=== PATIENT | male | born 1950 | race Caucasian/White ===

== ENCOUNTER → 2016-06-03 | Outpatient (CLI) | payer MEDICARE ==
[2016-06-03 10:45] LABS: CH 34.7; CHCM 33.5; HCT 47.1 % (39.0-53.0); HDW 2.18; HGB 15.2 gm/dL (13.0-17.5); MCH 33.6 pg (25.0-35.0); MCHC 32.3 g/dL (31.0-37.0); Macrocytosis Slight; Mean Platelet Volume 6.9; RBC 4.53 m/uL (4.30-5.90); WBC 4.9 k/uL (3.8-10.6)
[2016-06-03 10:52] LABS: Anion Gap 10 mmol/L; Blood Urea Nitrogen 17 mg/dL (9-20); Calcium 9.8 mg/dL (8.4-10.2); Carbon Dioxide 26 mmol/L (22-30); Chloride 104 mmol/L (98-107); Glucose 87 mg/dL (74-99); Non-African American GFR(MDRD) >60 (>60 ml/min/1.73 sqM); Potassium 5.5 mmol/L (3.5-5.1); Sodium 140 mmol/L (137-145)
== END | disposition home or self-care (01) ==
LOC: LABWHC1 09:56
PROVIDERS: ATTEND Internal Medicine Clinical Cardiac Electrophysiology
DX: I49.3 Ventricular premature depolarization (principal); I47.2 Ventricular tachycardia
CPT/HCPCS: 36415; 80048; 85027

== ENCOUNTER 2016-06-16 06:09 | Day surgery (SDC) | payer MEDICARE ==
[2016-06-11 14:18] VITALS: BMI 24.4
[2016-06-16] MEDS: SODIUM CHLORIDE 0.9% 1,000 ML IV SCH (06:36)
[2016-06-16] MEDS ORDERED: MIDAZOLAM 2 MG/2 ML VIAL IV PRN (06:56)
[2016-06-16] MEDS ORDERED: HYDROmorphone 1 MG/ML 1 ML SYRINGE IVP PRN (06:56)
[2016-06-16] MEDS ORDERED: LACTATED RINGERS 1,000 ML IV SCH (07:00)
[2016-06-16] MEDS ORDERED: ePHEDrine 50 MG/ML 1 ML AMP ONE (07:27)
[2016-06-16] MEDS ORDERED: GLYCOPYRROLATE 0.2 MG/ML 2 ML VIAL ONE (07:27)
[2016-06-16] MEDS ORDERED: PROTAMINE SULFATE 10 MG/ML 5 ML VIAL IV ONE (07:27)
[2016-06-16] MEDS ORDERED: ONDANSETRON 4 MG/2 ML VIAL ONE (07:27)
[2016-06-16] MEDS ORDERED: PROPOFOL 10 MG/ML 20 ML VIAL IV ONE (07:27)
[2016-06-16] MEDS ORDERED: HEPARIN SODIUM,PORCINE 5,000 UNIT/ML 1 ML VIAL ONE (07:27)
[2016-06-16] MEDS ORDERED: fentaNYL (PF) 50 MCG/ML 2 ML AMP ONE (07:27)
[2016-06-16] MEDS ORDERED: ATROPINE SULFATE 0.4 MG/ML 1 ML VIAL ONE (07:27)
[2016-06-16] MEDS ORDERED: MIDAZOLAM 2 MG/2 ML VIAL ONE (07:27)
[2016-06-16] MEDS ORDERED: ISOPROTERENOL 250 MCG/1.25 ML SYR IV ONE (07:27)
[2016-06-16] MEDS ORDERED: HEPARIN SODIUM 1,000 UNIT/ML VIAL ONE (07:27)
[2016-06-16] MEDS ORDERED: LIDOCAINE 2% INJ 20 MG/ML SQ ONE (08:04)
[2016-06-16] MEDS ORDERED: HEPARIN SODIUM (1,000 UNIT/ML) 1,000 UNIT in SODIUM CHLORIDE 0.9% 1,000 ML IRRIGATION ONE (08:18)
[2016-06-16] MEDS ORDERED: HEPARIN SODIUM,PORCINE/D5W PMX 25,000 UNIT in DEXTROSE/WATER 1 500ML.BAG IV ONE (08:18)
[2016-06-16] MEDS ORDERED: ACETAMINOPHEN TAB 325 MG TAB PO PRN (11:54)
[2016-06-16] MEDS ORDERED: ACETAMINOPHEN IV (For NPO) 1,000 MG in EMPTY BAG 1 BAG IVPB ONE (11:54)
[2016-06-16] MEDS ORDERED: IOHEXOL 350 MG/ML 50ML BOTTLE INJ ONE (12:20)
[2016-06-16] MEDS ORDERED: KETOROLAC 30 MG/ML 1 ML VIAL IVP ONE (13:11)
--- NOTE | 2016-06-16 13:57 | CE ---
DATE OF SERVICE: Sumeet Rosado is a 66-year-old male patient who has had increased frequency of palpitations. 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 He is brought in for an EP study mapping and ablation of the PVC. Patient was brought to the EP lab in a fasting state. Written informed consent was obtained prior to the procedure. The right and left groins were prepped and draped as per protocol. Venous sheaths were placed in the right and left femoral veins and an arterial sheath was placed in the femoral artery for hemodynamic monitoring and sampling. The patient's blood pressure was stable throughout the procedure. Through the procedure, heparin was used and ACT was maintained close to 300. Diagnostic catheters were placed in the high right atrium, His bundle area, RV and later CS. Sinus cycle length 790 ms, KS interval 210 ms, QRS 93 ms, QT 373 ms, AH interval 157 ms, HV interval 52 ms, he has had a prolonged KS interval at baseline. Sinus node recovery times at 600, 500 and 400 milliseconds were 1126, 793 and 699 milliseconds. AV node Wenckebach block in a likely sedated state was 400 ms. AV node ERP 500/310 ms, VA Wenckebach block greater than 600 ms. Burst stimulation was performed from the RV from 500 milliseconds down to 200 ms and no arrhythmia was induced. He had very infrequent PVCs in likely sedated state. But clinical PVCs were documented and captured on the caudal system. Isuprel was then started. CS pacing was performed. AV node Wenckebach block 260 ms. Atrial stimulation was performed. Ventricular extrastimulation was performed. No nonsustained sustained VT was induced. However, during Isuprel washout phase, the PVC frequency showed significant increase and the vast majority of these were his clinical premature ventricular contractions which showed a right bundle branch block pattern with an R/S pattern in lead I and deep S waves in 2, 3 aVF. He also had another PVC morphology from the left ventricle which is quite occasional and the third one from the right ventricle body. These are less frequent and when not targeted for ablation. The clinical PVC was targeted for ablation only. Intracardiac echocardiography was performed. The right ventricle and left ventricular aortic root was identified and the atrial septum was identified. 3-D anatomic mapping of the left ventricle was performed. The papillary muscles are clearly identified and mapped. An irrigated-tip ablation catheter was placed in the left ventricle via the retrograde route after using a long sheath. Initially I had used. A small sheath for the left femoral artery. This was prior to place the mapping and ablation catheter. A long sheath was placed. There was a tortuosity of the iliac veins. Paced mapping was performed using the pacemaker system PASO system, ( ). Excellent paced maps were obtained in between the papillary muscles in the mid LV. RF ablation was performed at the site of the best paced map, there were 2 sites very close to each other both with paced map of 97.8%. The proximal was slightly better in lead V1. RF ablations were performed here exactly at the site and around it and this will result in a flurry of clinical premature ventricular contractions upon ablation. The area was completely mapped in detail with paced mapping and successfully ablated using power of 30-35 thomas, contact force between 20 and 40 grams. At the end of the procedure, successful ablation site was tested with high output pacing. Noncapture was documented. In addition, grid was changed with the ablation grid was changed to 100% and there were no gaps in between the two best paced map sites. Patient tolerated the procedure well without any acute complications. Isuprel was once again started. He had very occasional clinical PVCs and very occasional other PVCs, one from the right ventricle and another one from the left ventricle. These were not targeted for mapping or ablation. No nonsustained ventricular tachycardia was induced. RESULT: 1. Diagnostic EP study revealing mildly prolonged KS interval, prolonged AH interval. 2. Frequent PVCs one dominant clinical morphology and the other nondominant one from the left ventricle and another nondominant one from the right ventricle body. 3. Successful ablation of the clinical PVC was performed with pace map accuracy of concordance of 97.8%. Patient tolerated the procedure well with acute complications. Sheaths were removed at the end of the procedure. Angio-Seal was applied with good peripheral pulses noted.
--- NOTE | 2016-06-16 14:00 | LTR ---
June 16, 2016 RE: Sumeet Rosado Gavin Dear Dr. Briceño: I had the pleasure of seeing Mr. Sumeet Rosado in electrophysiology follow-up. Mr. Sumeet Rosado underwent successful ablation of his clinical PVCs from the left ventricle. He does have other PVCs which are very infrequent and were not targeted for ablation. This should result in significant reduction in his clinical PVCs. He will be monitored overnight on telemetry and will be discharged tomorrow. I will see him again in the office in about a week. Thank you for entrusting me in the care of your patient. Warm regards, Sincerely, ANITA MALDONADO MD
[2016-06-16 16:23] VITALS: RESP 16
[2016-06-16] MEDS ORDERED: PNEUMOCOCCAL VACC-PNEUMOVAX 23 25 MCG/0.5 ML VIAL IM ONE (20:00)
[2016-06-16] MEDS: HYDROcodone/APAP 5-325MG 1 EACH TAB PO PRN (20:58)
[2016-06-17] MEDS: HYDROcodone/APAP 5-325MG 1 EACH TAB PO PRN (04:31)
[2016-06-17] MEDS: SODIUM CHLORIDE 0.9% 1,000 ML IV SCH (06:43)
[2016-06-17] MEDS ORDERED: PANTOPRAZOLE 40 MG TABLET PO SCH (07:30)
--- NOTE | 2016-06-17 07:54 | P.DS ---
Providers Attending physician: Kareem Garza Primary care physician: [facility] Course: Patient is doing well. Denies any chest discomfort no dizziness lightheadedness. He is been ablating in the hallways. No pain in the groins. No swelling or hematoma noted on examination in both groins Vitals are stable. Afebrile 97.7F, pulse rate in the 70s, blood pressure 131/64 mmHg No JVD No lower extremity edema, ulcers a well palpable both dorsalis pedis and tibialis posterior on the right side Heart sounds S1 and S2 are normal with a soft systolic murmur Breath sounds are normal no rhonchi no crackles Abdomen soft nontender Extremities are warm no edema Twelve-lead ECG was reviewed Sinus rhythm mildly prolonged MI interval no ST segment abnormalities Q-wave in 3 Impression Frequent symptomatic PVCs of increasing frequency, left-sided, inferior wall in between the papillary muscles Pace mapping concordance with clinical PVCs was 97.8% RF ablation at and around the site, non-capture with high output pacing following ablation Plan Ambulate in the hallways today to discharge by 10:30 AM if stable, follow-up in the office in a week Holter monitor in 6 weeks and follow-up with Dr. Marr in 8 weeks Patient Condition at Discharge: Good Plan - Discharge Summary Discharge Medication List Acetaminophen [Tylenol] 650 mg PO DAILY PRN 11/20/14 [History] Cetirizine HCl 10 mg PO DAILY 11/20/14 [History] Pantoprazole Sodium [Protonix] 40 mg PO DAILY 11/20/14 [History]
[2016-06-17 08:19] VITALS: BP 134/69; PULSE 76; TEMP 96.9
== END 2016-06-17 11:15 | disposition home or self-care (01) ==
LOC: CATHEP 06:09 → 6SEL 12:55 → CATHEP 06-17 11:15
PROVIDERS: ATTEND Internal Medicine Clinical Cardiac Electrophysiology
DX: I49.3 Ventricular premature depolarization (principal); R00.2 Palpitations; K21.9 Gastro-esophageal reflux disease without esophagitis; Z82.49 Family history of ischemic heart disease and other diseases of the circulatory system; Z79.899 Other long term (current) drug therapy; Z88.1 Allergy status to other antibiotic agents; Z87.891 Personal history of nicotine dependence
CPT/HCPCS: 93623; 93662; 93654; 85347; 84132; C1769 ×3; C1894 ×2; C1730 ×2; C1760; C1893; C1759; C1732; J2001; J2250; J2720; J0461; J1644 ×3; J2405; J3010; J1885; J1170; J0131; J2704; Q9967

== ENCOUNTER 2016-06-18 08:18 | Observation (INO) | payer MEDICARE ==
--- NOTE | 2016-06-18 08:56 | ED ---
General Adult HPI - General Source: patient, RN notes reviewed, old records reviewed Mode of arrival: wheelchair Limitations: no limitations <Tyrese Casanova - Last Filed: 06/18/16 11:15> <Jose Browning - Last Filed: 06/18/16 13:31> - General Chief complaint: Arrhythmia/Palpitations Stated complaint: irregular heart beat Time Seen by Provider: 06/18/16 08:48 - History of Present Illness Initial comments: Patient is a 66-year-old male who presents emergency room today with a chief complaint of feeling his heart rate skipped beats throughout the night. Admits that this morning felt very cold and clammy. States it started approximately 2 hours ago. States that he had a recent cardiac ablation done just 2 days ago and was released from the hospital yesterday. States he was somewhat tired yesterday but felt okay. States that this morning started feeling like his heart was skipping a beat and he felt sweaty and cold. Patient states that this time his not having the symptoms. He denies any other complaints or symptoms. Patient denies any recent fever, chills, shortness of breath, chest pain, back pain, abdominal pain, nausea or vomiting, numbness or tingling, dysuria or hematuria, constipation or diarrhea, headaches or visual changes, or any other complaints. (Tyrese Casanova) - Related Data Home Medications Medication Instructions Recorded Confirmed Cetirizine HCl 10 mg PO DAILY 11/20/14 06/18/16 Pantoprazole Sodium [Protonix] 40 mg PO DAILY 11/20/14 06/18/16 Aspirin 325 mg PO DAILY PRN 06/18/16 06/18/16 L.acidoph,Paracasei, B.lactis 1 cap PO DAILY 06/18/16 06/18/16 [Probiotic] Allergies Allergy/AdvReac Type Severity Reaction Status Date / Time ciprofloxacin Allergy Rash/Hives Verified 06/18/16 08:49 levofloxacin [From Levaquin] AdvReac Nausea Verified 06/18/16 08:49 SEASONAL ALLERGIES AdvReac SNEEZING Uncoded 06/18/16 08:25 Review of Systems ROS Other: All systems not noted in ROS Statement are negative. <Tyrese Casanova - Last Filed: 06/18/16 11:15> ROS Other: All systems not noted in ROS Statement are negative. <Jose Browning - Last Filed: 06/18/16 13:31> ROS Statement: Those systems with pertinent positive or pertinent negative responses have been documented in the HPI. Past Medical History History of Any Multi-Drug Resistant Organisms: None Reported Past Surgical History: Cardiac Ablation, Hernia Repair, Orthopedic Surgery Additional Past Surgical History / Comment(s): eye surgery, sinus surgery Past Psychological History: No Psychological Hx Reported Smoking Status: Never smoker Past Alcohol Use History: Occasional Past Drug Use History: None Reported <Tyrese Casanova - Last Filed: 06/18/16 11:15> General Exam Limitations: no limitations <Tyrese Casanova - Last Filed: 06/18/16 11:15> <Jose Browning - Last Filed: 06/18/16 13:31> - General Exam Comments Initial Comments: General: The patient is awake and alert, in no distress, and does not appear acutely ill. Eye: Pupils are equal, round and reactive to light, extra-ocular movements are intact. No nystagmus. There is normal conjunctiva bilaterally. No signs of icterus. Ears, nose, mouth and throat: There are moist mucous membranes and no oral lesions. Neck: The neck is supple, there is no tenderness or JVD. Cardiovascular: There is a regular rate and rhythm. No murmur, rub or gallop is appreciated. Respiratory: Lungs are clear to auscultation, respirations are non-labored, breath sounds are equal. No wheezes, stridor, rales, or rhonchi. Gastrointestinal: Soft, non-distended, non-tender abdomen without masses or organomegaly noted. There is no rebound or guarding present. No CVA tenderness. Bowel sounds are unremarkable. Musculoskeletal: Normal ROM, no tenderness. Strength 5/5. Sensation intact. Pulses equal bilaterally 2+. Neurological: A&O x 3. CN II-XII intact, There are no obvious motor or sensory deficits. Coordination appears grossly intact. Speech is normal. Skin: Skin is warm and dry and no rashes or lesions are noted. Psychiatric: Cooperative, appropriate mood & affect, normal judgment. (Tyrese Casanova) Course <Tyrese Casanova - Last Filed: 06/18/16 11:15> <Jose Browning - Last Filed: 06/18/16 13:31> Vital Signs 06/18/16 08:20 Temperature 97.0 F L Pulse Rate 74 Respiratory 20 Rate Blood Pressure 114/57 O2 Sat by Pulse 99 Oximetry - Reevaluation(s) Reevaluation #1: 06/18/16 11:12 Patient reexamined and resting comfortably in bed. Patient did have palpitations and diaphoresis. EKG has some questionable inferior changes. Dr. REGINA warren is in the Referral Nurse and was notified. Case was also discussed with Dr. flores, who will admit for Dr. Briceño. 06/18/16 13:[address] Marr who would like patient to be placed in observation under him. (Jose Browning) Medical Decision Making - Lab Data Result diagrams: 06/18/16 09:05 06/18/16 09:05 <Tyrese Casanova - Last Filed: 06/18/16 11:15> - Lab Data Result diagrams: 06/18/16 09:05 06/18/16 09:05 <Jose Browning - Last Filed: 06/18/16 13:31> - Lab Data Lab Results 06/18/16 06/18/16 06/18/16 Range/Units 09:05 09:05 09:05 WBC 6.6 (3.8-10.6) k/uL RBC 4.33 (4.30-5.90) m/uL Hgb 15.1 (13.0-17.5) gm/dL Hct 45.1 (39.0-53.0) % MCV 104.2 H (80.0-100.0) fL MCH 34.9 (25.0-35.0) pg MCHC 33.5 (31.0-37.0) g/dL RDW 12.6 (11.5-15.5) % Plt Count 190 (150-450) k/uL Neutrophils % 69 % Lymphocytes % 15 % Monocytes % 10 % Eosinophils % 2 % Basophils % 1 % Neutrophils # 4.5 (1.3-7.7) k/uL Lymphocytes # 1.0 (1.0-4.8) k/uL Monocytes # 0.7 (0-1.0) k/uL Eosinophils # 0.1 (0-0.7) k/uL Basophils # 0.0 (0-0.2) k/uL Macrocytosis Slight PT (9.0-12.0) sec INR (<1.1) APTT (22.0-30.0) sec Sodium 140 (137-145) mmol/L Potassium 4.0 (3.5-5.1) mmol/L Chloride 105 (98-107) mmol/L Carbon Dioxide 28 (22-30) mmol/L Anion Gap 7 mmol/L BUN 9 (9-20) mg/dL Creatinine 0.70 (0.66-1.25) mg/dL Est GFR (MDRD) Af Amer >60 (>60 ml/min/1.73 sqM) Est GFR (MDRD) Non-Af >60 (>60 ml/min/1.73 sqM) Glucose 85 (74-99) mg/dL Calcium 9.5 (8.4-10.2) mg/dL Magnesium 2.0 (1.6-2.3) mg/dL Total Bilirubin 1.0 (0.2-1.3) mg/dL AST 43 (17-59) U/L ALT 41 (21-72) U/L Alkaline Phosphatase 77 (38-126) U/L Total Creatine Kinase 128 (55-170) U/L CK-MB (CK-2) 2.9 H* (0.0-2.4) ng/mL CK-MB (CK-2) Rel Index 2.3 Troponin I 1.260 H* (0.000-0.034) ng/mL Total Protein 6.7 (6.3-8.2) g/dL Albumin 3.6 (3.5-5.0) g/dL 06/18/16 Range/Units 09:05 WBC (3.8-10.6) k/uL RBC (4.30-5.90) m/uL Hgb (13.0-17.5) gm/dL Hct (39.0-53.0) % MCV (80.0-100.0) fL MCH (25.0-35.0) pg MCHC (31.0-37.0) g/dL RDW (11.5-15.5) % Plt Count (150-450) k/uL Neutrophils % % Lymphocytes % % Monocytes % % Eosinophils % % Basophils % % Neutrophils # (1.3-7.7) k/uL Lymphocytes # (1.0-4.8) k/uL Monocytes # (0-1.0) k/uL Eosinophils # (0-0.7) k/uL Basophils # (0-0.2) k/uL Macrocytosis PT 10.4 (9.0-12.0) sec INR 1.0 (<1.1) APTT 24.1 (22.0-30.0) sec Sodium (137-145) mmol/L Potassium (3.5-5.1) mmol/L Chloride (98-107) mmol/L Carbon Dioxide (22-30) mmol/L Anion Gap mmol/L BUN (9-20) mg/dL Creatinine (0.66-1.25) mg/dL Est GFR (MDRD) Af Amer (>60 ml/min/1.73 sqM) Est GFR (MDRD) Non-Af (>60 ml/min/1.73 sqM) Glucose (74-99) mg/dL Calcium (8.4-10.2) mg/dL Magnesium (1.6-2.3) mg/dL Total Bilirubin (0.2-1.3) mg/dL AST (17-59) U/L ALT (21-72) U/L Alkaline Phosphatase (38-126) U/L Total Creatine Kinase (55-170) U/L CK-MB (CK-2) (0.0-2.4) ng/mL CK-MB (CK-2) Rel Index Troponin I (0.000-0.034) ng/mL Total Protein (6.3-8.2) g/dL Albumin (3.5-5.0) g/dL Disposition Time of Disposition: 11:15 <Tyrese Casanova - Last Filed: 06/18/16 11:15> <Jose Browning - Last Filed: 06/18/16 13:31> Clinical Impression: Unstable angina Disposition: ADMITTED IP TO THIS HOSP Condition: Stable Addendum entered and electronically signed by Tyrese Casanova PAC 06/18/16 11: 30: EKG performed at 0830: Shows sinus rhythm with first-degree AV block at 77 beats per minute. AR interval 218. QRS is 80. QT/QTC 382/432. No acute ST changes. Compared to previous EKG on 06/24/2013.
[2016-06-18 09:39] LABS: Basophils % (A) 1 %; CH 35.2; CHCM 33.9; Eosinophils # (A) 0.1 k/uL (0-0.7); Eosinophils % (A) 2 %; HCT 45.1 % (39.0-53.0); HDW 2.09; HGB 15.1 gm/dL (13.0-17.5); Luc # (Auto) 0.25; Luc % (Auto) 4; Lymphocytes % (A) 15 %; MCH 34.9 pg (25.0-35.0); MCHC 33.5 g/dL (31.0-37.0); MCV 104.2 fL (80.0-100.0); Macrocytosis Slight; Mean Platelet Volume 6.7; Monocytes # (A) 0.7 k/uL (0-1.0); Monocytes % (A) 10 %; Neutrophils # (A) 4.5 k/uL (1.3-7.7); Neutrophils % (A) 69 %; RBC 4.33 m/uL (4.30-5.90); RDW 12.6 % (11.5-15.5); WBC 6.6 k/uL (3.8-10.6); WBC (Perox) 6.32
--- NOTE | 2016-06-18 09:50 | XR ---
EXAMINATION TYPE: XR chest 2V DATE OF EXAM: 06/18/2016 9:44 AM COMPARISON: 06/24/2013 HISTORY: 66-year-old male with chest pain TECHNIQUE: Frontal and lateral views FINDINGS: The cardiomediastinal silhouette, aorta, and pulmonary vasculature are within normal limits. Some str thiago atelectasis in the lower lungs. Otherwise, lungs and pleural spaces are clear. IMPRESSION: Some lower lung areas of atelectasis. Otherwise, no acute cardiopulmonary process.
[2016-06-18 09:52] LABS: ALT 41 U/L (21-72); AST 43 U/L (17-59); Alkaline Phosphatase 77 U/L (38-126); Anion Gap 7 mmol/L; Blood Urea Nitrogen 9 mg/dL (9-20); Calcium 9.5 mg/dL (8.4-10.2); Carbon Dioxide 28 mmol/L (22-30); Chloride 105 mmol/L (98-107); Glucose 85 mg/dL (74-99); Non-African American GFR(MDRD) >60 (>60 ml/min/1.73 sqM); Sodium 140 mmol/L (137-145); Total Protein 6.7 g/dL (6.3-8.2)
[2016-06-18 09:58] LABS: Partial Thromboplastin Time 24.1 sec (22.0-30.0); Prothrombin Time 10.4 sec (9.0-12.0)
[2016-06-18 11:01] LABS: Creatine Kinase MB 2.9 ng/mL (0.0-2.4); Troponin I 1.26 ng/mL (0.000-0.034)
[2016-06-18] MEDS ORDERED: HEPARIN SODIUM,PORCINE 5,000 UNIT/ML 1 ML VIAL IV ONE (11:12)
[2016-06-18] MEDS ORDERED: SODIUM CHLORIDE 0.9% 1,000 ML IV ONE (11:12)
[2016-06-18] MEDS ORDERED: ASPIRIN 81 MG CHEW PO STA (11:12)
[2016-06-18] MEDS ORDERED: HEPARIN SODIUM,PORCINE/D5W PMX 25,000 UNIT in DEXTROSE/WATER 1 500ML.BAG IV SCH (11:15)
[2016-06-18 13:54] VITALS: RESP 18
[2016-06-18 17:15] LABS: Creatine Kinase MB 2.3 ng/mL (0.0-2.4)
[2016-06-18 17:16] LABS: Troponin I 1.14 ng/mL (0.000-0.034)
[2016-06-18] MEDS: NITROGLYCERIN OINT 1 INCH/GM PACKET TOPICAL SCH (17:19)
[2016-06-18] MEDS ORDERED: HYDROcodone/APAP 10-325MG 1 EACH TAB PO PRN (20:42)
[2016-06-18] MEDS ORDERED: TEMAZEPAM 30 MG CAP PO PRN (20:46)
[2016-06-18 22:39] LABS: Creatine Kinase MB 1.7 ng/mL (0.0-2.4)
[2016-06-18 22:46] LABS: Troponin I 1.2 ng/mL (0.000-0.034)
[2016-06-19 04:02] LABS: Cholesterol 197 mg/dL (<200); HDL Cholesterol 82 mg/dL (40-60); Triglycerides 88 mg/dL (<150)
[2016-06-19 06:22] VITALS: TEMP 97.9
--- NOTE | 2016-06-19 08:27 | P.HPCAR ---
History of Present Illness This is my admission note and also serves as the discharge note Patient was admitted yesterday with symptoms of feeling cold and sweaty. The night before he felt his heart skip a beat every now and then. He denied any chest discomfort no upper back discomfort although he always has low back pain from spondylolisthesis. No dizziness lightheadedness or loss of consciousness his main symptoms of feeling cold and sweaty yesterday morning and that's what brought him to the hospital His chest x-ray showed atelectasis Twelve-lead ECG shows sinus rhythm normal MO interval Q waves in lead 2 and S wave in 3 with T-wave inversions in inferior leads no other ST segment abnormalities. Give first troponin was 1.2 He was admitted started on IV heparin and aspirin Past history of frequent symptomatic PVCs status post ablation of the PVC focus in the inferior wall earlier this week Twelve-lead ECG on 17 June showed similar Q waves with T-wave inversions the next day following ablation Minimal coronary artery disease documented in 2014 Symptomatic PVCs and nonsustained ventricular tachycardia mostly from the inferior wall of the LV but he also has PVCs from the right ventricle and on the site in the LV. These PVCs with infrequent and were not targeted for ablation. Ablation was focused to the PVC originating in the inferior wall of the LV in between the papillary muscles and pace mapping revealed a concordance of 97.8% at the site of the ablation. Following ablation high output non- capture was documented that site Social history he is a former smoker Medication list was reviewed and as documented in the chart. He is on Protonix , probiotic, cetirizine and aspirin on a when necessary basis ALLERGIES to ciprofloxacin and levofloxacin Review of systems: No fever chills or rigors, no cough, phlegm or expectoration , no nausea, vomiting or diarrhea, no hematuria, dysuria, no musculoskeletal complaints, no strokes or seizures, no skin lesions. This morning he denies any chest discomfort in the pleuritic in nature, constant. He denies any upper back intrascapular discomfort. No shortness of breath no dizziness or lightheadedness. He has been ablating the hallways On examination. He was not orthostatic and multiple measurements were made He is afebrile 97.9F, pulse rate 67, blood pressure 120/63 mmHg Heart sounds S1 and S2 are normal Breath sounds are normal no rhonchi no crackles Abdomen is soft nontender Extremities are warm, no edema No JVD No lower extremity Impression Symptoms of feeling cold and sweaty but he was not orthostatic Twelve-lead ECG showed T-wave inversions in inferior leads and Q waves in lead 2 consistent with ablation along the inferior wall. This Is Not an Acute Myocardial Infarction did it represents a troponin leak following radiofrequency ablation in the left ventricular myocardium. The twelve-lead ECG is also consistent with ablation at the site There is no clinical evidence for pericardial tamponade He continues to have PVCs, occasional from different sites. No nonsustained ventricular tachycardia Nonsustained VT, frequent PVCs status post radio frequency ablation Post radio frequency ablation troponin leak and ECG changes that were documented 24 hours after the ablation also prior to his discharge at his recent admission Documented very mild coronary artery disease by cardiac catheterization 2015 Suggest Ambulate in the hallway Watch for any nonsustained VT Check orthostatics 2 baby aspirins daily Likely discharge later on today if stable I'll see him in the office next week, check his groins continue aspirin for one month Holter monitor and exercise treadmill stress test in about 6 weeks as planned Physical Exam Vitals: Vital Signs Temp Pulse Pulse Resp BP BP BP 06/19/16 04:00 97.9 F 67 18 06/19/16 00:00 97.1 F L 75 18 06/18/16 20:00 96.2 F L 79 18 06/18/16 19:30 77 121/75 129/82 06/18/16 18:18 96.3 F L 61 06/18/16 13:49 97.2 F L 80 18 134/70 BP Pulse Ox 06/19/16 04:00 120/63 95 06/19/16 00:00 142/78 94 L 06/18/16 20:00 141/73 96 06/18/16 19:30 130/76 06/18/16 18:18 146/71 100 06/18/16 13:49 97 Intake and Output 06/18/16 06/19/16 06/19/16 22:59 06:59 14:59 Intake Total 240 Balance 240 Intake: Oral 240 Other: # Voids 1 Weight 81.647 kg 82.6 kg Past Medical History Past Medical History: Asthma, Coronary Artery Disease (CAD), GERD/Reflux, GI Bleed, Osteoarthritis (OA) Additional Past Medical History / Comment(s): Mild CAD, PVCs, bronchitis, gastric ulcer, anemia, upper GI bleed, bilateral tinnitis, chronic back pain, numbness/tingling fingers. History of Any Multi-Drug Resistant Organisms: None Reported Past Surgical History: Cardiac Ablation, Hernia Repair, Orthopedic Surgery Additional Past Surgical History / Comment(s): 06/16/16 cardiac ablation of PVCs , bilateral cataract removal, bilateral rotator cuff sx, L foot bunionecomy/ hammer toe sx, sinus surgery, EGD/colonoscopy. Past Anesthesia/Blood Transfusion Reactions: No Reported Reaction Additional Past Anesthesia/Blood Transfusion Reaction / Comment(s): Pt has received blood in past without reaction. Past Psychological History: No Psychological Hx Reported Additional Psychological History / Comment(s): Pt resides with his spouse. He is independent. Smoking Status: Former smoker Past Alcohol Use History: Daily Additional Past Alcohol Use History / Comment(s): Pt smoked from [id number]. He drinks 2 beers a day. Past Drug Use History: None Reported - Past Family History Father Family Medical History: Congestive Heart Failure (CHF) Additional Family Medical History / Comment(s): Father was a smoker. Mother History Unknown: Yes Additional Family Medical History / Comment(s): Mother from homicide. Physical Examination Vital Signs Temp Pulse Pulse Resp BP BP BP 06/19/16 04:00 97.9 F 67 18 06/19/16 00:00 97.1 F L 75 18 06/18/16 20:00 96.2 F L 79 18 06/18/16 19:30 77 121/75 129/82 06/18/16 18:18 96.3 F L 61 06/18/16 13:49 97.2 F L 80 18 134/70 BP Pulse Ox 06/19/16 04:00 120/63 95 06/19/16 00:00 142/78 94 L 06/18/16 20:00 141/73 96 06/18/16 19:30 130/76 06/18/16 18:18 146/71 100 06/18/16 13:49 97 Intake and Output 06/18/16 06/19/16 06/19/16 22:59 06:59 14:59 Intake Total 240 Balance 240 Intake: Oral 240 Other: # Voids 1 Weight 81.647 kg 82.6 kg Results 06/18/16 09:05 06/18/16 09:05 Cardiac Enzymes 06/18/16 06/18/16 Range/Units 15:51 21:57 CK-MB (CK-2) 2.3 1.7 (0.0-2.4) ng/mL Troponin I 1.140 H* 1.200 H* (0.000-0.034) ng/mL Coagulation 06/19/16 Range/Units 06:10 APTT 34.9 H (22.0-30.0) sec Current Medications Generic Name Dose Route Start Last Admin Trade Name Freq PRN Reason Stop Dose Admin Hydrocodone Bitart/Acetaminophen 1 each 06/18/16 20:42 06/18/16 22:33 [place] 10 PO 1 each Q6H PRN Administration Pain Aspirin 162 mg 06/19/16 09:00 Aspirin PO DAILY JACK Sodium Chloride 1,000 mls @ 20 mls/hr 06/18/16 11:12 06/18/16 11:48 Saline 0.9% IV 06/19/16 11:11 20 mls/hr .Q24H ONE Administration Temazepam 30 mg 06/18/16 20:46 06/18/16 22:34 Restoril PO 30 mg HS PRN Administration Agitation Intake and Output 06/18/16 06/19/16 06/19/16 22:59 06:59 14:59 Intake Total 240 Balance 240 Intake: Oral 240 Other: # Voids 1 Weight 81.647 kg 82.6 kg
[2016-06-19] MEDS ORDERED: ASPIRIN 325 MG TAB PO SCH (09:00)
[2016-06-19] MEDS ORDERED: ASPIRIN 81 MG CHEW PO SCH (09:00)
[2016-06-19] MEDS: NITROGLYCERIN OINT 1 INCH/GM PACKET TOPICAL SCH ×3 (10:54→10:56)
--- NOTE | 2016-06-19 12:39 | P.DS ---
Providers Date of admission: 06/18/16 11:14 Attending physician: Kareem Garza Primary care physician: [facility] Course: Discharge note Patient was admitted yesterday with symptoms of feeling cold and sweaty. The night before he felt his heart skip a beat every now and then. He denied any chest discomfort no upper back discomfort although he always has low back pain from spondylolisthesis. No dizziness lightheadedness or loss of consciousness his main symptoms of feeling cold and sweaty yesterday morning and that's what brought him to the hospital His chest x-ray showed atelectasis Twelve-lead ECG shows sinus rhythm normal [place] interval Q waves in lead 2 and S wave in 3 with T-wave inversions in inferior leads no other ST segment abnormalities. Give first troponin was 1.2 He was admitted started on IV heparin and aspirin Past history of frequent symptomatic PVCs status post ablation of the PVC focus in the inferior wall earlier this week Twelve-lead ECG on 17 June showed similar Q waves with T-wave inversions the next day following ablation Minimal coronary artery disease documented in 2014 Symptomatic PVCs and nonsustained ventricular tachycardia mostly from the inferior wall of the LV but he also has PVCs from the right ventricle and on the site in the LV. These PVCs with infrequent and were not targeted for ablation. Ablation was focused to the PVC originating in the inferior wall of the LV in between the papillary muscles and pace mapping revealed a concordance of 97.8% at the site of the ablation. Following ablation high output non- capture was documented that site This morning he denies any chest discomfort in the pleuritic in nature, constant. He denies any upper back intrascapular discomfort. No shortness of breath no dizziness or lightheadedness. He has been ablating the hallways On examination. He was not orthostatic and multiple measurements were made He is afebrile 97.9F, pulse rate 67, blood pressure 120/63 mmHg Heart sounds S1 and S2 are normal Breath sounds are normal no rhonchi no crackles Abdomen is soft nontender Extremities are warm, no edema No JVD No lower extremity Impression Symptoms of feeling cold and sweaty but he was not orthostatic Twelve-lead ECG showed T-wave inversions in inferior leads and Q waves in lead 2 consistent with ablation along the inferior wall. This Is Not an Acute Myocardial Infarction did it represents a troponin leak following radiofrequency ablation in the left ventricular myocardium. The twelve-lead ECG is also consistent with ablation at the site There is no clinical evidence for pericardial tamponade He continues to have PVCs, occasional from different sites. No nonsustained ventricular tachycardia I made an exercise up and down the hallway and then made him jog, occasional PVCs noted no nonsustained ventricular tachycardia post ablation Final diagnosis Nonsustained VT, frequent PVCs status post radio frequency ablation Post radio frequency ablation troponin leak and ECG changes that were documented 24 hours after the ablation also prior to his discharge at his recent admission Documented very mild coronary artery disease by cardiac catheterization 2014 THIS IS NOT AN ACUTE MYOCARDIAL INFARCTION, no clinical evidence for pericardial tamponade Reason for admission was feeling nauseous and sweaty and cool , admitted by ER Suggest Ambulate in the hallway Watch for any nonsustained VT Check orthostatics 2 baby aspirins daily Likely discharge later on today if stable I'll see him in the office next week, check his groins continue aspirin for one month Holter monitor and exercise treadmill stress test in about 6 weeks as planned Patient Condition at Discharge: Stable Plan - Discharge Summary New Discharge Prescriptions: Aspirin EC [Ecotrin Low Dose] 162 mg PO DAILY #2 tablet. Discharge Medication List Cetirizine HCl 10 mg PO DAILY 11/20/14 [History] Pantoprazole Sodium [Protonix] 40 mg PO DAILY 11/20/14 [History] L.acidoph,Paracasei, B.lactis [Probiotic] 1 cap PO DAILY 06/18/16 [History] Aspirin EC [Ecotrin Low Dose] 162 mg PO DAILY #2 tablet. 06/19/16 [Rx] Follow up Appointment(s)/Referral(s): Roland Briceño MD [Primary Care Provider] - 2 Weeks Discharge Disposition: HOME SELF-CARE
[2016-06-19 13:13] VITALS: BP 132/70; PULSE 89
== END 2016-06-19 13:39 | disposition home or self-care (01) ==
LOC: EC 08:18 → 6SEL 11:14
PROVIDERS: ADMIT Internal Medicine Clinical Cardiac Electrophysiology; ATTEND Internal Medicine Clinical Cardiac Electrophysiology
DX: I47.2 Ventricular tachycardia (principal); I49.3 Ventricular premature depolarization; R11.0 Nausea; R61 Generalized hyperhidrosis; J30.2 Other seasonal allergic rhinitis; K21.9 Gastro-esophageal reflux disease without esophagitis; M43.10 Spondylolisthesis, site unspecified; K25.9 Gastric ulcer, unspecified as acute or chronic, without hemorrhage or perforation; Z79.899 Other long term (current) drug therapy; Z88.1 Allergy status to other antibiotic agents; I25.10 Atherosclerotic heart disease of native coronary artery without angina pectoris; Z87.891 Personal history of nicotine dependence; Z82.49 Family history of ischemic heart disease and other diseases of the circulatory system
CPT/HCPCS: 96366 ×5; 96376; 96365; 99285; 36415; 93005; 80061; 80053; 82550; 82553; 83735; 84484; 85025; 85610; 85730 ×2; 71020; G0378 ×2; J1644 ×2

== ENCOUNTER 2017-07-20 23:07 | Emergency (ER) | payer MEDICARE ==
[2017-07-20 23:13] VITALS: RESP 18
[2017-07-20] MEDS ORDERED: RX INFO: IV CONTRAST WAS GIVEN 1 EACH MISC MISCELLANE PRN (23:28)
[2017-07-20] MEDS ORDERED: MORPHINE SULFATE 4 MG/ML SYRINGE IV STA (23:29)
--- NOTE | 2017-07-20 23:37 | ED ---
Back Pain [facility] - General Chief Complaint: Back Pain/Injury Stated Complaint: back pain Time Seen by Provider: 07/20/17 23:14 Source: family, EMS Limitations: no limitations - History of Present Illness Initial Comments: This patient is a 67-year-old man who presents to be evaluated for post surgical back pain. The patient states that he has been having pain over the lumbar back and radiating to the right leg. He had a transfer Amer lumbar interbody fusion of L4-L5 and L5-S1 performed on 07/14/2017, at [facility] by Dr. Sharyn Wen. The patient states that the pain has been with him since that time but has been more intense over the past 24 hours or so. The patient has been taking the prescribed medications which are Flexeril and [place] , which to give a little bit of relief though he continues to have severe pain. Patient denies any problem with urination, including no loss of continence and no urinary retention. The patient has not had loss of control of bowel function. He states that he has had a touch of constipation associated with the pain medication, but he did have a bowel movement yesterday that he describes as normal. There is no saddle anesthesia. There is no weakness or numbness of the legs. MD Complaint: back pain -: days(s) Similar Symptoms Previously: No Place: home Radiation: right leg Severity: severe Severity scale (1-10): 9 Quality: burning, aching Consistency: constant Improves With: medication Worsens With: none Associated Symptoms: denies other symptoms - Related Data Home Medications Medication Instructions Recorded Confirmed Cetirizine HCl 10 mg PO DAILY 11/20/14 07/20/17 Pantoprazole Sodium [Protonix] 40 mg PO DAILY 11/20/14 07/20/17 Cyclobenzaprine [Flexeril] 5 mg PO TID 07/20/17 07/20/17 Docusate [Colace] 100 mg PO BID PRN 07/20/17 07/20/17 Hydrocodone/Acetaminophen 1 tab PO TID 07/20/17 07/20/17 [Hydrocodon-Acetaminophn 10-325] Previous Rx's Medication Instructions Recorded oxyCODONE-APAP 5-325MG [Percocet 1 tab PO Q6HR PRN 3 Days #12 tab 07/21/17 5-325 mg] Allergies Allergy/AdvReac Type Severity Reaction Status Date / Time ciprofloxacin Allergy Rash/Hives Verified 07/20/17 23:38 levofloxacin [From Levaquin] AdvReac Nausea Verified 07/20/17 23:38 SEASONAL ALLERGIES AdvReac SNEEZING Uncoded 07/20/17 23:12 Review of Systems ROS Statement: Those systems with pertinent positive or pertinent negative responses have been documented in the HPI. ROS Other: All systems not noted in ROS Statement are negative. Constitutional: Denies: fever, chills Respiratory: Denies: cough, dyspnea Cardiovascular: Denies: chest pain, palpitations, orthopnea, edema Gastrointestinal: Reports: constipation. Denies: abdominal pain, vomiting, diarrhea Genitourinary: Denies: dysuria, hematuria, testicular pain Musculoskeletal: Reports: as per HPI, back pain Skin: Denies: rash Neurological: Denies: headache, weakness, numbness Past Medical History Past Medical History: Asthma, Coronary Artery Disease (CAD), GERD/Reflux, GI Bleed, Osteoarthritis (OA) Additional Past Medical History / Comment(s): Mild CAD, PVCs, bronchitis, gastric ulcer, anemia, upper GI bleed, bilateral tinnitis, chronic back pain, numbness/tingling fingers. History of Any Multi-Drug Resistant Organisms: None Reported Past Surgical History: Cardiac Ablation, Hernia Repair, Orthopedic Surgery Additional Past Surgical History / Comment(s): 06/16/16 cardiac ablation of PVCs , bilateral cataract removal, bilateral rotator cuff sx, L foot bunionecomy/ hammer toe sx, sinus surgery, EGD/colonoscopy. cervical fusion and lumbar fusions Past Anesthesia/Blood Transfusion Reactions: No Reported Reaction Additional Past Anesthesia/Blood Transfusion Reaction / Comment(s): Pt has received blood in past without reaction. Past Psychological History: No Psychological Hx Reported Smoking Status: Former smoker Past Alcohol Use History: Daily Past Drug Use History: None Reported - Past Family History Mother Family Medical History: No Reported History Father Family Medical History: Congestive Heart Failure (CHF) Additional Family Medical History / Comment(s): Father was a smoker. General Exam Limitations: no limitations General appearance: alert, in no apparent distress Head exam: Present: atraumatic, normocephalic Neck exam: Present: normal inspection, full ROM Respiratory exam: Present: normal lung sounds bilaterally. Absent: respiratory distress, wheezes, rales, rhonchi, stridor Cardiovascular Exam: Present: regular rate, normal rhythm, normal heart sounds. Absent: systolic murmur, diastolic murmur, rubs, gallop GI/Abdominal exam: Present: soft. Absent: distended, tenderness, guarding, rebound, organomegaly, mass, pulsatile mass Extremities exam: Present: normal inspection, normal capillary refill. Absent: pedal edema, calf tenderness Back exam: Present: normal inspection, other (The patient's surgical incisions have a normal postoperative appearance. There is no abnormal erythema, warmth, or discharge. The surgical closure's are intact. The dressing is clean without any purulent material.). Absent: CVA tenderness (R), CVA tenderness (L) Neurological exam: Present: alert, reflexes normal. Absent: motor sensory deficit Skin exam: Present: warm, dry, intact, normal color. Absent: rash Course Vital Signs 07/20/17 07/21/17 23:07 00:56 Temperature 98.1 F 97.8 F Pulse Rate 69 85 Respiratory 18 18 Rate Blood Pressure 139/67 134/73 O2 Sat by Pulse 99 95 Oximetry Medical Decision Making - Lab Data Result diagrams: 07/20/17 23:33 07/20/17 23:33 Lab Results 07/20/17 07/20/17 Range/Units 23:33 23:33 WBC 6.6 (3.8-10.6) k/uL RBC 3.90 L (4.30-5.90) m/uL Hgb 13.0 (13.0-17.5) gm/dL Hct 38.5 L (39.0-53.0) % MCV 98.7 (80.0-100.0) fL MCH 33.4 (25.0-35.0) pg MCHC 33.9 (31.0-37.0) g/dL RDW 12.1 (11.5-15.5) % Plt Count 311 (150-450) k/uL Neutrophils % 64 % Lymphocytes % 16 % Monocytes % 6 % Eosinophils % 12 % Basophils % 0 % Neutrophils # 4.2 (1.3-7.7) k/uL Lymphocytes # 1.1 (1.0-4.8) k/uL Monocytes # 0.4 (0-1.0) k/uL Eosinophils # 0.8 H (0-0.7) k/uL Basophils # 0.0 (0-0.2) k/uL Sodium 139 (137-145) mmol/L Potassium 4.2 (3.5-5.1) mmol/L Chloride 106 (98-107) mmol/L Carbon Dioxide 23 (22-30) mmol/L Anion Gap 10 mmol/L BUN 18 (9-20) mg/dL Creatinine 0.60 L (0.66-1.25) mg/dL Est GFR (CKD-EPI)AfAm >90 (>60 ml/min/1.73 sqM) Est GFR (CKD-EPI)NonAf >90 (>60 ml/min/1.73 sqM) Glucose 101 H (74-99) mg/dL Calcium 9.2 (8.4-10.2) mg/dL C-Reactive Protein 24.5 H (<10.0) mg/L Disposition Clinical Impression: Post-op pain Disposition: HOME SELF-CARE Condition: Good Instructions: Acute Low Back Pain (ED) Prescriptions: oxyCODONE-APAP 5-325MG [Percocet 5-325 mg] 1 tab PO Q6HR PRN 3 Days #12 tab PRN Reason: Pain Is patient prescribed a controlled substance at d/c from ED?: Yes When asked, does pt state using other controlled substances?: Yes Referrals: Roland Briceño MD [Primary Care Provider] - 1-2 days
[2017-07-20 23:49] LABS: Basophils % (A) 0 %; Eosinophils # (A) 0.8 k/uL (0-0.7); Eosinophils % (A) 12 %; HCT 38.5 % (39.0-53.0); Lymphocytes # (A) 1.1 k/uL (1.0-4.8); Lymphocytes % (A) 16 %; MCH 33.4 pg (25.0-35.0); MCHC 33.9 g/dL (31.0-37.0); MCV 98.7 fL (80.0-100.0); Mean Platelet Volume 6.9; Monocytes # (A) 0.4 k/uL (0-1.0); Monocytes % (A) 6 %; Neutrophils # (A) 4.2 k/uL (1.3-7.7); Neutrophils % (A) 64 %; Platelet Count 311 k/uL (150-450); RDW 12.1 % (11.5-15.5); WBC 6.6 k/uL (3.8-10.6)
[2017-07-21 00:10] LABS: Anion Gap 10 mmol/L; Blood Urea Nitrogen 18 mg/dL (9-20); C Reactive Protein 24.5 mg/L (<10.0); Calcium 9.2 mg/dL (8.4-10.2); Carbon Dioxide 23 mmol/L (22-30); Chloride 106 mmol/L (98-107); Glucose 101 mg/dL (74-99); Potassium 4.2 mmol/L (3.5-5.1); Sodium 139 mmol/L (137-145)
--- NOTE | 2017-07-21 00:44 | CT ---
EXAMINATION TYPE: CT lumbar spine w con DATE OF EXAM: 07/21/2017 COMPARISON: NONE HISTORY: Lower Back pain CT DLP: 593.20 mGycm Automated exposure control for dose reduction was used. CONTRAST: CT scan of the lumbar is performed with IV Contrast, patient injected with 100 mL of Isovue 300. Enhanced CT of the lumbar spine was performed. Bone and soft tissue window settings are submitted as well as coronal and sagittal reconstructions. There are rods and screws fusing posteriorly the lumbar spine from L4 to S1. There is a 9 mm anterior subluxation of L5 in relation S1. I see no definite spondylolysis. There is no compression fracture. There is narrowing of L4-5 disc space. The sacroiliac joints are intact. I see no focal bone destruc tion. There is no lumbar paraspinal mass. I see no pathologic enhancement. There is no significant [place] spinal stenosis. IMPRESSION: Spondylotic changes. Degenerative first-degree L5-S1 spondylolisthesis. No fracture seen. There is cottrell bcutaneous edema over the lower lumbar spine could be recent postsurgical changes.
[2017-07-21 00:56] VITALS: BP 134/73; PULSE 85; TEMP 97.8
[2017-07-21] MEDS ORDERED: MORPHINE SULFATE 4 MG/ML SYRINGE IV STA (01:03)
== END 2017-07-21 01:21 | disposition home or self-care (01) ==
LOC: EC 23:07
DX: M54.5 Low back pain (principal); G89.18 Other acute postprocedural pain; K21.9 Gastro-esophageal reflux disease without esophagitis; M19.90 Unspecified osteoarthritis, unspecified site; Z98.1 Arthrodesis status; Z87.891 Personal history of nicotine dependence; Z79.891 Long term (current) use of opiate analgesic; Z79.899 Other long term (current) drug therapy; Z88.1 Allergy status to other antibiotic agents; Z91.048 Other nonmedicinal substance allergy status
CPT/HCPCS: 36415; 80048; 85025; 86140; 72132; 99284; 96374; 96376; J2270 ×2; Q9967

== ENCOUNTER → 2017-11-26 | Outpatient (CLI) | payer MEDICARE ==
--- NOTE | 2017-11-26 09:21 | US ---
EXAMINATION TYPE: US prostate transrectal DATE OF EXAM: 11/26/2017 COMPARISON: NONE CLINICAL HISTORY: N40.1 benign prostatic hypertrophy w/o flow obstru. BPH, slow/weak urine stream, fr equent urination This examination was performed using the transrectal probe. EXAM MEASUREMENTS: Gland Size: 4.4 x 2.3 x 4.9cm Volume: 25.9ml Predicted PSA: 3.1 Actual PSA (if available):0.7 Heterogeneous gland without any definite lesions seen at this time, calcifications seen within centra l zone. Seminal vesicles appear within normal limits. Prostate gland is heterogeneous in appearance with some central calcifications. No suspicious focal hypoechoic nodule is seen. Prostate gland measures upper limits of normal in size. IMPRESSION: Prostate is upper limits of normal in size without suspicious nodule identified. Predicted PSA = volume x 0.12 ng/ml Calculated Volume = 0.5236 x L x W x H
== END | disposition home or self-care (01) ==
LOC: RADUSMAIN 07:48
PROVIDERS: ATTEND Family Medicine
DX: N40.1 Benign prostatic hyperplasia with lower urinary tract symptoms (principal)
CPT/HCPCS: 76872

== ENCOUNTER 2019-11-10 12:43 | Observation (INO) | payer MEDICARE ==
[2019-11-10 13:17] LABS: Basophils % (A) 1 %; Eosinophils # (A) 0.1 k/uL (0-0.7); Eosinophils % (A) 1 %; HCT 38.6 % (39.0-53.0); HGB 12.4 gm/dL (13.0-17.5); Lymphocytes # (A) 0.9 k/uL (1.0-4.8); Lymphocytes % (A) 17 %; MCH 31.6 pg (25.0-35.0); MCHC 32.1 g/dL (31.0-37.0); MCV 98.2 fL (80.0-100.0); Mean Platelet Volume 6.6; Monocytes # (A) 0.4 k/uL (0-1.0); Monocytes % (A) 8 %; Neutrophils # (A) 3.5 k/uL (1.3-7.7); Neutrophils % (A) 70 %; Platelet Count 220 k/uL (150-450); RBC 3.93 m/uL (4.30-5.90); RDW 13.7 % (11.5-15.5)
--- NOTE | 2019-11-10 13:23 | ED ---
Headache HPI - General Chief Complaint: Headache Stated Complaint: Blured vision & headache Time Seen by Provider: 11/10/19 12:43 Source: patient, EMS, RN notes reviewed Mode of arrival: EMS Limitations: no limitations - History of Present Illness Initial Comments: This is a 69-year-old male who states he states this morning with a bitemporal headache dull aching nature moderate in severity he states he had blurry vision with it but no focal weakness is upper or lower extremities. No trauma reported no fevers chills sweats or other symptoms. He still has a blurry vision no somewhat improved. Diet is worse in the left. He does have a history cataract surgery in the past no other complaints or modifying factors MD Complaint: headache, other - Related Data Home Medications Medication Instructions Recorded Confirmed Cetirizine HCl 10 mg PO DAILY 11/20/14 11/10/19 Pantoprazole Sodium [Protonix] 40 mg PO DAILY 11/20/14 11/10/19 Magnesium 200 mg PO DAILY 11/10/19 11/10/19 Naproxen Sodium [Aleve] 440 mg PO DAILY 11/10/19 11/10/19 Tadalafil [Cialis] 5 mg PO DAILY 11/10/19 11/10/19 Allergies Allergy/AdvReac Type Severity Reaction Status Date / Time ciprofloxacin Allergy Rash/Hives Verified 11/10/19 13:37 levofloxacin [From Levaquin] AdvReac Nausea Verified 11/10/19 13:37 SEASONAL ALLERGIES AdvReac SNEEZING Uncoded 11/10/19 12:53 Review of Systems ROS Statement: Those systems with pertinent positive or pertinent negative responses have been documented in the HPI. ROS Other: All systems not noted in ROS Statement are negative. Past Medical History Past Medical History: Asthma, Coronary Artery Disease (CAD), GERD/Reflux, GI Bleed, Osteoarthritis (OA) Additional Past Medical History / Comment(s): Mild CAD, PVCs, bronchitis, gastric ulcer, anemia, upper GI bleed, bilateral tinnitis, chronic back pain, numbness/tingling fingers. History of Any Multi-Drug Resistant Organisms: None Reported Past Surgical History: Cardiac Ablation, Hernia Repair, Orthopedic Surgery Additional Past Surgical History / Comment(s): 06/16/16 cardiac ablation of PVCs, bilateral cataract removal, bilateral rotator cuff sx, L foot bunion ecomy/hammer toe sx, sinus surgery, EGD/colonoscopy. cervical fusion and lumbar fusions Past Anesthesia/Blood Transfusion Reactions: No Reported Reaction Additional Past Anesthesia/Blood Transfusion Reaction / Comment(s): Pt has received blood in past without reaction. Past Psychological History: No Psychological Hx Reported Smoking Status: Former smoker Past Alcohol Use History: Daily Past Drug Use History: None Reported - Past Family History Mother Family Medical History: No Reported History Father Family Medical History: Congestive Heart Failure (CHF) Additional Family Medical History / Comment(s): Father was a smoker. General Exam - General Exam Comments Initial Comments: This is a well-developed well-nourished awake alert oriented 3 male Limitations: no limitations General appearance: alert, in no apparent distress Head exam: Present: atraumatic, normocephalic, normal inspection Eye exam: Present: PERRL, EOMI, other (Bilateral arcus senilis more so on the right than the left). Absent: scleral icterus, conjunctival injection, periorbital swelling Pupils: Present: normal accommodation, other (Eyegrounds appear to be unrema rkable) ENT exam: Present: normal exam, mucous membranes moist Neck exam: Present: normal inspection, full ROM, other (No stridor JVD or bruits). Absent: tenderness, meningismus, lymphadenopathy Respiratory exam: Present: normal lung sounds bilaterally. Absent: respiratory distress, wheezes, rales, rhonchi, stridor Cardiovascular Exam: Present: regular rate, normal rhythm, normal heart sounds. Absent: systolic murmur, diastolic murmur, rubs, gallop, clicks GI/Abdominal exam: Present: soft, normal bowel sounds. Absent: distended, tenderness, guarding, rebound, rigid Extremities exam: Present: normal inspection, full ROM, normal capillary refill. Absent: tenderness, pedal edema, joint swelling, calf tenderness Back exam: Present: normal inspection Neurological exam: Present: alert, oriented X3, CN II-XII intact Psychiatric exam: Present: normal affect, normal mood Skin exam: Present: warm, dry, intact, normal color. Absent: rash Course Vital Signs 11/10/19 12:51 Temperature 98.4 F Pulse Rate 91 Respiratory 18 Rate Blood Pressure 152/68 O2 Sat by Pulse 98 Oximetry - Reevaluation(s) Reevaluation #1: 11/10/19 14:24 A she does state that his vision is improving though he still has blurry vision in the right eye. Intraocular pressures were performed pressure 16 left eye and 14 in the right eye. Medical Decision Making - Medical Decision Making I did discuss findings the patient and his were present. Due to the findings the CT does not seem to indicate anything acute the findings appear to be consistent with a TIA. Patient will be admitted with neurological consultation. I did discuss the case with Dr. Amaral who did see the patient in the emergency department - Lab Data Result diagrams: 11/10/19 13:05 11/10/19 13:05 Lab Results 11/10/19 11/10/19 11/10/19 Range/Units 13:05 13:05 13:05 WBC 5.0 (3.8-10.6) k/uL RBC 3.93 L (4.30-5.90) m/uL Hgb 12.4 L (13.0-17.5) gm/dL Hct 38.6 L (39.0-53.0) % MCV 98.2 (80.0-100.0) fL MCH 31.6 (25.0-35.0) pg MCHC 32.1 (31.0-37.0) g/dL RDW 13.7 (11.5-15.5) % Plt Count 220 (150-450) k/uL Neutrophils % 70 % Lymphocytes % 17 % Monocytes % 8 % Eosinophils % 1 % Basophils % 1 % Neutrophils # 3.5 (1.3-7.7) k/uL Lymphocytes # 0.9 L (1.0-4.8) k/uL Monocytes # 0.4 (0-1.0) k/uL Eosinophils # 0.1 (0-0.7) k/uL Basophils # 0.0 (0-0.2) k/uL PT 9.9 (9.0-12.0) sec INR 0.9 (<1.2) APTT 21.2 L (22.0-30.0) sec Sodium 134 L (137-145) mmol/L Potassium 4.6 (3.5-5.1) mmol/L Chloride 104 (98-107) mmol/L Carbon Dioxide 27 (22-30) mmol/L Anion Gap 3 mmol/L BUN 18 (9-20) mg/dL Creatinine 0.84 (0.66-1.25) mg/dL Est GFR (CKD-EPI)AfAm >90 (>60 ml/min/1.73 sqM) Est GFR (CKD-EPI)NonAf 88 (>60 ml/min/1.73 sqM) Glucose 112 H (74-99) mg/dL Calcium 9.1 (8.4-10.2) mg/dL Magnesium 2.0 (1.6-2.3) mg/dL Total Bilirubin 0.7 (0.2-1.3) mg/dL AST 31 (17-59) U/L ALT 23 (4-49) U/L Alkaline Phosphatase 68 (38-126) U/L Creatine Kinase 95 (55-170) U/L Troponin I (0.000-0.034) ng/mL Total Protein 6.4 (6.3-8.2) g/dL Albumin 3.7 (3.5-5.0) g/dL 11/10/19 Range/Units 13:05 WBC (3.8-10.6) k/uL RBC (4.30-5.90) m/uL Hgb (13.0-17.5) gm/dL Hct (39.0-53.0) % MCV (80.0-100.0) fL MCH (25.0-35.0) pg MCHC (31.0-37.0) g/dL RDW (11.5-15.5) % Plt Count (150-450) k/uL Neutrophils % % Lymphocytes % % Monocytes % % Eosinophils % % Basophils % % Neutrophils # (1.3-7.7) k/uL Lymphocytes # (1.0-4.8) k/uL Monocytes # (0-1.0) k/uL Eosinophils # (0-0.7) k/uL Basophils # (0-0.2) k/uL PT (9.0-12.0) sec INR (<1.2) APTT (22.0-30.0) sec Sodium (137-145) mmol/L Potassium (3.5-5.1) mmol/L Chloride (98-107) mmol/L Carbon Dioxide (22-30) mmol/L Anion Gap mmol/L BUN (9-20) mg/dL Creatinine (0.66-1.25) mg/dL Est GFR (CKD-EPI)AfAm (>60 ml/min/1.73 sqM) Est GFR (CKD-EPI)NonAf (>60 ml/min/1.73 sqM) Glucose (74-99) mg/dL Calcium (8.4-10.2) mg/dL Magnesium (1.6-2.3) mg/dL Total Bilirubin (0.2-1.3) mg/dL AST (17-59) U/L ALT (4-49) U/L Alkaline Phosphatase (38-126) U/L Creatine Kinase (55-170) U/L Troponin I <0.012 (0.000-0.034) ng/mL Total Protein (6.3-8.2) g/dL Albumin (3.5-5.0) g/dL - Radiology Data Radiology results: report reviewed (I did review the imaging and report no acute findings are seen at this time.), image reviewed Disposition Clinical Impression: TIA (transient ischemic attack), Visual changes, Temporal headache Disposition: ADMITTED IP TO THIS [facility] Condition: Stable Referrals: Roland Briceño MD [Primary Care Provider] - 1-2 days
[2019-11-10 13:26] LABS: ALT 23 U/L (4-49); AST 31 U/L (17-59); African American GFR (CKD) >90 (>60 ml/min/1.73 sqM); Albumin 3.7 g/dL (3.5-5.0); Alkaline Phosphatase 68 U/L (38-126); Anion Gap 3 mmol/L; Blood Urea Nitrogen 18 mg/dL (9-20); Calcium 9.1 mg/dL (8.4-10.2); Carbon Dioxide 27 mmol/L (22-30); Chloride 104 mmol/L (98-107); Creatine Kinase 95 U/L (55-170); Glucose 112 mg/dL (74-99); Non-African American GFR(CKD) 88 (>60 ml/min/1.73 sqM); Potassium 4.6 mmol/L (3.5-5.1); Sodium 134 mmol/L (137-145); Total Bilirubin 0.7 mg/dL (0.2-1.3); Total Protein 6.4 g/dL (6.3-8.2)
[2019-11-10 13:33] LABS: INR 0.9 (<1.2); Prothrombin Time 9.9 sec (9.0-12.0)
--- NOTE | 2019-11-10 13:34 | CT ---
EXAMINATION TYPE: CT brain wo con for TPA DATE OF EXAM: 11/10/2019 COMPARISON: 01/13/2011 HISTORY: Headache and blurred vision. CT DLP: 1130.[address] of the brain was performed. The ventricles, basal cisterns and sulci overlying the cerebral convexities demonstrate mild enlargem ent. There is no evidence for intracranial hemorrhage or sulcal effacement. There is decreased attenuation about the periventricular white matter and deep white matter of both c erebral hemispheres, compatible with chronic small vessel ischemia. Differential diagnosis does inclu de demyelination. No mass effects are seen.No midline shift. Osseous calvarium is intact. If symptoms persist consider MRI. IMPRESSION: 1. Age related atrophic and chronic small vessel ischemic change without acute intracranial process s een at this time.
[2019-11-10 13:45] LABS: Partial Thromboplastin Time 21.2 sec (22.0-30.0)
--- NOTE | 2019-11-10 13:49 | CT ---
EXAMINATION TYPE: CT angio head neck DATE OF EXAM: 11/10/2019 COMPARISON: None HISTORY: Headache and blurred vision. CT DLP: 494.7 mGycm CONTRAST: Performed with IV Contrast, patient injected with 65 mL of Isovue 370. Combination Contrast CTA cervical carotids and [place] of [place] CTA cervical carotids with 3-D recons truction Contrast CTA of the cervical carotids was performed 3-D reconstruction imaging obtained at a separate workstation. Right carotid system: Mild plaque is seen of the right common carotid artery. There is mild plaque a lso noted at the carotid bulb and proximal ICA. No significant diameter reduction. ECA is patent. Right vertebral artery appears unremarkable. Left carotid system: Mild plaque is seen of the left common carotid artery. There is mild plaque als o noted at the carotid bulb and proximal ICA. No significant diameter reduction. ECA is patent. Lef t vertebral artery appears unremarkable. IMPRESSION: 1. No significant diameter reduction to account for the patient's symptoms. CTA [place] of [place] with 3-D reconstruction Contrast CTA of the [place] of [place] was performed 3-D reconstruction imaging obtained at a separate workstation. Vertebrobasilar system as well as intracranial portions of the internal carotid arteries and their ma boaz tributaries are patent. I do not see evidence for sizable aneurysm or vascular malformation. Pl ease note MRI provides greater sensitivity and specificity. Visualized brain appears grossly unremar kable. IMPRESSION: 1. No significant abnormality.
--- NOTE | 2019-11-10 14:12 | XR ---
EXAMINATION TYPE: XR chest 2V DATE OF EXAM: 11/10/2019 COMPARISON: 06/18/2016 HISTORY: 69-year-old male with chest pain TECHNIQUE: PA and lateral views FINDINGS: The cardiomediastinal silhouette, aorta, and pulmonary vasculature are within normal limits. Lungs an d pleural spaces are clear. IMPRESSION: No acute cardiopulmonary process.
[2019-11-10] MEDS ORDERED: MAG HYDROX/AL HYDROX/SIMETH 30 ML CUP PO PRN (14:29)
[2019-11-10] MEDS ORDERED: LACTULOSE 20 GM/30 ML CUP PO PRN (14:29)
[2019-11-10] MEDS ORDERED: ONDANSETRON 4 MG/2 ML VIAL IVP PRN (14:29)
[2019-11-10] MEDS ORDERED: NALOXONE 0.4 MG/ML 1 ML VIAL IV PRN (14:29)
[2019-11-10] MEDS ORDERED: ACETAMINOPHEN TAB 325 MG TAB PO PRN (14:29)
[2019-11-10] MEDS ORDERED: MAGNESIUM HYDROXIDE 2,400 MG/10 ML CUP PO PRN (14:29)
--- NOTE | 2019-11-10 15:16 | P.HPIM ---
History of Present Illness H&P Date: 11/10/19 Chief Complaint: blurry vision History of presenting complaint: This is a very pleasant 69-year-old patient of Dr. Roland Briceño. Chronic stable medical conditions include GERD, prostatitis, nocturnal leg clamps. BPH. Patient this morning woke up around 634 dose of bloody vision. More so through his right eye. Also some frontal headache. No nausea vomiting. Denied any head injury. No weakness in the arms or legs. No changes speech or swallowing. No fever no chills. Computed tomography scan in the ER was negative. Patient had cataract surgery 2 or 3 years ago. Otherwise rather active. Review of systems: GEN.: None EYES: As above HEENT: None NECK: None RESPIRATORY: None CARDIOVASCULAR: None GASTROINTESTINAL: None GENITOURINARY: None MUSCULOSKELETAL: Joint pains LYMPHATICS: None HEMATOLOGICAL: None PSYCHIATRY: None NEUROLOGICAL: As above Past medical history to include: Asthma, GERD, Pankaj tinnitus, gastric ulcer, upper GI bleed, bilateral tinnitus, chronic low back pain, cardiac ablation of PVCs, cervical fusion and lumbar fusions Social history: Patient smoked for 9 years stopped in [employer]. Drinks 5-6 beers a day. . 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 EYES: Pupils equal. Conjunctiva normal. HEENT: External appearance of nose and ears normal, oral cavity grossly normal. NECK: JVD not raised; masses not palpable. HEART: First and second heart sounds are normal; no edema. LUNGS: Respiratory rate normal; clear to auscultation. ABDOMEN: Soft, nontender, liver spleen not palpable, no masses palpable. PSYCH: Alert and oriented x3; mood and affect normal. MUSCULAR skeletal: Evidence of OA especially in the hands and knees NEUROLOGICAL: Cranial nerves grossly intact; no facial asymmetry, power and sensation grossly intact bloody vision. Right more than left. LYMPHATICS: No lymph nodes palpable in the axilla and neck INVESTIGATIONS, reviewed in the clinical context: White count 5 hemoglobin 12.4 platelets 220 potassium 4.6 creatinine 0.84 Troponin I negative Computed tomography scan of the [id number] atrophic changes CT angiogram of the brain-nondistended and abnormality Chest x-ray film personally reviewed by me-lung hardy clear Assessment: -This is a patient who presents with blunting of the vision. More from the right eye. Slight frontal headache. No changes speech or any other focal symptoms. Patient's had cataract surgery both eyes over 2 years ago. No headache 3. CT angiogram of the brain also negative. Bedside tonometry by Dr. Gennaro Conte shows numbers of 14 and 16. patient has no other neurological deficit. -Essential hypertension -Primary osteoarthritis -GERD Plan: Patient will be empirically put on aspirin and Lipitor. MRI of the brain is being ordered. Home medications resumed. Carotid Doppler and 2-D echocardiogram moderate. Neuro checks. Neurology is consulted. Care was discussed at length with the patient and at the bedside. Past Medical History Past Medical History: Asthma, Coronary Artery Disease (CAD), GERD/Reflux, GI Bleed, Osteoarthritis (OA) Additional Past Medical History / Comment(s): Mild CAD, PVCs, bronchitis, gastric ulcer, anemia, upper GI bleed, bilateral tinnitis, chronic back pain, numbness/tingling fingers. History of Any Multi-Drug Resistant Organisms: None Reported Past Surgical History: Cardiac Ablation, Hernia Repair, Orthopedic Surgery Additional Past Surgical History / Comment(s): 06/16/16 cardiac ablation of PVCs, bilateral cataract removal, bilateral rotator cuff sx, L foot bunionecom y/hammer toe sx, sinus surgery, EGD/colonoscopy. cervical fusion and lumbar fusions Past Anesthesia/Blood Transfusion Reactions: No Reported Reaction Additional Past Anesthesia/Blood Transfusion Reaction / Comment(s): Pt has received blood in past without reaction. Past Psychological History: No Psychological Hx Reported Smoking Status: Former smoker Past Alcohol Use History: Daily Past Drug Use History: None Reported - Past Family History Mother Family Medical History: No Reported History Father Family Medical History: Congestive Heart Failure (CHF) Additional Family Medical History / Comment(s): Father was a smoker. Medications and Allergies Home Medications Medication Instructions Recorded Confirmed Type Cetirizine HCl 10 mg PO DAILY 11/20/14 11/10/19 History Pantoprazole Sodium [Protonix] 40 mg PO DAILY 11/20/14 11/10/19 History Magnesium 200 mg PO DAILY 11/10/19 11/10/19 History Naproxen Sodium [Aleve] 440 mg PO DAILY 11/10/19 11/10/19 History Tadalafil [Cialis] 5 mg PO DAILY 11/10/19 11/10/19 History Allergies Allergy/AdvReac Type Severity Reaction Status Date / Time ciprofloxacin Allergy Rash/Hives Verified 11/10/19 13:37 levofloxacin [From Levaquin] AdvReac Nausea Verified 11/10/19 13:37 SEASONAL ALLERGIES AdvReac SNEEZING Uncoded 11/10/19 12:53 Physical Exam Vitals: Vital Signs Temp Pulse Resp BP Pulse Ox 11/10/19 15:00 98.0 F 72 18 152/86 96 11/10/19 14:30 78 18 146/71 96 11/10/19 14:00 82 18 146/71 98 11/10/19 13:30 78 18 142/68 98 11/10/19 13:00 152/68 11/10/19 12:51 98.4 F 91 18 152/68 98 Intake and Output 11/10/19 11/10/19 11/10/19 06:59 14:59 22:59 Other: Weight 81.647 kg Results CBC & Chem 7: 11/10/19 13:05 11/10/19 13:05 Labs: Abnormal Lab Results - Last 24 Hours (Table) 11/10/19 11/10/19 11/10/19 Range/Units 13:05 13:05 13:05 RBC 3.93 L (4.30-5.90) m/uL Hgb 12.4 L (13.0-17.5) gm/dL Hct 38.6 L (39.0-53.0) % Lymphocytes # 0.9 L (1.0-4.8) k/uL APTT 21.2 L (22.0-30.0) sec Sodium 134 L (137-145) mmol/L Glucose 112 H (74-99) mg/dL
[2019-11-10] MEDS: ENOXAPARIN 40 MG/0.4 ML SYRINGE SQ SCH ×2 (16:10→17:10)
[2019-11-10] MEDS: ASPIRIN 81 MG PO SCH ×2 (16:11→17:10)
[2019-11-10] MEDS: SODIUM CHLORIDE 0.9% 1,000 ML IV SCH (16:11)
--- NOTE | 2019-11-10 16:37 | ECHOF ---
Referral Reason:r/o thrombus MEASUREMENTS -------- HEIGHT: 180.3 cm WEIGHT: 81.6 kg BP: IVSd: 1.1 cm (0.6 - 1.1) LVIDd: 4.2 cm (3.9 - 5.3) LVPWd: 1.1 cm (0.6 - 1.1) IVSs: 2.0 cm LVIDs: 2.1 cm LVPWs: 2.3 cm LAESV Index (A-L): 17.54 ml/m Ao Diam: 3.5 cm (2.0 - 3.7) AV Cusp: 2.0 cm (1.5 - 2.6) LA Diam: 3.2 cm (2.7 - 3.8) MV EXCURSION: 11.106 mm (> 18.000) MV EF SLOPE: 54 mm/s (70 - 150) EPSS: 0.6 cm MV E Brayden: 0.81 m/s MV DecT: 211 ms MV A Brayden: 1.19 m/s MV E/A Ratio: 0.68 RAP: 5.00 mmHg RVSP: 11.68 mmHg FINDINGS -------- Sinus rhythm. This was a technically good study. The left ventricular size is normal. Left ventricular wall thickness is normal. Overall left vent ricular systolic function is normal with, an EF between 55 - 60 %. The diastolic filling pattern is normal for the age of the patient 13.57. The right ventricle is normal in size. The left atrial size is normal. Normal LA size by volume 22+/-6 ml/m2. The right atrial size is normal. The aortic valve is trileaflet and appears structurally normal. The mitral valve is normal. There is trace mitral regurgitation. The tricuspid valve appears structurally normal. Trace tricuspid regurgitation present. Right carolyn tricular systolic pressure is normal at < 35 mmHg. Trace/mild (physiologic) pulmonic regurgitation. The aortic root size is normal. Normal inferior vena cava with normal inspiratory collapse consistent with estimated right atrial pre ssure of 5 mmHg. There is no pericardial effusion. CONCLUSIONS -------- 1. The left ventricular size is normal. 2. Left ventricular wall thickness is normal. 3. Overall left ventricular systolic function is normal with, an EF between 55 - 60 %. 4. The diastolic filling pattern is normal for the age of the patient 13.57 5. There is trace mitral regurgitation. 6. Trace tricuspid regurgitation present. 7. Trace/mild (physiologic) pulmonic regurgitation. 8. There is no pericardial effusion. LIVESTOCK EXHIBITOR: Vida Wolf RDCS
[2019-11-10] MEDS ORDERED: methylPREDNISolone SOD SUCCI 40 MG/ML 1 ML VIAL IV SCH (19:30)
--- NOTE | 2019-11-10 19:37 | P.CNNES ---
History of Present Illness Consult date: 11/10/19 Requesting physician: Gennaro Conte Reason for Consult: blurry vision of both eyes History of Present Illness: This is a 69-year-old right-handed gentleman with medical history of chronic lower back pain, cervical fusion, cataract surgery about to 3 years ago and ex- tobacco use that the presented to the emergency department on 11/10/2019 for blurry vision on both eyes the right more than the left patient woke up this m orning around 6:34am. Also the patient noticed that bilateral temporal headache(focal area at side of anterior temporal). Headaches are dull and was 3/10. There is no radiation of the headache. Denies any photophobia photophobia denies any nausea or vomiting. He said the blurry vision lasted up until 3-4 PM in the afternoon. He still continues to have this the bilateral temporal headache currently he states it's probably at the at 2/10. He denies having similar headache in the past similar to this. Denies any associated weakness numbness any slurring the speech any the difficulty getting his words out. Denies any neck pain associated with this. He denies any history of stroke or transient ischemic attack. He denies fevers or chills. On presentation the patient's initial vitals were blood pressure 152/68, heart rate of 91, respiratory of 18, temperature of 98.4 Fahrenheit orally, and pulse ox of 98. Patient had CT of the head which was reported as age-related atrophic and ch ronic small vessel ischemic change without acute intracranial process seen at this time. I reviewed the images and I didn't see any acute ischemia. CT angiogram of the head and neck was done and it was reported as no significant abnormality. Cardiac duplex was done and pending reported. Review of Systems Review of system: The 12 point system was reviewed and apparent positive and negative per HPI. Past Medical History Past Medical History: Asthma, Coronary Artery Disease (CAD), GERD/Reflux, GI Bleed, Osteoarthritis (OA) Additional Past Medical History / Comment(s): Mild CAD, PVCs, bronchitis, gastric ulcer, anemia, upper GI bleed, bilateral tinnitis, chronic back pain, History of Any Multi-Drug Resistant Organisms: None Reported Past Surgical History: Cardiac Ablation, Hernia Repair, Orthopedic Surgery Additional Past Surgical History / Comment(s): 06/16/16 cardiac ablation of PVCs, bilateral cataract removal, bilateral rotator cuff sx, L foot bunionecomy/hammer toe sx, sinus surgery, EGD/colonoscopy. cervical fusion and lumbar fusions Past Anesthesia/Blood Transfusion Reactions: No Reported Reaction Additional Past Anesthesia/Blood Transfusion Reaction / Comment(s): Pt has received blood in past without reaction. Past Psychological History: No Psychological Hx Reported Additional Psychological History / Comment(s): Pt resides with his spouse. He is independent. Smoking Status: Former smoker Past Alcohol Use History: Daily Additional Past Alcohol Use History / Comment(s): Pt smoked from 1022-8616. He drinks 2 beers a day. Past Drug Use History: None Reported - Past Family History Mother Family Medical History: No Reported History Father Family Medical History: Congestive Heart Failure (CHF) Additional Family Medical History / Comment(s): Father was a smoker. Medications and Allergies Home Medications Medication Instructions Recorded Confirmed Type Cetirizine HCl 10 mg PO DAILY 11/20/14 11/10/19 History Pantoprazole Sodium [Protonix] 40 mg PO DAILY 11/20/14 11/10/19 History Magnesium 200 mg PO DAILY 11/10/19 11/10/19 History Naproxen Sodium [Aleve] 440 mg PO DAILY 11/10/19 11/10/19 History Tadalafil [Cialis] 5 mg PO DAILY 11/10/19 11/10/19 History Allergies Allergy/AdvReac Type Severity Reaction Status Date / Time ciprofloxacin Allergy Rash/Hives Verified 11/10/19 13:37 levofloxacin [From Levaquin] AdvReac Nausea Verified 11/10/19 13:37 SEASONAL ALLERGIES AdvReac SNEEZING Uncoded 11/10/19 12:53 Physical Examination - Vital Signs Vital Signs: Vital Signs Temp Pulse Pulse Resp BP BP Pulse Ox 11/10/19 16:54 97 F L 85 16 148/66 98 11/10/19 15:00 98.0 F 72 18 152/86 96 11/10/19 14:30 78 18 146/71 96 11/10/19 14:00 82 18 146/71 98 11/10/19 13:30 78 18 142/68 98 11/10/19 13:00 152/68 11/10/19 12:51 98.4 F 91 18 152/68 98 Intake and Output 11/10/19 11/10/19 11/10/19 06:59 14:59 22:59 Other: Weight 81.647 kg 79.7 kg GENERAL: The patient is lying in bed and is not in acute distress. CHEST: The heart rate is regular rate rhythm. No murmurs to auscultation. No carotid bruit bilaterally. LUNG: Clear to auscultation bilaterally no wheezing noted throughout. Not labored breathing. ABDOMEN/GI: Bowel sounds present in all 4 quadrants. No tenderness to palpation throughout. NEUROLOGICAL: Higher mental function: The patient is awake, alert, oriented to self, place and time. Patient is following commands. No aphasia and no neglect. Cranial nerves: The pupils are round, 3mm bilaterally, equal and reactive to light and accommodation. Visual acuity is 20/40 OD and 20/20 OS without correction. Fundoscopy: attempted on both eyes but had hard time assessing. Visual hardy are full to confrontation throughout. Extraocular movement is in tact no nystagmus is noted. Facial sensation is normal to touch throughout. The facial strength is normal throughout. Hearing is normal bilaterally. Tongue is midline and moved [id number] without any difficulty. No dysarthria is noted. Shoulder shrug is normal bilaterally. Motor: The strength is 5 over 5 throughout. Normal tone and bulk. Cerebellum: Normal finger bilaterally. Sensation: Sensation is normal to touch throughout. Reflexes (right/left): 2+ bilaterally except at ankles are 1+ bilaterally. Plantars are downgoing bilaterally. Results Coagulation study: PT of 9.9, INR 0.9, PTT of 21.2. CRP was done in the ED and was the less than 5.0 - Laboratory Findings CBC and BMP: 11/10/19 13:05 11/10/19 13:05 Abnormal Lab Findings: Abnormal Labs 11/10/19 11/10/19 11/10/19 13:05 13:05 13:05 RBC 3.93 L Hgb 12.4 L Hct 38.6 L Lymphocytes # 0.9 L APTT 21.2 L Sodium 134 L Glucose 112 H Assessment and Plan Assessment: 69-year-old right-handed gentleman with medical history of chronic lower back pain, cervical fusion, cataract surgery about to 3 years ago and ex-tobacco use that the presented to the emergency department on 11/10/2019 for blurry vision on both eyes the right more than the left patient since woke-up this morning around 6:34am and felt it resolved by 3-4pm. Also the patient noticed that bilateral temporal area he has a dull headache he states that the was a 3/10. Denies any photophobia photophobia denies any nausea or vomiting. He denies similar headache as in the past. Blurry vision in both eyes right more than the left, associate with the bilateral temporal dull headache that mild. His symptoms are concerning for temporal arteritis (blurry vision resolved). History of cervical fusion Plan: CT of the head which was reported as age-related atrophic and chronic small vessel ischemic change without acute intracranial process seen at this time. CT of the head and neck was reported as normal Transthoracic echocardiogram done today and it was reported as left ventricular size is normal. The thickness is normal. Ejection fraction is 55-60%. Carotid duplex is pending report I ordered ESR stat. CRP was normal. Because of concern of temporal arteritis I placed the patient on IV Steroid 1200mg daily for 3 day then can be on PO steroid. If ESR is normal then the this being temporal arteritis is unlikely. I consulted the doctor Ophthamology (Dr. Jones). Dr. Kumar is consulted for temporal artery biopsy. Lipid panel is a pending He is currently on aspirin 162 mg daily as well as on Lipitor 20 mg daily was placed by the primary team. From a neurology perspective he could be on aspirin 81 mg set of 162 The plan was related to the primary team Thank you for the consult. Jasbir Greenwood M.D. Neuro-hospitalist Time with Patient: Greater than 30
--- NOTE | 2019-11-10 21:00 | US ---
EXAMINATION TYPE: US carotid duplex BILAT DATE OF EXAM: 11/10/2019 COMPARISON: NONE CLINICAL HISTORY: blurry vision. EXAM MEASUREMENTS: RIGHT: Peak Systolic Velocity (PSV) cm/sec ----- Right CCA: 82.7 ----- Right ICA: 117.0 ----- Right ECA: 160. ICA/CCA ratio: 1.42 RIGHT: End Diastole cm/sec ----- Right CCA: 22.1 ----- Right ICA: 38.0 ----- Right ECA: 18.6 LEFT: Peak Systolic Velocity (PSV) cm/sec ----- Left CCA: 96.5 ----- Left ICA: 137.0 ----- Left ECA: 137 ICA/CCA ratio: 1.42 LEFT: End Diastole cm/sec ----- Left CCA: 21.3 ----- Left ICA: 45.4 ----- Left ECA: 13.5 VERTEBRALS (direction of flow): Right Vertebral: Antegrade Left Vertebral: Antegrade Rhythm: Normal IMPRESSION: MILD ATHEROSCLEROTIC CHANGES WITH NO SIGNIFICANT STENOSIS.
[2019-11-10] MEDS: METHYLPREDNISOLONE SOD SUCC IVPB SCH (21:10)
[2019-11-10] MEDS: ATORVASTATIN 20 MG TAB PO SCH (21:10)
[2019-11-10] MEDS: MELATONIN 3 MG TABLET PO PRN (21:10)
[2019-11-10] MEDS: SODIUM CHLORIDE 0.9% IVPB SCH (21:10)
[2019-11-11] MEDS: PANTOPRAZOLE 40 MG TABLET PO SCH (06:32)
[2019-11-11 06:46] LABS: Glucose,Whole Blood 152 mg/dL (75-99)
[2019-11-11] MEDS: INSULIN ASPART (NovoLOG) 100 UNIT/ML VIAL SQ SCH ×4 (06:54→20:26)
[2019-11-11 07:33] LABS: Cholesterol 233 mg/dL (<200); Triglycerides 47 mg/dL (<150)
[2019-11-11 07:41] LABS: LDL Cholesterol,Calculated 101 mg/dL (0-99)
[2019-11-11 07:50] LABS: HDL Cholesterol 123 mg/dL (40-60)
[2019-11-11] MEDS: ENOXAPARIN 40 MG/0.4 ML SYRINGE SQ SCH (09:29)
[2019-11-11] MEDS: NAPROXEN 250 MG TAB PO SCH (09:29)
[2019-11-11] MEDS: MAGNESIUM OXIDE 400 MG TAB PO SCH (09:29)
[2019-11-11] MEDS: ASPIRIN 81 MG PO SCH (09:29)
[2019-11-11] MEDS: TADALAFIL PO SCH (09:30)
[2019-11-11 12:54] LABS: Glucose,Whole Blood 149 mg/dL (75-99)
--- NOTE | 2019-11-11 13:14 | P.GSHP ---
History of Present Illness 69-year-old white male, patient came with history of bladder blurry vision bilateral. Patient also has been complaining of bilateral temporal temporal headache. No history of any motor deficit. Patient had a complete stroke ileana p including CT of the brain CT angiogram and carotid ultrasound which was within normal limit. Patient had a blood work yesterday is 10 Neck examination neck is supple no bruit appreciated Chest is clear first and second sound normal there is good entry both lungs Abdomen is soft nontender Vascular brachial radial and femoral pulses are palpable tibial arteries palpable bilaterally patient still has some headaches and temporal area more on the right than on the left Plan is right temporal artery biopsy discussed with the Dr. Amaral and recovered recommendation from the neurologist we will arrange the risk interpretation discussed thank you Past Medical History Past Medical History: Asthma, Coronary Artery Disease (CAD), GERD/Reflux, GI Bleed, Osteoarthritis (OA) Additional Past Medical History / Comment(s): Mild CAD, PVCs, bronchitis, gastric ulcer, anemia, upper GI bleed, bilateral tinnitis, chronic back pain, History of Any Multi-Drug Resistant Organisms: None Reported Past Surgical History: Cardiac Ablation, Hernia Repair, Orthopedic Surgery Additional Past Surgical History / Comment(s): 06/16/16 cardiac ablation of PVCs, bilateral cataract removal, bilateral rotator cuff sx, L foot bunionecomy/hammer toe sx, sinus surgery, EGD/colonoscopy. cervical fusion and lumbar fusions Past Anesthesia/Blood Transfusion Reactions: No Reported Reaction Additional Past Anesthesia/Blood Transfusion Reaction / Comment(s): Pt has received blood in past without reaction. Past Psychological History: No Psychological Hx Reported Additional Psychological History / Comment(s): Pt resides with his spouse. He is independent. Smoking Status: Former smoker Past Alcohol Use History: Daily Additional Past Alcohol Use History / Comment(s): Pt smoked from 2433-1491. He drinks 2 beers a day. Past Drug Use History: None Reported - Past Family History Mother Family Medical History: No Reported History Father Family Medical History: Congestive Heart Failure (CHF) Additional Family Medical History / Comment(s): Father was a smoker. Medications and Allergies Home Medications Medication Instructions Recorded Confirmed Type Cetirizine HCl 10 mg PO DAILY 11/20/14 11/10/19 History Pantoprazole Sodium [Protonix] 40 mg PO DAILY 11/20/14 11/10/19 History Magnesium 200 mg PO DAILY 11/10/19 11/10/19 History Naproxen Sodium [Aleve] 440 mg PO DAILY 11/10/19 11/10/19 History Tadalafil [Cialis] 5 mg PO DAILY 11/10/19 11/10/19 History Allergies Allergy/AdvReac Type Severity Reaction Status Date / Time ciprofloxacin Allergy Rash/Hives Verified 11/10/19 13:37 levofloxacin [From Levaquin] AdvReac Nausea Verified 11/10/19 13:37 SEASONAL ALLERGIES AdvReac SNEEZING Uncoded 11/10/19 12:53 Surgical - Exam Vital Signs Temp Pulse Resp BP Pulse Ox 98.4 F 91 18 152/68 98 11/10/19 12:51 11/10/19 12:51 11/10/19 12:51 11/10/19 12:51 11/10/19 12:51 Results - Labs 11/10/19 13:05 11/10/19 13:05 Abnormal Lab Results - Last 24 Hours (Table) 11/10/19 11/10/19 11/10/19 Range/Units 13:05 13:05 13:05 RBC 3.93 L (4.30-5.90) m/uL Hgb 12.4 L (13.0-17.5) gm/dL Hct 38.6 L (39.0-53.0) % Lymphocytes # 0.9 L (1.0-4.8) k/uL APTT 21.2 L (22.0-30.0) sec Sodium 134 L (137-145) mmol/L Glucose 112 H (74-99) mg/dL POC Glucose (mg/dL) (75-99) mg/dL Cholesterol (<200) mg/dL LDL Cholesterol, Calc (0-99) mg/dL HDL Cholesterol (40-60) mg/dL 11/11/19 11/11/19 11/11/19 Range/Units 06:37 06:45 12:51 RBC (4.30-5.90) m/uL Hgb (13.0-17.5) gm/dL Hct (39.0-53.0) % Lymphocytes # (1.0-4.8) k/uL APTT (22.0-30.0) sec Sodium (137-145) mmol/L Glucose (74-99) mg/dL POC Glucose (mg/dL) 152 H 149 H (75-99) mg/dL Cholesterol 233 H (<200) mg/dL LDL Cholesterol, Calc 101 H (0-99) mg/dL HDL Cholesterol 123 H (40-60) mg/dL Diabetes panel 11/10/19 11/11/19 Range/Units 13:05 06:37 Sodium 134 L (137-145) mmol/L Potassium 4.6 (3.5-5.1) mmol/L Chloride 104 (98-107) mmol/L Carbon Dioxide 27 (22-30) mmol/L BUN 18 (9-20) mg/dL Creatinine 0.84 (0.66-1.25) mg/dL Glucose 112 H (74-99) mg/dL Calcium 9.1 (8.4-10.2) mg/dL AST 31 (17-59) U/L ALT 23 (4-49) U/L Alkaline Phosphatase 68 (38-126) U/L Total Protein 6.4 (6.3-8.2) g/dL Albumin 3.7 (3.5-5.0) g/dL Triglycerides 47 (<150) mg/dL HDL Cholesterol 123 H (40-60) mg/dL Calcium panel 11/10/19 Range/Units 13:05 Calcium 9.1 (8.4-10.2) mg/dL Albumin 3.7 (3.5-5.0) g/dL Pituitary panel 11/10/19 Range/Units 13:05 Sodium 134 L (137-145) mmol/L Potassium 4.6 (3.5-5.1) mmol/L Chloride 104 (98-107) mmol/L Carbon Dioxide 27 (22-30) mmol/L BUN 18 (9-20) mg/dL Creatinine 0.84 (0.66-1.25) mg/dL Glucose 112 H (74-99) mg/dL Calcium 9.1 (8.4-10.2) mg/dL Adrenal panel 11/10/19 Range/Units 13:05 Sodium 134 L (137-145) mmol/L Potassium 4.6 (3.5-5.1) mmol/L Chloride 104 (98-107) mmol/L Carbon Dioxide 27 (22-30) mmol/L BUN 18 (9-20) mg/dL Creatinine 0.84 (0.66-1.25) mg/dL Glucose 112 H (74-99) mg/dL Calcium 9.1 (8.4-10.2) mg/dL Total Bilirubin 0.7 (0.2-1.3) mg/dL AST 31 (17-59) U/L ALT 23 (4-49) U/L Alkaline Phosphatase 68 (38-126) U/L Total Protein 6.4 (6.3-8.2) g/dL Albumin 3.7 (3.5-5.0) g/dL
--- NOTE | 2019-11-11 13:29 | P.PN ---
Subjective Progress Note Date: 11/11/19 Upon seeing the patient that he stated that his blurry vision actually resolved after getting steroids. He feels his vision is much better today compared to yesterday at. He continues to have these minimal headache on the temporal side bilaterally which are to her out of 3/10 and he feels as a dull headache. Denies any nausea any vomiting. Patient denies any weakness any numbness. Denies any double vision. Objective - Vital Signs Vital signs: Vital Signs Temp 98.2 F 11/11/19 08:00 Pulse 60 11/11/19 03:00 Resp 17 11/11/19 08:00 BP 163/86 11/11/19 08:00 Pulse Ox 99 11/11/19 08:00 Intake & Output 11/10/19 11/11/19 11/11/19 18:59 06:59 18:59 Intake Total 120 118 Balance 120 118 Weight 79.7 kg 79.3 kg Intake: Oral 120 118 - Exam GENERAL: The patient is lying in bed and is not in acute distress. CHEST: The heart rate is regular rate rhythm. No murmurs to auscultation. No carotid bruit bilaterally. LUNG: Clear to auscultation bilaterally no wheezing noted throughout. Not labored breathing. ABDOMEN/GI: Bowel sounds present in all 4 quadrants. No tenderness to palpation throughout. NEUROLOGICAL: Higher mental function: The patient is awake, alert, oriented to self, place and time. Patient is following commands. No aphasia and no neglect. Cranial nerves: The pupils are round, 3mm bilaterally, equal and reactive to light and accommodation. Visual acuity is 20/40 OD and 20/20 OS without correction. Fundoscopy: attempted on both eyes but had hard time assessing. Visual hardy are full to confrontation throughout. Extraocular movement is intact no nystagmus is noted. Facial sensation is normal to touch throughout. The facial strength is normal throughout. Hearing is normal bilaterally. Tongue is midline and moved [id number] without any difficulty. No dysarthria is noted. Shoulder shrug is normal bilaterally. Motor: The strength is 5 over 5 throughout. Normal tone and bulk. Cerebellum: Normal finger bilaterally. Sensation: Sensation is normal to touch throughout. Reflexes (right/left): 2+ bilaterally except at ankles are 1+ bilaterally. Plantars are downgoing bilaterally. - Labs CBC & Chem 7: 11/10/19 13:05 11/10/19 13:05 Labs: Abnormal Lab Results - Last 24 Hours (Table) 11/10/19 11/10/19 11/11/19 Range/Units 13:05 13:05 06:37 APTT 21.2 L (22.0-30.0) sec Sodium 134 L (137-145) mmol/L Glucose 112 H (74-99) mg/dL POC Glucose (mg/dL) (75-99) mg/dL Cholesterol 233 H (<200) mg/dL LDL Cholesterol, Calc 101 H (0-99) mg/dL HDL Cholesterol 123 H (40-60) mg/dL 11/11/19 11/11/19 Range/Units 06:45 12:51 APTT (22.0-30.0) sec Sodium (137-145) mmol/L Glucose (74-99) mg/dL POC Glucose (mg/dL) 152 H 149 H (75-99) mg/dL Cholesterol (<200) mg/dL LDL Cholesterol, Calc (0-99) mg/dL HDL Cholesterol (40-60) mg/dL Assessment and Plan Assessment: 69-year-old right-handed gentleman with medical history of chronic lower back pain, cervical fusion, cataract surgery about to 3 years ago and ex-tobacco use that the presented to the emergency department on 11/10/2019 for blurry vision on both eyes the right more than the left patient since woke-up this morning around 6:34am and felt it resolved by 3-4pm. Also the patient noticed that bilateral temporal area he has a dull headache he states that the was a 3/10. Denies any photophobia photophobia denies any nausea or vomiting. He denies similar headache as in the past. Blurry vision in both eyes right more than the left, associate with the bilateral temporal dull headache that mild. His symptoms are concerning for temporal arteritis (blurry vision resolved)---blurry vision resolved. History of cervical fusion Plan: CT of the head which was reported as age-related atrophic and chronic small vessel ischemic change without acute intracranial process seen at this time. CT of the head and neck was reported as normal Transthoracic echocardiogram done today and it was reported as left ventricular size is normal. The thickness is normal. Ejection fraction is 55-60%. - I also personally reviewed that a CTA of the head and I didn't see any cavernous sinus thrombosis that was visible on the images. I discussed the case with the reading radiologist on 11/11/2019 and the asked and asked that if they can that look at the cavernous sinus again and that they stated that the from the images looks open and symmetrical from the images they have. Carotid duplex: Mild other sclerotic changes with no significant stenosis. ESR <10. . CRP was normal. Because of concern of temporal arteritis I placed the patient on IV Steroid 1200mg daily for 3 day (started on 11/10/19) then can be on tapering PO steroid. Since ESR is normal then the this being temporal arteritis is unlikely. I consulted Ophthamology team (Dr. Jones). Dr. Kumar is consulted for temporal artery biopsy. Lipid panel: Triglyceride of 47, cholesterol 233, LDL of 101, HDL of 123 He is currently on aspirin 162 mg daily as well as on Lipitor 20 mg daily was placed by the primary team. The plan was discussed with the patient as well as with a primary team. Jasbir Greenwood M.D. Neuro-hospitalist Time with Patient: Greater than 30
[2019-11-11] MEDS: SODIUM CHLORIDE 0.9% 1,000 ML IV SCH (15:29)
[2019-11-11] MEDS: LISINOPRIL-HCTZ 10-12.5 MG 1 EACH TAB PO SCH ×2 (15:39→20:29)
[2019-11-11 17:12] LABS: Glucose,Whole Blood 145 mg/dL (75-99)
--- NOTE | 2019-11-11 18:38 | MR ---
EXAMINATION TYPE: MR brain wo/w con DATE OF EXAM: 11/11/2019 COMPARISON: None HISTORY: Visual changes, temporal headache, possible stroke CONTRAST: Standard multiplanar, multisequence MRI departmental protocol utilizing 7.5 mL intravenous Gadavist g adolinium contrast. Ventricles have fairly normal size. There is no mass effect nor midline shift. There is mild cerebral atrophy. There is no sign of intracranial hemorrhage. There are small patchy foci of increased signa l in the periventricular white matter on the T2 and FLAIR images. These are more noticeable adjacent to the lateral ventricles in the corpus callosum. There is some thinning of the corpus callosum. Tota l number of lesions is approximately 25 and these measure up to 8 mm. Lesions are concentrated adjace nt to the ventricles. The brainstem is intact. Sella turcica appears normal. There is no evidence of acute cortical infarct. IMPRESSION: White matter signal changes could relate to demyelinating disease or chronic small vessel ischemia. N o evidence of cortical infarct.
--- NOTE | 2019-11-11 19:37 | CONS ---
CONSULTATION CHIEF COMPLAINT: Sudden diminution of vision in both eyes while driving one day ago. The patient was driving and he noticed his vision was getting worse. This was followed by a headache over the front of the head. He denied any double vision, vomiting or loss of vision in any eye. SURGERY HISTORY: Patient had cataract extraction both eyes a few years ago. EYE EXAMINATION: Vision 20/25 right eye and 20/25 left eye reading. Extraocular motility was full. Confrontation was normal. Pupils were equal and reactive with no relative afferent pupillary defect. Intraocular pressure was around 25 mmHg both eyes. Implants were in good position. Full retina exam was deferred. ASSESSMENT: 1. Amaurosis fugax (transient ischemic attack). 2. Possible temporal arteritis (giant cell arteritis). PLAN: Patient needs sedimentation rate and C-reactive protein. The patient may also have elevated eye pressure. Better to start him on Xalatan until re-evaluated in the office. I agree with MRI of the brain to rule out any brain disease or aneurysm. I will re- examine the patient on Thursday in the office at 9 a.m. Patient to report if any repeat of attacks of loss of vision happens or double vision. I will be happy to come back and re-evaluate. MMODL / IJN: [id number] /
[2019-11-11 20:26] LABS: Glucose,Whole Blood 136 mg/dL (75-99)
[2019-11-11] MEDS: SODIUM CHLORIDE 0.9% IVPB SCH (20:29)
[2019-11-11] MEDS: ATORVASTATIN 20 MG TAB PO SCH (20:29)
[2019-11-11] MEDS: METHYLPREDNISOLONE SOD SUCC IVPB SCH (20:29)
[2019-11-11] MEDS: MELATONIN 3 MG TABLET PO PRN (20:29)
[2019-11-11] MEDS ORDERED: LATANOPROST 0.005% OPHTH DROPS 2.5 ML BTL BOTH EYES SCH (21:00)
--- NOTE | 2019-11-11 21:36 | P.PN ---
Progress Note - Text Progress Note Date: 11/11/19 Chief Complaint: blurry vision History of presenting complaint: This is a very pleasant 69-year-old patient of Dr. Roland Briceño. Chronic stable medical conditions include GERD, prostatitis, nocturnal leg clamps. BPH. Patient this morning woke up around 634 dose of bloody vision. More so through his right eye. Also some frontal headache. No nausea vomiting. Denied any head injury. No weakness in the arms or legs. No changes speech or swallowing. No fever no chills. Computed tomography scan in the ER was negative. Patient had cataract surgery 2 or 3 years ago. Otherwise rather active. Today-patient is better. Able to respond. Very slight frontal headache. Feels much better. Review of systems: Was done for constitutional, cardiovascular, GI, pulmonary. Neurological, relevant finding as above Active Medications Acetaminophen (Tylenol Tab) 650 mg PO Q6HR PRN PRN Reason: Mild Pain or Fever > 100.5 Last Admin: 11/11/19 06:34 Dose: 650 mg Documented by: Al Hydroxide/Mg Hydroxide (Maalox) 15 ml PO Q6HR PRN PRN Reason: Indigestion Aspirin (Aspirin) 162 mg PO DAILY [facility] Last Admin: 11/11/19 09:29 Dose: 162 mg Documented by: Atorvastatin Calcium (Lipitor) 20 mg PO HS [facility] Last Admin: 11/11/19 20:29 Dose: 20 mg Documented by: Enoxaparin Sodium (Lovenox) 40 mg SQ DAILY [facility] Last Admin: 11/11/19 09:29 Dose: 40 mg Documented by: Lisinopril/HCTZ (Zestoretic 10-12.5) 1 each PO BID [facility] Last Admin: 11/11/19 20:29 Dose: 1 each Documented by: Sodium Chloride (Saline 0.9%) 1,000 mls @ 20 mls/hr IV .Q24H [facility] Last Admin: 11/11/19 15:29 Dose: Not Given Documented by: Methylprednisolone Sodium Succinate 1,200 mg/ Sodium Chloride 250 mls @ 250 mls/hr IVPB Q24H [facility] Stop: 11/12/19 20:59 Last Admin: 11/11/19 20:29 Dose: 250 mls/hr Documented by: Insulin Aspart (Novolog) 0 unit SQ ACHS [facility]; Protocol Last Admin: 11/11/19 20:26 Dose: Not Given Documented by: Lactulose (Cephulac) 20 gm PO DAILY PRN PRN Reason: Constipation Latanoprost (Xalatan 0.005%) 1 drops BOTH EYES [facility] Last Admin: 11/11/19 20:29 Dose: 1 drops Documented by: Magnesium Hydroxide (Milk Of Magnesia) 2,400 mg PO DAILY PRN PRN Reason: Constipation Last Admin: 11/11/19 20:29 Dose: 2,400 mg Documented by: Magnesium Oxide (Mag-Ox) 400 mg PO DAILY [facility] Last Admin: 11/11/19 09:29 Dose: 400 mg Documented by: Melatonin (Melatonin) 3 mg PO HS PRN PRN Reason: Insomnia Last Admin: 11/11/19 20:29 Dose: 3 mg Documented by: Naloxone HCl (Narcan) 0.2 mg IV Q2M PRN PRN Reason: Opioid Reversal Naproxen (Naprosyn) 500 mg PO DAILY [facility] Last Admin: 11/11/19 09:29 Dose: 500 mg Documented by: Tadalafil [Cialis] 5 mg PO DAILY [facility] Last Admin: 11/11/19 09:30 Dose: Not Given Documented by: Ondansetron HCl (Zofran) 4 mg IVP Q8HR PRN PRN Reason: Nausea And Vomiting Pantoprazole Sodium (Protonix) 40 mg PO AC-BRKFST [facility] Last Admin: 11/11/19 06:32 Dose: 40 mg Documented by: Physical examination: VITAL SIGNS: 98.2, 60, 17, 1 6096, 99% room air GENERAL: Sitting up in a chair, comfortable EYES: Pupils equal. Conjunctiva normal. HEENT: External appearance of nose and ears normal, oral cavity grossly normal. NECK: JVD not raised; masses not palpable. HEART: First and second heart sounds are normal; no edema. LUNGS: Respiratory rate normal; clear to auscultation. ABDOMEN: Soft, nontender, liver spleen not palpable, no masses palpable. PSYCH: Alert and oriented x3; mood and affect normal. NEUROLOGICAL: Cranial nerves grossly intact; no facial asymmetry, power and sensation grossly intact bloody vision. Right more than left. INVESTIGATIONS, reviewed in the clinical context: White count 5 hemoglobin 12.4 platelets 220 potassium 4.6 creatinine 0.84 Troponin I negative Computed tomography scan of the qirfz-rya-hhzanoa atrophic changes CT angiogram of the brain-nondistended and abnormality Chest x-ray film personally reviewed by me-lung hardy clear LDL 101 MRI of the brain-about 25 demyelinating lesions. Up to 8 mm. No acute stroke reported. ESR and CRP both normal Assessment: -This is a patient who presents with blunting of the vision. More from the right eye. Slight frontal headache. No changes speech or any other focal symptoms. Patient's had cataract surgery both eyes over 2 years ago. No headache 3. CT angiogram of the brain also negative. Bedside tonometry by Dr. Gennaro Conte shows numbers of 14 and 16. patient has no other neurological deficit. No radiological evidence of stroke. Labs the patient follow-up outpatient for neurology. -Essential hypertension -Primary osteoarthritis -GERD -Extreme unlikelihood of temporal arteritis. Plan: Discussed with Dr. Glover from vascular surgery. With the first few most likely this is not temporal arteritis. Discussed with Dr. Greenwood from neurology. He also feels the same now given that ESR is also normal. Given the safer side to do not temporal lobe biopsy tomorrow morning. Patient also seen by ophthalmology Dr. mccollum.
[2019-11-12 06:11] LABS: Glucose,Whole Blood 149 mg/dL (75-99)
[2019-11-12] MEDS: INSULIN ASPART (NovoLOG) 100 UNIT/ML VIAL SQ SCH ×2 (06:12→13:17)
[2019-11-12] MEDS: PANTOPRAZOLE 40 MG TABLET PO SCH (06:12)
[2019-11-12] MEDS ORDERED: PROPOFOL 10 MG/ML 20 ML VIAL IV ONE (07:55)
[2019-11-12] MEDS ORDERED: ceFAZolin 1,000 MG VIAL ONE (07:55)
[2019-11-12] MEDS ORDERED: MIDAZOLAM 2 MG/2 ML VIAL ONE (07:55)
[2019-11-12] MEDS ORDERED: LIDOCAINE 1% INJ 10MG/ML (20 ML MDV) ONE (07:55)
[2019-11-12] MEDS ORDERED: fentaNYL (PF) 50 MCG/ML 2 ML AMP ONE (07:55)
[2019-11-12] MEDS ORDERED: LACTATED RINGERS 1,000 ML IV ONE (07:55)
[2019-11-12] MEDS ORDERED: SODIUM CHLORIDE 0.9% 100 ML with ceFAZolin 2,000 MG IV ONE ×2 (08:02)
[2019-11-12] MEDS ORDERED: LIDOCAINE 1% INJ 10MG/ML (20 ML MDV) SQ ONE ×2 (08:13→08:55)
--- NOTE | 2019-11-12 10:37 | OP ---
OPERATIVE REPORT PREOPERATIVE DIAGNOSIS: Temporal arteritis. PROCEDURE PERFORMED: Right temporal artery biopsy. PROCEDURE IN DETAIL: This patient was brought to the operating room. The right side of the temporal area was prepped and draped in sterile manner and 1% lidocaine was infiltrated. Under anesthesia, an incision was made in the temporal area, deepened through skin, fat and fascia. Dissection was carried out along the temporal artery which was dissected proximally and distally and tied with 3-0 silk. The temporal artery was excised and sent for pathology. Hemostasis was well controlled. Incision was closed in 2 layers. Dressing applied. Patient tolerated the procedure well. MMODL / IJN: [id number] /
[2019-11-12] MEDS: ASPIRIN 81 MG PO SCH (11:39)
[2019-11-12] MEDS: NAPROXEN 250 MG TAB PO SCH (11:39)
[2019-11-12] MEDS: MAGNESIUM OXIDE 400 MG TAB PO SCH (11:39)
[2019-11-12] MEDS: LISINOPRIL-HCTZ 10-12.5 MG 1 EACH TAB PO SCH (11:40)
[2019-11-12] MEDS: TADALAFIL PO SCH (11:41)
[2019-11-12] MEDS: ENOXAPARIN 40 MG/0.4 ML SYRINGE SQ SCH (11:43)
[2019-11-12 13:03] LABS: Glucose,Whole Blood 193 mg/dL (75-99)
[2019-11-12 15:13] VITALS: BP 127/60; PULSE 91; RESP 18; TEMP 97.9
--- NOTE | 2019-11-12 20:38 | P.DS ---
Providers Date of admission: 11/10/19 14:26 Expected date of discharge: 11/12/19 Attending physician: Ishaan Amaral Consults: 11/10/19 14:27 Consult Physician Routine Consulting Provider: Jasbir Greenwood Consult Reason/Comments: Blurry vision, TIA, headache Do you want consulting provider notified?: Yes 11/10/19 19:58 Consult Physician Urgent Consulting Provider: Summer Schultz Consult Reason/Comments: concern for temporal arteritis Do you want consulting provider notified?: Yes, Notify in am 11/10/19 20:03 Consult Physician Routine Consulting Provider: Dax Kumar Consult Reason/Comments: temporal artery biopsy Do you want consulting provider notified?: Yes, Notify in am Primary care physician: Roland Briceño [facility] Course: Chief Complaint: blurry vision History of presenting complaint: This is a very pleasant 69-year-old patient of Dr. Roland Briceño. Chronic stable medical conditions include GERD, prostatitis, nocturnal leg clamps. BPH. Patient this morning woke up around 634 dose of bloody vision. More so through his right eye. Also some frontal headache. No nausea vomiting. Denied any head injury. No weakness in the arms or legs. No changes speech or swallowing. No fever no chills. Computed tomography scan in the ER was negative. Patient had cataract surgery 2 or 3 years ago. Otherwise rather active. Case was discussed with neurologist Dr. Benjamin, Dr. Kumar from vascular surgery. It was felt to be extremely unlikely for this to be temporal arteritis. Since then no other diagnosis neurology felt to start the patient IV Solu-Medrol. ESR CRP were both normal. Patient's symptoms had improved in 24 hours. MRI of the brain was unremarkable. TIA remaining differential. Patient also seen by Dr. Modi from ophthalmology. They'll follow-up the patient is an outpatient. Today-no new symptoms. Feeling well. Discussed with the patient. Patient be sent to on oral steroids. Had a temporal artery biopsy done today. Per Dr. Kumar. We'll follow-up neurology as an outpatient. Also started on antihypertensive. Discussion and discharge planning more than 35 minutes Consultation: Dr. Benjamin from neurology Dr. Kumar from vascular surgery Dr. Wheeler from ophthalmology Physical examination: VITAL SIGNS: 97.9, 91, 18, 127/60, 98% room air GENERAL: Sitting up in a chair, comfortable EYES: Pupils equal. Conjunctiva normal. HEENT: External appearance of nose and ears normal, oral cavity grossly normal. NECK: JVD not raised; masses not palpable. HEART: First and second heart sounds are normal; no edema. LUNGS: Respiratory rate normal; clear to auscultation. ABDOMEN: Soft, nontender, liver spleen not palpable, no masses palpable. PSYCH: Alert and oriented x3; mood and affect normal. NEUROLOGICAL: Cranial nerves grossly intact; no facial asymmetry, power and sensation grossly intact bloody vision. Right more than left. INVESTIGATIONS, reviewed in the clinical context: White count 5 hemoglobin 12.4 platelets 220 potassium 4.6 creatinine 0.84 Troponin I negative Computed tomography scan of the nqxsw-nqu-vwuczpe atrophic changes CT angiogram of the brain-nondistended and abnormality Chest x-ray film personally reviewed by me-lung hardy clear LDL 101 MRI of the brain-about 25 demyelinating lesions. Up to 8 mm. No acute stroke reported. ESR and CRP both normal Assessment: -Possible TIA. -Essential hypertension -Primary osteoarthritis -GERD -Extreme unlikelihood of temporal arteritis. -Hyperglycemia secondary to steroids. No diabetes. Disposition: Home Patient Condition at Discharge: Stable Plan - Discharge Summary Discharge Rx Participant: No New Discharge Prescriptions: New Aspirin 81 mg PO DAILY chew Atorvastatin [Lipitor] 20 mg PO HS #30 tab predniSONE 10 mg PO DAILY #30 tab Latanoprost Ophth [Xalatan 0.005%] 1 drops BOTH EYES HS #0 ml Lisinopril-Hctz 10-12.5 mg [Zestoretic 10-12.5] 1 each PO BID #60 tab Continue Pantoprazole Sodium [Protonix] 40 mg PO DAILY Naproxen Sodium [Aleve] 440 mg PO DAILY Tadalafil [Cialis] 5 mg PO DAILY Magnesium 200 mg PO DAILY Discontinued Cetirizine HCl 10 mg PO DAILY Discharge Medication List Pantoprazole Sodium [Protonix] 40 mg PO DAILY 11/20/14 [History] Magnesium 200 mg PO DAILY 11/10/19 [History] Naproxen Sodium [Aleve] 440 mg PO DAILY 11/10/19 [History] Tadalafil [Cialis] 5 mg PO DAILY 11/10/19 [History] Aspirin 81 mg PO DAILY chew 11/12/19 [Rx] Atorvastatin [Lipitor] 20 mg PO HS #30 tab 11/12/19 [Rx] Latanoprost Ophth [Xalatan 0.005%] 1 drops BOTH EYES HS #0 ml 11/12/19 [Rx] Lisinopril-Hctz 10-12.5 mg [Zestoretic 10-12.5] 1 each PO BID #60 tab 11/12/19 [Rx] predniSONE 10 mg PO DAILY #30 tab 11/12/19 [Rx] Follow up Appointment(s)/Referral(s): Roland Briceño MD [Primary Care Provider] - 10 Days (Please call and schedule follow up appointment. ) Sergo Wheeler MD [STAFF PHYSICIAN] - 11/22/19 (Please call and schedule follow up appointment. ) Jasbir Couch MD [STAFF PHYSICIAN] - 1 Week (Please call and schedule follow up appointment. ) Dax Kumar MD [STAFF PHYSICIAN] - 1 Week (Please call and schedule follow up appointment. ) Patient Instructions/Handouts: Transient Ischemic Attack (DC), Temporal Arteritis (DC), Excision of Skin Lesion (DC) Discharge Disposition: HOME SELF-CARE
== END 2019-11-12 17:22 | disposition home or self-care (01) ==
LOC: EC 12:43 → 3SCARD 14:26
PROVIDERS: ADMIT Hospitalist; ATTEND Hospitalist
DX: R51 Headache (principal); H53.8 Other visual disturbances; G45.3 Amaurosis fugax; I10 Essential (primary) hypertension; K21.9 Gastro-esophageal reflux disease without esophagitis; N41.9 Inflammatory disease of prostate, unspecified; N40.0 Benign prostatic hyperplasia without lower urinary tract symptoms; J45.909 Unspecified asthma, uncomplicated; M54.5 Low back pain; Z79.899 Other long term (current) drug therapy; Z87.891 Personal history of nicotine dependence; Z98.1 Arthrodesis status; M19.91 Primary osteoarthritis, unspecified site; I25.10 Atherosclerotic heart disease of native coronary artery without angina pectoris; T38.0X5A Adverse effect of glucocorticoids and synthetic analogues, initial encounter
CPT/HCPCS: 96365; 96372 ×2; 99285; 36415; 93306; 97161; 97165; 88305; 80061; 80053; 85652; 82550; 83735; 84484; 85025; 85610; 85730; 86140; 71046; 93880; 70496; 70450; 70498; 70553; 37609; G0378 ×3; J2250; J0690; J2930 ×2; J2001; J1650 ×3; J3010; J2704; A9585; Q9967; 93005

== ENCOUNTER 2020-01-10 09:25 | Day surgery (SDC) | payer MEDICARE ==
[2020-01-09 13:17] VITALS: BMI 24.4
[~2020-01-10 09:25] MED LIST: LACTATED RINGERS 1,000 ML IV SCH
[2020-01-10 09:45] VITALS: TEMP 98
[2020-01-10] MEDS ORDERED: TRIAMCINOLONE ACETONIDE 40 MG/ML 1 ML VIAL ONE (10:17)
[2020-01-10] MEDS ORDERED: ROPIVACAINE 5MG/ML 20ML VIAL ONE (10:17)
--- NOTE | 2020-01-10 10:17 | P.CONS ---
History of Present Illness - Reason for Consult Consult date: 01/10/20 - Chief Complaint Lower back pain - History of Present Illness This is a 69-year-old gentleman with history of chronic lower back pain and back surgeries. The pain is mostly in his lower back with occasional radiation to the legs. The patient denies any paresthesia or any weakness in the lower extremities. He also denies any nocturnal pain or any weight loss recently. There is no bowel or bladder dysfunction. The pain gets worse by increasing activities and improves by resting. The patient had physical therapy previously with no good response. Past Medical History Past Medical History: GERD/Reflux, GI Bleed, Osteoarthritis (OA), Prostate Disorder Additional Past Medical History / Comment(s): PVCs, bronchitis, gastric ulcer, anemia, upper GI bleed, bilateral tinnitis, chronic back pain, hiatal hernia, degenerative disk, History of Any Multi-Drug Resistant Organisms: None Reported Past Surgical History: Back Surgery, Cardiac Ablation, Hernia Repair, Orthopedic Surgery Additional Past Surgical History / Comment(s): bilateral cataract removal, bilateral rotator cuff sx, L foot bunionecomy/hammer toe sx, sinus surgery, EGD/colonoscopy. cervical fusion and lumbar fusions Past Anesthesia/Blood Transfusion Reactions: No Reported Reaction Additional Past Anesthesia/Blood Transfusion Reaction / Comm: Pt has received blood in past without reaction. Smoking Status: Former smoker - Past Family History Mother Family Medical History: No Reported History Father Family Medical History: Congestive Heart Failure (CHF) Additional Family Medical History / Comment(s): Father was a smoker. Medications and Allergies Home Medications Medication Instructions Recorded Confirmed Type Pantoprazole Sodium [Protonix] 40 mg PO DAILY 11/20/14 01/10/20 History Magnesium 200 mg PO DAILY 11/10/19 01/09/20 History Naproxen Sodium [Aleve] 440 mg PO DAILY 11/10/19 01/09/20 History Tadalafil [Cialis] 5 mg PO HS 01/09/20 01/09/20 History Allergies Allergy/AdvReac Type Severity Reaction Status Date / Time ciprofloxacin Allergy Rash/Hives Verified 01/09/20 13:07 levofloxacin [From Levaquin] AdvReac Nausea Verified 01/09/20 13:07 SEASONAL ALLERGIES AdvReac SNEEZING Uncoded 01/09/20 13:07 Physical Exam Vitals: Vital Signs Temp Pulse Resp BP Pulse Ox 01/10/20 09:42 98 F 75 16 160/70 100 Intake and Output 01/09/20 01/10/20 01/10/20 22:59 06:59 14:59 Other: Weight 84.8 kg - Constitutional General appearance: average body habitus - EENT Eyes: PERRLA - Integumentary Integumentary: no calor, no cellulitis, no cyanotic, no decreased turgor, no flushed, no jaundiced, no normal, no normal turgor, no pale, no rash, no ulcer - Neurologic Normal muscle strength in the lower extremities bilaterally. Straight leg raising test negative bilaterally. Ray's test is mildly positive on both sides. Positive tenderness in the lumbar paravertebral musculature bilaterally. Neurologic: CNII-XII intact - Psychiatric Psychiatric: A&O x's 3, appropriate affect, intact judgment & insight Assessment and Plan Plan: This is a 69-year-old gentleman with mostly axial lower back pain with no paresthesia or pain in the lower extremities. Differential diagnosis includes: Bilateral sacroiliitis Lumbar spondylosis without myelopathy Failed back surgery syndrome The patient may benefit from a diagnostic sacroiliac joint steroid injection under fluoroscopic guidance bilaterally. I thank you for the referral
--- NOTE | 2020-01-10 10:30 | P.PCN ---
Date of Procedure: 01/10/20 Surgeon: Ebenezer Dick Pathology: none sent Condition: stable Disposition: PACU Description of Procedure: Preoperative diagnoses= bilateral sacroiliac joint dysfunction and sacroiliitis Postoperative diagnoses= same as preoperative diagnosis. Procedure= bilateral sacroiliac joint steroid injection under fluoroscopic guidance. Anesthesia= local anesthesia with lidocaine 1% only. Estimated blood loss=minimal. Procedure description= the patient was seen and identified in the preoperative holding area, risks and benefits and alternative of the procedure and possible complications discussed with the patient, patient signed the consent. an IV was started, and vital signs were monitored and were stable throughout the procedure, patient was placed in the prone position or table and the lumbosacral area was prepped and draped with a sterile fashion, vital signs were closely monitored during the procedure.The right sacroiliac joint was identified on the AP view of fluoroscopy then the C-arm was tilted to the contralateral oblique position to superimpose the anterior and posterior joint lines on each other and to have a unified joint line with the target point at the inferior one third of this line. I used 22-gauge 3-1/2 inch Quincke spinal needle for this procedure and after getting into the sacroiliac joint I injected 20 mg of Kenalog +2 MLS of Ropivacaine 0.5%. The opposite side was done in the same manner .Patient tolerated the procedure well without any complication, The patient returned to supine position after the back was cleaned and a Band- Aid applied, the patient transported to recovery room in stable condition and he was monitored for 30 minutes before she was discharged home in stable condition . patient will follow up with the pain clinic in a few weeks. A copy of the needle placement was saved to the C-arm machine.
[2020-01-10 10:39] VITALS: RESP 20
[2020-01-10 10:55] VITALS: BP 146/82; PULSE 62
--- NOTE | 2020-01-10 11:53 | FL ---
EXAMINATION TYPE: FL guided pain mgmt statistic DATE OF EXAM: 01/10/2020 FLUOROSCOPY Fluoroscopy time of 9 seconds was used during bilateral SI joint injection. 2 image/s document/s the procedure.
== END 2020-01-10 10:55 | disposition home or self-care (01) ==
LOC: ORPAIN 09:25
PROVIDERS: ATTEND Anesthesiology
DX: G89.29 Other chronic pain (principal); M53.3 Sacrococcygeal disorders, not elsewhere classified; M46.1 Sacroiliitis, not elsewhere classified; M70.70 Other bursitis of hip, unspecified hip; M54.14 Radiculopathy, thoracic region; M51.16 Intervertebral disc disorders with radiculopathy, lumbar region; K21.9 Gastro-esophageal reflux disease without esophagitis; M19.90 Unspecified osteoarthritis, unspecified site; I49.3 Ventricular premature depolarization; H93.13 Tinnitus, bilateral; J30.2 Other seasonal allergic rhinitis; Z98.890 Other specified postprocedural states; Z87.19 Personal history of other diseases of the digestive system; Z87.438 Personal history of other diseases of male genital organs; Z87.09 Personal history of other diseases of the respiratory system; Z87.11 Personal history of peptic ulcer disease; Z86.2 Personal history of diseases of the blood and blood-forming organs and certain disorders involving the immune mechanism; Z98.41 Cataract extraction status, right eye; Z98.42 Cataract extraction status, left eye; Z87.39 Personal history of other diseases of the musculoskeletal system and connective tissue; Z98.1 Arthrodesis status; Z87.891 Personal history of nicotine dependence; Z79.899 Other long term (current) drug therapy; Z79.1 Long term (current) use of non-steroidal anti-inflammatories (NSAID); Z88.1 Allergy status to other antibiotic agents; Z82.49 Family history of ischemic heart disease and other diseases of the circulatory system; Z81.2 Family history of tobacco abuse and dependence; Y93.9 Activity, unspecified
CPT/HCPCS: J3301; J2795; G0260

== ENCOUNTER → 2020-02-06 | Outpatient (CLI) | payer MEDICARE ==
[2020-02-06 11:09] VITALS: BP 148/76; PULSE 97; RESP 18; TEMP 97.8
--- NOTE | 2020-02-06 11:25 | P.PAINPG ---
Subjective Progress Note Date: 02/06/20 - History of Present Illness This is a 69-year-old gentleman with history of chronic lower back pain and back surgeries whom we saw as an inpatient consult on 01/10/20. The pain is mostly in his lower back with occasional radiation to the legs.We felt his pain may be mediated by his sacroiliac joints and performed bilateral SI joint injection x 2 on 01/10/20. Of Note he has seen Dr. Alfredo in the past and has had epidurals and cervical epidural steroid injection. Patients of the reason SI joint injections were relatively helpful, noticing that 50% of his pain in general has been gone since then. His main complaint today is his neck which she describes as pain in the neck and right shoulder area with occasional radiation to the elbow. Pain is described as sharp and stabbing and worse with any form of activity. Patient does describe some weakness especially in the right arm, however he attributes this to being old. In terms of management and he mentions that he had cervical epidurals in the past prior to his fusion at C5-C6, and said it helped for a little bit but nothing long lasting/ The patient denies any paresthesia or any weakness in the lower extremities. He also denies any nocturnal pain or any weight loss recently. There is no bowel or bladder dysfunction. The pain gets worse by increasing activities and improves by resting. The patient had physical therapy previously with no good response. Lumbar MRI 09/2019 Patient has an L5-S1 fusion with bilateral transpedicular screws at L4-L5 and S1 with dorsal asia fixation, interbody fusion mass in the right-sided L5-S1 disc space as well as posterior decompression L4-L5 and L5-S1. Mild to moderate scoliosis there is grade 1 anterolisthesis of L5 over S1. Severe disc height loss at L4-L5 with moderate endplate changes about the right-sided intervertebral disc, desiccation and moderate height loss at T11-T12 and L2-L3 as well. No evidence of pathological marrow infiltration. No evidence of prior fracture. Physical exam: Vitals: Reviewed in EMR GENERAL: Well appearing, in no acute distress PSYCH: Mood and affect is appropriate. Awake, alert, and oriented SKIN: Skin color, texture, turgor normal, no rashes or lesions HEENT: Normocephalic, atraumatic. EOM intact CV: No pedal edema RESP: Respirations are unlabored, no audible wheezing GI: Abdomen non-distended MUSCULOSKELETAL: Bilateral upper and lower extremity strength is normal and symmetric. No atrophy or tone abnormalities are noted. Neck: No pain to palpation over the cervical paraspinous muscles. Spurling negative, Axial Loading Test negative, Valdez's sign negative. Limited neck extension due to pain. Limited right-sided neck rotation due to pain Normal cervical lordotic curve Lumbar spine: Straight leg raising in the sitting position is negative for radicular pain. No pain to palpation over the lumbar spine and paraspinous muscles. Negative for pain with facet loading and back extension/rotation. Normal range of motion without pain reproduction. Buttocks: some pain to palpation over the PSIS, sacroiliac joint maneuvers are positive for pain Extremities: Peripheral joint ROM is full and pain free without obvious instability or laxity in all four extremities. No edema or skin discolorations noted. Gait: Gait is normal NEUR: Bilateral upper and lower extremity coordination and muscle stretch reflexes are physiologic and symmetric. Negative clonus bilaterally. No loss of sensation is noted. Assessment and Plan Plan: This is a 69-year-old gentleman with a history of low back pain that has been helped with bilateral sacroiliac joint injections as well as cervical pain. - This point I do see that he has a cervical x-ray which does show arthritis at manual the cervical spine dated 2015, I will repeat his imaging with a cervical MRI to see if there is any new changes. Given that he is having axial neck pain, he might benefit from a cervical medial branch workup in the future. - Did discuss steroid injections in general, he has had 2 in the last 2 months I do not recommend more than 4 in a year. She is understanding - Left for nausea MRI of cervical spine and see him in 8 weeks. If there is significant arthrosis is avoided the facet joints beginning proceed with right- sided medial branch block at C2-C3, C3-C4. PQRS Measure Charge Sheet PQRS Narrative: Smoking Status Former smoker Pain Intensity [Lower Back] 4 Scale Used Numeric (1 - 10) Hx Alcohol Use (MH) Yes Home Medications: Ambulatory Orders Pantoprazole Sodium [Protonix] 40 mg PO DAILY 11/20/14 Magnesium 200 mg PO DAILY 11/10/19 Naproxen Sodium [Aleve] 440 mg PO DAILY 11/10/19 Tadalafil [Cialis] 5 mg PO HS 01/09/20 Controlled Substance Measures - Controlled Substance Measures Is patient prescribed a controlled substance at discharge?: No
== END | disposition home or self-care (01) ==
LOC: PNWHC3 10:52
PROVIDERS: ATTEND Anesthesiology
DX: M54.5 Low back pain (principal); Z79.899 Other long term (current) drug therapy
CPT/HCPCS: 99211

== ENCOUNTER → 2020-02-27 | Outpatient (CLI) | payer MEDICARE ==
--- NOTE | 2020-02-27 17:00 | MR ---
EXAMINATION TYPE: MR cervical spine wo/w con DATE OF EXAM: 02/27/2020 COMPARISON: CT 11/10/2019 HISTORY: Neck and rt shoulder pain TECHNIQUE: Multiplanar, multisequence images of the cervical spine were acquired utilizing 7.5 mL intravenous Ga davist gadolinium contrast. Diffusion weighted imaging was performed. C2-C3: No evidence for degenerative disc disease. No disc bulge/herniation or protrusion. No Canal stenosis. Foramina are patent bilaterally. C3-C4: Uncovertebral joint hypertrophy and facet arthropathy contribute to cause bilateral foraminal encroachment. No evident disc herniation or spinal stenosis. C4-C5: Right-sided foraminal encroachment is present, there is facet arthropathy, mild listhesis may contribute to the narrowing, there is no significant spinal stenosis or evident disc herniation C5-C6: Mild spinal stenosis, posterior extension of heart disc is present, there is bilateral foramin al encroachment due to uncovertebral joint hypertrophy. No evident disc herniation. C6-C7: Bilateral foraminal encroachment is present. Posterior extension endplate disc complex causes mild anterior mass effect on the thecal sac, mild spinal stenosis. C7-T1: No evidence for degenerative disc disease. No disc bulge/herniation or protrusion. No Canal stenosis. Foramina are patent bilaterally. Cervical segments are intact. There is stable alignment. Cervical spinal cord is of normal signal. Craniovertebral junction relationships are within normal limits. There is susceptibility artifact d ue to patient's hardware at C5-6. Cervical vertebral bodies show preserved height. Loss of disc heigh t present at C5-6, C6-7 and C7-T1. No abnormal enhancement following contrast administration. IMPRESSION: Degenerative disc disease, multilevel foraminal encroachment,
== END | disposition home or self-care (01) ==
LOC: RADMRIMAIN 15:06
PROVIDERS: ATTEND Anesthesiology
DX: M50.30 Other cervical disc degeneration, unspecified cervical region (principal)
CPT/HCPCS: 72156

== ENCOUNTER → 2020-04-02 | Outpatient (CLI) | payer MEDICARE ==
[2020-04-02 10:21] VITALS: BP 133/82; PULSE 84; RESP 18; TEMP 97.3
--- NOTE | 2020-04-02 10:30 | P.PN ---
Subjective Progress Note Date: 04/02/20 This is a 69-year-old gentleman with history of neck pain on the left side with radiation to the left shoulder. The patient denies any numbness in his left arm. He feels some weakness in both arms however. His neck pain increases when he looks towards the left side. The MRI results were discussed with the patient which showed degenerative changes. Patient denies new-onset weakness, bowel/bladder incontinence, or any other signs or symptoms of cauda equina syndrome. There are no signs of acute intoxication, and no indications of medication diversion or overuse. In addition to above, 13-point review of systems is also negative for chest pain, shortness of breath, changes in vision, changes in hearing, new onset weakness, abdominal pain, diarrhea, extreme fatigue, malaise, fever, skin changes, homicidal or suicidal ideation, or bowel or bladder incontinence. Vital Signs: Reviewed in EMR Gen: AAOx3, NAD HEENT: PERRLA,hearing grossly normal Pulm: resp unlabored Neck: supple, trachea midline Neuro exam of the upper extremities: Normal muscle strength bilaterally, decreased but symmetrical deep tendon reflexes 20 Straight leg raising test: Ray's test: Range of motion of the cervical spine: Decreased left neck rotation Facet loading test: Tenderness in the paravertebral musculature: Positive on the left side of his neck and in the left trapezius muscle Neuro: CN II-XII grossly intact, Imaging: Reviewed in EMR/chart Assessment: Post cervical fusion pain Cervical spondylosis without myelopathy Cervical DDD Plan: 1. Explanation: Opioid and psychological risk scores were reviewed. Diagnoses, prognoses, and multiple treatment options including but not limited to physical therapy, interventional therapies, adjuvant medical therapies, narcotic medication therapies, and surgery were discussed with the patient and all questions were answered to the patient's satisfaction. 2. Opioid agreement: Signed with the patient and the patient is warned not to use opioids while driving or before driving and not to combine opioids with benzodiazepines or alcohol. 3. Counseling: The patient was counseled extensively on SMOKING CESSATION, BODY MASS INDEX, EXERCISE. Specifically, the patient was instructed regarding the importance of smoking cessation, obesity, and exercise in the context of both chronic pain and overall health. 4. Procedures: Scheduled for left cervical medial branch diagnostic block under fluoroscopic guidance for levels see 4, C5, and C6 5. Consultations: None 6. Investigations: None 7. Medications: None 8. Disposition: Proceed with the above mentioned procedure as soon as possible 9. Maps were reviewed and were appropriate. Objective - Vital Signs Vital signs: Vital Signs Temp 97.3 F L 04/02/20 10:17 Pulse 84 04/02/20 10:17 Resp 18 04/02/20 10:17 BP 133/82 04/02/20 10:17 Pulse Ox 100 04/02/20 10:17
== END | disposition home or self-care (01) ==
LOC: PNWHC3 10:07
PROVIDERS: ATTEND Anesthesiology
DX: M50.30 Other cervical disc degeneration, unspecified cervical region (principal); M47.816 Spondylosis without myelopathy or radiculopathy, lumbar region; G89.18 Other acute postprocedural pain; Z98.1 Arthrodesis status
CPT/HCPCS: 99211

== ENCOUNTER 2020-04-27 08:57 | Day surgery (SDC) | payer MEDICARE ==
[2020-04-24 14:18] VITALS: BMI 24.4
[2020-04-27 09:22] VITALS: TEMP 97.1
[2020-04-27] MEDS ORDERED: ROPIVACAINE 5MG/ML 20ML VIAL ONE (09:45)
[2020-04-27] MEDS ORDERED: MIDAZOLAM 2 MG/2 ML VIAL ONE (09:45)
[2020-04-27] MEDS ORDERED: TRIAMCINOLONE ACETONIDE 40 MG/ML 1 ML VIAL ONE (09:45)
[2020-04-27] MEDS ORDERED: fentaNYL (PF) 50 MCG/ML 2 ML AMP ONE (09:45)
[2020-04-27] MEDS ORDERED: IOPAMIDOL M200 10 ML VIAL ONE (09:45)
--- NOTE | 2020-04-27 10:00 | P.PCN ---
Date of Procedure: 04/27/20 Description of Procedure: PREOPERATIVE DIAGNOSIS : Cervicalgia with Facet Arthropathy without myelopathy POSTOPERATIVE DIAGNOSIS: same PROCEDURE: first Diagnostic cervical medial branch block with fluoroscopy at C4, C5, C6 left which covers facets C4-5 and C5-6 ANESTHESIA: Local anesthetic; moderate IV sedation with Versed and fentanyl, sedation time 9 min Fluoroscopy was used for the procedure and images were saved in the radiology portion of the chart. Surgeon: Gilmar Nassar MD PROCEDURE INDICATION: Cervical pain without radiculopathy, not responsive to conservative management. PROCEDURE DESCRIPTION: the patient was seen and identified in the preop holding area , risks and benefits and possible complications of the procedure and alternatives were discussed with the patient, and the patient agreed to proceed with the procedure and signed the consent . IV was started , vital signs were monitored during the procedure and fluoroscopy was used to maximize the benefit and accuracy of the needle placement, and sedation was given to decrease patient anxiety. Patient was taken to the procedure room and placed in prone position. An AP fluoroscopic joinery machinist film was taken to identify the dens, the C4, C5, C6 vertebral bodies, and the waists of the articular pillars at the aforementioned levels. A lateral view was utilized to highlight the centroids at these levels. The skin was prepped with chlorhexidine and draped in the usual sterile fashion. The skin and subcutaneous tissue overlying the above levels were anesthetized using a 25-gauge 1-1/2-inch needle with 1% preservative free lidocaine for a total volume of 1 ml per level. An AP fluoroscopic joinery machinist film was taken to identify the dens, the C4, C5, C6 vertebral bodies, and the center of the centroid at the aforementioned levels. A lateral view was utilized to highlight the centroids at these levels. The skin was prepped with chlorhexidine and draped in the usual sterile fashion. The skin and subcutaneous tissue overlying the above levels were anesthetized using a 25- gauge 1-1/2-inch needle with 1% preservative free lidocaine for a total volume of 1 ml per level. An 25-gauge 3.5" Quinke needle was advanced, coaxially, in the lateral view until the needle tip was noted to slide into the center of the centroid. The needles were advanced until bony contact was felt and the tip of the Quinke needle was confirmed to be in the center of the articular pillars at the aforementioned levels. The needle positions were confirmed with lateral fluoroscopic views. 0.2 mL of Isovue 200 per level was injected which revealed no vascular uptake and after negative aspiration, 0.5 mL of ropivacaine along with Kenalog 40 mg was injected at each level and the needle subsequently removed . Total of 40 mg kenalog used. At the end of the procedure and the needles were removed and a bandage applied after the skin was cleaned. The patient was taken to recovery room in stable condition and monitors in the recovery room for 20-30 minutes and discharged home in stable condition after discharge criteria met and patient will follow up in clinic in 2 weeks EBL: Minimal COMPLICATION: None.
[2020-04-27] MEDS ORDERED: IV FLUID CONTINUATION 1,000 ML IV ONE ×2 (10:05)
[2020-04-27 10:26] VITALS: BP 131/69; PULSE 68; RESP 18
--- NOTE | 2020-04-27 13:41 | FL ---
Fluoroscopy INDICATION: Pain FINDINGS: Fluoroscopy time: 7 seconds. Images obtained: 3. IMPRESSIONS: 1. Documentation of fluoroscopy.
== END 2020-04-27 10:36 | disposition home or self-care (01) ==
LOC: ORPAIN 08:57
PROVIDERS: ATTEND Anesthesiology
DX: M47.812 Spondylosis without myelopathy or radiculopathy, cervical region (principal); Z88.1 Allergy status to other antibiotic agents; N42.9 Disorder of prostate, unspecified; K21.9 Gastro-esophageal reflux disease without esophagitis; Z79.899 Other long term (current) drug therapy
CPT/HCPCS: 64490; 64491; J2250; J3010

== ENCOUNTER → 2020-05-07 | Outpatient (CLI) | payer MEDICARE ==
--- NOTE | 2020-05-07 09:22 | P.PAINPG ---
Subjective Progress Note Date: 05/07/20 Subjective Progress Note Date: 04/02/20 This is a 69-year-old gentleman with history of neck pain on the left side with radiation to the left shoulder. The patient denies any numbness in his left arm. He feels some weakness in both arms however. His neck pain increases when he looks towards the left side. The MRI results were discussed with the patient which showed degenerative changes. Most recently he had the first round of Left C4-C5 and C5 C6 MBB. He returns for follow up today. Patient reported 80% relief from medial branch blocks. He notes that the pain is still in his neck with radiation to the left shoulder, however is better than it was before. He said he had good relief and is still feeling relief today. Would like to proceed with a second medial branch block and possible radio frequency ablation were he to obtain the same relief with the second medial branch block. Currently a 6/10 pain. Patient denies new-onset weakness, bowel/bladder incontinence, or any other signs or symptoms of cauda equina syndrome. There are no signs of acute intoxication, and no indications of medication diversion or overuse. In addition to above, 13-point review of systems is also negative for chest pain, shortness of breath, changes in vision, changes in hearing, new onset weakness, abdominal pain, diarrhea, extreme fatigue, malaise, fever, skin changes, homicidal or suicidal ideation, or bowel or bladder incontinence. Vital Signs: Reviewed in EMR Gen: AAOx3, NAD HEENT: PERRLA,hearing grossly normal Pulm: resp unlabored Neck: supple, trachea midline Neuro exam of the upper extremities: Normal muscle strength bilaterally Range of motion of the cervical spine: Decreased left neck rotation, intact flexion/extnesion Facet loading test: positive on left side Tenderness in the paravertebral musculature: Positive on the left side of his neck and in the left trapezius muscle Neuro: CN II-XII grossly intact, reflexes intact bilaterally UE Imaging: Reviewed in EMR/chart Assessment: Post cervical fusion pain Cervical spondylosis without myelopathy Cervical DDD Plan: - Schedule for L C4-C5 and C5-C6 MBB x 2. A long discussion with the patient regarding the concept radiofrequency ablation which would expect. I noted that if we do proceed to radio frequency ablation, he would need the same if not more relief as he had with this procedure. I also told him that to expect soreness from the radiofrequency ablation that can last for a month, however he should feel the analgesic effects after that I have spent 34 minutes with chart reviewing the patient, speaking to the patient, and discussing plan of care with the patient PQRS Measure Charge Sheet PQRS Narrative: Smoking Status Former smoker Hx Alcohol Use () Yes Home Medications: Ambulatory Orders Pantoprazole Sodium [Protonix] 40 mg PO DAILY 11/20/14 Magnesium 200 mg PO DAILY 11/10/19 Naproxen Sodium [Aleve] 440 mg PO DAILY 11/10/19 Tadalafil [Cialis] 5 mg PO HS 01/09/20 Controlled Substance Measures - Controlled Substance Measures Is patient prescribed a controlled substance at discharge?: No
== END ==
CPT/HCPCS: 99211

== ENCOUNTER 2020-06-01 08:29 | Day surgery (SDC) | payer MEDICARE ==
[2020-05-31 09:14] VITALS: BMI 24.4
[2020-06-01 08:44] VITALS: TEMP 96.3
[2020-06-01] MEDS ORDERED: LIDOCAINE 1% (10MG/ML) FOR IV START INTRADERMA ONE (08:51)
[2020-06-01] MEDS ORDERED: MIDAZOLAM 2 MG/2 ML VIAL ONE (08:53)
[2020-06-01] MEDS ORDERED: DEXAMETHASONE SOD PHOSPHATE 10 MG/ML 1 ML VIAL ONE (08:55)
[2020-06-01] MEDS ORDERED: ROPIVACAINE 5MG/ML 20ML VIAL ONE (08:55)
--- NOTE | 2020-06-01 09:14 | P.PCN ---
Date of Procedure: 06/01/20 Surgeon: Ebenezer Dick Pathology: none sent Condition: stable Disposition: PACU Description of Procedure: PREOPERATIVE DIAGNOSIS: Cervical Spondylosis with Facet Arthropathy.without myelopathy POSTOPERATIVE DIAGNOSIS: Cervical Spondylosis Facet Arthropathy without myelopathy PROCEDURES: Diagnostic Left C3,C4, and C5 medial branchs block with fluoroscopic guidance ANESTHESIA: Local with 1% lidocaine; IV sedation by the anesthesia department The C6 level was not seen clearly on the lateral view of fluoroscopy and that's why it was not done. EBL: Minimal PROCEDURE INDICATION: The patient with neck pain secondary to cervical arthropathy unresponsive to more conservative treatments. PROCEDURE DESCRIPTION / TECHNIQUE: The patient was seen and identified in the preoperative area. Risks, benefits, complications, and alternatives were discussed with the patient, the patient agreed to proceed with the procedure and signed the consent. IV was started. Vital signs remained stable throughout the procedure. Patient was taken to the OR and time out was completed. The patient was placed in the supine position on the procedure table. . The cervical area was prepped with chloraprep and draped in the usual sterile fashion. Critical pause was taken. Vital signs were closely monitored during the procedure. Conscious sedation was used during the procedure to decrease patients anxiety. Using cross-table lateral fluoroscopy, the centroid of the trapezoid of C3,C4,and C5 was identified, marked, and localized with 1% lidocaine 1 ml at each level for skin and Sub Q infiltrations . Subsequently, a 25 G 3.5 inch spinal needle was advanced guided by fluoroscopy to the target points then, 3 ml of preservative-free Bupivacaine 0.5% mixed with Dexamethasone 10 mg was used to inject half ml of the mixture at each level after negative aspiration for blood and CSF. Viola were then removed intact . COMPLICATIONS: No acute complications. COMMENTS: DISPOSITION / PLANS: The patient was placed in a supine position and transferred to the recovery area in a stable condition for observation and was discharged from the recovery room after meeting discharge criteria. Home discharge instructions given to the patient by the staff. The patient was reexamined prior to discharge. The patient will schedule a follow up in the clinic in 2-4 weeks.
[2020-06-01] MEDS ORDERED: IV FLUID CONTINUATION 1,000 ML IV ONE (09:15)
[2020-06-01 09:35] VITALS: BP 144/84; PULSE 68; RESP 16
--- NOTE | 2020-06-01 09:35 | FL ---
EXAMINATION TYPE: FL guided pain mgmt statistic DATE OF EXAM: 06/01/2020 HISTORY: Fluoroscopy time 6 seconds of fluoroscopy provided. Correlate for a linear metallic density overlying the posterior el ements near the C3 level. This is of indeterminate etiology. IMPRESSION: 1. Fluoroscopy time.
== END 2020-06-01 09:48 | disposition home or self-care (01) ==
LOC: ORPAIN 08:29
PROVIDERS: ATTEND Anesthesiology
DX: M47.812 Spondylosis without myelopathy or radiculopathy, cervical region (principal); K21.9 Gastro-esophageal reflux disease without esophagitis; I49.3 Ventricular premature depolarization; J30.2 Other seasonal allergic rhinitis; J40 Bronchitis, not specified as acute or chronic; N42.9 Disorder of prostate, unspecified; K28.4 Chronic or unspecified gastrojejunal ulcer with hemorrhage; Z88.1 Allergy status to other antibiotic agents; Z79.899 Other long term (current) drug therapy; Z79.1 Long term (current) use of non-steroidal anti-inflammatories (NSAID)
CPT/HCPCS: 64490; 64491; J2250; J1100; J2795; 64492

== ENCOUNTER → 2020-06-20 | Outpatient (CLI) | payer MEDICARE ==
[2020-06-20 10:55] VITALS: BP 170/89; PULSE 73; RESP 16; TEMP 98
--- NOTE | 2020-06-20 11:16 | P.PN ---
Subjective Progress Note Date: 06/20/20 This is a follow-up visit for this 70 years old male with a chronic history of severe neck pain, status post diagnostic medial branch block cervical area, Discher reported that he had very minimal benefit from the medial branch block, his pain before the block was 5/10 dropped to 4/10 after the block, the pain is constant and increases with any neck movement he had some headache, also patient complaining of numbness in the upper extremity bilaterally more prominent on the left side, he denies any motor or sensory deficit he denies any fever or night sweats Objective - Vital Signs Vital signs: Vital Signs Temp 98.0 F 06/20/20 10:53 Pulse 73 06/20/20 10:53 Resp 16 06/20/20 10:53 BP 170/89 06/20/20 10:53 Pulse Ox 99 06/20/20 10:53 - Exam Physical Examinations : -Constitutiona : Cooperative , not in acute distress . -HEENT : nech : supple , no Lymphadenopathy , normal thyroid size . : eyes : no ptosis , no icterus, no photophobia . - neurologic : Cranial nerve II to XII intact , no focal neurological deffecit . -psychatric : alert , oriented X 3 , appropriate affect , intact judgment and insight . -Lymphatic : no Lymphadenopathy . - musculoskeltal : Cervical Spine motor stregnth in the deltoid and biceps, normal right side , normal Left side motor stregnth biceps and the wrist extensors normal right side ,normal left side . motor stregnth in the triceps muscle . normal Right side , normal Left side deep tendon reflexes normal at the biceps , normal at Brachioradialis , normal at triceps. cervical facet loading test: Positive Bilaterally Spurling test= positive Right , positive left. Neck distraction test= positive Right , positive left. Niall sign= positive right, positive left . 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 2-cervical spondylosis with cervical facet arthropathy. 3-myofascial pain syndrome and cervical paraspinal muscles. he had no benefit from diagnostic medial branch block. Patient could benefit from cervical epidural steroid injection and trigger point injection cervical paraspinal muscles(multiples ) - PQRS measures = - Patient's medications are documented in the chart. -Tobacco use is negative and counseling.Given. -Patient's has not received pneumococcal vaccine. -Advanced care planning discussed, patient not eligible. -Opiate contract not signed. -Pain positive and follow-up visit/procedure is scheduled. -Patient's blood pressure measured [ 170/89 ] , and documented in the record ,and patient will follow up with the primary care. -Patient's weight was measured and body mass index [24.4 ] within the normal limits and counseling was done. and patient instructed to follow-up with the primary care physician. -Patient was not identified as an unhealthy alcohol user Time with Patient: Less than 30
== END ==
LOC: PNWHC3 10:40
PROVIDERS: ATTEND Specialist
DX: M96.1 Postlaminectomy syndrome, not elsewhere classified (principal); M47.812 Spondylosis without myelopathy or radiculopathy, cervical region; M79.18 Myalgia, other site
CPT/HCPCS: 99211

== ENCOUNTER 2020-07-12 08:26 | Day surgery (SDC) | payer MEDICARE ==
[2020-07-09 11:16] VITALS: BMI 24.4
[2020-07-12 08:44] VITALS: TEMP 97
[2020-07-12] MEDS ORDERED: IOPAMIDOL M200 10 ML VIAL ONE (09:00)
[2020-07-12] MEDS ORDERED: DEXAMETHASONE SOD PHOSPHATE 10 MG/ML 1 ML VIAL ONE (09:00)
[2020-07-12] MEDS ORDERED: MIDAZOLAM 2 MG/2 ML VIAL ONE (09:00)
[2020-07-12] MEDS ORDERED: ROPIVACAINE 5MG/ML 20ML VIAL ONE (09:00)
[2020-07-12] MEDS ORDERED: fentaNYL (PF) 50 MCG/ML 2 ML AMP ONE (09:00)
[2020-07-12] MEDS ORDERED: IV FLUID CONTINUATION 800 ML IV ONE (09:18)
--- NOTE | 2020-07-12 09:18 | P.PCN ---
Date of Procedure: 07/12/20 Procedure(s) Performed: . PROCEDURE 1. Cervical epidural steroid injection under fluoroscopic guidance, C7-T1 (fluoroscopy images available in the radiology department ) 2. Cervical epidurogram. 3. Trigger point injections and cervical paraspinal muscles , 2 on the right side, and 3 on the left side cervical paraspinal muscles ( total 5 trigger point injected ) PREOPERATIVE DIAGNOSIS: 1- Cervical failed back surgery syndrome 2-myofascial pain syndrome and cervical paraspinal muscles 3-cervical spondylosis with cervical Facet arthropathy without myelopathy POSTOPERATIVE DIAGNOSIS: : Same as preop diagnosis. ANESTHESIA: Local anesthesia with lidocaine 1 % , and moderate sedation, with Ve rsed 1 mg and Fentanyl 50 mcg. EBL 0 PROCEDURE INDICATION: The patient with neck pain and radiculitis unresponsive to conservative treatment consents for procedure. PROCEDURE DESCRIPTION / TECHNIQUE: The patient was seen and identified in the preoperative area. Risks, benefits, complications, including but not limited to infections ,bleeding , allergic reactions to the medications ,and not complete pain releife, and alternatives were discussed with the patient, the patient agreed to proceed with the procedure and signed the consent. Patient was taken to the OR and time out was completed. The patient was placed in the prone position on the procedure table. A pillow was placed under the patients chest to increase the cervical interlaminar space. The cervical area was prepped and draped in the usual sterile fashion. Vital signs were closely monitored during the procedure. Conscious sedation was used during the procedure to decrease patients anxiety. Using anterior-posterior fluoroscopy, the C7-T1 interlaminar space was identified and the skin over this site was marked and then infiltrated with 1% lidocaine subcutaneously. Subsequently, a 20-gauge 3-1/2-inch Tuohy epidural n eedle was inserted and advanced toward the epidural space by means of the ``hanging-drop technique and guided by AP and lateral fluoroscopy. The correct needle position in the epidural space was verified with the injection of 2 mL of the water soluble contrast dye Isovue-200 and observing an excellent epidurogram with the epidural spread of the dye, after negative aspiration for blood and CSF and in the absence of paresthesias. then, mixture containing 15 mg Dexamethasone and 2 ml of preservative-free normal saline injected and a washout of epidurogram was seen. Needle was withdrawn intact, then after that the trigger point injections done, 3 on the left side cervical paraspinal muscles, and 2 on the right side cervical paraspinal muscles, total of 5 trigger point injected using 25-gauge needle, injections and after negative aspiration and there was no paresthesia during the injection, each trigger point injected with the ropivacaine 0.5% 2 mL, patient tolerated the procedure well without any complications . Complications= none. Disposition= patient was placed in supine position and transferred to the recovery room area in stable condition and there was no evidence of upper or lower extremity motor or sensory deficit after the procedure patient was discharged from recovery room after discharge criteria met and home discharge instructions was given by the staff and patient will follow with the pain clinic in 2-4 weeks
[2020-07-12 09:23] VITALS: RESP 16
--- NOTE | 2020-07-12 09:25 | FL ---
EXAMINATION TYPE: FL guided pain mgmt statistic DATE OF EXAM: 07/12/2020 CLINICAL HISTORY: Neck pain. TECHNIQUE: Fluoroscopy. COMPARISON: None. FINDINGS: Fluoroscopic guidance was provided during pain relief procedure performed by Dr. Montilla . A total of 6 seconds of fluoroscopic time was utilized during the procedure and 1 spot intraoperat toma image is acquired. Single image acquired shows needle localization at C7 level with contrast inj ection. IMPRESSION: As Above.
[2020-07-12 09:38] VITALS: BP 145/69; PULSE 68
== END 2020-07-12 09:48 | disposition home or self-care (01) ==
LOC: ORPAIN 08:26
PROVIDERS: ATTEND Specialist
DX: M96.1 Postlaminectomy syndrome, not elsewhere classified (principal); M47.22 Other spondylosis with radiculopathy, cervical region; M79.18 Myalgia, other site
CPT/HCPCS: 20553; 62321; J2250; J1100; J3010; Q9966; J2795

== ENCOUNTER → 2020-07-30 | Outpatient (CLI) | payer MEDICARE ==
[2020-07-30 11:28] VITALS: BP 148/76; PULSE 88; RESP 18; TEMP 97.7
--- NOTE | 2020-07-30 11:34 | P.PN ---
Subjective Progress Note Date: 07/30/20 This is a 70-year-old gentleman with history of chronic neck and lower back pain status post cervical and lumbar fusion. The patient's pain in his neck is more intense than his lower back pain. He failed to respond to cervical medial branch block for levels C3 4 and 5 on the left side. He also had cervical epidural steroid injection was given only 1 day of pain relief. The patient complains of pain in the upper neck area with radiation to the back of his head. This pain increases with neck movements. Patient denies new-onset weakness, bowel/bladder incontinence, or any other signs or symptoms of cauda equina syndrome. There are no signs of acute intoxication, and no indications of medication diversion or overuse. In addition to above, 13-point review of systems is also negative for chest pain, shortness of breath, changes in vision, changes in hearing, new onset weakness, abdominal pain, diarrhea, extreme fatigue, malaise, fever, skin changes, homicidal or suicidal ideation, or bowel or bladder incontinence. Vital Signs: Reviewed in EMR Gen: AAOx3, NAD HEENT: PERRLA,hearing grossly normal Pulm: resp unlabored Neck: supple, trachea midline Neuro exam of the upper extremities: Normal muscle strength in the upper extremities bilaterally Straight leg raising test: Ray's test: Range of motion of the lumbar spine: Facet loading test: Tenderness in the paravertebral musculature: Positive tenderness in the cervical paravertebral musculature bilaterally Reduced range of motion of the cervical spine with increasing pain with cervical spine rotation. 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 Explanation: Opioid and psychological risk scores were reviewed. Diagnoses, prognoses, and multiple treatment options including but not limited to physical therapy, interventional therapies, adjuvant medical therapies, narcotic medication therapies, and surgery were discussed with the patient and all questions were answered to the patient's satisfaction. 2. Opioid agreement: Signed with the patient and the patient is warned not to use opioids while driving or before driving and not to combine opioids with benzodiazepines or alcohol. 3. Counseling: The patient was counseled extensively on SMOKING CESSATION, BODY MASS INDEX, EXERCISE. Specifically, the patient was instructed regarding the importance of smoking cessation, obesity, and exercise in the context of both chronic pain and overall health. 4. Procedures: Schedule for a diagnostic cervical medial branch block for levels C2, C3 and third occipital nerve bilaterally under fluoroscopic guidance. 5. Consultations: None 6. Investigations: None 7. Medications: None prescribed 8. Disposition: Proceed with the above mentioned procedure as soon as possible 9. Maps were reviewed and were appropriate. Objective - Vital Signs Vital signs: Vital Signs Temp 97.7 F 07/30/20 11:24 Pulse 88 07/30/20 11:24 Resp 18 07/30/20 11:24 BP 148/76 07/30/20 11:24 Pulse Ox 100 07/30/20 11:24
== END ==
LOC: PNWHC3 11:14
PROVIDERS: ATTEND Anesthesiology
DX: M96.1 Postlaminectomy syndrome, not elsewhere classified (principal); R51.9 Headache, unspecified; Z88.1 Allergy status to other antibiotic agents; Z87.891 Personal history of nicotine dependence
CPT/HCPCS: 99211

== ENCOUNTER → 2020-08-24 | Day surgery (SDC) | payer MEDICARE ==
[2020-08-23 09:25] VITALS: BMI 25.0
[~2020-08-24] MED LIST changes: +ROPIVACAINE 5MG/ML 20ML VIAL ONE; +methylPREDNISolone ACETATE 40 MG/ML 1 ML VIAL ONE
[2020-08-24 13:53] VITALS: TEMP 97.2
--- NOTE | 2020-08-24 14:55 | P.PCN ---
Date of Procedure: 08/24/20 Procedure(s) Performed: PREOPERATIVE DIAGNOSIS: Cervical Spondylosis with Facet Arthropathy.without myelopathy. cervicogenic headache. 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 PROCEDURES: Diagnostic Bilateral C2 ,C3 medial branch blocks, with fluoroscopic guidance (fluoroscopy images available in radiology department ) Diagnostic bilateral Third occipital nerve block under fluoroscopy guidance ANESTHESIA:local anesthetic with Ropivacaine 0.5% 6 ML only EBL: Minimal PROCEDURE INDICATION: The patient with neck pain secondary to cervical arthropathy unresponsive to more conservative treatments. PROCEDURE DESCRIPTION / TECHNIQUE: The patient was seen and identified in the preoperative area. Risks, benefits, complications, and alternatives were discussed with the patient, the patient agreed to proceed with the procedure and signed the consent. IV was started. Vital signs remained stable throughout the procedure. Patient was taken to the OR and time out was completed. The patient was placed in the prone position on the procedure table. A pillow was placed under the patients chest to increase the cervical interlaminar space. The cervical area was prepped and draped in the usual sterile fashion. Critical pause was taken. Vital signs were closely monitored during the procedure. . Using cross-table lateral fluoroscopy, the centroid of the trapezoid of right C3, C4 , C5 and C6, was identified, marked, and localized with 1% lidocaine 1 ml at each level for skin and Sub Q infiltrations . Subsequently, a 25 G 2 spinal needle was advanced guided by fluoroscopy to the centroid of the trapezoid of Right C2 , C3, . Babb tip position was confirmed at the centroid of the trapezoids of Right C2 ,C3 , with anteroposterior fluoroscopy. Subsequently, 1 ml of preservative-free Ropivacaine 0.5% mixed with Depo-Medrol 20 mg and half ml of the mixture was injected after negative aspiration for blood and CSF.them to do the third occipital nerve block another 25-gauge needle advanced slowly under fluoroscopy and placed at the junction of the facet joints within C2 and C3 , and after negative aspiration Ropivacaine 0.5% half mL injected after negative aspiration, then after that Babb was then removed intact the same procedure was repeated at the left C2 , C3 , and the left third occipital nerve levels. COMPLICATIONS: No acute complications DISPOSITION / PLANS: The patient was placed in a supine position and transferred to the recovery area in a stable condition for observation and was discharged from the recovery room after meeting discharge criteria. Home discharge instr uctions given to the patient by the staff. The patient was reexamined prior to discharge. The patient will schedule a follow up in the clinic in 2-4 weeks.
[2020-08-24 14:56] VITALS: RESP 17
[2020-08-24 15:01] VITALS: BP 154/78; PULSE 74
--- NOTE | 2020-08-24 15:25 | FL ---
Fluoroscopy INDICATION: Pain FINDINGS: Fluoroscopy time: 22 seconds. Images obtained: 2. IMPRESSIONS: 1. Documentation of fluoroscopy.
== END ==
LOC: ORPAIN 13:26
PROVIDERS: ATTEND Specialist
DX: M47.812 Spondylosis without myelopathy or radiculopathy, cervical region (principal); M54.81 Occipital neuralgia; Z79.2 Long term (current) use of antibiotics; J30.2 Other seasonal allergic rhinitis
CPT/HCPCS: 64490; 64491; J1030; J2795; 64450

== ENCOUNTER 2020-09-21 09:29 | Day surgery (SDC) | payer MEDICARE ==
[2020-09-20 10:16] VITALS: BMI 24.4
[~2020-09-21 09:29] MED LIST changes: -ROPIVACAINE 5MG/ML 20ML VIAL ONE; -methylPREDNISolone ACETATE 40 MG/ML 1 ML VIAL ONE
[2020-09-21 09:49] VITALS: TEMP 96
[2020-09-21] MEDS ORDERED: DEXAMETHASONE SOD PHOSPHATE 10 MG/ML 1 ML VIAL ONE (10:09)
[2020-09-21] MEDS ORDERED: LIDOCAINE 1% INJ 10MG/ML (20 ML MDV) ONE (10:09)
[2020-09-21] MEDS ORDERED: ROPIVACAINE 5MG/ML 20ML VIAL ONE (10:09)
[2020-09-21] MEDS ORDERED: MIDAZOLAM 2 MG/2 ML VIAL ONE (10:10)
[2020-09-21] MEDS ORDERED: fentaNYL (PF) 50 MCG/ML 2 ML AMP ONE (10:10)
--- NOTE | 2020-09-21 10:35 | P.PCN ---
Date of Procedure: 09/21/20 Surgeon: Ebenezer Dikc Pathology: none sent Condition: stable Disposition: PACU Description of Procedure: PREOPERATIVE DIAGNOSIS: Cervical Spondylosis with Facet Arthropathy.without myelopathy. cervicogenic headache. 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 PROCEDURES: Diagnostic Bilateral C2 ,C3 medial branch blocks, with fluoroscopic guidance (fluoroscopy images available in radiology department ) Diagnostic bilateral Third occipital nerve block under fluoroscopy guidance ANESTHESIA:local anesthetic with lidocaine 1% and IV moderate conscious sedation by the anesthesia Department EBL: Minimal PROCEDURE INDICATION: The patient with neck pain secondary to cervical arthropathy unresponsive to more conservative treatments. PROCEDURE DESCRIPTION / TECHNIQUE: The patient was seen and identified in the preoperative area. Risks, benefits, complications, and alternatives were discussed with the patient, the patient agreed to proceed with the procedure and signed the consent. IV was started. Vital signs remained stable throughout the procedure. Patient was taken to the OR and time out was completed. The patient was placed in the prone position on the procedure table. A pillow was placed under the patients chest to increase the cervical interlaminar space. The cervical area was prepped and draped in the usual sterile fashion. Critical pause was taken. Vital signs were closely monitored during the procedure. . The patient states that he lost his balance for about 2 hours after the last procedure. Today I'm going to use shorter acting medications including lidocaine 1% and also I will use Decadron instead of Kenalog. Using cross-table lateral fluoroscopy, the centroid of the trapezoid of right C3, C4 , C5 and C6, was identified, marked, and localized with 1% lidocaine 1 ml at each level for skin and Sub Q infiltrations . Subsequently, a 25 G 2 spinal needle was advanced guided by fluoroscopy to the centroid of the trapezoid of Right C2 , C3, . [place] tip position was confirmed at the centroid of the trapezoids of Right C2 ,C3 , with anteroposterior fluoro scopy. Subsequently, 2 ml of preservative-free Lidocaine 1% mixed with Decadron 10 mg and half ml of the mixture was injected after negative aspiration for blood and CSF.them to do the third occipital nerve block another 25-gauge needle advanced slowly under fluoroscopy and placed at the junction of the facet joints within C2 and C3 , and after negative aspiration half mL of the above-mentioned solution was injected after negative aspiration, then after that [place] was then removed intact the same procedure was repeated at the left C2 , C3 , and the left third occipital nerve levels. COMPLICATIONS: No acute complications DISPOSITION / PLANS: The patient was placed in a supine position and transferred to the recovery area in a stable condition for observation and was discharged from the recovery room after meeting discharge criteria. Home discharge instructions given to the patient by the staff. The patient was reexamined prior to discharge. The patient will schedule a follow up in the clinic in 2-4 weeks.
[2020-09-21] MEDS ORDERED: IV FLUID CONTINUATION 1,000 ML IV ONE (10:38)
[2020-09-21 10:44] VITALS: RESP 16
[2020-09-21 10:59] VITALS: BP 135/79; PULSE 71
--- NOTE | 2020-09-21 11:13 | FL ---
EXAMINATION TYPE: FL guided pain mgmt statistic DATE OF EXAM: 09/21/2020 CLINICAL HISTORY: Bilateral facet injection TECHNIQUE: Fluoroscopy. COMPARISON: None. FINDINGS: Fluoroscopic guidance was provided during procedure performed by Dr. Dick. A total of 16 seconds of fluoroscopic time was utilized during the procedure and 4 spot images acquired. IMPRESSION: As Above.
== END 2020-09-21 11:28 | disposition home or self-care (01) ==
LOC: ORPAIN 09:29
PROVIDERS: ATTEND Anesthesiology
DX: M47.812 Spondylosis without myelopathy or radiculopathy, cervical region (principal); M96.1 Postlaminectomy syndrome, not elsewhere classified; Z88.1 Allergy status to other antibiotic agents; Z87.891 Personal history of nicotine dependence; Z87.19 Personal history of other diseases of the digestive system; K21.9 Gastro-esophageal reflux disease without esophagitis; Z79.1 Long term (current) use of non-steroidal anti-inflammatories (NSAID); Z79.899 Other long term (current) drug therapy
CPT/HCPCS: 64490; 64491; J2250; J1100; J2001; J3010; J2795

== ENCOUNTER → 2020-10-15 | Outpatient (CLI) | payer MEDICARE ==
[2020-10-15 11:18] VITALS: BP 147/87; PULSE 76; RESP 18; TEMP 97.5
--- NOTE | 2020-10-15 11:22 | P.PAINPG ---
Subjective Progress Note Date: 10/15/20 This is a 70-year-old gentleman with history of chronic neck and lower back pain status post cervical and lumbar fusion. The patient's pain in his neck is more intense than his lower back pain. He failed to respond to cervical medial branch block for levels C3 4 and 5 on the left side. He also had cervical epidural steroid injection was given only 1 day of pain relief. The patient complains of pain in the upper neck area with radiation to the back of his head. This pain increases with neck movements. Recently had bilateral TON C3 MBB x2. She noted that he had great relief with both medial branch blocks. He had greater than 80% relief from both procedures and was able to move his head and neck around much better. He would like to proceed with the ablation. Patient denies new-onset weakness, bowel/bladder incontinence, or any other signs or symptoms of cauda equina syndrome. There are no signs of acute intoxication, and no indications of medication diversion or overuse. In addition to above, 13-point review of systems is also negative for chest pain, shortness of breath, changes in vision, changes in hearing, new onset weakness, abdominal pain, diarrhea, extreme fatigue, malaise, fever, skin changes, homicidal or suicidal ideation, or bowel or bladder incontinence. Vital Signs: Reviewed in EMR Gen: AAOx3, NAD HEENT: PERRLA,hearing grossly normal Pulm: resp unlabored Neck: supple, trachea midline Neuro exam of the upper extremities: Normal muscle strength in the upper extremities bilaterally Straight leg raising test: Ray's test: Range of motion of the lumbar spine: Facet loading test: Tenderness in the paravertebral musculature: Positive tenderness in the cervical paravertebral musculature bilaterally Reduced range of motion of the cervical spine with increasing pain with cervical spine rotation. 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 Explanation: Opioid and psychological risk scores were reviewed. Diagnoses, prognoses, and multiple treatment options including but not limited to physical therapy, interventional therapies, adjuvant medical therapies, narcotic medication therapies, and surgery were discussed with the patient and all questions were answered to the patient's satisfaction. 2. Opioid agreement: Signed with the patient and the patient is warned not to use opioids while driving or before driving and not to combine opioids with benzodiazepines or alcohol. 3. Counseling: The patient was counseled extensively on SMOKING CESSATION, BODY MASS INDEX, EXERCISE. Specifically, the patient was instructed regarding the importance of smoking cessation, obesity, and exercise in the context of both chronic pain and overall health. 4. Procedures: Schedule for a RFA for levels TON C3 left side followed by right side after. 5. Consultations: None 6. Investigations: None 7. Medications: None prescribed 8. Disposition: Proceed with the above mentioned procedure as soon as possible 9. Maps were reviewed and were appropriate. I have spent 24 minutes on patient care today. The time was used to review the medical records including relevant urine studies and Prescription history (MAPs), review of the available imaging, evaluation and examination of the patient, coordination of care with the medical staff and if applicable referring physicians, as well as creation of the medical record. PQRS Measure Charge Sheet PQRS Narrative: Smoking Status Former smoker Pain Intensity [Neck] 5 Scale Used Numeric (1 - 10) Hx Alcohol Use (MH) Yes Home Medications: Ambulatory Orders Pantoprazole Sodium [Protonix] 40 mg PO DAILY 11/20/14 Naproxen Sodium [Aleve] 440 mg PO DAILY 11/10/19 Tadalafil [Cialis] 5 mg PO HS 01/09/20 Controlled Substance Measures - Controlled Substance Measures Is patient prescribed a controlled substance at discharge?: No
== END ==
LOC: PNWHC3 11:08
PROVIDERS: ATTEND Anesthesiology
DX: M96.1 Postlaminectomy syndrome, not elsewhere classified (principal); R51.9 Headache, unspecified; Z87.891 Personal history of nicotine dependence; Z88.1 Allergy status to other antibiotic agents
CPT/HCPCS: 99211

== ENCOUNTER 2020-11-30 09:39 | Day surgery (SDC) | payer MEDICARE ==
[2020-11-28 16:00] VITALS: BMI 24.4
[2020-11-30 10:03] VITALS: RESP 16; TEMP 96.9
[2020-11-30] MEDS ORDERED: fentaNYL (PF) 50 MCG/ML 2 ML AMP ONE (10:09)
[2020-11-30] MEDS ORDERED: MIDAZOLAM 2 MG/2 ML VIAL ONE (10:09)
[2020-11-30] MEDS ORDERED: ROPIVACAINE 5MG/ML 20ML VIAL ONE (10:10)
[2020-11-30] MEDS ORDERED: methylPREDNISolone ACETATE 40 MG/ML 1 ML VIAL ONE (10:10)
[2020-11-30 10:41] VITALS: PULSE 67
--- NOTE | 2020-11-30 10:41 | P.PCN ---
Date of Procedure: 11/30/20 Procedure(s) Performed: PREOPERATIVE DIAGNOSIS: 1-Cervical spondylosis with Facet Arthropathy without myelopathy. 2-Cervicogenic Headache. 3- Failed back surgery Syndrome cervical arae. POSTOPERATIVE DIAGNOSIS: Same as Pre op Diagnosis. PROCEDURES: Radiofrequency thermocoagulation Left C2 , C3, medial branch with Fluroscopy [place](fluoroscopy was available in etiology department ) Radiofrequency thermocoagulations Left 3rd occipiatal nerve under Fluroscopy [place]. ANESTHESIA: Monitered anesthesia care. EBL: Minimal PROCEDURE INDICATION: The patient with neck pain secondary to cervical arthropathy who had more than 50% relief of her pain with previous diagnostic cervical medial branch block. PROCEDURE DESCRIPTION / TECHNIQUE: The patient was seen and identified in the p reoperative area. Risks, benefits, complications, and alternatives were discussed with the patient, the patient agreed to proceed with the procedure and signed the consent. IV was started. Vital signs remained stable throughout the procedure. Patient was taken to the OR and time out was completed. The patient was placed in the prone position on the procedure table. A pillow was placed under the p atients chest to increase the cervical interlaminar space. The cervical area was prepped and draped in the usual sterile fashion. Critical pause was taken. Vital signs were closely monitored during the procedure. Conscious sedation was used during the procedure to decrease patients anxiety. Using cross-table lateral fluoroscopy, the centroid of the trapezoid of Left C2 , C3, were identified, marked, and localized with 1% lidocaine. Subsequently, a 20 [id number] radiofrequency cannula with a 10-mm active tip was advanced guided by fluoroscopy to the centroid of the trapezoid of Left C2 ,C3, and for the 3rd occipita nerve another needle Placed at the center of the Facet Joint formed Between C2 and C3 Vertebra on the left side . Needle tip position was confirmed at the centroid of the trapezoids of the Left C2 ,and C3,with anteroposterior fluoroscopy. Each site then underwent sensory testing at 50 Hz and 0 to 1 volt and motor testing at 2 Hz and 0 to 3 volt with local stimulation, but no radicular symptoms down the arm. Thereafter each sites underwent radiofrequency thermocoagulation at 80 degrees celsius for 90 seconds after injecting 0.5 ml of PF Ropivacaine 0.5 %. After thermocoagulation, 1 ml of the block solution containing Depo-Medrol 40 mg and 3 mL of preservative-free normal saline was injected at the Left C2 , C3, and left 3rd occipita nerve levels after negative aspiration of CSF and blood and with no paresthesias. Cannulas were retracted while injecting lidocaine 1% until the needle is out. Skin was cleansed and bandages were applied. COMPLICATIONS: No acute complications. DISPOSITION / PLANS: The patient was placed in a supine position and transferred to the recovery area in a stable condition for observation and was discharged from the recovery room after meeting discharge criteria. Home discharge instructions given to the patient by the staff. The patient was reexamined prior to discharge. The patient will schedule a follow up in the clinic in 2-4 weeks.
--- NOTE | 2020-11-30 10:45 | FL ---
Fluoroscopy History: Cerv Rad Freq 7sec fluoro time,2 images sent to PACS.
[2020-11-30] MEDS ORDERED: LACTATED RINGERS 1,000 ML IV ONE (10:46)
[2020-11-30] MEDS ORDERED: IV FLUID CONTINUATION 1,000 ML IV ONE (10:46)
[2020-11-30 10:54] VITALS: BP 131/77
== END 2020-11-30 11:06 | disposition home or self-care (01) ==
LOC: ORPAIN 09:39
PROVIDERS: ATTEND Specialist
DX: M47.812 Spondylosis without myelopathy or radiculopathy, cervical region (principal); M96.1 Postlaminectomy syndrome, not elsewhere classified; Y83.8 Other surgical procedures as the cause of abnormal reaction of the patient, or of later complication, without mention of misadventure at the time of the procedure; R51.9 Headache, unspecified
CPT/HCPCS: 64633; 64634; J2250; J1030; J3010; J2795

== ENCOUNTER → 2021-04-15 | Outpatient (CLI) | payer MEDICARE | END | disposition home or self-care (01) | LOC: RADCTMAIN 07:37 | PROVIDERS: ATTEND Orthopaedic Surgery | DX: Z53.9 Procedure and treatment not carried out, unspecified reason (principal) ==

== ENCOUNTER → 2021-04-15 | Outpatient (CLI) | payer MEDICARE ==
--- NOTE | 2021-04-15 08:40 | CT ---
EXAMINATION TYPE: CT thoracic spine wo con DATE OF EXAM: 04/15/2021 COMPARISON: None HISTORY: Thoracic spine pain CT DLP: 1753 mGycm Automated exposure control for dose reduction was used. Unenhanced CT of the thoracic spine was perfo rmed in the axial coronal and sagittal planes. Bone and soft tissue window settings are reviewed. FINDINGS: Moderate degenerative disc space narrowing T11-12. Few disc demonstrates vacuum changes. Ventral spon dylosis identified. No evidence for carmen disc herniation or central stenosis. No evidence for fractu re or malalignment. No bony destructive process seen. No evidence of paraspinal mass. IMPRESSION: MULTILEVEL DEGENERATIVE DISC DISEASE AND SPONDYLOSIS.
--- NOTE | 2021-04-16 04:41 | MR ---
EXAMINATION TYPE: MR cervical spine wo con DATE OF EXAM: 04/15/2021 COMPARISON: 02/27/2020 HISTORY: Neck pain, Headaches Multiplanar multi echo imaging of the cervical spine without contrast. There is mild straightening of the lower cervical spine. There is anterior fusion surgery at C5-6. There is mild posterior spurring at C6-7. Spinal canal is adequate. Spinal canal measures 7.5 mm at the narrowest point. The brainste m is intact. Cervical spinal cord has normal signal pattern. There is no edema. There is no compressi on fracture. There is no evidence of cervical paraspinal mass. There is no compression fracture. IMPRESSION: Previous surgery. No significant spinal stenosis. No change compared to old exam.
== END | disposition home or self-care (01) ==
LOC: RADMRIMAIN 07:42
PROVIDERS: ATTEND Orthopaedic Surgery
DX: M51.34 Other intervertebral disc degeneration, thoracic region (principal); M47.814 Spondylosis without myelopathy or radiculopathy, thoracic region; M54.2 Cervicalgia
CPT/HCPCS: 72128; 72141

== ENCOUNTER → 2021-07-12 | Outpatient (CLI) | payer MEDICARE ==
--- NOTE | 2021-07-13 11:54 | CT ---
EXAMINATION TYPE: CT cervical spine wo con DATE OF EXAM: 07/12/2021 COMPARISON: MRI 04/15/2021 HISTORY: Neck pain CT DLP: 470 mGycm Automated exposure control for dose reduction was used. TECHNIQUE: CT scan of the cervical spine is obtained without contrast, axial images are obtained, sa gittal and coronal reformatted images are also reviewed. FINDINGS: Of benign-appearing lucent lesion involving the base of the skull could be on the basis of a pacchionian granulation. Assessment spinal canal limited due to noncontrast technique, resolution a nd artifact. At C2-C3 there is facet arthropathy but no evidence to suggest significant canal stenosis. No definit e foraminal encroachment. C3-C4 there is a grade 1 anterolisthesis. There is advanced facet arthropathy with uncovertebral join t hypertrophy. Moderate right and moderate to severe left foraminal encroachment. No definite canal s tenosis. C4-C5 there is facet arthropathy greater on the right with uncovertebral joint hypertrophy. Moderate to severe right foraminal encroachment and moderate left foraminal encroachment. No obvious canal charlie nosis given limitation exam. Grade 1 anterolisthesis C4 on C5. At C5-C6 there is postsurgical change. There is flattening of the thecal sac but there is artifact li miting the exam. Facet arthropathy with moderate to severe bilateral foraminal encroachment. Cannot e xclude canal stenosis. At C6-C7 there severe degenerative disc disease with uncovertebral joint hypertrophy and facet arthro devyn. Suspect severe bilateral foraminal encroachment. Canal stenosis suspected. At C7-T1 there is degenerative disc disease. Neural foramina patent. No obvious canal stenosis. IMPRESSION: 1. Multilevel degenerative disc disease and facet arthropathy with grade 1 anterolisthesis C3 on C4 a nd C4 on C5. 2. There is multilevel severe facet arthropathy with multilevel significant foraminal encroachment. S uggestion of canal stenosis C5-6 and C6/C7 which is concordant with the findings upon review of the p rior MRI.
== END | disposition home or self-care (01) ==
LOC: RADCTMAIN 17:21
PROVIDERS: ATTEND Orthopaedic Surgery
DX: M50.33 Other cervical disc degeneration, cervicothoracic region (principal); M43.12 Spondylolisthesis, cervical region; M47.812 Spondylosis without myelopathy or radiculopathy, cervical region
CPT/HCPCS: 72125

== ENCOUNTER 2021-08-05 19:49 | Emergency (ER) | payer MEDICARE ==
[2021-08-05 20:29] VITALS: BP 154/73; PULSE 58; RESP 20; TEMP 97.6
--- NOTE | 2021-08-05 21:51 | ED ---
Back Pain HPI - General Chief Complaint: Back Pain/Injury Stated Complaint: Back Pain Source: patient, RN notes reviewed Limitations: no limitations - History of Present Illness Initial Comments: Patient with a history of chronic back pain presents to the respiratory after feeling a twinge in his left lower back when he was closing a window. Patient had also just moved a chair. There was no direct trauma. Patient has had no fever or chills. Has no history of cancer. Denies any problems with bowel movements or urination. Pain is sharp, exacerbated by movement, does have some radiation of pain down the left leg and actually into the anterior aspect of left thigh. No headache, no fever or chills, no changes in vision or hearing, no sore throat or difficulty with speech, no neck pain, no chest pain or shortness of breath, no abdominal pain, no nausea or vomiting, no changes in urination or bowel movements, no numbness or tingling, no extremity pain, no skin rashes or lesions. MD Complaint: back pain - Related Data Home Medications Medication Instructions Recorded Confirmed Pantoprazole Sodium [Protonix] 40 mg PO DAILY 11/20/14 11/28/20 Naproxen Sodium [Aleve] 440 mg PO DAILY 11/10/19 11/28/20 Tadalafil [Cialis] 5 mg PO HS 01/09/20 11/28/20 Previous Rx's Medication Instructions Recorded Acetaminophen [Tylenol] 500 mg PO Q4-6H PRN #24 tab 08/05/21 Cyclobenzaprine [Flexeril] 5 mg PO TID PRN #20 tablet 08/05/21 methylPREDNISolone [Medrol] 4 mg PO DIRECTED #1 each 08/05/21 Allergies Allergy/AdvReac Type Severity Reaction Status Date / Time ciprofloxacin Allergy Rash/Hives/ Verified 08/05/21 20:29 sneezing levofloxacin [From Levaquin] AdvReac Nausea Verified 08/05/21 20:29 SEASONAL ALLERGIES AdvReac SNEEZING Uncoded 08/05/21 20:29 Review of Systems ROS Statement: Those systems with pertinent positive or pertinent negative responses have been documented in the HPI. ROS Other: All systems not noted in ROS Statement are negative. Past Medical History Past Medical History: GERD/Reflux, GI Bleed, Hearing Disorder / Deafness, Osteoarthritis (OA), Prostate Disorder Additional Past Medical History / Comment(s): PVC's, gastric ulcer, anemia, bilateral tinnitis, chronic back pain, hiatal hernia, degenerative disc disease. insomnia History of Any Multi-Drug Resistant Organisms: None Reported Past Surgical History: Back Surgery, Cardiac Ablation, Hernia Repair, Orthopedic Surgery Additional Past Surgical History / Comment(s): Bilateral cataract removal, bilateral rotator cuff sx, L foot bunionectomy/hammer toe sx, sinus surgery, cervical fusion and lumbar fusions. Past Anesthesia/Blood Transfusion Reactions: No Reported Reaction Additional Past Anesthesia/Blood Transfusion Reaction / Comment(s): Pt has received blood in past without reaction. Past Psychological History: No Psychological Hx Reported Smoking Status: Former smoker Past Alcohol Use History: None Reported Past Drug Use History: None Reported - Past Family History Mother Family Medical History: No Reported History Father Family Medical History: Congestive Heart Failure (CHF) General Exam - General Exam Comments Initial Comments: Minimal distress, does not appear to be toxic or ill. Cranial nerves II through XII grossly intact Limitations: no limitations General appearance: in distress Head exam: Present: atraumatic, normocephalic, normal inspection Eye exam: Present: normal appearance, PERRL, EOMI. Absent: scleral icterus, conjunctival injection, periorbital swelling ENT exam: Present: normal exam, mucous membranes moist Neck exam: Present: normal inspection, full ROM. Absent: tenderness, meningismus, lymphadenopathy Respiratory exam: Present: normal lung sounds bilaterally. Absent: respiratory distress, wheezes, rales, rhonchi, stridor Cardiovascular Exam: Present: regular rate, normal rhythm, normal heart sounds. Absent: systolic murmur, diastolic murmur, rubs, gallop, clicks GI/Abdominal exam: Present: soft. Absent: distended, tenderness, guarding, rebound, rigid Extremities exam: Present: normal inspection, full ROM, normal capillary refill. Absent: tenderness, pedal edema, joint swelling, calf tenderness Left Hip exam: Present: normal inspection, full ROM. Absent: tenderness Upper Leg exam: Present: full ROM. Absent: tenderness, swelling, abrasion, laceration, ecchymosis Knee exam: Present: normal inspection, full ROM. Absent: tenderness Back exam: Present: normal inspection Neurological exam: Present: alert, oriented X3, CN II-XII intact Psychiatric exam: Present: normal affect, normal mood Skin exam: Present: warm, dry, intact, normal color. Absent: rash Course Vital Signs 08/05/21 20:18 Temperature 97.6 F Pulse Rate 58 L Respiratory 20 Rate Blood Pressure 154/73 O2 Sat by Pulse 99 Oximetry Medical Decision Making - Medical Decision Making Patient presents with symptoms consistent with left lumbar strain with L3 or L4 radiculopathy. No evidence of cauda equina syndrome. Patient ambulating withou t difficulty. Straight leg raise is equivocal on the left. Distal sensation intact. Pedal pulses 2+ out of 4. No evidence of infectious process. There was no direct trauma. X-rays revealed no acute findings. We'll treat accordingly. Patient does have a back specialist. We'll have him call tomorrow morning to set up follow-up. Patient given a prescription for a Medrol Dosepak and a low-dose cyclobenzaprine. Patient was told to return to the ER for any signs or symptoms worsen. Told to return immediately if any other problems arise. All questions answered. Treatment plan discussed. Patient in agreement Every effort has been made to ensure accuracy of this dictation. However, due to the limitations of electronic medical records and dictation devices, errors in charting still occur. [employer] Dr. London Disposition Clinical Impression: Acute lumbar myofascial strain, Lumbar radiculopathy, acute Disposition: HOME SELF-CARE Condition: Stable Instructions (If sedation given, give patient instructions): Acute Low Back Sangeeta n (ED), Lumbar Radiculopathy (ED) Additional Instructions: Follow-up with your regular physician as directed. Return to the ER immediately if any symptoms worsen, new symptoms arise, or any other problems develop. Call tomorrow to make an appointment with the back specialist. Prescriptions: Cyclobenzaprine [Flexeril] 5 mg PO TID PRN #20 tablet PRN Reason: Spasms methylPREDNISolone [Medrol] 4 mg PO DIRECTED #1 each Acetaminophen [Tylenol] 500 mg PO Q4-6H PRN #24 tab PRN Reason: Pain Is patient prescribed a controlled substance at d/c from ED?: No Referrals: Javier Garcia DO [Doctor of Osteopathic Medicine] - 1-2 days Time of Disposition: 22:21
[2021-08-05] MEDS ORDERED: predniSONE 20 MG TAB PO STA (22:17)
[2021-08-05] MEDS ORDERED: CYCLOBENZAPRINE 10MG STARTER 3 TAB BTL PO STA (22:17)
[2021-08-05] MEDS ORDERED: MORPHINE SULFATE 4 MG/ML SYRINGE IM STA (22:17)
[2021-08-05] MEDS ORDERED: ACETAMINOPHEN TAB 500 MG TAB PO STA (22:17)
--- NOTE | 2021-08-05 22:27 | XR ---
EXAMINATION TYPE: XR lumbar spine 2 or 3V DATE OF EXAM: 08/05/2021 COMPARISON: CT scan 07/21/2017 HISTORY: Back pain TECHNIQUE: 3 views FINDINGS: There is asia and screws fusing posteriorly the lumbar spine from L4 to S1. There is a secon d-degree L5-S1 spondylolisthesis. There is disc prosthesis at L5-S1. There is narrowing of disc space s at L4-5 and L5-S1. No compression fracture. Sacroiliac joints are intact. IMPRESSION: Posterior fusion surgery. There is L5-S1 spondylolisthesis that appears worse than the o ld CT scan of 07/21/2017.
== END 2021-08-05 22:39 | disposition home or self-care (01) ==
LOC: EC 19:49
DX: S39.012A Strain of muscle, fascia and tendon of lower back, initial encounter (principal); M54.16 Radiculopathy, lumbar region; K21.9 Gastro-esophageal reflux disease without esophagitis; M19.90 Unspecified osteoarthritis, unspecified site; Z87.891 Personal history of nicotine dependence; Z79.899 Other long term (current) drug therapy; X58.XXXA Exposure to other specified factors, initial encounter
CPT/HCPCS: 72100; 99283; 96372; J2270; J7512

== ENCOUNTER 2021-10-02 08:00 | Day surgery (SDC) | payer MEDICARE ==
[2021-10-02] MEDS ORDERED: diazePAM 5 MG TAB PO STA (09:05)
[2021-10-02 09:32] VITALS: RESP 18; TEMP 97.6
[2021-10-02] MEDS ORDERED: HYDROcodone/APAP 5-325MG 1 EACH TAB PO PRN (10:41)
[2021-10-02 14:05] VITALS: BP 158/76; PULSE 71
--- NOTE | 2021-10-02 17:18 | FL ---
Lumbar puncture and Myelogram. INDICATION: Pain FINDINGS: Fluoroscopy time: 1 minute and 59 seconds. Images obtained: 8. The procedure was explained to the patient. Risks complications and benefits were discussed. Alternat dejuan were discussed. All questions were answered. Informed consent was obtained. A timeout was performed. The L4-5 level was chosen for access. Maximum barrier sterile technique was utilized. The skin was cl eansed with Betadine and the patient sterilely prepped and draped in the usual manner. The skin and d eeper tissue was anesthetized with 1% Lidocaine. Utilizing a 22-gauge spinal needle the spinal canal was accessed. Good CSF return was evident. Isovue-M 200 was utilized, 11 milliliters was administere d under fluoroscopic observation. The stylette was replaced and the needle withdrawn. Fluoroscopic spot images were obtained. The patient tolerated the procedure well. Discharge instructions were discussed with the patient. Th e patient was transferred to CT for additional evaluation. Findings: Limited views of the lumbar spinal canal with contrast were obtained. There is extrinsic i mpression on the right lateral aspect of the thecal sac at the L3 level. This is causing some spinal canal narrowing. Oblique views again demonstrate this defect. The terminal thecal sac is not opacifie d during this exam. Please also see CT lumbar spine for additional findings. IMPRESSIONS: 1. Successful Lumbar Puncture. 2. Left paracentral thecal sac impression at the L3 level.
--- NOTE | 2021-10-02 21:17 | CT ---
EXAMINATION TYPE: CT lumbar spine w con CT DLP: 721 mGycm, Automated exposure control for dose reduction was used. DATE OF EXAM: 10/02/2021 10:59 AM COMPARISON: Fluoroscopic myelogram 02/02/2022, lumbar spine radiograph 08/05/2021, CT lumbar spine 07/07. CLINICAL INDICATION:Male, 71 years old with history of M54.50 low back pain, M48.062 LUMBAR STENOSIS; PHH, pain TECHNIQUE: Fluoroscopic myelogram was performed before CT exam. Multiple axial images were obtained from the midportion of T10 through the sacroiliac joints. Soft tissue and bone windows in coronal an d sagittal planes were obtained and reviewed. FINDINGS: There are 5 nonrib-bearing lumbar type vertebral bodies identified. No acute fracture. Vertebral body heights are maintained. Postsurgical changes with bilateral pedicular screws and rods involving L4-S 1. The hardware is intact in stable position. Disc spacer demonstrated at L5-S1. Grade 1-2 anterolist hesis of L5 on S1. Partial ankylosis of the L4-L5 vertebral bodies. Contrast a few foci of pneumorrha chis is demonstrated within the spinal canal from the myelogram. Discs: T10-T11: No spinal canal or neural foraminal stenosis is identified. T11-T12:No spinal canal or neural foraminal stenosis is identified. T12-L1: No spinal canal or neural foraminal stenosis is identified. L1-L2: Large left subarticular disc herniation with extrusion caudally approximately 2.7 cm. There is effacement of the lateral thecal sac contributing to moderate spinal canal stenosis. This effaces th e left L1 exiting nerve root and transiting L2 nerve root. Severe left neural foraminal stenosis. The right neural foramen is patent. There is ligamentum flavum buckling identified. L2-L3: No spinal canal stenosis is identified. Ligamentum flavum buckling. Mild bilateral neural fora lucero stenosis. L3-L4: Broad-based disc bulge and ligamentum flavum buckling contributing to mild spinal canal stenos is. Neural foramina are patent bilaterally. L4-L5: Disc height loss with partial ankylosis. No significant spinal canal or neural foraminal sten osis. Facet joint arthropathy. L5-S1: Disc height loss with disc spacer identified. Grade 1-2 anterolisthesis of L5 and S1. No signi ficant spinal canal or neural foraminal stenosis. Facet joint arthropathy. IMPRESSION: * Large L1-L2 disc herniation with caudal extrusion contributing to moderate spinal canal stenosis a nd effacement of the left L1 exiting nerve root and L2 transiting nerve root with severe left neural foraminal stenosis. * Degenerative disc disease as described above.
== END 2021-10-02 14:19 | disposition home or self-care (01) ==
LOC: RADPROMAIN 08:00
PROVIDERS: ATTEND Orthopaedic Surgery
DX: M48.062 Spinal stenosis, lumbar region with neurogenic claudication (principal)
CPT/HCPCS: 36415; 62304; 72132; Q9966

== ENCOUNTER → 2021-11-21 | Outpatient (CLI) | payer MEDICARE ==
[2021-11-21 14:36] LABS: HCT 42.2 % (39.6-50.0); HGB 13.9 g/dL (13.0-17.0); MCH 34.9 pg (27.0-32.0); MCHC 32.9 g/dL (32.0-37.0); Mean Platelet Volume 8.9 fL (9.5-12.2); NRBC Per 100 WBC 0 /100 WBCS (0.0-0.0); Platelet Count 228 X 10*3/uL (140-440); RBC 3.98 X 10*6/uL (4.40-5.60); RDW 12.4 % (11.5-14.5); WBC 4.42 X 10*3/uL (4.50-10.00)
[2021-11-21 14:38] LABS: INR 0.95 (0.90-1.11); Prothrombin Time 10.5 sec (9.9-11.9)
[2021-11-21 15:45] LABS: Basophils # (A) 0.05 X 10*3/uL (0.00-0.10); Basophils % (A) 1.1 %; Eosinophils # (A) 0.15 X 10*3/uL (0.04-0.35); Eosinophils % (A) 3.4 %; Immature Grans, Automated 0.2 %; Lymphocytes # (A) 1.32 X 10*3/uL (0.90-5.00); Lymphocytes % (A) 29.9 %; Monocytes # (A) 0.51 X 10*3/uL (0.20-1.00); Monocytes % (A) 11.5 %; Neutrophils # (A) 2.38 X 10*3/uL (1.80-7.70); Neutrophils % (A) 53.9 %
[2021-11-21 15:46] LABS: Macrocytosis (M) 2+
[2021-11-21 16:44] LABS: African American GFR (CKD) 84.1 (60.0-200.0); Albumin/Globulin Ratio 1.55 (1.60-3.17); Anion Gap 6.9 mmol/L (10.00-18.00); BUN/Creat Ratio 12.65 Ratio (12.00-20.00); Blood Urea Nitrogen 12.9 mg/dL (9.0-27.0); Calcium 9.4 mg/dL (8.7-10.3); Carbon Dioxide 27.2 mmol/L (20.0-27.5); Globulin 2.6 g/dL (1.6-3.3); Non-African American GFR(CKD) 72.6 (60.0-200.0); Total Bilirubin 0.4 mg/dL (0.30-1.20); Total Protein 6.6 g/dL (6.2-8.2)
== END | disposition home or self-care (01) ==
LOC: LABWHC1 09:22
PROVIDERS: ATTEND Family Medicine
DX: Z01.812 Encounter for preprocedural laboratory examination (principal)
CPT/HCPCS: 36415; 80053; 85025; 85610

== ENCOUNTER → 2021-11-21 | Outpatient (CLI) | payer MEDICARE | END | disposition home or self-care (01) | LOC: LABWHC1 09:20 | PROVIDERS: ATTEND Orthopaedic Surgery | DX: Z01.812 Encounter for preprocedural laboratory examination (principal); M51.9 Unspecified thoracic, thoracolumbar and lumbosacral intervertebral disc disorder; Z22.322 Carrier or suspected carrier of Methicillin resistant Staphylococcus aureus | CPT/HCPCS: 87070 ==

== ENCOUNTER 2021-11-28 12:33 | Observation (INO) | payer MEDICARE ==
--- NOTE | 2021-11-25 15:36 | P.HPOR ---
History of Present Illness H&P Date: 11/25/21 Chief Complaint: LLE weakness, LLE paresthesia [facility] Date of :[birth year] R14Age: 70 year Height: 5'11" Weight: 180 lbs BMI: 25.10 kg/m2 Occupation: Retired VAS: 1 CHIEF COMPLAINT: Recheck of CT Myelogram lumbar spine HISTORY: Xrays brought xrays from outside facility which were reviewed, No new xrays taken in office Trauma or injury No Work-Related No Pain description burning, sharp. Location posterior Activity Modification yes , unable to perform bending/lifting/twisting motions regarding the neck. Hand Dominance right DOI: Chronic, no injury or trauma. DOS: Lumbar surgery in 2018 and ACDF 2016 TREATMENTS COMPLETED: 6 weeks of PT completed? Yes How many sessions? Has done multiple rounds previously. Did it help? No Physician directed home exercise completed? Yes, has trialed but discontinued as it exacerbated his symptoms. Medications yes List: Naproxen, Aleve OTC with no discernable change ot his symptomology. Has found moderate relief of his pain withe the Mobic previously prescribed. Alternative interventions Chiropractic?: No Brace: No Injections Yes (ANGE) How many?Several Did they help? No RFA: yes , several with no improvements. SUBJECTIVE: Today Sumeet is here for pre op evaluation. He is doing OK but his LLE is numb and weak and he is ready for surgery. He ocntinues to have issues ambulationg and with ADLs. He states minor back pain but more pain in the LLE and global weakness in LLE. No bowel or bladder issues at this time. He states no perineal numbness/tingling but he is having difficulty with incomplete voiding now and feels that he needs to stand for a while until he empties all his bladder. Denies any f/c/sob/cp. States he is ready for surgery as he feels he is getting worse. HISTORY: Mr. Rosado returned to the office for a recheck of their low back and to review his CT Myelogram obtained after the time of the last appointment. Patient reports increasing lumbar pain ongoing for several months with no known injury or trauma to indicate an exact onset of their symptoms. Additionally the patient reports continued radicular symptoms and increasing numbness/tingling and weakness about the left lower extremity Overall the patient has seen a pro gressive increase in symptoms since their onset. Mr. Rosado symptoms are exacerbated with prolonged standing and ambulation, due to this they notes that it is increasingly difficult for Mr. Rosado to complete many of their daily tasks. Patient is having severe sleep disturbances as well due to their ongoing pain and associated symptoms. Regarding treatments, the patient has previously trialed all abovementioned treatment modalities without any relief of his symptoms. Patient denies trialing any other modalities at this time. For their symptoms, the patient has been taking Naproxen, Aleve, and previously Mobic all without relief of his symptoms. Otherwise the patient denies any f/c/sob/cp, no incision concerns, no bladder or bowel retention/incontinence, no perineal numbness/tingling, and ambulates independently. Patient last returned to the office on 08/30/2021 for a recheck of his low back and cervical spine, and to review his CT scan of the cervical spine obtained after the time of the last appointment. Since the time of the last appointment the patient reports that he did present to the [facility] 2 weeks ago regarding his low back after seeing a sharp increase in pain without any known injury or trauma. Following this he wass directed to return here for subsequent evaluation. Aside from this recent incident the patient reports that he has seen no significant changes to his symptoms and is overall similar to as reported previously. As for treatments the patient reports that he has been taking the Mobic previously prescribed with improvements to his pain. Otherwise he denies any notable improvements to his symptoms with all abovementioned treatment modalities. Patient last presented to the office on 04/26/2021 for a recheck and to review his MRI and CT scan obtained after the time of the last appointment. Since the time of the last appointment the patient reports that his symptoms have not changed. HIs symptoms are the same as they were described at the time of the last appointment. As for treatments the patient has continued with OTC Aleve as well as the physician recommended HEP without any improvements. Overall he reports continued disability and cannot complete many of his daily tasks due to the severity of his symptoms. Otherwise he continues to deny any bladder or bowel retention/incontinence, no perineal numbness/tingling, and ambulates independently. Mr. Rosado last presented to the office on 03/18/2021 for an evaluation of his cervical spine. Patient does present to the office on a referral from his PCP, Dr. Meza. He reports cervical pain ongoing for several years with no known injury or trauma to indicate an exact onset of his symptoms. [facility] issue and does have a hx of C5-C6 ACDF done in 2016. Following this surgery he reports having diffuse posterior pain that has increased in severity with time. Patient reports difficulty with performing any twisting motion as it exacerbates his symptoms and they become acute. he denies any radicular symptoms at this time but does have pain extending from the neck into the right trapezius. As for treatments the patient notes that he has done "several rounds of PT, all without improvements to his symptoms. he has additionally trialed home therapy also without improvements. he does take Naproxen OTC without any discernable changes. lastly he hs done several injections involving both ANGE's and RFA's all without improvements. Overall he notes that his pain has failed to improve with any conservative treatments tried thus far. Otherwise the patient reports no bladder or bowel issues, no perineal numbness/tingling, and ambulates without the use of any aides. The patients' past social, medical, family, surgical history, as well as review of systems, have been reviewed. Please refer to the Neurosurgery History and Physical form that has been scanned in to our electronic medical record system. 14 points review of systems completed and as stated in HPI, all other systems reviewed are negative. Social History: Reviewed, see appropriate section of the chart for details. [id number]: never a smoker P3 Alcohol: currently drinks alcohol P3 .3-4/day P3 Family History: Reviewed, see appropriate section of the chart for details. P2 Past Medical History: Reviewed, see appropriate section of the chart for d etails. P1Rx: Protonix 40 mg tablet,delayed release Ref: 0 Rx: tadalafiL 5 mg tablet Ref: 0 PHYSICAL EXAMINATION: repeated as below General: Awake, alert, appropriate for age, in no acute distress. HEENT: No unusual neck masses around region of lateral neck triangle, thyroid, supraclavicular groove Extremities: Skin warm and dry without acute lesions, coloration, temperature, skin intact, no tenderness or erythema Integument: Hairy patches: Absent Dorsal skin dimples: Absent Cafe au lait spots: Absent Surgical incisions: No Palpation: Please see Pain drawing on Intake sheet for further detail. Midline spinal tenderness: Yes, C7-T1 E6 Paralumbar tenderness: No E6 Parathoracic tenderness: No E6 Buttocks tenderness: No E6 Special findings: No POSTURAL and MUSCULO-SKELETAL EVALUATION: Coronal Balance: NEUTRAL Recumbent testing: Patient is able to lay flat on back Sagittal Balance: NEUTRAL Shoulder Profile: LEVEL Pelvic Girdle: LEVEL Neck ROM: restricted to the left, with associated pain Lumbar ROM: UNRESTRICTED Shoulder ROM: Symmetrical Hip ROM: Symmetrical Knee ROM: Symmetrical Hands: Normal appearance, symmetrical Feet: Normal appearance, Symmetrical VASCULAR STATUS : LEFT RIGHT Wrist Pulses INTACT INTACT Pedal Pulses (Dors. pedis & post.tibialis) INTACT INTACT Color NORMAL NORMAL Edema Absent Absent NEUROLOGIC EXAMINATION: Mental Status:Awake and alert, fully oriented, with normal attention, concentration and memory, and fluent, appropriate speech. Cranial Nerves: I: Olfactory not tested. II: Visual acuity normal, no visual field deficit noted with confrontation. III,IV: Normal pupillary reflexes & intact extraocular movements without nystagmus. V,: Intact symmetrical facial sensation. VII: Intact symmetrical facial motor movement VIII: Hearing intact. IX,X: Intact gag, swallow, & normal voice. XI: Sternocleidomastoid, trapezius function intact. XII: Tongue midline with normal movements. L'hermitte's Sign: Negative / absent Spurling'Sign: Absent bilaterally. Cubital percussion test: Absent bilaterally. Valdez-Tinel sign - Carpal region: Absent bilaterally. Straight Leg Raising: Present LLE Crossed straight leg raise: negative O8 MOTOR EXAM (0-5/5, N/T) STRENGTH RIGHT LEFT Shoulder Abd (not part of the YIN score) 5 5 Elbow Flexors 5 5 Elbow Extensor 5 5 Wrist Dorsiflexors 5 5 Finger Abductor 5 5 Sales Development Associate 5 5 Hip Flexor (Not part of YIN Motor score) 5 4 Knee Flexor 5 4 Knee Extensor 4 4 Ankle dorsiflexor 5 4 Ankle plantarflexion 5 4 Extensor hallucis 5 5 REFLEXES(0-4/2, NT) RIGHT LEFT Upper Extremities 3 2 Lower Extremities 2 2 Pathological Reflexes RIGHT LEFT Valdez's Present Absent Clonus Absent Absent Babinski Absent Absent # Indicates mechanical impairment Muscle appearance: Symmetrical, without signs of atrophy or dystrophy. Sensory system (0-4, N/T) Test type RU ESTEFANY RL LL Joint-Position 2 2 2 2 Vibration 2 2 2 2 Pain & LT sense 2 2 2 2 Dermatomal Deficit: None None None Diffuse, L1-2 Gait and Functional Evaluation: Ambulatory aids: Independent, with difficulty Romberg's test: Intact bilaterally Toe heel walk / heel-toe walk intact while maintaining satisfactory balance? NO Squatting/straightening w/o assistance to a min of 60 degree knee flexion? NO Single leg stance: intact Trendelenburg sign negative bilaterally Hand and finger dexterity intact bilaterally? yes Disdiadochokinesis examination negative bilaterally? yes RADIOGRAPHIC STUDIES: Xrays from 03/18/2021 of Cervical Spine: These are reviewed in office today and demonstrate spondylosis from C3-C7 with post surgical changes C5-6 with fusion noted. There is interbody in place with no evidence of loosening or failure. There is reversal of the normal cervical lordosis. There is ASD of C6-7 and C4-5 noted with disc dessication, spondylotic changes and spurring. There is facet arthropathy noted that is severe C3-7. There are no fracture. No lesions. No overt instability noted. C0-1 and C1-2 are stable. MRI scan [id number] of CervicalSpine: This is reviewed in office and demonstrates multilevel spondylotic changes with ASD C4-5 and C6-7 around the previous C5-6 fusion. There is reversal of the normal cervical lordosis. There is Grade I anteriorlisthesis of C4-5 due to facet hypertrophy and insuffiency. There is no lesion no fracture noted. C0-1 and C1-2 appear stable. There is moderate stenosis C4-5. There is more severe stenosis related to post surgical level at C5-6 with posterior spurring that is due to overgrowth in this area. There are no cord signal changes noted. There is moderate stenosis C6-7 due to disc osteophyte complex. There are varying degrees of foraminal stenosis which would be better seen on CT scan. MRI scan from04/15/2021 of CervicalSpine: MRI of the cervical spine is reviewed. There is significant artifact related to C5 6 ACDF those placed previously. There is adjacent segment disease noted C4 5 and C6 7 with spondylosis and disc collapse as well as facet arthrosis. There is mild stenosis related in this area. No other fracture or dislocation noted except for cervical C1 [address] scan from04/15/2021 of Thoracic Spine: Thoracic spine CT is reviewed no significant vertebral body collapse fractures dislocations lesions or malalignments. CT Myelogram from 10/02/2021 of the Lumbar Spine: Images reviewed with the patient demonstrate post surgical changes L4-S1 with hardware in position. There is residual listhesis at L5-S1 that is stable. Good fusion notd. No severely stenotic areas. At L1-2 there is an extra large extruded disc fragment causing severe central, foraminal and lateral recess stenosis at L1-2 and down to L2-3. The disc piece is sitting behind L2 vertebral body and is causing significant stenosis which is paracentral on the L leading to pts sx. No other fractures noted. Vacuum disc at L1-2 and L2-3 noted. Facet arthropathy at these levels as well noted. No lesions noted. IMPRESSION AND PLAN: It was my pleasure to have seen and examined Sumeet. I reviewed the patient's clinical syndrome, physical findings, and imaging studies during the appointment today. It is my impression that the patient has a diagnosis of. 1. Extra Large extruded disc herniation L1-2 causing severe central and lateral recess stenosis 2. LLE radiculopathy 3. LLE and now RLE weakness, progressive 4. S/p L4-S1 instrumented fusion 5. Complex spine surgery history cervicla and lumbar. I outlined the natural course history without intervention and various interventional options. Based on my findings I suggest the following course of action: 1. I discussed treatment options with the patient, including operative and non- operative options, and they have elected to proceed with the following surgical procedure: Minimally invasive lumbar (L1-L2) decompression with microdiscectomy (50091) The indications, risks, benefits, and alternatives to surgery were discussed with the patient at length. Specifically (but not limited to) the risks of infection, stiffness, recurrence of symptoms, need for revision surgery, local numbness, neurovascular injury, and blood clots were discussed. The patient's questions were answered. The decision to proceed was made. Consent will be obtained for the procedure. Surgical Procedure Risk Review Sumeet Rosado is a 71 year old male presenting for evaluation of sudden onset of Low back pain and progressive LLE weakness with LLE pain. It was my pleasure to have seen and examined Mr. Rosado. In our visit today we have had a chance to go over subjective complaints, physical examination findings and treatments, including the natural course history without intervention and various interventional options. The imaging demonstrates Extra Large HNP L1-2 with extrusion causing severe stenosis central and lateral recess . On physical exam, Mr. Rosado demonstrates LLE weakness, low back pain, Tensioning signs to LLE . I explained to the patient that as his condition progresses it could cause Continued pain, progressive neurological deficit and debility . At this time, based on the patients imaging and physical exam, I recommend surgery in the form or a: L1-2 decomopression with microdiscectomy . I discussed the risk and benefits of this procedure at length with Mr. Rosado. The patient agreed to consider pursuing the procedure mentioned above. Plan: 1. Minimally invasive Lumbar 1-2 decompression with microdiscectomy (11633) 2. Follow up with PCP for surgical clearance 3. Review of surgical risks and benefits as well as an educational packet on the proposed surgical procedure. Risks: All surgical procedures come with inherent risks, including those related to positioning, anesthesia, intraoperative findings, and postoperative complications. It is important to understand that surgery does not come with any guarantee of a successful outcome as complications and adverse events are always possible. The patient was given a handout in office today discussing the surgical procedure and risks associated with the intervention, both of which were discussed with the patient. These risks include but are not limited to the following: ? Experiencing same, different or even worse symptoms in back, neck, arms, or legs compared to before surgery. ? Requiring further surgery or other forms of treatment presently or at some time in the future at same or other levels of the intended spine surgery. ? On an extreme but fortunately relatively rare basis severe complication such as blindness, stroke, heart attack, temporary and/or permanent nerve injury, paralysis, coma, or may occur, sometimes without known explanation. ? Surgical complications may include but are not limited to risk of infection, fluid accumulation in the surgical dissection site, including a seroma or hematoma, that requires additional surgery, wound drainage, bleeding, new numbness or weakness, vision changes/loss, spinal fluid leakage, non-healing and/or infected incision, headaches, difficulty or inability to swallow, hoarseness, hemopneumothorax, pneumothorax, impotence, retrograde ejaculation, vaginal dryness; injury to nerves, spinal cord, blood vessels, lymphatics or other vital organs (i.e., bowel injury, injury to the great vessels); heterotopic bone formation; complications related to the hardware such as screws, rods, cages including misplaced hardware, device failure, instrumentation at the wrong spine level, hardware fracture/breakage, or hardware loosening; vertebral failure of the spinal column above or below the newly placed hardware; retained surgical instrumentations or devices and the need for further surgery. ? Medical risks of the planned spine surgery include but are not limited to generalized Infections to the whole body or local areas outside of the surgical site (sepsis), heart attack, bleeding, anaphylaxis, meningitis, seizure, epilepsy, hearing loss, burn ortiz, laceration of the head or other areas of the body, bruising, hypersensitivity of the skin, bladder over distension; allergic reaction; shoulder injury related to positioning; fat, blood and air clots to other areas of the body like heart, lungs, brain; failure of internal organs such as lungs, kidneys, liver and excessive bleeding. If blood transfusions are necessary, note that transfusions may cause intolerance reactions such as anaphylaxis or other complex reactions. Despite best efforts, the results of spine surgery might not heal in terms of bone, soft tissues such as skin, fascia, ligaments, and joints. Additionally, in order to achieve best possible results, spine surgery may be carried out beyond the initially planned levels and involve decompression, fusion including insertion of hardware at levels other than the original intended area of mauricio gical interest change some portions of the procedure in order to ensure the best possible outcomes. With spine surgery and spinal fusion, there are different off label uses of instrumentation (devices, implants and hardware) as well as biological substances (bone morphogenic proteins, demineralized bone matrix) as well as using extra bone from allograft sources (i.e. cadaver bone) or autograft (iliac crest bone, ribs, or the spine itself). The patient has been given information about these practices and their inherent risks and benefits. [facility]ist[facility] are medically trained surgical providers who function in the outpatient, inpatient, and operating room setting under the direct supervision of the attending surgeon.They assist in the operating room with direct supervision of the attending surgeons. The patient has had a chance to review all the listed information, has been given print outs detailing this information, and has had all his/her questions answered to their satisfaction. It was my pleasure to have seen and examined Mr. Rosado. In our visit today we have had a chance to go over my understanding of our patient's current condition, the natural course history without intervention and various interventional options. Questions were invited and answered, and the patient wishes to proceed as outlined above. I have seen and examined the patient for 25 minutes and we have spent more than 50% of the time in repeat and detailed counseling about the patient's condition, its natural course history with out and as much as can be predicted with surgery and re-review of various surgical treatment options. In conclusion,Mr. Rosado and his spouse/partner requested we proceed with the above suggested surgery and are willing to accept risks and limitations of the suggested surgery as nature of the disease process and our best attempts at treatment for the condition. Thank you again for allowing us to be part of your patient's care. Please don't hesitate to contact me if you have any further questions. Follow-up:Post op Plan at next visit: review planned procedure Medications Reviewed: yes In our visit today Mr. Rosado and I have had a chance to go over my understanding of the patient's current condition, the natural course history without intervention and various interventional options. Questions were invited and answered, and the patient wishes to proceed as outlined above. I will be sure to keep you updated afterMr. Rosado returns here for further follow-up. Thank you again for your referral. Please do not hesitate to contact me if you have any further questions. Signed and authenticated by: [facility] Complex and Minimally Invasive Spine Surgery [facility] [address] This message is confidential, intended only for the named recipient(s) and may contain information that is privileged or exempt from disclosure under applicable law. If you are not the intended recipient(s), you are notified that the dissemination, distribution or copying of this information is strictly prohibited. If you received this message in error, please notify the sender then delete this message. Patient verbalizes understanding of the information discussed. Past Medical History Past Medical History: GERD/Reflux, GI Bleed, Hearing Disorder / Deafness, Osteoarthritis (OA), Prostate Disorder Additional Past Medical History / Comment(s): PVC's, gastric ulcer, bilateral tinnitis, chronic back pain, hiatal hernia, degenerative disc disease. insomnia History of Any Multi-Drug Resistant Organisms: None Reported Past Surgical History: Back Surgery, Cardiac Ablation, Hernia Repair, Orthopedic Surgery Additional Past Surgical History / Comment(s): Bilateral cataract removal, bilateral rotator cuff sx, L foot bunionectomy/hammer toe sx, sinus surgery, cervical fusion and lumbar fusions. Past Anesthesia/Blood Transfusion Reactions: No Reported Reaction Additional Past Anesthesia/Blood Transfusion Reaction / Comment(s): Pt has received blood in past without reaction. Past Psychological History: No Psychological Hx Reported Additional Psychological History / Comment(s): . Smoking Status: Former smoker Past Alcohol Use History: Daily Additional Past Alcohol Use History / Comment(s): Pt smoked from [id number]. He drinks 3 beers a day. Past Drug Use History: None Reported - Past Family History Mother Family Medical History: No Reported History Father Family Medical History: Congestive Heart Failure (CHF) Medications and Allergies Home Medications Medication Instructions Recorded Confirmed Type Pantoprazole Sodium [Protonix] 40 mg PO DAILY 11/20/14 10/02/21 History tadalafiL [Cialis] 5 mg PO HS 01/09/20 10/02/21 History Acetaminophen [Tylenol] 500 mg PO Q4-6H PRN #24 tab 08/05/21 10/02/21 Rx Meloxicam [Mobic] 7.5 mg PO DAILY 09/24/21 10/02/21 History Allergies Allergy/AdvReac Type Severity Reaction Status Date / Time ciprofloxacin Allergy Rash/Hives/ Verified 10/02/21 10:01 sneezing levofloxacin [From Levaquin] AdvReac Nausea Verified 10/02/21 10:01 SEASONAL ALLERGIES AdvReac Mild SNEEZING Uncoded 10/02/21 10:03 Physical Examination Osteopathic Statement: *. No significant issues noted on an osteopathic structural exam other than those noted in the History and Physical/Consult.
[~2021-11-28 12:33] MED LIST changes: +ACETAMINOPHEN TAB 500 MG TAB PO PRN; +GABAPENTIN 300 MG CAP PO PRN; +MELOXICAM 7.5 MG TAB PO PRN; +TRANEXAMIC ACID IN NACL,ISO-OS 1,000 MG in SALINE 1 100ML.BAG IVPB PRN
[2021-11-28] MEDS: DEXAMETHASONE SOD PHOSPHATE 4 MG/ML 1 ML VIAL IV ONE ×2 (13:29→19:33)
[2021-11-28] MEDS: ONDANSETRON 4 MG/2 ML VIAL IVP ONE ×2 (13:29→20:12)
[2021-11-28] MEDS ORDERED: fentaNYL (PF) 50 MCG/ML 2 ML AMP ONE (14:55)
[2021-11-28] MEDS ORDERED: PHENYLEPHRINE-0.9% NACL SYG 1,000 MCG/10 ML SYRINGE ONE (14:55)
[2021-11-28] MEDS ORDERED: THROMBIN (BOVINE) 5,000 UNIT VIAL TOPICAL ONE (14:55)
[2021-11-28] MEDS ORDERED: LIDOCAINE 2% INJ 20 MG/ML (2 ML VIAL) ONE (14:55)
[2021-11-28] MEDS ORDERED: ROCURONIUM 10 MG/ML (5 ML VIAL) IV ONE (14:55)
[2021-11-28] MEDS ORDERED: TRANEXAMIC ACID IN NACL,ISO-OS 1,000 MG/100 ML BAG ONE (14:55)
[2021-11-28] MEDS ORDERED: NEOSTIGMINE 1 MG/ML 10 ML VIAL ONE (14:55)
[2021-11-28] MEDS ORDERED: SUCCINYLCHOLINE CHLORIDE 200 MG/10 ML VIAL IV ONE (14:55)
[2021-11-28] MEDS ORDERED: PROPOFOL 10 MG/ML 20 ML VIAL IV ONE (14:55)
[2021-11-28] MEDS ORDERED: KETAMINE 10 MG/ML 20 ML VIAL ONE (14:55)
[2021-11-28] MEDS ORDERED: HYDROmorphone (PF) 1 MG/ML ONE (14:55)
[2021-11-28] MEDS ORDERED: BUPIVACAINE (PF) 0.5% 30 ML VIAL SQ ONE ×2 (14:55)
[2021-11-28] MEDS ORDERED: GLYCOPYRROLATE 0.2 MG/ML 2 ML VIAL ONE (14:55)
[2021-11-28] MEDS ORDERED: GELATIN SPONGE,ABSORB (LARGE) 1 EACH SPONGE TOPICAL ONE (14:55)
[2021-11-28] MEDS ORDERED: MIDAZOLAM 2 MG/2 ML VIAL ONE (14:55)
[2021-11-28] MEDS ORDERED: VANCOMYCIN 1,000 MG VIAL MISCELLANE ONE (15:42)
[2021-11-28] MEDS ORDERED: LACTATED RINGERS 1,000 ML IV ONE (16:56)
[2021-11-28] MEDS ORDERED: HYDROcodone/APAP 10-325MG 1 EACH TAB PO PRN (18:27)
[2021-11-28] MEDS ORDERED: HYDROmorphone 0.5 MG/0.5 ML SYRINGE IVP PRN (18:27)
[2021-11-28] MEDS ORDERED: CYCLOBENZAPRINE 5 MG TAB PO PRN (18:27)
[2021-11-28] MEDS ORDERED: HYDROcodone/APAP 5-325MG 1 EACH TAB PO PRN (18:27)
--- NOTE | 2021-11-28 18:38 | XR ---
Intraoperative/procedural fluoroscopic services were provided for lumbar discectomy. Total fluoroscop y time is 30 seconds with a total of 6 submitted images to PACS. Please see the operative note for fu rther details.
[2021-11-28] MEDS: HYDROmorphone 0.5 MG/0.5 ML SYRINGE IVP PRN ×3 (18:51→19:16)
--- NOTE | 2021-11-28 18:51 | P.PN ---
Progress Note - Text Progress Note Date: 11/28/21 POST OP: Pt s/e in the PACU. Still waking up but following commands. VSS at this time. Nsg at bedside. He is moving all 4 ext with purpose and decent strength. No focal deficits. He is flexing his hips in bed and moving his knees and ankles. Denies any numbness currently, but still tired from anesthesia. Dressing is CDI. He will be admitted to the hospital and lay flat overnight. He will be given medications and medicine will consult on him for management. Discussed with family and they agree. We will reassess in the AM.
[2021-11-28] MEDS: SODIUM CHLORIDE 0.9% 1,000 ML IV SCH (21:35)
[2021-11-28] MEDS: PREGABALIN 50 MG CAP PO SCH (21:35)
[2021-11-28] MEDS: HYDROmorphone 1 MG/ML 1 ML SYRINGE IVP PRN (21:41)
[2021-11-29] MEDS: HYDROmorphone 1 MG/ML 1 ML SYRINGE IVP PRN ×5 (00:21→22:42)
--- NOTE | 2021-11-29 04:21 | P.CONS ---
History of Present Illness - Reason for Consult Consult date: 11/28/21 post op medical management - Chief Complaint Spine surgery - History of Present Illness 71-year-old male denies any significant past medical history Patient comes in for scheduled lumbar spine surgery due to slipped disc resulting in uncontrolled pain affecting activities of daily living. Patient tolerated procedure well no observed postoperative complications tolerating by mouth intake. Denies any chest pain or trouble breathing denies fevers chills nausea vomiting abdominal pain denies any bleeding. Review of Systems Pertinent positives as noted in HPI. All other systems were reviewed and are negative Past Medical History Past Medical History: GERD/Reflux, GI Bleed, Hearing Disorder / Deafness, Osteoarthritis (OA), Prostate Disorder Additional Past Medical History / Comment(s): Hx. PVC's-had ablation, gastric ulcer, bilateral tinnitis, chronic back pain, hiatal hernia, degenerative disc disease. insomnia History of Any Multi-Drug Resistant Organisms: None Reported Past Surgical History: Back Surgery, Cardiac Ablation, Hernia Repair, Orthopedic Surgery Additional Past Surgical History / Comment(s): Bilateral cataract removal, bilateral rotator cuff sx, L foot bunionectomy/hammer toe sx, sinus surgery, cervical fusion and lumbar fusion. Past Anesthesia/Blood Transfusion Reactions: No Reported Reaction Additional Past Anesthesia/Blood Transfusion Reaction / Comm: Pt has received blood in past without reaction. Past Psychological History: No Psychological Hx Reported Additional Psychological History / Comment(s): . Smoking Status: Former smoker Past Alcohol Use History: Daily Additional Past Alcohol Use History / Comment(s): Pt smoked from [id number]. He drinks 3 beers a day. Past Drug Use History: None Reported - Past Family History Mother Family Medical History: No Reported History Father Family Medical History: Congestive Heart Failure (CHF) Medications and Allergies Home Medications Medication Instructions Recorded Confirmed Type Pantoprazole Sodium [Protonix] 40 mg PO DAILY 11/20/14 11/28/21 History tadalafiL [Cialis] 5 mg PO HS 01/09/20 11/28/21 History Acetaminophen [Tylenol] 500 mg PO Q4-6H PRN #24 tab 08/05/21 11/28/21 Rx Meloxicam [Mobic] 7.5 mg PO DAILY 09/24/21 11/28/21 History Pregabalin [Lyrica] 50 mg PO TID 11/26/21 11/28/21 History Allergies Allergy/AdvReac Type Severity Reaction Status Date / Time ciprofloxacin Allergy Rash/Hives/ Verified 11/28/21 12:52 sneezing levofloxacin [From Levaquin] AdvReac Nausea Verified 11/28/21 12:52 Physical Exam Vitals: Vital Signs Temp Pulse Pulse Resp BP Pulse Ox 11/29/21 00:27 98.7 F 74 18 132/73 96 11/28/21 20:30 82 16 11/28/21 20:27 98.2 F 78 18 141/67 98 11/28/21 20:00 98.2 F 87 20 94 L 11/28/21 19:17 82 16 151/77 100 11/28/21 19:05 70 16 151/72 100 11/28/21 18:46 79 12 142/68 100 11/28/21 18:30 98.4 F 76 12 129/70 98 11/28/21 18:27 98.2 F 81 18 159/81 92 L 11/28/21 13:03 97.7 F 69 18 188/84 98 Intake and Output 11/28/21 11/28/21 11/29/21 14:59 22:59 06:59 Intake Total 1050 320 Output Total 50 Balance 1050 270 Intake: IV 1050 200 Oral 120 Output: Urine 0 Estimated Blood Loss 50 Other: Weight 83 kg 83 kg Constitutional: No acute distress, conversant, pleasant Eyes: Anicteric sclerae, moist conjunctiva, Pupils equal round reactive to light ENMT: NC/AT Oropharynx clear, no erythema, or exudates Neck: Supple,no masses, or JVD No carotid bruits No thyromegaly Lungs: Clear to auscultation Clear to percussion Normal respiratory effort, no accessory muscle use Cardiovascular: Heart regular in rate and rhythm, No murmurs, gallops, or rubs No peripheral edema Abdominal: Soft Nontender, no guarding, rebound or rigidity Abdomen moving with respiration Normoactive bowel sounds No hepatomegaly, No splenomegaly No palpable mass No abdominal wall hernia noted Skin: Normal temperature, tone, texture, turgor No induration No subcutaneous nodules No rash, lesions No ulcers Extremities: No digital cyanosis No clubbing Pedal pulses intact and symmetrical Radial pulses intact and symmetrical No calf tenderness Psychiatric: Alert and oriented to person, place and time Appropriate affect fair judgement Neuro Muscles Strength 5/5 in bilateral upper extremities, limited exam over lower extremities due to post op status with lumbar spine surgery Sensation to light touch grossly present throughout Cranial nerves II-XII grossly intact No focal sensory deficits Lymphatics: no palpable cervical or supraclavicular , or inguinal lymph nodes Assessment and Plan Assessment: GERD Continue PPI Peripheral neuropathy Continue Lyrica Postoperative day 0 post lumbar spine surgery for slipped disc Management per orthopedic Check CBC and BMP in the morning Currently medically stable DVT prophylaxis mechanical due to spine surgery Full code Thank you for allowing us to participate in the care of this patient. We will follow peripherally. Do not hesitate to contact us with questions. Someone can be reached from the [facility] hospitalist group at all hours of the day at [phone].
--- NOTE | 2021-11-29 08:00 | P.PN ---
Subjective Progress Note Date: 11/29/21 Principal diagnosis: L1-2 HNP LLE weakness LLE paresthesias Pt s/e this AM. He is doing failry well. c/o pain in his back and is not a fan of lying flat but has overnight. Denies any new sx. No STRICKLAND, blurred vision change in vision. Denies any new numbness states his LLE seems to feel better. Denies any f/c/sob/cp at this time. No bowel bladder issues, has a condom cath but is urinating well on his own. No Bm but good flatus overnight. Denies any perineal sx. Objective - Vital Signs Vital signs: Vital Signs Temp 97.8 F 11/29/21 04:27 Pulse 75 11/29/21 04:27 Resp 16 11/29/21 04:27 BP 126/70 11/29/21 04:27 Pulse Ox 94 L 11/29/21 04:27 FiO2 Intake & Output 11/28/21 11/29/21 11/29/21 18:59 06:59 18:59 Intake Total 1310 300 Output Total 50 450 Balance 1260 -150 Weight 83 kg 83 kg Intake: IV 1250 Oral 60 300 Output: Urine 0 450 Estimated Blood Loss 50 - Exam Patient is alert and oriented 3 appears well-nourished well-hydrated is in no acute distress. They do not appear septic. There is TTP about the incision, Dressings are CDI Lower extremities with 4+ out of 5 strength in all major muscle groups; Normal post surgical deconditioning no focal deficits. Upper extremities show 5/5 strength in all major muscle groups. There is FROM that is painless of the b/l UE and LE in all major joints. They are intact to light touch sensation in C5-T1 L2 to S1 nerve distribution. DTR 2/4 all upper and lower extremities Patient has palpable dorsalis pedis was posterior tibial pulses. Palpable Rad Ulnar pulses b/l Compartments are soft and compressible. Patient shows a negative Homans Neg change in hoffmans Neg clonus Neg babinski Cranial nerves II through XII are grossly intact. Sat pt up to 15 deg, no STRICKLAND or change in visions. Assessment and Plan Assessment: 1. POD1 L1-2 decompression with discectomy, dural erosion and tear with repair Plan: -Appreciate international travel consultant and team management. -Activity: Ambulate QID, OOB all meals, up and about, limit lifting bending twisting to less than 5 lbs. Use walker or cane if needed for stability. -Daily PT/OT, increase ambulation strength and balance. -LSO brace to be obtained -Pain control: [Adequate at this time] -Meds: [reviewed] -GI ppx: senna, Miralax -DC verdin when up and about, bedside commode if needed -DVT PPX: [OK to restart Heparin tonight] -Hygiene: Shower today. Maintain dressing clean and dry. Meticulous cleaning after BMs away from incision site -Encourage IS 10x/hr -Gradual sit up testing today 10 deg at a time wait 30 min if no sx of STRICKLAND, vision changes ect then can continue to sit up, if any sx must lay back flat for 1 hr and retry. -Dispo: Likely home tonight if sit up testing and ambulation go well.
[2021-11-29] MEDS: PREGABALIN 50 MG CAP PO SCH ×3 (08:13→20:57)
[2021-11-29] MEDS: PANTOPRAZOLE 40 MG TABLET PO SCH (08:13)
[2021-11-29] MEDS ORDERED: PREGABALIN 50 MG CAP PO SCH (09:00)
[2021-11-29 09:09] LABS: Basophils # (A) 0.02 X 10*3/uL (0.00-0.10); Basophils % (A) 0.3 %; Eosinophils # (A) 0 X 10*3/uL (0.04-0.35); Eosinophils % (A) 0 %; HCT 39.7 % (39.6-50.0); HGB 13.5 g/dL (13.0-17.0); Immature Grans, Automated 0.4 %; Lymphocytes # (A) 0.65 X 10*3/uL (0.90-5.00); Lymphocytes % (A) 9.6 %; MCV 102.8 fL (80.0-97.0); Mean Platelet Volume 9.1 fL (9.5-12.2); Monocytes # (A) 0.57 X 10*3/uL (0.20-1.00); Monocytes % (A) 8.4 %; NRBC Per 100 WBC 0 /100 WBCS (0.0-0.0); Neutrophils # (A) 5.52 X 10*3/uL (1.80-7.70); Neutrophils % (A) 81.3 %; Platelet Count 251 X 10*3/uL (140-440); RBC 3.86 X 10*6/uL (4.40-5.60); WBC 6.79 X 10*3/uL (4.50-10.00)
[2021-11-29 09:26] LABS: African American GFR (CKD) 102.7 (60.0-200.0); BUN/Creat Ratio 17.63 Ratio (12.00-20.00); Blood Urea Nitrogen 14.1 mg/dL (9.0-27.0); Calcium 8.5 mg/dL (8.7-10.3); Non-African American GFR(CKD) 88.6 (60.0-200.0); Potassium 4.7 mmol/L (3.5-5.5)
--- NOTE | 2021-11-29 14:37 | P.DS ---
Providers Date of admission: 11/29/21 07:41 Expected date of discharge: 11/29/21 Attending physician: Javier Garcia DO Consults: 11/28/21 18:31 Consult Physician Routine Consulting Provider: Jeanna Altamirano Consult Reason/Comments: Medical Management Do you want consulting provider notified?: Yes Primary care physician: [facility] Course: Hospital Course: The patient was evaluated preoperatively and found to have the diagnosis of L1- L2 HNP. They underwent appropriate preoperative care and were willing to undergo the intended procedure. They underwent a successful MIS L1-L2 microdiscectomy, were recovered appropriately and sent to the floor. While on the floor they worked with physical therapy, occupational therapy and nursing to enhance their recovery experience. Their pain was well controlled through their stay and they were started on appropriate medications, DVT ppx modalities, activity and dietary needs. Daily labs were monitored closely, and transfusions were only used when necessary. Medicine as well as other consulting services have made their input and have helped with our team approach and multidisciplinary care. PT milestones have been met and passed and they have made the recommendation of home with homecare for this patient and treating providers agree with this care path. The patient will be discharged home with appropriate medications, instructions and follow-up information and in stable condition. Patient Condition at Discharge: Good Plan - Discharge Summary Discharge Rx Participant: Yes New Discharge Prescriptions: New cefaDROXiL [Duricef] 500 mg PO Q12HR 3 Days #6 cap Cyclobenzaprine [Flexeril] 10 mg PO TID PRN #20 tab PRN Reason: Spasms HYDROcodone/APAP 10-325MG [[place] 10-325] 1 tab PO Q4HR PRN 7 Days #42 tab PRN Reason: Pain Sennosides/Docusate Sodium [Senna Plus 8.6-50 mg Softgel] 1 each PO BID PRN #20 capsule PRN Reason: Constipation No Action Pantoprazole Sodium [Protonix] 40 mg PO DAILY tadalafiL [Cialis] 5 mg PO HS Meloxicam [Mobic] 7.5 mg PO DAILY Pregabalin [Lyrica] 50 mg PO TID Acetaminophen [Tylenol] 500 mg PO Q4-6H PRN #24 tab PRN Reason: Pain Discharge Medication List Pantoprazole Sodium [Protonix] 40 mg PO DAILY 11/20/14 [History] tadalafiL [Cialis] 5 mg PO HS 01/09/20 [History] Acetaminophen [Tylenol] 500 mg PO Q4-6H PRN #24 tab 08/05/21 [Rx] Meloxicam [Mobic] 7.5 mg PO DAILY 09/24/21 [History] Pregabalin [Lyrica] 50 mg PO TID 11/26/21 [History] Cyclobenzaprine [Flexeril] 10 mg PO TID PRN #20 tab 11/29/21 [Rx] HYDROcodone/APAP 10-325MG [[place] 10-325] 1 tab PO Q4HR PRN 7 Days #42 tab 11/29/21 [Rx] Sennosides/Docusate Sodium [Senna Plus 8.6-50 mg Softgel] 1 each PO BID PRN #20 capsule 11/29/21 [Rx] cefaDROXiL [Duricef] 500 mg PO Q12HR 3 Days #6 cap 11/29/21 [Rx] Follow up Appointment(s)/Referral(s): Nursing,Seng [NON-STAFF] - 1 Week Javier Garcia DO [Doctor of Osteopathic Medicine] - 2 Weeks Patient Instructions/Handouts: Lumbar Discectomy (DC), Lumbar Discectomy (GEN) Activity/Diet/Wound Care/Special Instructions: Spine Discharge and Recovery Instructions Date of Surgery: 11/28/2021 Diagnosis: L1-L2 disc herniation Procedure: L1-L2 decompression with discectomy Medications: See list All medication refills should be obtained through your primary care doctor or your clinic spine surgeon. Please discuss prescription refills at your follow up appointment. Do not call the hospital for medication refills. Activity: No lifting bending twisting nothing more than 5 pounds Encourage ambulation with assist of walker OOB 6-8x daily PT/OT daily work on balance, strength and mobility Up in chair with all meals, OOB all meals Shower daily Brace: Wear LSO brace when up and about at all times. Do not wear while sleeping or showering. May take breaks from brace while sitting or laying and resting. Dressing: Leave your dressing in place for a total of 3 days post operatively. Then you may remove your dressing and leave open to air. Keep the area clean and if not able to keep area clean, then cover with sterile gauze and tape. Showering: You may shower 3 days after your procedure allowing soap and water to run over incision. Do not scrub. Do not soak. Blot dry. Follow up: Please confirm a follow up appointment with your surgeon 2 weeks post operatively. Please make an appointment to follow up with your PCP in 1-2 weeks after surgery for evaluation 3 phase, 3-week plan POST OP WEEKS 1-3 1. Lifting/carrying/pushing/pulling limited to less than 5 pounds. 2. Do not sit for longer than 15 minutes at one time. Get up and walk around. Prolonged sitting is NOT advised. If you lay down, see if you can tolerate laying down on you front (belly side) 3. Walk for periods of 15 minutes = 1 mile but no longer; do it multiple times times each day. 4.Ice your low back after activity. POST OP WEEKS 3-6 1. Lifting limited to less than 20 pounds. 2. Do not sit for longer than 30 minutes at a time. Frequently change positions. Use a sit-to stand workstation or take frequent breaks from sitting if you have returned to work. 3. Walk for 30 minutes each day. If possible, do these three or more times a day POST OP WEEKS 6+ At your 6-week appointment we will give you a physical therapy referral to focus on a core stabilization and strengthening program. You should also work on leg & buttock strengthening, hamstring & quadriceps stretching, and continue a low impact aerobic activity program such as swimming, walking, or riding a stationary bicycle. During the initial 6 weeks after your surgery, you are at the highest risk of re-injuring your spine. You should generally avoid BLTs (bending, lifting and twisting combination motions) and follow the above guidelines to reduce the chance of reinjury. You can anticipate post op appointments in our office at approximately 3 weeks and 6 weeks after your surgery. INCISION CARE: If your incision is not draining you do NOT need to cover it with a dressing. Keep your incision clean, dry and intact. In most cases, we apply skin glue, kole or sutures to the incision at the time of surgery. This will be like a crust or have the appearance of a scab and will fall off in time on its own. The stitches or kole need to be removed at 3 weeks post op appointment. You may begin to shower 3 days after surgery (this allows the glue to elias well). However, please avoid scrubbing the incision s ite or peeling off any of the skin glue. This will ensure optimal healing of your incision. Also, during this time avoid soaking the incision area in water - this includes swimming pools, hot tubs or baths. No ointments, lotions or oils on the incision until your surgeon allows. Leave kole, sutures or glue in place. Neurological dysfunction that comes on suddenly can also be a sign of a stroke. Below some common symptoms of a stroke are listed: B - balance difficulty such as sudden onset walking or leaning to one side - NEW E - eye problem such as sudden double vision or trouble seeing on one side - NEW F - Facial weakness or numbness on one side - NEW A - Arm or leg weakness or numbness on one side - NEW S - Slurred speech or difficulty with word finding - NEW T - Time is BRAIN! Call 911 as soon as you recognize these symptoms Diet: Consume a regular diet rich in vegetables and lean protein such as chicken or fish. You should consume in a ratio of approximately 20% fats|40% carbohydrates|40%protein. Vegetables, sweet potatoes, brown rice or quinoa are examples of good carbohydrates. Chips, white bread, cookies and sweets/sugar are examples of bad carbohydrates. Limit your bad carbs, go wild with good carbs. "Life's Simple 7" Guidelines as per [place] [employer] These will help you reclaim your life after surgery and carpenter helper in your recovery, keeping in mind your restrictions. (1) Get Active. Physical activity can help people lose weight, control high blood pressure and cholesterol, feel emotionally better, and sleep better. (2) Control Cholesterol. Avoid a diet high in saturated fat, trans fat, & cholesterol. Limit whole milk & cream, ice cream, butter, egg yolks, processed meats (like sausage and hot dogs), and fatty meats. Choose healthy foods that are low in saturated fat, trans fat and cholesterol which include: Fruits and vegetables, fiber rich grain products (like whole grain pasta and brown rice), lean meat such as chicken, fish, nuts, seeds, and legumes. (3) Eat Better. Eat small portions. Shop at the grocery with a list and do not stray from it. Tips for a healthy diet include: Limit sodium intake to less than 1500mg daily, avoid prepackaged, processed, and fast foods, choose a diet rich in fruits, vegetables, and whole grain, high fiber foods, and limit saturated & cholesterol in your diet. (4) Manage Blood Pressure. If you have high blood pressure, you should have a cuff at home so that you can check your blood pressure regularly. Be sure you have a good cuff. An arm one is generally better than a wrist one. Bring the cuff to a doctor's appointment to validate that the measurements that your cuff are taking are accurate. Take your blood pressure twice daily when you are sitting down and relaxing. Record the numbers in a log and bring this log with you to your doctors' appointments. (5) Lose Weight if your BMI is above 25. A healthy BMI is between 19-25. To calculate Your BMI, you may use a Standard BMI Calculator on the NIH BMI website: <www.nhlbi.nih.gov/guidelines/obesity/BMI/bmicalc.htm>. Weigh oneself daily. If you are overweight, set a goal to lose weight. A pound a week loss if needed is a good target. (6) Reduce Blood Sugar. Limit foods and liquids with "added sugars." (Added sugars include sucrose, fructose, glucose, maltose, dextrose, high fructose corn syrup, corn syrup, concentrated fruit juice and honey). (7) Stop Smoking. If you smoke, quitting smoking is one of the best things that you can do for your health. Smoking increases your risk of heart attack, stroke, and peripheral vascular disease, which is a build-up of plaque in your arteries. Please discard all the cigarettes and lighters in your house. Have a plan for what you will do when you have the urge to smoke. Direct and second- hand smoke shortens your life as well as the lives of your family, friends and others around you. For your health and the health of those around you, please consider quitting! Proper Bending Body Mechanics: Maintain a wide stance with one foot slightly in front of the other. Keep your back straight. Bend utilizing the strength in your hips and knees. Do not bend at the waist. Maintain the lifted object at your waist-level close to your body. Avoid lifting weight that causes immediately pain or pain anywhere in the body a fterwards. Smoking/Nicotine If there was ever one thing that you could do to increase your overall health, decrease your risk of cardiovascular problems by about 39% the second you make the choice, it is to STOP SMOKING. Your body's most instant gratification is the second you stop smoking. We have all heard the studies, read the articles but it is true, smoking is extremely bad for your overall health, and moreover it is detrimental to your bone health. Nicotine, IN ANY FORM, kills bone cells, prevents your body from healing fractures, and significantly prolongs healing after surgery. In spine surgery specifically, it increases your risk of not healing your bones to create a fusion and increases your risk of having a revision surgery due to this up to 60%. I know it is hard. I know it feels impossible. But there are ways. Take control of your life. We are here to help you through it. And when you are ready, ask us and we can direct you to help if you desire. Use the START Plan to Quit Smoking (please visit the [employer] website listed below for more information): S = Set a quit date. Choose a date within the next 2 weeks, so you have enough time to prepare without losing your motivation to quit. If you mainly smoke at work, quit on the weekend, so you have a few days to adjust to the change. T = Tell family, friends, and co-workers that you plan to quit. Let your friends and family in on your plan to quit smoking and tell them you need their support and encouragement to stop. Look for a quit maria esther who wants to stop smoking as well. You can help each other get through the rough times. A = Anticipate and plan for the challenges you'll face while quitting. Most people who begin smoking again do so within the first 3 months. You can help yourself make it through by preparing ahead for common challenges, such as nicotine withdrawal and cigarette cravings. R = Remove cigarettes and other tobacco products from your home, car, and work. Throw away all your cigarettes (no emergency pack!), lighters, ashtrays, and matches. Wash your clothes and freshen up anything that smells like smoke. Shampoo your car, clean your drapes and carpet, and steam your furniture. T = Talk to your doctor about getting help to quit. Your doctor can prescribe medication to help with withdrawal and suggest other alternatives. If you can't see a doctor, you can get many products over the counter at your local pharmacy or grocery store, including the nicotine patch, nicotine lozenges, and nicotine gum. Resources for Quitting Smoking: <https://www.[place].gov/documents/[facility]/Quit_Tobacco_Resources_for_patients_313 480_7.pdf> Supplementation: Take recommended dosages of Vitamin D and Calcium to help fortify your bones and help them to heal. See your health maintenance packet for dosages and recommended levels. DVT/VTE prophylaxis: You will be given compression stockings from the hospital. Wear these daily for the first two weeks after surgery. You may take them off at night. You may be prescribed a medication to help thin your blood. Take this as directed. If you are not prescribed this medication, early and frequent ambulation has been shown to be the best prophylaxis to deep vein thrombosis and sequelae related to this event. Discharge Disposition: HOME WITH HOME HEALTH SERVICES
[2021-11-29] MEDS: CALCIUM CARBONATE 500 MG CHEWABLE PO PRN (17:42)
[2021-11-29] MEDS: SODIUM CHLORIDE 0.9% 1,000 ML IV SCH (17:44)
[2021-11-29] MEDS ORDERED: MAG HYDROX/AL HYDROX/SIMETH 30 ML, HYOSCYAMINE ELIXIR 10 ML, LIDOCAINE VISCOUS 2% 10 ML PO ONE ×3 (17:52)
--- NOTE | 2021-11-29 17:54 | P.PN ---
Subjective Progress Note Date: 11/29/21 Hospital course: Patient is a very pleasant 71-year-old male with a past medical history of frequent PVCs status post cardiac ablation, GERD, BPH, and degenerative disc disease with chronic back pain. He is currently admitted under orthospine surgical team status post L1 through L2 decompression with discectomy. Surgical procedure was completed by Dr. Garcia on 11/28/21. We were consulted for continued medical management throughout patient's hospitalization. Physical exam: Pt was seen and fully evaluated at bedside this morning. He is postoperative day 1 and appears to be doing well and is currently resting in bed. Patient states he has not yet been out of bed since surgical procedure. Condom cath in place patient having no difficulties with urination. Patient tolerating oral intake without any episodes of postoperative nausea or vomiting. Patient denies having any complaints including back pain, or experiencing any numbness/tingling/weakness in his extremities. Patient reports he had a rough night since it was very difficult for him to lie flat but states now that that is elevated he is doing much better. Morning labs reviewed and postoperative hemoglobin unremarkable at 13.5 and CBC and CMP otherwise showing no significant abnormalities. Labs reviewed and stable. Vital signs reviewed and stable. General: Nontoxic, no distress and appears stated age. Derm: Skin warm and dry, normal coloration for ethnicity. Head: Atraumatic, normocephalic and symmetric. Eyes: EOMs intact, no lid lag, and anicteric sclera Mouth: no lip lesions, mucus membranes moist Cardiovascular: regular rate and rhythm with normal S1S2, no murmur, positive posterior tibial pulses bilaterally, and cap refill < 2 seconds. Lungs: Respirations even, regular, and unlabored on room air. Lungs CTA bilaterally, no rhonchi, no rales, no wheezing, and no accessory muscle usage. Abdominal: soft, nontender to palpation, no guarding, no appreciable organomegaly Ext: ROM intact. No gross muscle atrophy, no edema, no contractures Neuro: Speech clear, face symmetrical and CN II-XII grossly intact with no noted focal neuro deficits Psych: Alert and oriented to person, place, time, and situation. Appropriate and pleasant affect. Assessment and Plan of Care: Status post L1 through L2 decompression with discectomy Left lower extremity weakness and paresthesias Degenerative disc disease with chronic back pain -Management per primary admitting orthospine surgical team including DVT prophylaxis, pain management, weightbearing, and PT/OT. -DVT prophylaxis with SCDs and MACARIO wattse. Peripheral neuropathy -Continue daily medication regimen of Lyrica. GERD -Continue daily medication regimen with Protonix. BPH -Patient urinating without any difficulties and postoperative period. Thank you for allowing us to participate in the care of this pleasant patient. Do not hesitate to contact us with questions. Someone can be reached from the [facility] hospitalist group all hours of the day at [phone] or via perfect serve. Objective - Vital Signs Vital signs: Vital Signs Temp 97.8 F 11/29/21 04:27 Pulse 75 11/29/21 04:27 Resp 16 11/29/21 04:27 BP 126/70 11/29/21 04:27 Pulse Ox 94 L 11/29/21 04:27 FiO2 Intake & Output 11/28/21 11/29/21 11/29/21 18:59 06:59 18:59 Intake Total 1310 300 Output Total 50 450 Balance 1260 -150 Weight 83 kg 83 kg Intake: IV 1250 Oral 60 300 Output: Urine 0 450 Estimated Blood Loss 50 - Labs CBC & Chem 7: 11/29/21 04:26 11/29/21 04:26 Labs: Abnormal Lab Results - Last 24 Hours (Table) 11/29/21 11/29/21 Range/Units 04:26 04:26 RBC 3.86 L (4.40-5.60) X 10*6/uL MCV 102.8 H (80.0-97.0) fL MCH 35.0 H (27.0-32.0) pg MPV 9.1 L (9.5-12.2) fL Lymphocytes # 0.65 L (0.90-5.00) X 10*3/uL Eosinophils # 0 L (0.04-0.35) X 10*3/uL Calcium 8.5 L (8.7-10.3) mg/dL
--- NOTE | 2021-11-29 19:58 | P.PN ---
Progress Note - Text Progress Note Date: 11/29/21 Pt s/e. He is doing well and sitting up in his chair. He is having some increased pain in his back but no pain in legs no STRICK[place], vision changes, dizziness etc. He is going to stay one more night for pain control and we will dc him in the AM.
[2021-11-30] MEDS: CALCIUM CARBONATE 500 MG CHEWABLE PO PRN ×2 (03:25→11:29)
[2021-11-30] MEDS: PANTOPRAZOLE 40 MG TABLET PO SCH (08:00)
[2021-11-30] MEDS: PREGABALIN 50 MG CAP PO SCH (08:00)
[2021-11-30] MEDS: HYDROmorphone 1 MG/ML 1 ML SYRINGE IVP PRN (08:05)
--- NOTE | 2021-11-30 11:18 | P.PN ---
Subjective Progress Note Date: 11/30/21 Principal diagnosis: Status post L1-L2 decompression with discectomy Patient evaluated today at bedside, he is resting comfortably in his hospital chair. Patient states that back pain is easing up a little bit, he has continued to utilize the oral and IV medication. He does admit to an intermittent headache that began yesterday. He denies any dizziness or changes in vision. Patient has been utilizing the walker with ambulation. Urinating with no difficulty. He is passing gas, he has not had a bowel movement. He states that it's not abnormal for him to go 4 days or so without having a bowel movement. Objective - Vital Signs Vital signs: Vital Signs Temp 98.0 F 11/30/21 05:00 Pulse 68 11/30/21 05:00 Resp 18 11/30/21 05:00 BP 144/77 11/30/21 05:00 Pulse Ox 97 11/30/21 05:00 FiO2 Intake & Output 11/29/21 11/30/21 11/30/21 18:59 06:59 18:59 Intake Total 740 Output Total 800 500 Balance -800 240 Intake: Oral 740 Output: Urine 800 500 Other: Voiding Method Toilet Urinal - Exam Gen: AOx3, NAD VSS stable at this time Integument: Postop dressing is in good position and condition, no obvious drainage present. No fluctuance is appreciated on the borders of the incision. Palpation: Demonstrates mild tenderness with palpation of the paraspinal region of the upper lumbar spine ROM: Full range of motion in all major muscle groups bilateral upper and lower extremities, no focal deficits Sensory Exam: Senory exam to light touch is intact C5-T1 Senosry exam to light touch is intact L2-S1 Motor: 4+/5 strength appreciated in the bilateral lower extremities with hip flexion, knee extension, knee flexion, plantar flexion, dorsiflexion, EHL, FHL Reflexes: 2/4 in all UE and LE Negative Niall's bilaterally Negative Babinski bilateral Negative clonus bilaterally - Labs CBC & Chem 7: 11/29/21 04:26 11/29/21 04:26 Assessment and Plan Assessment: Postoperative day #3 status post L1-L2 decompression with discectomy, dural erosion tear with repair Plan: Pain control, plan for discharge home on oral medications Multiple stool softeners have been provided for outpatient use for constipation. Patient advised to contact primary care doctor if he notices any more difficulty in the next few days. Discussed the patient to increase his fluid intake. Wound care instructions were discussed with patient, this template showering instructions along with ice and Weight-bear as tolerated, recommend use of walker. Activity level restrictions , were discussed this including no bending, lifting or twisting Medical recommendations Discharge planning: Patient stable for discharge, follow-up in the outpatient setting Time with Patient: Less than 30
[2021-11-30] MEDS: SODIUM CHLORIDE 0.9% 1,000 ML IV SCH (11:34)
[2021-11-30 11:47] VITALS: BP 133/78; PULSE 70; RESP 16; TEMP 97.7
--- NOTE | 2021-11-30 16:57 | P.PN ---
Subjective Progress Note Date: 11/30/21 Hospital course: Patient is a very pleasant 71-year-old male with a past medical history of frequent PVCs status post cardiac ablation, GERD, BPH, and degenerative disc disease with chronic back pain. He is currently admitted under orthospine surgical team status post L1 through L2 decompression with discectomy. Surgical procedure was completed by Dr. Garcia on 11/28/21. We were consulted for continued medical management throughout patient's hospitalization. Physical exam: Pt was seen and fully evaluated at bedside this morning. He is postoperative day 2 and appears to be doing well. Patient sitting up at bedside chair and denies having any uncontrolled pain. He reports having a slight headache yesterday and again this morning but currently reports has resolved. Patient denies having any dizziness, lightheadedness, changes in vision or hearing, chest pain, palpitations, shortness of breath, or any other complaints at this time. Patient has been urinating without any difficulties. Vital signs unremarkable, patient is medically stable for discharge once cleared by primary admitting orthospine surgical team. Labs reviewed and stable. Vital signs reviewed and stable. General: Nontoxic, no distress and appears stated age. Derm: Skin warm and dry, normal coloration for ethnicity. Head: Atraumatic, normocephalic and symmetric. Eyes: EOMs intact, no lid lag, and anicteric sclera Mouth: no lip lesions, mucus membranes moist Cardiovascular: regular rate and rhythm with normal S1S2, no murmur, positive posterior tibial pulses bilaterally, and cap refill < 2 seconds. Lungs: Respirations even, regular, and unlabored on room air. Lungs CTA bilater ally, no rhonchi, no rales, no wheezing, and no accessory muscle usage. Abdominal: soft, nontender to palpation, no guarding, no appreciable organomegaly Ext: ROM intact. No gross muscle atrophy, no edema, no contractures Neuro: Speech clear, face symmetrical and CN II-XII grossly intact with no noted focal neuro deficits Psych: Alert and oriented to person, place, time, and situation. Appropriate and pleasant affect. Assessment and Plan of Care: Status post L1 through L2 decompression with discectomy Left lower extremity weakness and paresthesias Degenerative disc disease with chronic back pain -Management per primary admitting orthospine surgical team including DVT prophylaxis, pain management, weightbearing, and PT/OT. -DVT prophylaxis with SCDs and MACARIO wattse. Peripheral neuropathy -Continue daily medication regimen of Lyrica. GERD -Continue daily medication regimen with Protonix. BPH -Patient urinating without any difficulties and postoperative period. Thank you for allowing us to participate in the care of this pleasant patient. Do not hesitate to contact us with questions. Someone can be reached from the [facility] hospitalist group all hours of the day at [phone] or via perfect serve. Objective - Vital Signs Vital signs: Vital Signs Temp 97.7 F 11/30/21 11:21 Pulse 70 11/30/21 11:21 Resp 16 11/30/21 11:21 BP 133/78 11/30/21 11:21 Pulse Ox 95 11/30/21 11:21 FiO2 Intake & Output 11/29/21 11/30/21 11/30/21 18:59 06:59 18:59 Intake Total 740 200 Output Total 800 500 Balance -800 240 200 Intake: Intake, IV Titration 200 Amount Sodium Chloride 0.9% 1, 200 000 ml @ 50 mls/hr IV . Q20H [facility] Rx#:[id number] Oral 740 Output: Urine 800 500 Other: Voiding Method Toilet Urinal # Voids 1 - Labs CBC & Chem 7: 11/29/21 04:26 11/29/21 04:26
--- NOTE | 2021-12-04 08:04 | P.OP ---
Date of Procedure: 11/28/21 Preoperative Diagnosis: 1. L1-2 HNP with stenosis 2. LLE weakness 3. LLE paresthesias Postoperative Diagnosis: 1. L1-2 HNP with stenosis 2. LLE weakness 3. LLE paresthesias Procedure(s) Performed: 1. L1-2 unilateral laminotomy, with transfacet far lateral decompression with discectomy (01090) 2. Dural repair with patch graft (89030) 3. Use of intraoperative microscope (05920) Implants: Duragen Fat Auto graft Anesthesia: GETA Surgeon: Javier Garcia Fire Prevention Chief #1: Jessie Stone (Was present and assisted in all aspects of the case including positioning, decompression, repair, discectomy closure and dressing. ) Estimated Blood Loss (ml): 50 IV fluids (ml): 1,200 Urine output (ml): 0 Pathology: none sent Condition: stable Disposition: PACU Indications for Procedure: 71 yo male presented with c/o LLE weakness and paresthesias that have been going on for about 5 months now. He injured his back lifting some things back on . He has delt with back pain and other back injuries in the past and this seemed to be additive on top of an already painful back and leg. He visited the ED several times for this and nothing made it better. He tried con servative measures including RX, OTC, PT, HEP, injections without relief of sx. We discussed different ooptions for treatment including nonop and operative treatments and he and his elect to proceed with surgical intervention for this. Risks discussed and as outlined in risk review. He was willing to proceed. Description of Procedure: The patient was seen and examined in the preoperative area. All preoperative protocols were followed. Informed consent was obtained risks and benefits of the procedure were discussed at length. Risks including bleeding infection damage to the surrounding tissue and risk of reoperation were discussed with the patient. Risk of anesthesia up to and including was a discussed with the patient. These are outlined in the risk review. They were willing to accept these risks and all of the risks of surgery. The patient was given a weight- based dose of antibiotics in the form of 2 g Ancef. The patient was seen and ev aluated by the anesthesia team who deemed them fit for surgery. The site was marked, the patient was willing to proceed with the procedure. The patient was transferred to the operative suite by the Department of anesthesia. They were then drifted off to sleep by the department anesthesia and GETA was performed. The patient tolerated this well. Chi catheter was placed by nursing staff, atraumatically. Once confirmation of lines and ventilation the patient was transferred to a prone John table very carefully. All bony prominences including wrists, elbows, axilla, chest, hips, and thighs, and feet were padded very well. Special attention was paid to the genitalia and these were padded accordingly. SCDs were placed on bilateral lower extremities and were connected. Arms were well padded and placed on arm boards up and out in the 90/90 position. Once in position, again we confirmed good ventilation capabilities and that lines were running appropriately. The patient's lumbar s pine was then exposed. 1010s were placed outlining the incision site. Standard alcohol was used to clean the incision site and allowed to dry. C-arm was used to biomark the patient and confirm level for incision which was marked with a skin marker. Operative briefing was performed with all teams and everyone in agreement to proceed. The patient was then prepped and draped in a normal sterile fashion. Timeout was then performed and all parties were in agreement with the procedure to be performed. C-arm was then used to localize the area once again and a skin incision was made paramedian the initial dilator was then placed over the disc space and 4 lateral recess of the L1-L2 region. Sequential dilation was taken up to a 26 mm tube. Once in place it was confirmed on AP and lateral to be in good position. Limited myomectomy was then performed over this area the joint and lamina were identified. Microscope was then brought in for visualization. Hemilaminotomy was performed revealing the ligamentum flavum which was then removed. This revealed the need for further lateral dissection due to the adherence of the dura to the underlying disc as the dura was not mobile. We then performed far lateral approach to the disc as well as trans-facet approach on the left-hand side. This allowed for decompression of not only the nerve root and dura but access to the lateral recess and far lateral area of the disc given where the herniation was. In attempts to mobilize the dura once again it would not mobilize off of the disc and the scar tissue and eroded into the dura causing du ral tear. This is probably identified and was fixed with 6-0 Prolene in a simple fashion followed by a sewn in patch graft of fat. A Valsalva to 40 confirmed that there was good repair with no continuous leak. Continue to attempt to mobilize the dura off of this disc however it was extremely adherent and would not mobilize and we risk further tear to the dura on the anterior portion far lateral annulotomy was then made and attempts were made to remove the disc from far lateral to medial fragments that were free were removed. Meticulous hemostasis was performed in this area we then irrigated the area out we confirmed good decompression of central as well as far lateral areas. It was elected at this point that the risk to the dura was too high and further mobilization would cause more tears and so we confirmed good bony decompression good dural repair as well as free fragment of disc removal we then irrigated the wound placed Tisseel and Surgicel over the dural patch graft and repair and the tubular retractor system was removed under direct visualization. The wound was then closed first in the fascia with #1 Vicryl followed by 0 Vicryl in deep subcu tissue 2-0 Vicryl superficial subcu tissue and strata fix Monocryl and the skin this was then cleaned and glue was placed on the skin allowed to dry and then dressed with a sterile dressing. The patient was transferred back to their hospital bed atraumatically. . Patient was then awakened and extubated by the department of anesthesia having tolerated the procedure very well with no complications. They were transferred to the postoperative care unit in stable condition.
== END 2021-11-30 13:48 | disposition home health service (06) ==
LOC: OR 12:33 → 5NMEDONC 18:43 → OR 11-29 07:41
PROVIDERS: ADMIT Orthopaedic Surgery; ATTEND Orthopaedic Surgery
DX: M51.16 Intervertebral disc disorders with radiculopathy, lumbar region (principal); M47.812 Spondylosis without myelopathy or radiculopathy, cervical region; M48.061 Spinal stenosis, lumbar region without neurogenic claudication; M25.78 Osteophyte, vertebrae; G97.41 Accidental puncture or laceration of dura during a procedure; K21.9 Gastro-esophageal reflux disease without esophagitis; H91.90 Unspecified hearing loss, unspecified ear; G47.00 Insomnia, unspecified; K44.9 Diaphragmatic hernia without obstruction or gangrene; I49.3 Ventricular premature depolarization; G62.9 Polyneuropathy, unspecified; N40.0 Benign prostatic hyperplasia without lower urinary tract symptoms; Z98.42 Cataract extraction status, left eye; Z98.1 Arthrodesis status; Z98.41 Cataract extraction status, right eye; Z87.891 Personal history of nicotine dependence; Z82.49 Family history of ischemic heart disease and other diseases of the circulatory system; Z79.899 Other long term (current) drug therapy; Z79.1 Long term (current) use of non-steroidal anti-inflammatories (NSAID); Z88.1 Allergy status to other antibiotic agents; Y65.8 Other specified misadventures during surgical and medical care
CPT/HCPCS: 63030; 63710; 96365; 96366 ×2; 96375; 96376 ×2; 97163; 80048; 85025; 72100; G0378 ×2; C1762 ×3; J2250; J3370; J0330; J1100; J2710; J0690 ×3; J2405; J3010; J1170 ×5; J2370; J2704; J2001

== ENCOUNTER 2021-12-28 19:16 | Emergency (ER) | payer MEDICARE ==
[2021-12-28 19:23] VITALS: BP 146/83; PULSE 68; RESP 16; TEMP 97.8
[2021-12-28] MEDS ORDERED: MAG HYDROX/AL HYDROX/SIMETH 30 ML, HYOSCYAMINE ELIXIR 10 ML, LIDOCAINE VISCOUS 2% 10 ML PO STA ×3 (19:41)
--- NOTE | 2021-12-28 19:44 | ED ---
General Adult HPI - General Chief complaint: Abdominal Pain Stated complaint: abd pain Time Seen by Provider: 12/28/21 19:38 Source: patient, EMS Mode of arrival: EMS Limitations: no limitations - History of Present Illness Initial comments: Dictation was produced using [employer] dictation software. please excuse any grammatical, word or spelling errors. Chief Complaint: 71-year-old male presents emergency department for epigastric pain History of Present Illness: 71-year-old male presents emergency Department with epigastric pain 48 hours. Patient states that he's been having some nausea. No vomiting or black stools. He states he does have a history of peptic ulcers. She has had bowel movements today. He reports that they were hard followed by loose stool. States that the pain in his epigastric area is worse with palpa tion. No history of abdominal surgery. Patient's nonradiating. Denies any fever or constitutional symptoms. The ROS documented in this emergency department record has been reviewed and confirmed by me. Those systems with pertinent positive or negative responses have been documented in the HPI. All other systems are other negative and/or noncontributory. PHYSICAL EXAM: General Impression: Alert and oriented x3, not in acute distress HEENT: Normocephalic atraumatic, extra-ocular movements intact, pupils equal and reactive to light bilaterally, mucous membranes moist. Cardiovascular: Heart regular rate and rhythm Chest: Able to complete full sentences, no retractions, no tachypnea Abdomen: abdomen soft, nontympanitic, negative Hernandez sign, palpatory tenderness with palpation to the epigastric area, non-distended, no organomegaly Musculoskeletal: Pulses present and equal in all extremities, no peripheral edema Motor: no focal deficits noted Neurological: CN II-XII grossly intact, no focal motor or sensory deficits noted Skin: Intact with no visualized rashes Psych: Normal affect and mood ED course: 71-year-old male presents emergency department for epigastric pain. Vital Signs upon arrival are within acceptable limits. Laboratory evaluation obtained. CBC unremarkable. Metabolic panel shows findings within acceptable limits. Lipase is 645. Abdominal labs are negative. X-ray shows no acute processes. Appears to be significant gas however no signs of ileus or obstruction. Clinical presentation consistent with gas pain. Currently patient is not constipated given that he did have a bowel movement earlier today. Patient told that his lipase results and that how was mildly elevated and seek medical attention if his epigastric pain acutely worsened. Patient consult on behavior patterns to improved for bowel movement and to reduce bowel gas buildup. Patient given a dose of Bentyl and a prescription for Bentyl. EKG interpretation: Ventricular rate 66, sinus rhythm,. Interval to 35 doctors 12, QTC 408. No ND prolongation, no QTC prolongation, no ST or T-wave changes noted. EKG compared to 11/10/2019 showing no changes. Overall, this EKG is unremarkable - Related Data Home Medications Medication Instructions Recorded Confirmed Pantoprazole Sodium [Protonix] 40 mg PO DAILY 11/20/14 11/28/21 tadalafiL [Cialis] 5 mg PO HS 01/09/20 11/28/21 Meloxicam [Mobic] 7.5 mg PO DAILY 09/24/21 11/28/21 Pregabalin [Lyrica] 50 mg PO TID 11/26/21 11/28/21 Previous Rx's Medication Instructions Recorded Acetaminophen [Tylenol] 500 mg PO Q4-6H PRN #24 tab 08/05/21 Cyclobenzaprine [Flexeril] 10 mg PO TID PRN #20 tab 11/29/21 HYDROcodone/APAP 10-325MG [[place] 1 tab PO Q4HR PRN 7 Days #42 tab 11/29/21 10-325] Sennosides/Docusate Sodium [Senna 1 each PO BID PRN #20 capsule 11/29/21 Plus 8.6-50 mg Softgel] cefaDROXiL [Duricef] 500 mg PO Q12HR 3 Days #6 cap 11/29/21 polyethylene glycoL 3350 [Miralax] 17 gm PO DAILY PRN #21 packet 11/30/21 Dicyclomine [Bentyl] 20 mg PO QID #16 tablet 12/28/21 Allergies Allergy/AdvReac Type Severity Reaction Status Date / Time ciprofloxacin Allergy Rash/Hives/ Verified 11/28/21 12:52 sneezing levofloxacin [From Levaquin] AdvReac Nausea Verified 11/28/21 12:52 Review of Systems ROS Statement: Those systems with pertinent positive or pertinent negative responses have been documented in the HPI. ROS Other: All systems not noted in ROS Statement are negative. Past Medical History Past Medical History: GERD/Reflux, GI Bleed, Hearing Disorder / Deafness, Osteoarthritis (OA), Prostate Disorder Additional Past Medical History / Comment(s): PVC's, gastric ulcer, bilateral tinnitis, chronic back pain, hiatal hernia, degenerative disc disease. insomnia History of Any Multi-Drug Resistant Organisms: None Reported Past Surgical History: Back Surgery, Cardiac Ablation, Hernia Repair, Orthopedic Surgery Additional Past Surgical History / Comment(s): Bilateral cataract removal, bilateral rotator cuff sx, L foot bunionectomy/hammer toe sx, sinus surgery, cervical fusion and lumbar fusions. Past Anesthesia/Blood Transfusion Reactions: No Reported Reaction Additional Past Anesthesia/Blood Transfusion Reaction / Comment(s): Pt has received blood in past without reaction. Past Psychological History: No Psychological Hx Reported Smoking Status: Former smoker Past Alcohol Use History: Daily Past Drug Use History: None Reported - Past Family History Mother Family Medical History: No Reported History Father Family Medical History: Congestive Heart Failure (CHF) General Exam Limitations: no limitations Course Vital Signs 12/28/21 19:17 Temperature 97.8 F Pulse Rate 68 Respiratory 16 Rate Blood Pressure 146/83 O2 Sat by Pulse 96 Oximetry Medical Decision Making - Lab Data Result diagrams: 12/28/21 20:08 12/28/21 20:08 Lab Results 12/28/21 12/28/21 Range/Units 20:08 20:08 WBC 5.0 (3.8-10.6) k/uL RBC 4.16 L (4.30-5.90) m/uL Hgb 14.5 (13.0-17.5) gm/dL Hct 42.6 (39.0-53.0) % MCV 102.3 H (80.0-100.0) fL MCH 34.9 (25.0-35.0) pg MCHC 34.1 (31.0-37.0) g/dL RDW 11.2 L (11.5-15.5) % Plt Count 214 (150-450) k/uL MPV 7.2 Neutrophils % 62 % Lymphocytes % 25 % Monocytes % 7 % Eosinophils % 3 % Basophils % 1 % Neutrophils # 3.1 (1.3-7.7) k/uL Lymphocytes # 1.3 (1.0-4.8) k/uL Monocytes # 0.3 (0-1.0) k/uL Eosinophils # 0.1 (0-0.7) k/uL Basophils # 0.0 (0-0.2) k/uL Sodium 137 (137-145) mmol/L Potassium 3.8 (3.5-5.1) mmol/L Chloride 104 (98-107) mmol/L Carbon Dioxide 24 (22-30) mmol/L Anion Gap 9 mmol/L BUN 9 (9-20) mg/dL Creatinine 0.61 L (0.66-1.25) mg/dL Est GFR (CKD-EPI)AfAm >90 (>60 ml/min/1.73 sqM) Est GFR (CKD-EPI)NonAf >90 (>60 ml/min/1.73 sqM) Glucose 97 (74-99) mg/dL Calcium 9.1 (8.4-10.2) mg/dL Total Bilirubin 0.6 (0.2-1.3) mg/dL AST 22 (17-59) U/L ALT 19 (4-49) U/L Alkaline Phosphatase 75 (38-126) U/L Total Protein 6.5 (6.3-8.2) g/dL Albumin 3.9 (3.5-5.0) g/dL Lipase 645 H (23-300) U/L Disposition Clinical Impression: Gas pain Disposition: HOME SELF-CARE Condition: Fair Instructions (If sedation given, give patient instructions): Abdominal Pain ( ED) Additional Instructions: Seek medical attention worsening midepigastric abdominal pain this may be a sign of pancreatitis. Prescriptions: Dicyclomine [Bentyl] 20 mg PO QID #16 tablet Is patient prescribed a controlled substance at d/c from ED?: No Referrals: Roland Briceño MD [Primary Care Provider] - 1-2 days Time of Disposition: 20:49
[2021-12-28 20:19] LABS: Basophils % (A) 1 %; Eosinophils # (A) 0.1 k/uL (0-0.7); Eosinophils % (A) 3 %; HCT 42.6 % (39.0-53.0); HGB 14.5 gm/dL (13.0-17.5); Lymphocytes # (A) 1.3 k/uL (1.0-4.8); Lymphocytes % (A) 25 %; MCH 34.9 pg (25.0-35.0); MCHC 34.1 g/dL (31.0-37.0); MCV 102.3 fL (80.0-100.0); Mean Platelet Volume 7.2; Monocytes # (A) 0.3 k/uL (0-1.0); Monocytes % (A) 7 %; Neutrophils # (A) 3.1 k/uL (1.3-7.7); Neutrophils % (A) 62 %; Platelet Count 214 k/uL (150-450); RBC 4.16 m/uL (4.30-5.90); RDW 11.2 % (11.5-15.5)
[2021-12-28 20:31] LABS: ALT 19 U/L (4-49); AST 22 U/L (17-59); African American GFR (CKD) >90 (>60 ml/min/1.73 sqM); Albumin 3.9 g/dL (3.5-5.0); Alkaline Phosphatase 75 U/L (38-126); Anion Gap 9 mmol/L; Blood Urea Nitrogen 9 mg/dL (9-20); Calcium 9.1 mg/dL (8.4-10.2); Carbon Dioxide 24 mmol/L (22-30); Chloride 104 mmol/L (98-107); Glucose 97 mg/dL (74-99); Lipase 645 U/L (23-300); Non-African American GFR(CKD) >90 (>60 ml/min/1.73 sqM); Potassium 3.8 mmol/L (3.5-5.1); Sodium 137 mmol/L (137-145); Total Bilirubin 0.6 mg/dL (0.2-1.3); Total Protein 6.5 g/dL (6.3-8.2)
--- NOTE | 2021-12-28 20:40 | XR ---
EXAMINATION TYPE: XR abdomen 1V DATE OF EXAM: 12/28/2021 COMPARISON: NONE HISTORY: Abdominal pain TECHNIQUE: 2 views upright FINDINGS: There is no sign of intestinal obstruction or pneumoperitoneum. Fecal pattern is normal. Th ere is lower lumbar spine fusion surgery. Lung bases are clear. No pathologic calcifications. IMPRESSION: Nonacute abdomen.
[2021-12-28] MEDS ORDERED: DICYCLOMINE 20 MG TAB PO STA (20:47)
== END 2021-12-28 20:59 | disposition home or self-care (01) ==
LOC: EC 19:16
DX: R14.1 Gas pain (principal); K21.9 Gastro-esophageal reflux disease without esophagitis; M19.90 Unspecified osteoarthritis, unspecified site; N42.9 Disorder of prostate, unspecified; Z88.1 Allergy status to other antibiotic agents; Z79.1 Long term (current) use of non-steroidal anti-inflammatories (NSAID)
CPT/HCPCS: 36415; 74018; 80053; 83690; 85025; 93005; 99284

== ENCOUNTER → 2022-03-05 | Outpatient (CLI) | payer MEDICARE ==
--- NOTE | 2022-03-05 21:34 | MR ---
EXAMINATION TYPE: MR lumbar spine wo/w con DATE OF EXAM: 03/05/2022 10:27 AM COMPARISON: 10/02/2021 CT lumbar spine. CLINICAL INDICATION:Male, 71 years old with history of G82.20 weakness; TECHNIQUE: Multi planar, multi sequence imaging was performed utilizing: T1-weighted, T2-weighted, a nd turbo inversion recovery imaging of the lumbar spine. IV Contrast: 8 cc Gadavist. None. FINDINGS: Alignment: The lumbar vertebral bodies have preserved heights. Grade 1 anterior listhesis of L5 on S1 . No evidence of spondylolysis. Cord: The conus medullaris and the distal spinal cord appear unremarkable with regards to their signa l intensity and morphology. Bones/Discs: Postsurgical changes extending from L4 to S1. Magnetic susceptibility artifact limits ev aluation at these levels. Increased inversion recovery signal within the L1 and L2 posterior elements with suspected left laminectomy changes at L3 levels. Multilevel degenerative disc disease is noted and most pronounced at the L1-L2. Multilevel disc desiccation is present. L1-L2: Left central disc extrusion with inferior migration up tor 1.2 cm. This extends into the subar ticular zone. It is felt that this displaces the forming nerve root at this level (exiting left L2-L3 nerve. L2-L3: No evidence of significant spinal canal stenosis. Facet joint arthropathy mild to moderate heber ateral neural foraminal stenosis. L3-L4: No evidence of significant spinal canal stenosis. Facet joint arthropathy moderate bilateral n eural foraminal stenosis. L4-L5: Disc space narrowing with osteophyte formation with mild spinal canal stenosis. Facet joint ar thropathy with moderate to severe right and mild left neural foraminal stenosis. L5-S1: Disc uncovering from grade 1 anterolisthesis with facet joint arthropathy results in moderate to severe bilateral neural foraminal stenosis. Spinal canal is patent. Other findings: Surgical bed fluid collection which is high T2 low T1 signal at the level of L1-L2 p osterior elements measuring 2.2 x 1.47 m. IMPRESSION: 1. L1-L2 left central/subarticular disc herniation with inferior migration of disc material which is felt to displace/abut the exiting left L2-L3 nerve (forming nerve root L1-L2) 2. Postsurgical changes with disc degeneration with associated osteoarthritic changes with multiple levels with at least moderate neural foraminal stenosis. 3. L5-S1 grade 1 anterolisthesis with moderate to bilateral neural foraminal stenosis. 4. Prior surgical bed postop seroma/resolving hematoma at the level of L1-L2.
== END | disposition home or self-care (01) ==
LOC: RADMRIMAIN 09:00
PROVIDERS: ATTEND Orthopaedic Surgery
DX: M51.26 Other intervertebral disc displacement, lumbar region (principal); M51.36 Other intervertebral disc degeneration, lumbar region; M47.816 Spondylosis without myelopathy or radiculopathy, lumbar region; M48.061 Spinal stenosis, lumbar region without neurogenic claudication; M99.73 Connective tissue and disc stenosis of intervertebral foramina of lumbar region; M43.17 Spondylolisthesis, lumbosacral region; G82.20 Paraplegia, unspecified
CPT/HCPCS: 72158; A9585

== ENCOUNTER 2022-05-20 10:01 | Day surgery (SDC) | payer MEDICARE ==
[2022-05-20 10:36] VITALS: RESP 18; TEMP 97.2
[2022-05-20] MEDS ORDERED: LACTATED RINGERS 1,000 ML IV ONE (10:51)
[2022-05-20] MEDS ORDERED: IOPAMIDOL M200 10 ML VIAL ONE (10:52)
[2022-05-20] MEDS ORDERED: methylPREDNISolone ACETATE 40 MG/ML 1 ML VIAL ONE (10:52)
[2022-05-20] MEDS ORDERED: MIDAZOLAM 2 MG/2 ML VIAL ONE (10:52)
--- NOTE | 2022-05-20 11:13 | P.PCN ---
Date of Procedure: 05/20/22 Procedure(s) Performed: PREOPERATIVE DIAGNOSIS: 1-Lumbar radiculopathy . 2-history of lumbar laminectomy and fusion POSTOPERATIVE DIAGNOSIS: Same as preoperative diagnoses. PROCEDURE 1. Transforaminal epidural steroid injection under fluoroscopic guidance at left L4-5 level. (Fluoroscopy images stored on file in the radiology Department ) 2. Lumbar epidurogram . ANESTHESIA: Local with 1% lidocaine 3 ml , moderate sedation with intravenous V ersed 2 mg Sedation start time : 1057 . Sedation. stop time :1109 . EBL: Minimal PROCEDURE INDICATION: The patient with low back pain and radiculopathy symptoms unresponsive to conservative treatment. PROCEDURE DESCRIPTION / TECHNIQUE: The patient was seen and identified in the preoperative area. Risks, benefits, complications, and alternatives were discussed with the patient. The patient agreed to proceed with the procedure and signed the consent. IV was started, and vital signs were stable. Patient was taken to the OR and time out was completed. The patient was placed in the prone position on procedure table and a pillow was placed under the abdomen to reduce lumbar lordosis. The lumbosacral area was prepped and draped in the usual sterile fashion. Critical pause was taken. Vital signs were closely monitored during the procedure. Conscious sedation was used during the procedure to decrease patient s anxiety. Using oblique fluoroscopy, the chin of the `[place] dog at left L4-5 level was identified, and the skin and deeper tissues just below was localized with 1% lidocaine. Subsequently, a 22-gauge 3.5-inch spinal needle was advanced under a tunneled view fluoroscopic guidance just underneath the chin of the `Ameliay dog at the left L4-5 Under lateral fluoroscopy, the needle was then advanced to the posterior border of the interforaminal space. After negative aspiration of CSF and blood and with no paresthesias, 1 mL Isovue 200 contrast dye was injected excellent epidurogram and outlining of the nerve root Subsequently, 3 mL of block solution containing 40 mg Depo-Medrol and 2 mL of 0.9% normal saline PF was injected. Needle was removed . At the end of the procedure, skin was cleansed, and bandages were applied. COMPLICATIONS:none DISPOSITION / PLANS: The patient was placed in a supine position and transferred to the recovery area in a stable condition for observation. There was no evid ence of lower extremity motor or sensory deficit after the procedure. Patient was discharged from the recovery room after meeting discharge criteria. Home discharge instructions were given to the patient by the staff. The patient was reexamined prior to discharge.
[2022-05-20] MEDS ORDERED: IV FLUID CONTINUATION 1,000 ML IV ONE (11:14)
--- NOTE | 2022-05-20 11:25 | FL ---
Intraoperative/procedural fluoroscopic services were provided for left transforaminal epidural inject ion. Total fluoroscopy time is 11 seconds with a total of 1 submitted image to PACS. Total DAP 0.0251 3. Please see the operative note for further details.
[2022-05-20 11:31] VITALS: BP 142/81; PULSE 67
== END 2022-05-20 11:44 | disposition home or self-care (01) ==
LOC: ORPAIN 10:01
PROVIDERS: ATTEND Specialist
DX: M54.16 Radiculopathy, lumbar region (principal); Z98.890 Other specified postprocedural states; Z88.1 Allergy status to other antibiotic agents; Z88.8 Allergy status to other drugs, medicaments and biological substances
CPT/HCPCS: 64483; 99152; J2250; J1030; Q9966

== ENCOUNTER → 2022-06-11 | Outpatient (CLI) | payer MEDICARE ==
--- NOTE | 2022-06-11 11:16 | P.PN ---
Subjective Progress Note Date: 06/11/22 This is a 71-year-old gentleman with history of chronic neck and lower back pain. The patient had 2 back surgeries with lumbar fusion and hardware placement. He had a transforaminal epidural steroid injection at the L4 5 level on the left side which did not give him any pain relief as he states. His pain is mostly axial in the lower back area on both sides of the spine. He has chronic numbness in the left thigh anteriorly . Patient denies new-onset weakness, bowel/bladder incontinence, or any other signs or symptoms of cauda equina syndrome. There are no signs of acute intoxication, and no indications of medication diversion or overuse. In addition to above, 13-point review of systems is also negative for chest pain, shortness of breath, changes in vision, changes in hearing, new onset weakness, abdominal pain, diarrhea, extreme fatigue, malaise, fever, skin changes, homicidal or suicidal ideation, or bowel or bladder incontinence. Vital Signs: Reviewed in EMR Gen: AAOx3, NAD HEENT: PERRLA,hearing grossly normal Pulm: resp unlabored Neck: supple, trachea midline Neuro exam of the lower extremities: Symmetrical knee reflex is but absent ankle jerks bilaterally, normal muscle strength bilaterally in the lower extremities Straight leg raising test: Negative bilaterally Ray's test: Negative bilaterally Range of motion of the lumbar spine: Creased Facet loading test: Negative on the lumbar spine Tenderness in the paravertebral musculature: Positive in the lumbar paravertebral musculature bilaterally Neuro: CN II-XII grossly intact, Imaging: Reviewed in EMR/chart Assessment: Postlaminectomy pain syndrome Cervical and lumbar spondylosis without myelopathy Plan: 1. Explanation: When patients on opioids, opioid and psychological risk scores were reviewed. Diagnoses, prognoses, and multiple treatment options including but not limited to physical therapy, interventional therapies, adjuvant medical therapies, narcotic medication therapies, and surgery were discussed with the patient and all questions were answered to the patient's satisfaction. 2. Opioid agreement:When patients are prescribed opoids through our clinic, opioid agreement is signed with the patient and the patient is warned not to use opioids while driving or before driving and not to combine opioids with benzodiazepines or alcohol. 3. Counseling: When patient is smoking or obese, the patient was counseled extensively on SMOKING CESSATION, BODY MASS INDEX, EXERCISE. Specifically, the patient was instructed regarding the importance of smoking cessation, obesity, and exercise in the context of both chronic pain and overall health. 4. Procedures: Schedule for caudal epidural steroid injection with lysis of adhesions . Patient denies taking any anticoagulants. 5. Consultations: None 6. Investigations: None 7. Medications: None prescribed 8. Disposition: Proceed with the above-mentioned procedure as soon as possible 9. Maps were reviewed and were appropriate. PQRS measures: 1-Patient's medications are documented in the chart. 2-Tobacco use is negative, counseling given 3-Patient has had a pneumococcal vaccine. 4-Advanced care planning discussed, patient unable to give 5-Opioid contract signed with the patient. 6-Pain positive, follow-up visit or procedure scheduled 7-Patient's blood pressure measured and documented . The patient will follow up with his primary care physician. 8-Patient's weight was measured. Patient instructed to follow up with PCP. 9-Patient WAS NOT identified as an unhealthy alcohol user.
[2022-06-11 11:56] VITALS: BP 143/87; PULSE 73; RESP 18; TEMP 98.6
== END ==
LOC: PNWHC3 10:01
PROVIDERS: ATTEND Anesthesiology
DX: M96.1 Postlaminectomy syndrome, not elsewhere classified (principal); M47.816 Spondylosis without myelopathy or radiculopathy, lumbar region; M47.812 Spondylosis without myelopathy or radiculopathy, cervical region; Z88.1 Allergy status to other antibiotic agents; Z87.891 Personal history of nicotine dependence
CPT/HCPCS: 99211

== ENCOUNTER → 2022-08-01 | Outpatient (CLI) | payer MEDICARE | END | disposition home or self-care (01) | LOC: LABPAT 10:56 | PROVIDERS: ATTEND Orthopaedic Surgery | DX: Z01.812 Encounter for preprocedural laboratory examination (principal); Z22.322 Carrier or suspected carrier of Methicillin resistant Staphylococcus aureus; M48.061 Spinal stenosis, lumbar region without neurogenic claudication | CPT/HCPCS: 87070 ==

== ENCOUNTER 2022-08-11 06:04 | Inpatient (IN) | payer MEDICARE ==
[~2022-08-11 06:04] MED LIST changes: -LACTATED RINGERS 1,000 ML IV SCH; -MELOXICAM 7.5 MG TAB PO PRN; +ONDANSETRON 4 MG/2 ML VIAL IVP PRN; +TRANEXAMIC 1,000 MG/100ML-NACL 1,000 MG in SALINE 1 100ML.BAG IVPB PRN; -TRANEXAMIC ACID IN NACL,ISO-OS 1,000 MG in SALINE 1 100ML.BAG IVPB PRN
[2022-08-11] MEDS ORDERED: MIDAZOLAM 2 MG/2 ML VIAL IV PRN (06:15)
[2022-08-11] MEDS ORDERED: HYDROmorphone 0.5 MG/0.5 ML SYRINGE IVP PRN (06:15)
[2022-08-11] MEDS ORDERED: ONDANSETRON 4 MG/2 ML VIAL IVP ONE (06:15)
[2022-08-11] MEDS ORDERED: LIDOCAINE 1% (10MG/ML) FOR IV START INTRADERMA PRN (06:15)
[2022-08-11] MEDS ORDERED: DEXAMETHASONE SOD PHOSPHATE 4 MG/ML 1 ML VIAL IV ONE (06:15)
[2022-08-11] MEDS: LACTATED RINGERS 1,000 ML IV SCH (06:40)
--- NOTE | 2022-08-11 06:45 | P.HPOR ---
History of Present Illness H&P Date: 08/01/22 .D:Date: 08/01/22 : 10:59am .T:Title: [facility] Date of :[birth year] Age: 71 year Height: 5'11" Weight: 180 lbs BMI: 25.10 kg/m2 Occupation: Retired VAS: 6 CHIEF COMPLAINT: Preoperative appointment for revision L2-pelvis decompression and fusion DOI:Chronic SUBJECTIVE: Mr. Rosado returns to the office today for his preoperative appointment for his revision L2-pelvis decompression and fusion. The patient reports increased lumbar pain since the time of their last appointment on 06/18/2022. Mr. Rosado notes that their symptoms are exacerbated with prolonged walking or standing. The patient is currently taking Wentworth for pain relief. The patient is having severe sleep disturbances. The patient states that his current symptoms have started to significantly affect his overall quality of life. The patient ambulates with a cane today. HISTORY: Mr. Rosado returns to the office on 06/18/2022 for a post-operative evaluation following their L1-L2 microdiskectomy. Patient reports increased lumbar pain since the time of their last appointment). Mr. Rosado notes that their symptoms are exacerbated with prolonged walking. Patient is currently on flexeril, norco, lyrica, meloxicam and tramadol for pain relief . Patient is having significant sleep disturbances as well. The patient (denies taking analgesics/anticoagulants/narcotics/EDWAR-analogs). Mr. Rosado returns to the office on 03/19/2022 for a post-operative evaluation following their L1-L2 microdiskectomy and to review his MRI obtained after the time of the last appointment . Patient reports lumbar pain since the time of their last appointment). Mr. Rosado notes that their symptoms are exacerbated with prolonged walking, but this is well controlled with icing, mobic and tramadol . Patient is having significant sleep disturbances as well. The patient (denies taking analgesics/anticoagulants/narcotics/EDWAR-analogs). Mr. Rosado returns to the office on 02/27/22 for a post-operative evaluation following their L1-L2 microdiskectomy. Patient reports increasing lumbar pain below the operated level since the time of their last appointment. With this the patient also reports continued, intermittent numbness and tingling about the left lower extremity. He denies any lower extremity pain at this time. Furthermore the patient denies any new injury or trauma. Overall the patient has seen increased symptoms that are impacting his ability to complete daily tasks. Mr. Rosado notes that their symptoms are exacerbated with any standing or ambulation. Patient is having moderate sleep disturbances as well. For their symptoms, the patient has been taking Mobic and Wentworth with mild improvements. With this he has also completed 6 visits of formal physical therapy without any improvements. Patient denies any f/c/sob/cp, no bladder or bowel retention/incontinence, no perineal numbness/tingling, and ambulates independently. Mr. Rosado last returned to the office on 01/16/22 for a post-operative evaluation following their L1-L2 microdiskectomy. Patient reports no changes to his symptoms since the time of the last appointment. Overall the patient has seen continued pain about the low back and intermittent bilateral lower extremity radiculopathy (R>L). Overall he notes that he has been more sedentary since his operation and has not been very ambulatory. Mr. Rosado notes that their symptoms are exacerbated with standing and ambulation, but this is moderately controlled with rest and medications. Patient is having mild sleep disturbances as well. For their symptoms, the patient has been taking Aleve and Wentworth 7.5/325mg with relief of his pain. Otherwise the patient is happy with the progress they have made and have no acute concerns at this time. Patient denies any f/c/sob/cp, no incision concerns, no bladder or bowel retention/incontinence, no perineal numbness/tingling, and ambulates independently. Mr. Rosado returns to the office on 12/16/2021 for a post-operative evaluation following their L1-L2 microdiskectomy. Patient reports decreasing lumbar pain since the time of their procedure. Overall the patient has seen improving functionality and decreasing symptoms but does report some general aching about the low back as well as intermittent bilateral lower extremity radicular pain (R>L). Despite his symptoms he notes that he is overall better than he was before the surgery and is happy with his recovery thus far. Mr. Rosado notes that their symptoms are exacerbated with prolonged standing and ambulation, but this is well controlled with rest and medications (Wentworth and Lyrica) . Patient is having mild sleep disturbances as well. Otherwise the patient is very happy with the progress they have made and have no acute concerns at this time. Patient denies any f/c/sob/cp, no incision concerns, no bladder or bowel retention/incontinence, no perineal numbness/tingling, and ambulates independently. The patient's past medical history; past surgical history; family history; medicines; allergies and social history have been reviewed and are as stated elsewhere in the chart. 16 points review of systems completed and as stated in HPI, all other systems reviewed are negative. PHYSICAL EXAM: - Patient is alert and oriented 3 appears well-nourished well-hydrated is in no acute distress. They do not appear septic. - On exam the patient has tenderness to palpation of their thoracic or lumbar spine. There is no edema or ballottement sign. - Upper extremities show 5/5 strength in all major muscle groups. - Lower extremities with 4 out of 5 strength in all major muscle groups - There is FROM that is painless of the b/l UE and LE in all major joints. - They are intact to light touch sensation in L2 to S1 nerve distribution as well as the C5-T1 distribution. There are deficits howevere in the RLE at L2 and L3 as well as some S1 on the Left. - DTRs 2/4 all upper and lower except LLE with 1/4 - Patient has palpable distal pulses in all four extremities - Compartments are soft and compressible. -Neg Valdez's -No Clonus -Neg Babinski -Neg Dylan's -No tensioning signs. -Cranial nerves II through XII are grossly intact. -Overall alignment is well-maintained in the sagittal coronal planes. Surgical incision: Previous incision well healed. RADIOGRAPHS: MRI without contrast from 03/05/22 at [facility] of the lumbar spine demonstrates: Images reviewed with the patient. At L1-2 there is still some subligamentous disc present causing moderate stenosis at the L1-2 region on the left side. No large fluid collections or compressive lesions seen. Post surgical changes noted L4-S1 with ASD L3-4 with disc collapse and bulge. There is likely foraminal stenosis at these levels given that midline is still intact and there was no large decompression done posteriorly. No fracture. No lesions. Mild signal changes about the screws. There is possible pseudoarthrosis at L4-5 due to non fused segments at L4-[address] scan from04/15/2021 of Thoracic Spine: Thoracic spine CT is reviewed no significant vertebral body collapse fractures dislocations lesions or malalignments. CT Myelogram from 10/02/2021 of the Lumbar Spine: Images reviewed with the patient demonstrate post surgical changes L4-S1 with hardware in position. There is residual listhesis at L5-S1 that is stable. Good fusion notd. No severely stenotic areas. At L1-2 there is an extra large extruded disc fragment causing severe central, foraminal and lateral recess stenosis at L1-2 and down to L2-3. The disc piece is sitting behind L2 vertebral body and is causing significant stenosis which is paracentral on the L leading to pts sx. No other fractures noted. Vacuum disc at L1-2 and L2-3 noted. Facet arthropathy at these levels as well noted. No lesions noted. ASSESSMENT: 1. S/P L1-L2 microdiskectomy 2. bilateral lower extremity weakness 3. pseudoarthrosis L4-S1 hardware failure 4. L1-2 Stenosis 5. Low back pain 6. Lower extremity weakness PLAN: All options were reviewed today, we decided the best course of action would be: - A prescription for norco was sent to the patient's pharmacy -Advised patient to continue with supplements, health maintenance, and home exercise programs. Patient expressed understanding and will continue with these modalities. I discussed treatment options with the patient, including operative and non- operative options. patient has failed to get better with conservative measures and he seems to be progressively getting worse with his lower extremity issues pain weakness low back pain as well. His previous procedure did not alleviate his issues or symptoms and he has not gotten better at this point. I discussed this with him and his at length and they have elected to proceed with the following surgical procedure: K22-[id number] revision, decompression and fusion The indications, risks, benefits, and alternatives to surgery were discussed with the patient and family at length. Specifically (but not limited to) the risks of infection, stiffness, recurrence of symptoms, need for revision surgery, local numbness, neurovascular injury, and blood clots were discussed. The patient's questions were answered. The decision to proceed was made. Consent will be obtained for the procedure. - Ambulate daily - Take pain medications and post op medications as needed and as directed - Ice and rest for pain and swelling control. Spine Surgery Risk Review Mr. Rosado is presenting for evaluation of low back pain. It was my pleasure to have seen and examined Mr. Rosado. In our visit today we have had a chance to go over subjective complaints, physical examination findings and treatments including the natural course history without intervention and various interventional options. The patients imaging demonstrates: MRI without contrast from 03/05/22 at [facility] of the lumbar spine demonstrates: Images reviewed with the patient. At L1-2 there is still some subligamentous disc present causing moderate stenosis at the L1-2 region on the left side. No large fluid collections or compressive lesions seen. Post surgical changes noted L4-S1 with ASD L3-4 with disc collapse and bulge. There is likely foraminal stenosis at these levels given that midline is still intact and there was no large decompression done posteriorly. No fracture. No lesions. Mild signal changes about the screws. There is possible pseudoarthrosis at L4-5 due to non fused segments at L4-[address] scan from04/15/2021 of Thoracic Spine: Thoracic spine CT is reviewed no significant vertebral body collapse fractures dislocations lesions or malalignments. CT Myelogram from 10/02/2021 of the Lumbar Spine: Images reviewed with the patient demonstrate post surgical changes L4-S1 with hardware in position. There is residual listhesis at L5-S1 that is stable. Good fusion notd. No severely stenotic areas. At L1-2 there is an extra large extruded disc fragment causing severe central, foraminal and lateral recess stenosis at L1-2 and down to L2-3. The disc piece is sitting behind L2 vertebral body and is causing significant stenosis which is paracentral on the L leading to pts sx. No other fractures noted. Vacuum disc at L1-2 and L2-3 noted. Facet arthropathy at these levels as well noted. No lesions noted. On physical exam, Mr. Rosado demonstrates: continue lower extremity pain and weakness. That is progressively getting worse. Left lower extremity weakness with radiculopathy that seems to be getting worse. Low back pain across the whole low back and into the buttock region that is worse when walking better when seated. Tensioning signs positive. Decreased reflexes. Mr. Rosado returns to the office today for a post-operative evaluation following their L1-L2 microdiskectomy. Patient reports increased lumbar pain since the time of their last appointment). Mr. Rosado notes that their symptoms are exacerbated with prolonged walking.. I have explained to the patient that as their condition progresses it will cause further neurological deficits and eventual paralysis. Based on the patients imaging, physical exam, and the rapid progression and disabling nature of their symptoms, at this time I recommend surgery in the form of a: L2-Pelvis revision, decompression and fusion. I discussed the risk and benefits of this procedure at length with Mr. Rosado. The patient his in the room with him agreed to considered pursuing the procedure above mentioned . Prior to surgery, she should follow up with her PCP (Cardio, ID, IM etc) for clearance. Questions were invited and answered, and the patient wishes to proceed as outlined below. Currently, I am recommendin. B77-Nxeuhw revision, decompression and fusion 2.Follow up with PCP for surgical clearance 3.Review of surgical risks and benefits as well as an educational packet on the proposed surgical procedure. Risks: All surgical procedures come with inherent risks, including those related to positioning, anesthesia, intraoperative findings, and postoperative complications. It is important to understand that surgery does not come with any guarantee of a successful outcome as complications and adverse events are always possible. The patient was given a handout in office today discussing the surgical procedure and risks associated with the intervention, both of which were discussed with the patient. These risks include but are not limited to the following: * Experiencing same, different or even worse symptoms in back, neck, arms, or legs compared to before surgery. Requiring further surgery or other forms of treatment presently or at some time in the future at same or other levels of the intended spine surgery. On an extreme but fortunately relatively rare basis severe complication such as blindness, stroke, heart attack, temporary and/or permanent nerve injury, paralysis, coma, or may occur, sometimes without known explanation. Surgical complications may include but are not limited to risk of infectio n, fluid accumulation in the surgical dissection site, including a seroma or hematoma, that requires additional surgery, wound drainage, bleeding, new numbness or weakness, vision changes/loss, spinal fluid leakage, non-healing and/or infected incision, headaches, difficulty or inability to swallow, hoarseness, hemopneumothorax, pneumothorax, impotence, retrograde ejaculation, vaginal dryness; injury to nerves, spinal cord, blood vessels, lymphatics or other vital organs (i.e., bowel injury, injury to the great vessels); heterotopic bone formation; complications related to the hardware such as screws, rods, cages including misplaced hardware, device failure, instrumentation at the wrong spine level, hardware fracture/breakage, or hardware loosening; vertebral failure of the spinal column above or below the newly placed hardware; retained surgical instrumentations or devices and the need for further surgery. * Medical risks of the planned spine surgery include but are not limited to generalized Infections to the whole body or local areas outside of the surgical site (sepsis), heart attack, bleeding, anaphylaxis, meningitis, seizure, epilepsy, hearing loss, burn ortiz, laceration of the head or other areas of the body, bruising, hypersensitivity of the skin, bladder over distension; allergic reaction; shoulder injury related to positioning; fat, blood and air clots to other areas of the body like heart, lungs, brain; failure of internal organs such as lungs, kidneys, liver and excessive bleeding. If blood transfusions are necessary, note that transfusions may cause intolerance reactions such as anaphylaxis or other complex reactions. Despite best efforts, the results of spine surgery might not heal in terms of bone, soft tissues such as skin, fascia, ligaments, and joints. Additionally, in order to achieve best possible results, spine surgery may be carried out beyond the initially planned levels and involve decompression, fusion including insertion of hardware at levels other than the original intended area of surgical interest change some portions of the procedure in order to ensure the best possible outcomes. With spine surgery and spinal fusion, there are different off label uses of instrumentation (devices, implants and hardware) as well as biological substances (bone morphogenic proteins, demineralized bone matrix) as well as using extra bone from allograft sources (i.e. cadaver bone) or autograft (iliac crest bone, ribs, or the spine itself). The patient has been given information about these practices and their inherent risks and benefits. [facility] is an educational center that serves as a training facility for neurosurgical and orthopedic CREDIT REFERENCE CLERK and Nursing students. Physician assistants are medically trained surgical providers who function in the outpatient, inpatient, and operating room setting under the direct supervision of the attending surgeon. [facility] has multiple operating rooms with single and overlapping rooms running daily. They currently function under the required guidelines as produced by the [facility] Finance Committee with regards to the overlapping rooms and will continue to comply with changes to this policy as they occur. The requirements include and are complied with as follows: (1) the critical portions of the overlapping rooms will not occur at the same time, (2) the attending physician will be physically present during the critical portions of the procedure and immediately available during the entire case, and (3) a back-up attending is designated should the primary attending not be immediately available. The patient has had a chance to review all the listed information, has been given print outs detailing this information, and has had all his/her questions answered to their satisfaction. It was my pleasure to have seen and examined Mr. Rosado. In our visit today we have had a chance to go over my understanding of our patient's current condition, the natural course history without intervention and various interventional options. Questions were invited and answered, and the patient wishes to proceed as outlined above. I have seen and examined the patient for 25 minutes and we have spent more than 50% of the time in repeat and detailed counseling about the patient's condition, its natural course history with out and as much as can be predicted with surgery and re-review of various surgical treatment options. In conclusion, Mr. Rosado and his requested we proceed with the above suggested surgery and are willing to accept risks and limitations of the suggested surgery as nature of the disease process and our best attempts at treatment for the condition. Thank you again for allowing us to be part of your patient's care. Please don't hesitate to contact me if you have any further questions. Follow-up: Post Procedure Patient Education: (Informational booklet, instructions, etc) given at today's appointment: Yes .ED:Patient Education: Y Medications Reviewed: YES Attestation: In our visit today Mr. Rosado and I have had a chance to go over my understanding of the patient's current condition, the natural course history without intervention and various interventional options. Questions were invited and answered, and the patient wishes to proceed as outlined above. I will be sure to keep you updated afterMr. Rosado returns here for further follow-up. Thank you again for your referral. Please do not hesitate to contact me if you have any further questions. Signed and authenticated by: [facility] [address] [facility], [address] [address] This message is confidential, intended only for the named recipient(s) and may contain information that is privileged or exempt from disclosure under applicable law. If you are not the intended recipient(s), you are notified that the dissemination, distribution or copying of this information is strictly prohibited. If you received this message in error, please notify the sender then delete this message. Patient verbalizes understanding of the information discussed. The above note was initiated by Cecilia Gabriel, physician recording assistant merchandiser for Dr. Javier Garcia. This note has been reviewed by Dr. Garcia, who has made his personal changes and impressions for this document. CC: Roland Briceño M.D. Past Medical History Past Medical History: GERD/Reflux, GI Bleed, Hearing Disorder / Deafness, Osteoarthritis (OA), Prostate Disorder Additional Past Medical History / Comment(s): PVC's, gastric ulcer, bilateral tinnitis, chronic back pain, hiatal hernia, degenerative disc disease. insomnia History of Any Multi-Drug Resistant Organisms: None Reported Past Surgical History: Back Surgery, Cardiac Ablation, Hernia Repair, Orthopedic Surgery Additional Past Surgical History / Comment(s): Bilateral cataract removal, bilateral rotator cuff sx, L foot bunionectomy/hammer toe sx, sinus surgery, cervical fusion and lumbar fusions. Past Anesthesia/Blood Transfusion Reactions: No Reported Reaction Additional Past Anesthesia/Blood Transfusion Reaction / Comment(s): Pt has received blood in past without reaction. Smoking Status: Former smoker - Past Family History Mother Family Medical History: No Reported History Father Family Medical History: Congestive Heart Failure (CHF) Medications and Allergies Home Medications Medication Instructions Recorded Confirmed Type Pantoprazole Sodium [Protonix] 40 mg PO DAILY 11/20/14 08/11/22 History tadalafiL [Cialis] 5 mg PO HS 01/09/20 08/11/22 History HYDROcodone/APAP 7.5-325MG [Wentworth 1 tab PO Q6H 08/11/22 08/11/22 History 7.5-325] Allergies Allergy/AdvReac Type Severity Reaction Status Date / Time ciprofloxacin Allergy Rash/Hives/ Verified 08/11/22 06:29 sneezing levofloxacin [From Levaquin] AdvReac Nausea Verified 08/11/22 06:29 Physical Examination Osteopathic Statement: *. No significant issues noted on an osteopathic structural exam other than those noted in the History and Physical/Consult.
[2022-08-11] MEDS ORDERED: MIDAZOLAM 2 MG/2 ML VIAL IVP ONE (07:15)
[2022-08-11] MEDS ORDERED: fentaNYL (PF) 50 MCG/ML 2 ML AMP IVP ONE ×2 (07:15→07:35)
[2022-08-11] MEDS ORDERED: fentaNYL (PF) 50 MCG/ML 2 ML AMP ONE (07:52)
[2022-08-11] MEDS ORDERED: LIDOCAINE 2% INJ 20 MG/ML (2 ML VIAL) ONE (07:52)
[2022-08-11] MEDS ORDERED: MIDAZOLAM 2 MG/2 ML VIAL ONE (07:52)
[2022-08-11] MEDS ORDERED: GLYCOPYRROLATE 0.2 MG/ML 2 ML VIAL ONE (07:52)
[2022-08-11] MEDS ORDERED: KETAMINE 10 MG/ML 20 ML VIAL ONE (07:52)
[2022-08-11] MEDS ORDERED: HYDROmorphone (PF) 1 MG/ML ONE (07:52)
[2022-08-11] MEDS ORDERED: PROPOFOL 10 MG/ML 20 ML VIAL IV ONE (07:52)
[2022-08-11] MEDS ORDERED: ROCURONIUM 10 MG/ML (5 ML VIAL) IV ONE (07:52)
[2022-08-11] MEDS ORDERED: TRANEXAMIC 1,000 MG/100ML-NACL PREMIX BAG ONE (07:52)
[2022-08-11] MEDS ORDERED: ALBUMIN HUMAN 5% (25gm) 500 ML VIAL IVPB ONE (07:52)
[2022-08-11] MEDS ORDERED: SUCCINYLCHOLINE CHLORIDE 200 MG/10 ML VIAL IV ONE (07:52)
--- NOTE | 2022-08-11 08:05 | XR ---
EXAMINATION TYPE: XR chest 1V portable DATE OF EXAM: 08/11/2022 CLINICAL HISTORY: Postcentral line placement. TECHNIQUE: Single AP portable upright view of the chest is obtained. COMPARISON: Chest x-ray from November 10, 2019 FINDINGS: There is new right internal jugular central venous catheter terminating in right atrium. L ungs are grossly clear without pneumothorax seen bilaterally. Stable mild cardiomegaly. Osseous struc tures are intact. Possible foreign body versus surgical change overlies the lower cervical spine jessi lar in appearance to prior study. IMPRESSION: As above.
[2022-08-11] MEDS ORDERED: THROMBIN (BOVINE) 5,000 UNIT VIAL TOPICAL ONE (09:06)
[2022-08-11] MEDS ORDERED: GELATIN SPONGE,ABSORB (LARGE) 1 EACH SPONGE TOPICAL ONE (09:06)
--- NOTE | 2022-08-11 10:40 | P.ANPRN ---
Procedure Note - Anesthesia - Invasive Line Right Central Line Time Out Performed: Yes (07:14) Date of Procedure: 08/11/22 Time of Procedure: 07:14 Location of Patient: PreOp Preparation: Sterile Prep, Sterile Dressing Central Line Location: Internal Jugular (right) Ultrasound Used: Yes Purpose - Visualization and Identification of Vasculature: Yes Needle Guage: 18 Image Stored and Saved: No Narrative: Central line placement per sterile protocol utilized.
[2022-08-11] MEDS ORDERED: ceFAZolin 3,000 MG in SODIUM CHLORIDE 0.9% IRRIGATIO 3,000 ML IRRIGATION ONE (12:45)
[2022-08-11] MEDS ORDERED: GENTAMICIN 80 MG in SODIUM CHLORIDE 0.9% IRRIGATIO 3,000 ML IRRIGATION ONE (12:45)
[2022-08-11] MEDS ORDERED: VANCOMYCIN 1,000 MG VIAL MISCELLANE ONE (14:46)
--- NOTE | 2022-08-11 14:51 | XR ---
Intraoperative/procedural fluoroscopic services were provided for lumbar fusion. Total fluoroscopy ti me is 46 seconds with a total of 9 submitted images to PACS. Total DAP 16.153 Gycm2. Please see the operative note for further details.
[2022-08-11] MEDS ORDERED: LACTATED RINGERS 1,000 ML IV ONE ×4 (15:23→16:30)
[2022-08-11] MEDS ORDERED: SENNOSIDES-DOCUSATE SODIUM 1 EACH TAB PO PRN (15:30)
[2022-08-11] MEDS ORDERED: MAGNESIUM HYDROXIDE 2,400 MG/10 ML CUP PO PRN (15:30)
[2022-08-11] MEDS ORDERED: CYCLOBENZAPRINE 5 MG TAB PO PRN (15:30)
[2022-08-11] MEDS: ACETAMINOPHEN TAB 325 MG TAB PO SCH ×2 (17:34→23:57)
[2022-08-11] MEDS: GABAPENTIN 300 MG CAP PO SCH ×2 (17:38→22:22)
[2022-08-11] MEDS: HYDROmorphone 1 MG/ML 1 ML SYRINGE IVP PRN ×2 (17:38→20:19)
--- NOTE | 2022-08-11 18:21 | P.CONS ---
History of Present Illness - Reason for Consult Consult date: 08/11/22 GERD Requesting physician: Javier Garcia - Chief Complaint Back pain - History of Present Illness Patient is a 72-year-old male with history of GERD complicated by gastric ulcer and GI bleed, arthritis, chronic back pain due to degenerative disc disease, and BPH who presented to the hospital for T10 to pelvis revision decompression and fusion. He tolerated the procedure well without any immediate postoperative complications. Patient seen and examined at bedside with present. He complains of 9 out of 10 back pain despite recent Dilaudid dosing. He denies any headache, chest pain, shortness of breath, nausea, vomiting. He denies any recent cough, cold, fever, flu. He has been using a cane at home. This is his third back surgery. Vital signs reviewed General: nontoxic, no distress, appears at stated age Derm: warm, dry Eyes: EOMI, no lid lag, anicteric sclera, pupils equal round reactive to light ENT: Nose and ears atraumatic, no thrush, no pharyngeal erythema, mucus membranes dry Cardiovascular: S1S2 reg, no murmur, positive posterior tibial pulse bilateral, no edema, capillary refill less than 2 seconds Lungs: Decreased bs bilateral, no rhonchi, no rales, no wheeze, no accessory muscle use Abdominal: soft, nontender to palpation, no guarding, no appreciable organomegaly, normal bowel sounds Ext: no gross muscle atrophy, moving all 4 extremities independently, no contractures Neuro: CN II-XII grossly intact, no focal neuro deficit Psych: Alert, oriented, appropriate affect Assessment: 72-year-old male status post T10 to pelvis revision decompression and fusion GERD, hx of pepetic ulcer and GI bleed History PVCs Imaging: Chest x-rays reviewed by myself from 08/11 shows right-sided triple-lumen catheter in good position Data Review: Postoperative vitals reviewed and pulse 74, respirations 16, blood pressure 144/60, O2 sat 98% on 2 L Preoperative blood work revealed hemoglobin 14.8, hematocrit 43.5, platelets 285, BUN 13, creatinine 0.95 with a GFR of 84, potassium 5.1 Plan: - follow CBC - Case discussed with Dr. Garcia. HOB to 10 degree and bedrest overnight - Pain control with dilaudid, norco, and gabapentin - Resume home protonix - follow BP Thank you for allowing us to participate in the care of this pleasant patient. Do not hesitate to contact us with questions. Someone can be reached from the [facility] hospitalist group all hours of the day at [phone] or via [email or web address]. This dictation was prepared using [employer] voice recognition software. Though every attempt is made to correct errors during during dictation some may still exist. Past Medical History Past Medical History: GERD/Reflux, GI Bleed, Hearing Disorder / Deafness, Osteoarthritis (OA), Prostate Disorder Additional Past Medical History / Comment(s): PVC's, gastric ulcer, bilateral tinnitis, chronic back pain, hiatal hernia, degenerative disc disease. insomnia History of Any Multi-Drug Resistant Organisms: None Reported Past Surgical History: Back Surgery, Cardiac Ablation, Hernia Repair, Orthopedic Surgery Additional Past Surgical History / Comment(s): Bilateral cataract removal, bilateral rotator cuff sx, L foot bunionectomy/hammer toe sx, sinus surgery, cervical fusion and lumbar fusions. Past Anesthesia/Blood Transfusion Reactions: No Reported Reaction Additional Past Anesthesia/Blood Transfusion Reaction / Comm: Pt has received blood in past without reaction. Smoking Status: Former smoker - Past Family History Mother Family Medical History: No Reported History Father Family Medical History: Congestive Heart Failure (CHF) Medications and Allergies Home Medications Medication Instructions Recorded Confirmed Type Pantoprazole Sodium [Protonix] 40 mg PO DAILY 11/20/14 08/11/22 History tadalafiL [Cialis] 5 mg PO HS 01/09/20 08/11/22 History HYDROcodone/APAP 7.5-325MG [[place] 1 tab PO Q6H 08/11/22 08/11/22 History 7.5-325] Allergies Allergy/AdvReac Type Severity Reaction Status Date / Time ciprofloxacin Allergy Rash/Hives/ Verified 08/11/22 06:29 sneezing levofloxacin [From Levaquin] AdvReac Nausea Verified 08/11/22 06:29 Physical Exam Osteopathic Statement: *. No significant issues noted on an osteopathic structural exam other than those noted in the History and Physical/Consult. Vitals: Vital Signs Temp Pulse Pulse Resp BP BP Pulse Ox 08/11/22 17:31 98.2 F 81 18 144/89 95 08/11/22 17:00 74 16 144/60 98 08/11/22 16:45 72 16 142/67 98 08/11/22 16:30 80 16 148/72 98 08/11/22 16:15 70 16 141/66 141/60 100 08/11/22 16:00 77 16 151/63 159/67 100 08/11/22 15:45 70 16 135/61 162/75 100 08/11/22 15:26 97.2 F L 70 12 122/56 127/59 98 08/11/22 07:50 75 16 162/73 100 08/11/22 07:30 72 16 156/60 100 08/11/22 06:25 96.3 F L 62 16 176/66 164/76 100 Intake and Output 08/11/22 08/11/22 08/11/22 06:59 14:59 22:59 Intake Total 700 1352 3100 Output Total 1350 155 Balance 700 2 2945 Intake: IV 700 1352 3100 Output: Urine 600 75 Estimated Blood Loss 750 80 Other: Weight 84.9 kg Results CBC & Chem 7: 08/11/22 07:20
--- NOTE | 2022-08-11 18:36 | CT ---
EXAMINATION TYPE: CT thor lumbar spine wo con CT DLP: 1878.6 mGycm, Automated exposure control for dose reduction was used. DATE OF EXAM: 08/11/2022 6:02 PM CLINICAL INDICATION:Male, 72 years old with history of s/p [id number] decompression fusion; [id number]-[id number] s decompression fusion. COMPARISON: CT lumbar spine 10/02/2021. TECHNIQUE: Axial images of the thoracic and lumbar spine were obtained without contrast. Coronal and sagittal reformats were performed. CT Contrast: Contrast used: , none. Oral contrast used: none. FINDINGS: Postsurgical changes to the spine including T10 to pelvis fusion. Discectomy changes are at L3-L3, L3 -L4, L4-L5, and L5-S1. Vertebroplasty changes at T10. Subcutaneous lucencies and skin kole present consistent with recent surgery. Hardware appears intact. No evidence of fracture. Partially visualized fixation hardware in the lower cervical spine. Right central venous catheter wit h tip terminating at the superior cavoatrial junction. Streaky atelectasis/scarring in the lung bases . Grade 1 anterolisthesis of L5 on S1 is present. IMPRESSION: Postsurgical changes without evidence for immediate post operative competition.
[2022-08-11 19:06] LABS: HCT 32.2 % (39.0-53.0); HGB 10.7 gm/dL (13.0-17.5); MCH 33.8 pg (25.0-35.0); MCHC 33.1 g/dL (31.0-37.0); MCV 102.1 fL (80.0-100.0); Mean Platelet Volume 8.1; Platelet Count 173 k/uL (150-450); RBC 3.16 m/uL (4.30-5.90); RDW 12.2 % (11.5-15.5); WBC 12.1 k/uL (3.8-10.6)
[2022-08-11] MEDS: HYDROcodone/APAP 10-325MG 1 EACH TAB PO PRN (22:22)
[2022-08-12] MEDS: HYDROmorphone 1 MG/ML 1 ML SYRINGE IVP PRN ×5 (00:03→22:17)
[2022-08-12] MEDS: LACTATED RINGERS 1,000 ML IV SCH (05:45)
[2022-08-12] MEDS: ACETAMINOPHEN TAB 325 MG TAB PO SCH ×3 (06:06→18:34)
[2022-08-12] MEDS: HYDROcodone/APAP 10-325MG 1 EACH TAB PO PRN ×3 (06:10→18:36)
[2022-08-12] MEDS: PANTOPRAZOLE 40 MG TABLET PO SCH (06:10)
[2022-08-12] MEDS: GABAPENTIN 300 MG CAP PO SCH ×3 (09:14→22:13)
--- NOTE | 2022-08-12 10:32 | P.PN ---
Subjective Progress Note Date: 08/12/22 Patient is a 72-year-old male with history of GERD complicated by gastric ulcer and GI bleed, arthritis, chronic back pain due to degenerative disc disease, and BPH who presented to the hospital for T10 to pelvis revision decompression and fusion. He tolerated the procedure well without any immediate postoperative complications. Patient seen and examined at bedside. He is up in the chair at bedside today. He does report he feels slightly lightheaded but does not feel as if he'll pass out. He denies any chest pain, nausea, vomiting. His pain was fairly severe overnight but is feeling better this morning. Vital signs reviewed General: nontoxic, no distress, appears at stated age Cardiovascular: S1S2 reg, no murmur, positive posterior tibial pulse bilateral, Lungs: Decreased breath sounds bilateral, no rhonchi, no rales , no accessory muscle use Abdominal: soft, nontender to palpation, no guarding, no appreciable organomegaly Ext: no gross muscle atrophy, trace edema, no contractures Neuro: CN II-XI grossly intact, no focal neuro deficits Psych: Alert, oriented, appropriate affect Assessment: 72-year-old male status post T10 to pelvis revision decompression and fusion Acute blood loss anemia, anticipated outcome of surgery Postoperative pain GERD, hx of peptic ulcer and GI bleed History PVCs Imaging: none new reviewed Data Review: Vitals reviewed temperature 97.7, pulse 81, respirations 18, blood pressure 163/75, O2 sat 99% on 2 L Blood work from last evening 1800 reviewed White blood cell count 12.1, hemoglobin 10.7. CBC and CMP from this morning are still pending. We'll review once available Plan: -Discontinue triple-lumen catheter. Injections written for nursing to remove -Await repeat CBC and CMP - Pain control with dilaudid, norco, and gabapentin. The patient encouraged to use a combination of both Dilaudid and [place] to help with pain control regiment as Dilaudid will have fast wear off. - Resume home protonix - follow BP -Stable for transfer to 4 S. Thank you for allowing us to participate in the care of this pleasant patient. Do not hesitate to contact us with questions. Someone can be reached from the [facility] hospitalist group all hours of the day at [phone] or via [email or web address]. This dictation was prepared using dragon medical voice recognition software. Though every attempt is made to correct errors during during dictation some may still exist. Objective - Vital Signs Vital signs: Vital Signs Temp 97.7 F 08/12/22 09:12 Pulse 81 08/12/22 09:12 Resp 18 08/12/22 09:12 BP 163/75 08/12/22 09:12 Pulse Ox 100 08/12/22 09:13 FiO2 Intake & Output 08/11/22 08/12/22 08/12/22 18:59 06:59 18:59 Intake Total 4452 40 Output Total 1505 1000 Balance 2947 -960 Intake: IV 4452 40 Invasive Line 1 20 Invasive Line 2 10 Invasive Line 3 10 Output: Drainage 600 Right Medial Back 600 Urine 675 400 Estimated Blood Loss 830 Other: Voiding Method Indwelling Catheter Indwelling Catheter - Labs CBC & Chem 7: 08/11/22 18:55 08/11/22 07:20 Labs: Abnormal Lab Results - Last 24 Hours (Table) 08/11/22 Range/Units 18:55 WBC 12.1 H (3.8-10.6) k/uL RBC 3.16 L (4.30-5.90) m/uL Hgb 10.7 L (13.0-17.5) gm/dL Hct 32.2 L (39.0-53.0) % MCV 102.1 H (80.0-100.0) fL
[2022-08-12] MEDS: MAGNESIUM HYDROXIDE 2,400 MG/10 ML CUP PO SCH (10:55)
[2022-08-12] MEDS: SENNOSIDES-DOCUSATE SODIUM 1 EACH TAB PO SCH (10:55)
--- NOTE | 2022-08-12 11:16 | P.PN ---
Subjective Progress Note Date: 08/12/22 Principal diagnosis: Status post [id number] decompression and fusion Patient was evaluated today at bedside, he is resting in his hospital bed on the cardiac stepdown unit. Patient states that he is feeling okay at this time, he does have some discomfort in the surgical region. Patient was noted to have significant output overnight in his strain, this does seem to the slowing down today, there was about 50 mL of bloody serosanguineous drainage noted. Patient has not been out of bed at this point. I did discuss with him the use of a back brace, I did place an order in the chart for a TLSO brace. Patient will utilize a walker at all times with ambulation. He currently denies any headaches, lightheadedness, chest pain or shortness of breath. He denies any numbness or tingling of the genital or perineal region. Objective - Vital Signs Vital signs: Vital Signs Temp 98.4 F 08/12/22 04:00 Pulse 86 08/12/22 04:00 Resp 16 08/12/22 04:00 BP 149/79 08/12/22 04:00 Pulse Ox 100 08/12/22 04:00 FiO2 Intake & Output 08/11/22 08/12/22 08/12/22 18:59 06:59 18:59 Intake Total 4452 40 Output Total 1505 1000 Balance 2947 -960 Intake: IV 4452 40 Invasive Line 1 20 Invasive Line 2 10 Invasive Line 3 10 Output: Drainage 600 Right Medial Back 600 Urine 675 400 Estimated Blood Loss 830 Other: Voiding Method Indwelling Catheter - Exam Gen: AOx3, NAD VSS stable at this time Integument: Postop incision is in good position and condition, no active drainage. 50 mL of bloody serosanguineous drainage in the drain currently Palpation: Mild tenderness with palpation to the lower thoracic and lumbar region ROM: Full range of motion in all major muscle groups of the bilateral upper and lower extremities no focal deficits appreciated Sensory Exam: Senory exam to light touch is intact C5-T1 Senosry exam to light touch is intact L2-S1, deficits noted in the right lower extremity at L2, L3, and S1 on the left Motor: 5/5 strength appreciated in the bilateral upper extremities with shoulder elevation, shoulder abduction, elbow extension, elbow flexion, wrist extension, wrist flexion, air quality chemist 4/5 strength appreciated in the bilateral lower extremities with plantar flexion, dorsiflexion, EHL, FHL 4-/5 strength the patient in the bilateral lower extremities with knee extension, knee flexion, hip flexion Reflexes: 2/4 in all UE and LE, 1/4 left lower extremity Negative Niall's, clonus, Babinski bilaterally - Labs CBC & Chem 7: 08/11/22 18:55 08/11/22 07:20 Labs: Abnormal Lab Results - Last 24 Hours (Table) 08/11/22 Range/Units 18:55 WBC 12.1 H (3.8-10.6) k/uL RBC 3.16 L (4.30-5.90) m/uL Hgb 10.7 L (13.0-17.5) gm/dL Hct 32.2 L (39.0-53.0) % MCV 102.1 H (80.0-100.0) fL Assessment and Plan Assessment: Postoperative day #1 status post T10 to pelvis revision decompression and fusion Acute blood loss anemia, expected surgical outcome Plan: Pain control, we'll continue use of both oral medications and IV pain medication as needed DVT prophylaxis, SCDs and MACARIO hose Wound care and continue to monitor surgical dressing and drain. We'll likely remove the drain in the next 2448 hours. Will change surgical dressing at that time PT/OT, weight-bear as tolerated with walker. TLSO brace has been placed in the chart, patient will be utilizing this brace over the next 36 months. He will utilize brace when up and ambulating, brace can be removed when stationary Encouraged incentive spirometer Medical recommendations Discharge planning: Will follow during inpatient stay, pending outpatient as physical therapy may consider subacute rehab Time with Patient: Less than 30
[2022-08-12 12:39] LABS: Basophils % (A) 0 %; Eosinophils % (A) 0 %; HCT 34.6 % (39.0-53.0); HGB 11.2 gm/dL (13.0-17.5); Lymphocytes # (A) 0.7 k/uL (1.0-4.8); Lymphocytes % (A) 6 %; MCH 33.9 pg (25.0-35.0); MCHC 32.2 g/dL (31.0-37.0); MCV 105.3 fL (80.0-100.0); Macrocytosis Slight; Mean Platelet Volume 7.2; Monocytes # (A) 0.5 k/uL (0-1.0); Monocytes % (A) 4 %; Neutrophils # (A) 10.2 k/uL (1.3-7.7); Neutrophils % (A) 89 %; Platelet Count 233 k/uL (150-450); RBC 3.29 m/uL (4.30-5.90); RDW 12.2 % (11.5-15.5); WBC 11.5 k/uL (3.8-10.6)
[2022-08-12 12:48] LABS: ALT 27 U/L (4-49); AST 37 U/L (17-59); African American GFR (CKD) >90 (>60 ml/min/1.73 sqM); Albumin 3.5 g/dL (3.5-5.0); Alkaline Phosphatase 56 U/L (38-126); Anion Gap 11 mmol/L; Blood Urea Nitrogen 15 mg/dL (9-20); Calcium 8.3 mg/dL (8.4-10.2); Carbon Dioxide 25 mmol/L (22-30); Chloride 99 mmol/L (98-107); Glucose 129 mg/dL (74-99); Non-African American GFR(CKD) >90 (>60 ml/min/1.73 sqM); Potassium 4.2 mmol/L (3.5-5.1); Sodium 135 mmol/L (137-145); Total Bilirubin 0.9 mg/dL (0.2-1.3); Total Protein 5.9 g/dL (6.3-8.2)
[2022-08-12] MEDS ORDERED: bisacodyL 5 MG TABLET.DR PO STA (20:28)
[2022-08-13] MEDS: ACETAMINOPHEN TAB 325 MG TAB PO SCH ×4 (00:20→18:19)
[2022-08-13] MEDS: HYDROcodone/APAP 5-325MG 1 EACH TAB PO PRN (00:23)
[2022-08-13] MEDS: LACTATED RINGERS 1,000 ML IV SCH (05:48)
[2022-08-13] MEDS: HYDROcodone/APAP 10-325MG 1 EACH TAB PO PRN ×4 (06:00→20:40)
[2022-08-13] MEDS: PANTOPRAZOLE 40 MG TABLET PO SCH (06:00)
[2022-08-13] MEDS: HYDROmorphone 1 MG/ML 1 ML SYRINGE IVP PRN ×3 (07:10→22:27)
[2022-08-13] MEDS: GABAPENTIN 300 MG CAP PO SCH ×3 (08:23→20:40)
[2022-08-13] MEDS: SENNOSIDES-DOCUSATE SODIUM 1 EACH TAB PO SCH (08:23)
--- NOTE | 2022-08-13 08:27 | P.OP ---
Date of Procedure: 08/11/22 Preoperative Diagnosis: 1. Hardware failure with pseudoarthrosis L4-S1 2. L1-S1 stenosis 3. Neurogenic claudication 4. LE weakness 5. Low back pain Postoperative Diagnosis: 1. Hardware failure with pseudoarthrosis L4-S1 2. L1-S1 stenosis 3. Neurogenic claudication 4. LE weakness 5. Low back pain Procedure(s) Performed: 1. L2-3, L3-4, L4-5 revision posteriolateral and interbody fusion (16760, [id number]) 2. Posteriolateral instrumented fusion R88-Zehrod (72332, 34338u8) 3. Revision decompression with bilateral laminectomy, complete facetectomy and foraminotomy L1-S1 (62123, 51567u5; 88342 describes better but will not be approved by insurance) 4. Instrumentation R53-Vbnnma (63369) 5. Attachment of the caudal end of the construct to bony pelvis (39420) 6. Dural Repair with patch graft L2 central (60393, 52341) 7. INsertion of biomechanical devices L2-3, L3-4, L4-5 (54586k4) 8. Removal of failed hardware L4-S1 (67316) 9. Exploration of fusion L4-S1 (88251) 10. Use of Topadmit Navigation for screw placement (21539) Use of IONM all screws testing >12 mA Implants: Globus Creo screw and asia system Life spine prolift expandable interbody cage x3 MagnatOs, Autograft, iFactor, Ventris, Arthrocell Anesthesia: GETA Surgeon: Javier Garcia Teachers Aide #1: Daniel Armstrong (Was present and assisted with all aspects of the case from positioning to dressing placement) Estimated Blood Loss (ml): 750 IV fluids (ml): 2,500 Urine output (ml): 550 Pathology: none sent Condition: stable Disposition: PACU Indications for Procedure: Mr. Rosado is presenting for evaluation of low back pain. It was my pleasure to have seen and examined Mr. Rosado. In our visit today we have had a chance to go over subjective complaints, physical examination findings and treatments including the natural course history without intervention and various interventional options. The patients imaging demonstrates: MRI without contrast from 03/05/22 at [facility] of the lumbar spine demonstrates: Images reviewed with the patient. At L1-2 there is still some subligamentous disc present causing moderate stenosis at the L1-2 region on the left side. No large fluid collections or compressive lesions seen. Post surgical changes noted L4-S1 with ASD L3-4 with disc collapse and bulge. There is likely foraminal stenosis at these levels given that midline is still intact and there was no large decompression done posteriorly. No fracture. No lesions. Mild signal changes about the screws. There is possible pseudoarthrosis at L4-5 due to non fused segments at L4-[address] scan from04/15/2021 of Thoracic Spine: Thoracic spine CT is reviewed no significant vertebral body collapse fractures dislocations lesions or malalignments. CT Myelogram from 10/02/2021 of the Lumbar Spine: Images reviewed with the patient demonstrate post surgical changes L4-S1 with hardware in position. There is residual listhesis at L5-S1 that is stable. Good fusion notd. No severely stenotic areas. At L1-2 there is an extra large extruded disc fragment causing severe central, foraminal and lateral recess stenosis at L1-2 and down to L2-3. The disc piece is sitting behind L2 vertebral body and is causing significant stenosis which is paracentral on the L leading to pts sx. No other fractures noted. Vacuum disc at L1-2 and L2-3 noted. Facet arthropathy at these levels as well noted. No lesions noted. On physical exam, Mr. Rosado demonstrates: continue lower extremity pain and weakness. That is progressively getting worse. Left lower extremity weakness with radiculopathy that seems to be getting worse. Low back pain across the whole low back and into the buttock region that is worse when walking better when seated. Tensioning signs positive. Decreased reflexes. Mr. Rosado returns to the office today for a post-operative evaluation following their L1-L2 microdiskectomy. Patient reports increased lumbar pain since the time of their last appointment). Mr. Rosado notes that their symptoms are exacerbated with prolonged walking.. I have explained to the patient that as their condition progresses it will cause further neurological deficits and eventual paralysis. Based on the patients imaging, physical exam, and the rapid progression and disabling nature of their symptoms, at this time I recommend surgery in the form of a: L2-Pelvis revision, decompression and fusion. I discussed the risk and benefits of this procedure at length with Mr. Rosado. The patient his in the room with him agreed to considered pursuing the procedure above mentioned . Prior to surgery, she should follow up with her PCP (Cardio, ID, IM etc) for clearance. Questions were invited and answered, and the patient wishes to proceed as outlined below. Currently, I am recommendin. K06-Vulucl revision, decompression and fusion Description of Procedure: I97-Iwadfe revision Decompression and fusion The patient was seen and examined in the preoperative area. All preoperative protocols were followed. Informed consent was obtained, risks and benefits of the procedure were discussed at length. Risks including bleeding infection damage to the surrounding tissue and risk of re-operation were discussed with the patient. Risk of anesthesia up to and including was discussed with the patient. These are outlined in the risk review. They were willing to accept these risks and all the risks of surgery. The patient was given a jessica ght-based dose of antibiotics in the form of 3 g Ancef. The patient was seen and evaluated by the anesthesia team who deemed them fit for surgery. The site was marked, the patient was willing to proceed with the procedure. The patient was transferred to the operative suite by the Department of anesthesia. They were then drifted off to sleep by the department anesthesia and GETA was performed. The patient tolerated this well. Chi catheter was placed by nursing staff, a-traumatically. Once confirmation of lines and ventilation the patient was transferred to a prone Trios spine table very carefully. The head was secured and stable. Xray confirmed alignment. All bony prominences including wrists, elbows, axilla, chest, hips, and thighs, and feet were padded very well. Special attention was paid to the genitalia, and these were padded accordingly. SCDs were placed on bilateral lower extremities and were connected. Arms were well padded and placed at 90/90 up and out and well padded. Safety strap and tape placed on the patient. Once in position, again we confirmed good ventilation capabilities and that lines were running appropriately. The patients lumbosacral pelvic was then exposed. Hair was removed for incision. 1010s were placed outlining the incision site. Standard alcohol was used to clean the incision site and allowed to dry. C-arm was used to bio-vic the patient and confirm level for incision which was marked with a skin marker. Operative briefing was performed with all teams and everyone in agreement to proceed. The patient was then prepped and draped in a normal sterile fashion. Timeout was then performed, and all parties agreed with the procedure to be performed. Midline skin incision was then made over the previously bookmarked area and dissection taken down to the lumbosacral fascia which was identified and cleaned with a muir. Once midline was identified, fasciotomy was made over the SP of [id number]. Subperiosteal dissection was then taken down over the lamina and facet joints and TPs were exposed and trough made posterolateral. TPs were then decorticated L1-S1 and sacral ala with a high speed mello for lateral fusion. Dissection was taken out over the sacrum to the pelvis. SI joint identified and modified Horner starting point for pelvic screws identified as well. Retractors placed. Wound was irrigated and lateral image with penfield 4 placed at the pars of L4 confirmed levels for operation. Screws were then identified at L4-S1. A set screw had loosened and was free floating at L4 on the right side, this was found and removed. The remaining set screws were removed bilaterall and all of them were loose. Rods removed and the screws removed from L4-S1. All of these screws were loose. L4-5 showed continued motion as it had not fused. The fusion was further explored. L5-S1 seemed to have more stability, but was somewhat mobile as well. Once screws were removed rongure was used to remove scar tissue from the area and screw paths were palpated with ball tip to ensure they were safe. It was noted at the caudal end of the wound there was a midline defect in the sacrum at S2 spinabifida. There was noted here a dural leak from punctate dural lesion. This was promptly closed with 6-0 prolene and then a fat graft was harvested and placed over this and sewen down. Valsalva to 40 mmHg confirmed good closure without continued CSF leak. Wound was then again irrigated with NSS. We then proceeded to screw placement [id number] using Topadmit Cezar. SP clamp was then placed for the Topadmit navigation tracker and secured at L2 for the first set of screws. The wound was then filled with NSS and Z-drape placed. A 3D Zhiem spin was then obtained and registered. Once confirmation of accuracy screws were then placed from T10-L2 using navigation. Navigated high speed mello was used to make a aircraft pilot hole followed by a navigated awl-tap passed through the pedicle into the body. A ball tip probe then confirmed within the pedicle. Globus Screws then measured and placed using a navigated screwdriver. After screws were placed from T10-L2 the tracker was replaced at S1 and a second 3D Zhiem spin was then obtained and registered. Once confirmation of accuracy screws were then placed from L3-Pelvis using navigation. AP image confirmed safe placement of screws. Lateral images as well as navigation were then used to place bilateral pelvic screws. Starting point selected just lateral to the SI joint and S2 pseudo facet. Lateral image taken and mello used to make the aircraft pilot hole. Gearshift then used to pass into the pelvis under lateral imaging just above the sciatic notch. 30 deg/30deg iliac oblique then taken to confirm within the teardrop and ball tip probe used to probe good bone. Screw was then measured and selected and placed under lateral imaging. This was repeated on the contralateral side. Screws were then visualized and were safe. A second Zheim spin was obtained and confirmed safe screw placement. Screws were then tested, and reliably tested screws tested above 17 mA. The wound was irrigated and attention was turned to decompression, correction and interbody fusion. L5-S1 was inspected, a full decompression was done at this level with bilateral laminectomy, complete facetectomy and foraminotomy. There was Exhuberent scar tissue on the right side From previous cage placement. Once decompressed since there was already a cage at this level and the level was stable, no futher interbody fusion was done and only posteriolateral was elected at this level. We then turned attention to L4-5. At L4-5, bilateral laminectomy, complete facetectomy and foraminotomy was performed as described above. Again, exuberant scar tissue and bone formation was encountered and at this level. There was also a large disc osteophyte complex that was identified once disc space was found. The dura was carefully dissected off this anteriorly and b/l. Once encountered, the disc space was then accessed in a similar fashion and neural elements protected. Osteotome was used to enter disc space. Once completed and complete discectomy performed using valdemar, curette, pituitary and bear claws there a lot of mobility at this level. Cage was then sized and selected. Autograft and allograft was then placed anterior in the disc space and the cage was then inserted and impacted into place under lateral. AP image, as before, was taken to ensure midline placement. The cage was then expanded into position.The wound was irrigated. Meticulous hemostasis then performed, and attention turned to L3-4. At L3-4, bilateral laminectomy, complete facetectomy and foraminotomy was performed as described above. Again, exuberant scar tissue and bone formation was encountered and at this level. There was also a large disc osteophyte complex that was identified once disc space was found. The dura was carefully dissected off this anteriorly and b/l. Once encountered, the disc space was then accessed in a similar fashion and neural elements protected. Osteotome was used to enter disc space. Once completed and complete discectomy performed using valdemar, curette, pituitary and bear claws there a lot of mobility at this level. Cage was then sized and selected. Autograft and allograft was then placed anterior in the disc space and the cage was then inserted and impacted into place under lateral. AP image, as before, was taken to ensure midline placement. The cage was then expanded into position.The wound was irrigated. Meticulous hemostasis then performed, and attention turned to L2-3 At L2-3 again bilateral laminectomy, complete facetectomy and foraminotomy were performed. Neural elements were mobilized and then protected, and disc space accessed. Sequential shaving performed until desired height and lordosis. Cage selected, and graft placed anterior to the cage within the disc space. Cage was then placed under lateral image, expanded and had good height, lordosis and deformity correction. The wound was irrigated, and meticulous hemostasis performed once again. Decompression was extended up to the T12-L1 level for complete L1 decompression due to disc at this level. This was done in similar fashion to described above. AP imaging confirmed good placement of all cages and good reduction and coronal balance restored. Screws all in good position. Screws in T10 were then cemented into place to increase pullout strength due to poor bone quality. This was done under plulsed lateral imaging and there was good fill, without extrav. Attention was then drawn to asia placement and further reduction. Rods were selected, measured, cut and bent to appropriate lordosis. They were then secured into pelvic screws b/l. Sequential reduction then done into each screw and set screw placed. Set screws were then final tightened and lateral image showed good lordosis reduction. Once rods were secured, cross links were selected and placed and final tightened. The wound was then irrigated with 3L Ancef irrigation, 3L gentamicin irrigation and 3L NSS. Surgicel was then placed on the dura, which was inspected and had no injury. Then, in the posterolateral gutter was placed, MagnatOs, Autograft and allograft. This was impacted into position and surgical placed over it. Tisseal was then placed over the previously fixed dural defect followed by surgicel and then more tisseal. Valsalva to 40 mmHg confirmed no leak. 2g Vanco powder was then placed deep in the wound. Two deep, subfascial drains were placed and secured with a stitch. We then proceeded with layered closure. #1 PDS placed in the deep fascia followed by a running unidirectional 0 stratafix. 0 Vicryl placed in the deep subq, 2-0 placed in the superficial subq and kole placed in the skin. The wound edges approximated very well. The wound was then cleaned with ETOH and dressed with optifoam dressing, drain sponges and tegaderms. Drains sewed into position. IONM confirmed no changes. The patient was then transferred off the [facility] spine table to their hospital bed a-traumatically. Drains continued to hold suction. The patient was then extubated and transferred to the ICU in stable condition having tolerated the procedure with no complications.
[2022-08-13 10:14] LABS: HCT 29.1 % (39.0-53.0); MCH 33.7 pg (25.0-35.0); MCHC 33.2 g/dL (31.0-37.0); MCV 101.5 fL (80.0-100.0); Platelet Count 159 k/uL (150-450); RBC 2.86 m/uL (4.30-5.90); RDW 12.4 % (11.5-15.5); WBC 6.1 k/uL (3.8-10.6)
[2022-08-13 10:23] LABS: African American GFR (CKD) >90 (>60 ml/min/1.73 sqM); Anion Gap 4 mmol/L; Blood Urea Nitrogen 13 mg/dL (9-20); Calcium 7.9 mg/dL (8.4-10.2); Carbon Dioxide 28 mmol/L (22-30); Chloride 101 mmol/L (98-107); Glucose 106 mg/dL (74-99); HGB 9.7 gm/dL (13.0-17.5); Non-African American GFR(CKD) >90 (>60 ml/min/1.73 sqM); Potassium 3.7 mmol/L (3.5-5.1); Sodium 133 mmol/L (137-145)
[2022-08-13] MEDS ORDERED: METOPROLOL TARTRATE 25 MG TAB PO STA (10:37)
--- NOTE | 2022-08-13 11:01 | P.PN ---
Subjective Progress Note Date: 08/13/22 Patient is a 72-year-old male with history of GERD complicated by gastric ulcer and GI bleed, arthritis, chronic back pain due to degenerative disc disease, and BPH who presented to the hospital for T10 to pelvis revision decompression and fusion. He developed A fib with RVR on 08/13/22. Patient seen and examined at bedside. He does not feel well today. He describes a tight sensation in his upper abdomen and lower left-sided chest, he feels slightly dizzy, and just off. He denies any overt shortness of breath or diaphoresis. He denies a history of atrial fibrillation in the past but has had an ablation for PVCs. He is having pain but it is currently manageable. Vital signs reviewed General: nontoxic, [mild distress, appears at stated age, diaphoretic Cardiovascular: S1S2 reg, no murmur, positive posterior tibial pulse bilateral, Lungs: Decreased breath sounds bilateral, no rhonchi, no rales , no accessory muscle use Abdominal: soft, nontender to palpation, no guarding, no appreciable organomegaly Ext: no gross muscle atrophy, no edema b/l lower extremities, no contractures Neuro: CN II-XI grossly intact, no focal neuro deficits Psych: Alert, oriented, appropriate affect Assessment: 72-year-old male status post T10 to pelvis revision decompression and fusion Atrial fibrillation with rapid ventricular response - Metoprolol 25 mg PO X ! now and then BID, Heparin gtt, Echo, await troponin - D/W Brit cardio, NUCLEAR CHEMISTRY TECHNICIAN will eval patient - D/W BHARGAV Obrien and okay for heparin gtt Hyponatremia, mild suspect due to decreased oral intake and pain Acute blood loss anemia, anticipated outcome of surgery Postoperative pain GERD, hx of peptic ulcer and GI bleed History PVCs Imaging: EKG obtained and reviewed by myself reveals atrial fibrillation with rapid ve ntricular response at a rate of 25, normal axis, normal QRS duration Data Review: Vitals reviewed from this morning and temperature 97.6, pulse 126, respirations 16, blood pressure 131/62, O2 sat 90% on room air Laboratory analysis reviewed and remarkable for hemoglobin 9.7, sodium 133 Plan: - if HR still uncontrolled with oral metoprolol may need transfet to 3S - tele - follow CBC - Pain control with dilaudid, norco, and gabapentin. - Protonix - CBC and BMP in AM Thank you for allowing us to participate in the care of this pleasant patient. Do not hesitate to contact us with questions. Someone can be reached from the [facility] hospitalist group all hours of the day at [phone] or via perfect serve. This dictation was prepared using [employer] voice recognition software. Though every attempt is made to correct errors during dictation some may still exist. Objective - Vital Signs Vital signs: Vital Signs Temp 97.6 F 08/13/22 06:50 Pulse 126 H 08/13/22 06:50 Resp 16 08/13/22 06:50 BP 131/62 08/13/22 06:50 Pulse Ox 90 L 08/13/22 06:50 FiO2 Intake & Output 08/12/22 08/13/22 08/13/22 18:59 06:59 18:59 Intake Total 960 Output Total 705 795 Balance -705 165 Intake: Oral 960 Output: Drainage 255 195 Right Medial Back 255 195 Urine 450 600 Other: Voiding Method Indwelling Catheter Indwelling Catheter Indwelling Catheter # Voids 1 - Labs CBC & Chem 7: 08/13/22 09:54 08/13/22 09:54 Labs: Abnormal Lab Results - Last 24 Hours (Table) 08/12/22 08/12/22 08/13/22 Range/Units 12:02 12:02 09:54 WBC 11.5 H (3.8-10.6) k/uL RBC 3.29 L 2.86 L (4.30-5.90) m/uL Hgb 11.2 L 9.7 L D (13.0-17.5) gm/dL Hct 34.6 L 29.1 L (39.0-53.0) % MCV 105.3 H 101.5 H (80.0-100.0) fL Neutrophils # 10.2 H (1.3-7.7) k/uL Lymphocytes # 0.7 L (1.0-4.8) k/uL Sodium 135 L (137-145) mmol/L Creatinine (0.66-1.25) mg/dL Glucose 129 H (74-99) mg/dL Calcium 8.3 L (8.4-10.2) mg/dL Total Protein 5.9 L (6.3-8.2) g/dL 08/13/22 Range/Units 09:54 WBC (3.8-10.6) k/uL RBC (4.30-5.90) m/uL Hgb (13.0-17.5) gm/dL Hct (39.0-53.0) % MCV (80.0-100.0) fL Neutrophils # (1.3-7.7) k/uL Lymphocytes # (1.0-4.8) k/uL Sodium 133 L (137-145) mmol/L Creatinine 0.55 L (0.66-1.25) mg/dL Glucose 106 H (74-99) mg/dL Calcium 7.9 L (8.4-10.2) mg/dL Total Protein (6.3-8.2) g/dL
[2022-08-13] MEDS: HEPARIN SOD,PORK IN 0.45% NACL 25,000 UNIT in 0.45% NACL 1 250ML.BAG IV SCH (11:15)
[2022-08-13] MEDS: MAGNESIUM HYDROXIDE 2,400 MG/10 ML CUP PO SCH (11:17)
--- NOTE | 2022-08-13 11:24 | P.PN ---
Subjective Progress Note Date: 08/13/22 Principal diagnosis: Status post [id number] decompression and fusion Patient was evaluated today at bedside, he is resting in his hospital bed. Discuss with internal medicine providers patient, patient is a. Patient was placed on metoprolol, cardiology was consulted. They were discussed and use of heparin drip which is okay to begin at this time. At bedside today patient states he is not feeling the greatest. He admits to discomfort in his back with motion. Awaiting TLSO brace placement at this time. Patient's drain continues to put out a moderate amount of bloody s erosanguineous fluid. Patient denies any new onset numbness or tingling in the bilateral lower extremities, any numbness and tingling to the peroneal or genital region. Urinary catheter remains in place. Objective - Vital Signs Vital signs: Vital Signs Temp 97.6 F 08/13/22 06:50 Pulse 126 H 08/13/22 06:50 Resp 16 08/13/22 06:50 BP 131/62 08/13/22 06:50 Pulse Ox 90 L 08/13/22 06:50 FiO2 Intake & Output 08/12/22 08/13/22 08/13/22 18:59 06:59 18:59 Intake Total 960 Output Total 705 795 Balance -705 165 Intake: Oral 960 Output: Drainage 255 195 Right Medial Back 255 195 Urine 450 600 Other: Voiding Method Indwelling Catheter Indwelling Catheter Indwelling Catheter # Voids 1 - Exam Gen: AOx3, NAD VSS stable at this time Integument: Postop incision is in good position and condition, no active drainage. 50 mL of bloody serosanguineous drainage in the drain currently Palpation: Mild tenderness with palpation to the lower thoracic and lumbar region ROM: Full range of motion in all major muscle groups of the bilateral upper and lower extremities no focal deficits appreciated Sensory Exam: Senory exam to light touch is intact C5-T1 Senosry exam to light touch is intact L2-S1, deficits noted in the right lower extremity at L2, L3, and S1 on the left Motor: 5/5 strength appreciated in the bilateral upper extremities with shoulder elevation, shoulder abduction, elbow extension, elbow flexion, wrist extension, wrist flexion, physician practice consultant 4/5 strength appreciated in the bilateral lower extremities with plantar flexion, dorsiflexion, EHL, FHL 4-/5 strength the patient in the bilateral lower extremities with knee extension, knee flexion, hip flexion Reflexes: 2/4 in all UE and LE, 1/4 left lower extremity Negative Niall's, clonus, Babinski bilaterally - Labs CBC & Chem 7: 08/13/22 09:54 08/13/22 09:54 Labs: Abnormal Lab Results - Last 24 Hours (Table) 08/12/22 08/12/22 08/13/22 Range/Units 12:02 12:02 09:54 WBC 11.5 H (3.8-10.6) k/uL RBC 3.29 L 2.86 L (4.30-5.90) m/uL Hgb 11.2 L 9.7 L D (13.0-17.5) gm/dL Hct 34.6 L 29.1 L (39.0-53.0) % MCV 105.3 H 101.5 H (80.0-100.0) fL Neutrophils # 10.2 H (1.3-7.7) k/uL Lymphocytes # 0.7 L (1.0-4.8) k/uL Sodium 135 L (137-145) mmol/L Creatinine (0.66-1.25) mg/dL Glucose 129 H (74-99) mg/dL Calcium 8.3 L (8.4-10.2) mg/dL Total Protein 5.9 L (6.3-8.2) g/dL 08/13/22 Range/Units 09:54 WBC (3.8-10.6) k/uL RBC (4.30-5.90) m/uL Hgb (13.0-17.5) gm/dL Hct (39.0-53.0) % MCV (80.0-100.0) fL Neutrophils # (1.3-7.7) k/uL Lymphocytes # (1.0-4.8) k/uL Sodium 133 L (137-145) mmol/L Creatinine 0.55 L (0.66-1.25) mg/dL Glucose 106 H (74-99) mg/dL Calcium 7.9 L (8.4-10.2) mg/dL Total Protein (6.3-8.2) g/dL Assessment and Plan Assessment: Postoperative day #2 status post T10 to pelvis revision decompression and fusion New onset A. fib Acute blood loss anemia, expected surgical outcome Plan: Pain control, we'll continue use of both oral medications and IV pain medication as needed DVT prophylaxis, SCDs and MACARIO hose. Patient has not started on heparin drip Wound care and continue to monitor surgical dressing and drain. PT/OT, weight-bear as tolerated with walker. TLSO brace has been placed in the chart, patient will be utilizing this brace over the next 36 months. He will utilize brace when up and ambulating, brace can be removed when stationary Encouraged incentive spirometer Medical and cardiology recommendations Discharge planning: Will follow during inpatient stay, pending outpatient as physical therapy may consider subacute rehab Time with Patient: Less than 30
[2022-08-13 11:53] LABS: INR 0.9 (<1.2); Partial Thromboplastin Time 23.9 sec (22.0-30.0); Prothrombin Time 9.6 sec (9.0-12.0)
--- NOTE | 2022-08-13 13:10 | P.CRDCN ---
History of Present Illness History of present illness: HISTORY OF PRESENT ILLNESS: This is a 72-year-old male with a past medical history significant for TIA, atrial tachycardia, and PVCs with previous PVC ablation. Patient follows in the office with Dr. Wilson. We have been asked to see the patient in consultation for atrial fibrillation. Patient examined at the bedside. Patient is status post fusion of [id number]. The patient was noted to be in atrial fibrillation this morning. He denies a history of atrial fibrillation. He remains in atrial fibrillation with a heart rate around [id number] time of examination. He reports feeling dizzy. He denies any palpitations. Denies chest pain or pressure. He denies shortness of breath. He has been started on IV heparin. Orthopedics is requesting patient to be placed on IV heparin for 24 hours and then may transition to oral anticoagulation. * EKG reveals atrial fibrillation with RVR * Laboratory data: WBC 6.1. Hemoglobin 9.7. Platelet count 159. Sodium 133. Potassium 3.7. BUN 13. Creatinine 0.55. Troponin 0.021. * Current home cardiac medications include none * Most recent echocardiogram obtained in March 2019 revealing normal ejection fraction, moderate LVH, mild MR, mild TR * Cardiac catheterization history: 2014 revealing minimal coronary artery di sease REVIEW OF SYSTEMS: At the time of my exam: CONSTITUTIONAL: Denies fever or chills. HEENT: Denies blurred vision, vision changes, or eye pain. Denies hemoptysis CARDIOVASCULAR: Denies chest pain. Denies orthopnea. Denies PND. Denies palpitations RESPIRATORY: Denies shortness of breath. GASTROINTESTINAL: Denies abdominal pain. Denies nausea or vomiting. HEMATOLOGIC: Denies bleeding disorders. GENITOURINARY: Denies any blood in urine. SKIN: Denies pruitis. Denies rash. PHYSICAL EXAM: VITAL SIGNS: Reviewed. GENERAL: Well-developed in no acute distress. HEENT: Head is normocephalic. Pupils are equal, round. Sclerae anicteric. Mucous membranes of the mouth are moist. Neck supple. No JVD or thyromegaly LUNGS: Respirations even and unlabored. Lungs essentially clear to auscultation bilaterally. HEART: Tachycardic. Irregular rate and rhythm. S1 and S2 heard. ABDOMEN: Soft. Nondistended. Nontender. EXTREMITIES: Normal range of motion. No clubbing or cyanosis. Peripheral pulses intact. No lower extremity edema NEUROLOGIC: Awake and alert. Oriented x 3. ASSESSMENT: Status post decompression and fusion fusion of [id number] New onset atrial fibrillation with mild RVR History of PVCs with previous PVC ablation History of atrial tachycardia History of TIA PLAN: Obtain 2-D echo to assess cardiac structure and function Check TSH Patient has been started on metoprolol 25 mg twice a day per internal medicine Begin IV Cardizem at 5 mg an hour after a 5 mg bolus Continue IV heparin. May transition to oral anticoagulation tomorrow per orthopedics request Patient to transfer to 3 . Nothing by mouth at midnight Patient will undergo cardioversion tomorrow with Dr. Wilson if he remains in atrial fibrillation Nurse practitioner note has been reviewed by physician. Signing provider agrees with the documented findings, assessment, and plan of care. Past Medical History Past Medical History: GERD/Reflux, GI Bleed, Hearing Disorder / Deafness, Osteoarthritis (OA), Prostate Disorder Additional Past Medical History / Comment(s): PVC's, gastric ulcer, bilateral tinnitis, chronic back pain, hiatal hernia, degenerative disc disease. insomnia History of Any Multi-Drug Resistant Organisms: None Reported Past Surgical History: Back Surgery, Cardiac Ablation, Hernia Repair, Orthopedic Surgery Additional Past Surgical History / Comment(s): Bilateral cataract removal, bilateral rotator cuff sx, L foot bunionectomy/hammer toe sx, sinus surgery, cervical fusion and lumbar fusions. Past Anesthesia/Blood Transfusion Reactions: No Reported Reaction Additional Past Anesthesia/Blood Transfusion Reaction / Comment(s): Pt has received blood in past without reaction. Smoking Status: Former smoker - Past Family History Mother Family Medical History: No Reported History Father Family Medical History: Congestive Heart Failure (CHF) Medications and Allergies Home Medications Medication Instructions Recorded Confirmed Type Pantoprazole Sodium [Protonix] 40 mg PO DAILY 11/20/14 08/11/22 History tadalafiL [Cialis] 5 mg PO HS 01/09/20 08/11/22 History HYDROcodone/APAP 7.5-325MG [[place] 1 tab PO Q6H 08/11/22 08/11/22 History 7.5-325] Allergies Allergy/AdvReac Type Severity Reaction Status Date / Time ciprofloxacin Allergy Rash/Hives/ Verified 08/11/22 06:29 sneezing levofloxacin [From Levaquin] AdvReac Nausea Verified 08/11/22 06:29 Physical Exam Vitals: Vital Signs Temp Pulse Pulse Resp BP Pulse Ox 08/13/22 06:50 97.6 F 126 H 16 131/62 90 L 08/13/22 02:00 97.9 F 81 136/70 92 L 08/12/22 20:00 97.7 F 79 16 153/75 92 L 08/12/22 17:41 98.1 F 80 16 132/75 93 L 08/12/22 17:17 73 16 125/77 97 08/12/22 16:49 76 16 118/74 100 08/12/22 16:32 79 16 154/77 100 08/12/22 16:15 98.3 F 77 16 155/77 93 L Intake and Output 08/12/22 08/13/22 08/13/22 22:59 06:59 14:59 Intake Total 960 Output Total 345 705 Balance -345 255 Intake: Oral 960 Output: Drainage 345 105 Right Medial Back 345 105 Urine 600 Other: Voiding Method Indwelling Catheter Indwelling Catheter # Voids 1 Results 08/13/22 09:54 08/13/22 09:54 Cardiac Enzymes 08/12/22 08/13/22 Range/Units 12:02 09:54 AST 37 (17-59) U/L Troponin I 0.021 (0.000-0.034) ng/mL Coagulation 08/13/22 Range/Units 11:07 PT 9.6 (9.0-12.0) sec APTT 23.9 (22.0-30.0) sec CBC 08/12/22 08/13/22 Range/Units 12:02 09:54 WBC 11.5 H 6.1 (3.8-10.6) k/uL RBC 3.29 L 2.86 L (4.30-5.90) m/uL Hgb 11.2 L 9.7 L D (13.0-17.5) gm/dL Hct 34.6 L 29.1 L (39.0-53.0) % Plt Count 233 159 (150-450) k/uL Comprehensive Metabolic Panel 08/12/22 08/13/22 Range/Units 12:02 09:54 Sodium 135 L 133 L (137-145) mmol/L Potassium 4.2 3.7 (3.5-5.1) mmol/L Chloride 99 101 (98-107) mmol/L Carbon Dioxide 25 28 (22-30) mmol/L BUN 15 13 (9-20) mg/dL Creatinine 0.69 0.55 L (0.66-1.25) mg/dL Glucose 129 H 106 H (74-99) mg/dL Calcium 8.3 L 7.9 L (8.4-10.2) mg/dL AST 37 (17-59) U/L ALT 27 (4-49) U/L Alkaline Phosphatase 56 (38-126) U/L Total Protein 5.9 L (6.3-8.2) g/dL Albumin 3.5 (3.5-5.0) g/dL Current Medications Generic Name Dose Route Start Last Admin Trade Name Freq PRN Reason Stop Dose Admin Acetaminophen 650 mg 08/11/22 18:00 08/13/22 12:17 Acetaminophen Tab 325 Mg Tab PO Not Given Q6HR [facility] Hydrocodone Bitart/Acetaminophen 1 each 08/11/22 15:30 08/13/22 00:23 Hydrocodone/Apap 5-325mg 1 Each Tab PO 1 each Q6HR PRN Administration Pain Scale 4 - 6 Hydrocodone Bitart/Acetaminophen 1 each 08/11/22 15:30 08/13/22 12:15 Hydrocodone/Apap 10-325mg 1 Each Tab PO 1 each Q6H PRN Administration Pain Scale 7 - 10 Cyclobenzaprine HCl 5 mg 08/11/22 15:30 08/12/22 22:12 Cyclobenzaprine 5 Mg Tab PO 5 mg TID PRN Administration Muscle Spasm Diltiazem HCl 5 mg 08/13/22 12:28 Diltiazem Drip Bolus From Bag 1 Mg Soln IV 08/13/22 12:29 ONCE ONE Ferrous Sulfate 325 mg 08/13/22 17:30 Ferrous Sulfate 325 Mg Tab PO BID-W/MEALS JACK Gabapentin 300 mg 08/11/22 16:00 08/13/22 08:23 Gabapentin 300 Mg Cap PO 300 mg TID JACK Administration Heparin Sodium (Porcine) 0 unit 08/13/22 10:41 Heparin Sodium 1,000 Un/Ml (10ml Vl) IV PER PROTOCOL PRN Low PTT Protocol Hydromorphone HCl 0.5 mg 08/11/22 15:30 Hydromorphone 0.5 Mg/0.5 Ml Syringe IVP Q3HR PRN Pain Scale 4 - 6 Hydromorphone HCl 1 mg 08/11/22 15:30 08/13/22 07:10 Hydromorphone 1 Mg/Ml 1 Ml Syringe IVP 1 mg Q3HR PRN Administration Pain Scale of 7 - 10 Lactated Ringer's 1,000 mls @ 20 mls/hr 08/11/22 06:15 08/13/22 05:48 Lactated Ringers IV Not Given .Q24H JACK Heparin Sodium/Sodium Chloride 250 mls @ 10.018 mls/hr 08/13/22 10:45 08/13/22 11:15 25,000 unit/ Sodium Chloride IV 11.8 units/kg/hr .Q24H JACK 10.018 mls/hr Administration Protocol 11.8 UNITS/KG/HR Diltiazem HCl 125 mg/ Sodium 125 mls @ 5 mls/hr 08/13/22 12:30 Chloride IV .Q24H JACK 5 MG/HR Lidocaine HCl 0.1 ml 08/11/22 06:15 Lidocaine 1% (10mg/Ml) For Iv Start INTRADERMA PER PROTOCOL PRN IV Start Magnesium Hydroxide 2,400 mg 08/12/22 09:00 08/13/22 11:17 Magnesium Hydroxide 2,400 Mg/10 Ml Cup PO 2,400 mg DAILY JACK Administration Metoprolol Tartrate 25 mg 08/13/22 21:00 Metoprolol Tartrate 25 Mg Tab PO BID JACK Pantoprazole Sodium 40 mg 08/12/22 07:30 08/13/22 06:00 Pantoprazole 40 Mg Tablet PO 40 mg [id number] JACK Administration Senna/Docusate Sodium 2 each 08/12/22 09:00 08/13/22 08:23 Sennosides-Docusate Sodium 1 Each Tab PO 2 each DAILY JACK Administration Intake and Output 08/12/22 08/13/22 08/13/22 22:59 06:59 14:59 Intake Total 960 Output Total 345 705 Balance -345 255 Intake: Oral 960 Output: Drainage 345 105 Right Medial Back 345 105 Urine 600 Other: Voiding Method Indwelling Catheter Indwelling Catheter # Voids 1 08/13/22 09:54 08/13/22 09:54
[2022-08-13] MEDS ORDERED: DILTIAZEM 125 MG in SODIUM CHLORIDE 0.9% 100 ML IV SCH (14:00)
[2022-08-13] MEDS ORDERED: DILTIAZEM DRIP BOLUS FROM BAG 1 MG SOLN IV ONE (14:00)
[2022-08-13] MEDS: ONDANSETRON 4 MG/2 ML VIAL IVP PRN (15:02)
[2022-08-13] MEDS: FERROUS SULFATE 325 MG TAB PO SCH (16:26)
[2022-08-13] MEDS: HEPARIN SODIUM 1,000 UN/ML (10ML VL) IV PRN (18:27)
[2022-08-13] MEDS: METOPROLOL TARTRATE 25 MG TAB PO SCH (20:40)
[2022-08-14] MEDS: HEPARIN SODIUM 1,000 UN/ML (10ML VL) IV PRN (01:26)
[2022-08-14] MEDS: HYDROcodone/APAP 5-325MG 1 EACH TAB PO PRN (01:29)
[2022-08-14] MEDS: ACETAMINOPHEN TAB 325 MG TAB PO SCH ×5 (01:36→23:39)
[2022-08-14] MEDS: LACTATED RINGERS 1,000 ML IV SCH (06:28)
[2022-08-14] MEDS: PANTOPRAZOLE 40 MG TABLET PO SCH (06:37)
[2022-08-14] MEDS: FERROUS SULFATE 325 MG TAB PO SCH ×2 (06:37→16:05)
[2022-08-14] MEDS: HYDROcodone/APAP 10-325MG 1 EACH TAB PO PRN ×2 (08:00→16:05)
[2022-08-14] MEDS: MAGNESIUM HYDROXIDE 2,400 MG/10 ML CUP PO SCH (08:42)
[2022-08-14] MEDS: SENNOSIDES-DOCUSATE SODIUM 1 EACH TAB PO SCH (08:42)
[2022-08-14] MEDS: GABAPENTIN 300 MG CAP PO SCH ×3 (08:42→22:25)
[2022-08-14] MEDS: METOPROLOL TARTRATE 25 MG TAB PO SCH ×2 (08:42→20:46)
[2022-08-14] MEDS ORDERED: LACTULOSE 20 GM/30 ML CUP PO PRN (09:07)
--- NOTE | 2022-08-14 10:43 | P.PN ---
Subjective Progress Note Date: 08/14/22 Patient is a 72-year-old male with history of GERD complicated by gastric ulcer and GI bleed, arthritis, chronic back pain due to degenerative disc disease, and BPH who presented to the hospital for T10 to pelvis revision decompression and fusion. He developed A fib with RVR on 08/13/22. Patient seen and examined at bedside. He continues to have upper abdominal pain and tightness. He is not longer having light headedness or dizziness. His SOB is resolved. He states pain is getting slightly better every day. Vital signs reviewed General: nontoxic, No distress, appears at stated age Cardiovascular: S1S2 reg, no murmur, positive posterior tibial pulse bilateral, Lungs: Decreased breath sounds bilateral, no rhonchi, no rales , no accessory muscle use Abdominal: soft, nontender to palpation, no guarding, no appreciable organomegaly Ext: no gross muscle atrophy, no edema b/l lower extremities, no contractures Neuro: CN II-XI grossly intact, no focal neuro deficits Psych: Alert, oriented, appropriate affect Assessment: 72-year-old male status post T10 to pelvis revision decompression and fusion Atrial fibrillation with rapid ventricular response Hyponatremia, mild suspect due to decreased oral intake and pain Acute blood loss anemia, anticipated outcome of surgery Postoperative pain GERD, hx of peptic ulcer and GI bleed History PVCs Imaging: Data Review: Vital signs reviewed. Afebrile for the last 24 hours. Await blood work Plan: - now in NSR, cardizem gtt on hold, continue with metoprolol 25 mg PO BID - Await further cardio recs - Await echo results - tele - follow CBC - Pain control with dilaudid, norco, and gabapentin. - Protonix - CBC and BMP in AM - Await further ortho spine recs. Thank you for allowing us to participate in the care of this pleasant patient. Do not hesitate to contact us with questions. Someone can be reached from the [facility] hospitalist group all hours of the day at [phone] or via [employer] serve. This dictation was prepared using [employer] voice recognition software. Though every attempt is made to correct errors during dictation some may still exist. Objective - Vital Signs Vital signs: Vital Signs Temp 97.9 F 08/14/22 04:00 Pulse 62 08/14/22 04:00 Resp 18 08/14/22 04:00 BP 119/58 08/14/22 04:00 Pulse Ox 99 08/14/22 04:00 FiO2 Intake & Output 08/13/22 08/14/22 08/14/22 18:59 06:59 18:59 Intake Total 331.462 87.536 240 Output Total 1465 850 Balance -1133.538 -762.464 240 Intake: Intake, IV Titration 91.462 87.536 Amount Diltiazem 125 mg In 20 Sodium Chloride 0.9% 100 ml @ 5 MG/HR 5 mls/hr IV .Q24H [facility] Rx#:[id number] Heparin Sod,Pork in 0.45% 71.462 87.536 NaCl 25,000 unit In 0.45 % NaCl 1 250ml.bag @ 11.8 UNITS/KG/HR 10.018 mls/ hr IV .Q24H JACK Rx#: [id number] Oral 240 240 Output: Drainage 265 450 Right Medial Back 265 450 Urine 1200 400 Straight 400 Uretheral (Chi) 600 Other: Voiding Method Indwelling Catheter - Labs CBC & Chem 7: 08/13/22 09:54 08/13/22 09:54 Labs: Abnormal Lab Results - Last 24 Hours (Table) 08/13/22 Range/Units 17:25 APTT 18.9 L (22.0-30.0) sec
[2022-08-14 11:10] LABS: HCT 29.1 % (39.0-53.0); HGB 9.5 gm/dL (13.0-17.5); MCH 33.5 pg (25.0-35.0); MCHC 32.6 g/dL (31.0-37.0); MCV 102.6 fL (80.0-100.0); Macrocytosis Slight; Mean Platelet Volume 8.3; Platelet Count 158 k/uL (150-450); RBC 2.84 m/uL (4.30-5.90); WBC 5.1 k/uL (3.8-10.6)
[2022-08-14 11:20] LABS: Prothrombin Time 10.1 sec (9.0-12.0)
--- NOTE | 2022-08-14 11:28 | P.PN ---
Subjective Progress Note Date: 08/14/22 Principal diagnosis: Status post [id number] decompression and fusion Patient was evaluated today at bedside, he is resting in the hospital chair. He remains on the cardiac stepdown unit. was able to discuss with internal medicine prior seen the patient, his heart rate has significantly improved and his heart rhythm is returned normal sinus rhythm. Patient states he is feeling a little bit better today, the lightheadedness and dizziness has improved. He currently denies any worsening numbness or tingling to the bilateral lower extremities or upper extremities. The urinary catheter was removed. Patient states he has not had a bowel movement, he recently was given a dose of milk of magnesia along with procedures. We are waiting for his LSO brace to be delivered and fitted. Objective - Vital Signs Vital signs: Vital Signs Temp 97.9 F 08/14/22 04:00 Pulse 64 08/14/22 08:00 Resp 18 08/14/22 08:00 BP 119/58 08/14/22 04:00 Pulse Ox 99 08/14/22 04:00 FiO2 Intake & Output 08/13/22 08/14/22 08/14/22 18:59 06:59 18:59 Intake Total 331.462 87.536 240 Output Total 1465 850 10 Balance -1133.538 -762.464 230 Intake: Intake, IV Titration 91.462 87.536 Amount Diltiazem 125 mg In 20 Sodium Chloride 0.9% 100 ml @ 5 MG/HR 5 mls/hr IV .Q24H J[facility] Rx#:[id number] Heparin Sod,Pork in 0.45% 71.462 87.536 NaCl 25,000 unit In 0.45 % NaCl 1 250ml.bag @ 11.8 UNITS/KG/HR 10.018 mls/ hr IV .Q24H [facility] Rx#: [id number] Oral 240 240 Output: Drainage 265 450 10 Right Medial Back 265 450 10 Urine 1200 400 Straight 400 Uretheral (Chi) 600 Other: Voiding Method Indwelling Catheter - Exam Gen: AOx3, NAD VSS stable at this time Integument: Postop incision is in good position and condition, no active drainage. Drain continues to have a mild/moderate amount, it is decreasing. Adjusted to half compression today at bedside Palpation: Mild tenderness with palpation to the lower thoracic and lumbar region ROM: Full range of motion in all major muscle groups of the bilateral upper and lower extremities no focal deficits appreciated Sensory Exam: Senory exam to light touch is intact C5-T1 Senosry exam to light touch is intact L2-S1, deficits noted in the right lower extremity at L2, L3, and S1 on the left Motor: 5/5 strength appreciated in the bilateral upper extremities with shoulder elevation, shoulder abduction, elbow extension, elbow flexion, wrist extension, wrist flexion, metalizer 4/5 strength appreciated in the bilateral lower extremities with plantar flexion, dorsiflexion, EHL, FHL 4-/5 strength the patient in the bilateral lower extremities with knee extension, knee flexion, hip flexion Reflexes: 2/4 in all UE and LE, 1/4 left lower extremity Negative Niall's, clonus, Babinski bilaterally - Labs CBC & Chem 7: 08/14/22 10:06 08/13/22 09:54 Labs: Abnormal Lab Results - Last 24 Hours (Table) 08/13/22 08/14/22 Range/Units 17:25 10:06 RBC 2.84 L (4.30-5.90) m/uL Hgb 9.5 L (13.0-17.5) gm/dL Hct 29.1 L (39.0-53.0) % MCV 102.6 H (80.0-100.0) fL APTT 18.9 L (22.0-30.0) sec Assessment and Plan Assessment: Postoperative day #3 status post T10 to pelvis revision decompression and fusion New onset A. fib Acute blood loss anemia, expected surgical outcome Constipation Plan: Pain control, we'll continue use of both oral medications and IV pain medication as needed DVT prophylaxis, SCDs and MACARIO hose. Cardiology recommendations with regards to subcu versus oral medications Wound care and continue to monitor surgical dressing and drain. Hopefull removal of drain in the next 24-48 hours pending output, we will change surgical dressing at that time PT/OT, weight-bear as tolerated with walker. TLSO brace has been placed in the chart, patient will be utilizing this brace over the next 36 months. He will utilize brace when up and ambulating, brace can be removed when stationary Encouraged incentive spirometer Medical and cardiology recommendations Discharge planning: Will follow during inpatient stay, pending outpatient as physical therapy may consider subacute rehab Time with Patient: Less than 30
[2022-08-14 11:30] LABS: African American GFR (CKD) >90 (>60 ml/min/1.73 sqM); Blood Urea Nitrogen 21 mg/dL (9-20); Calcium 8.3 mg/dL (8.4-10.2); Chloride 102 mmol/L (98-107); Glucose 113 mg/dL (74-99); Non-African American GFR(CKD) >90 (>60 ml/min/1.73 sqM); Potassium 4.1 mmol/L (3.5-5.1); Sodium 135 mmol/L (137-145)
[2022-08-14] MEDS: HEPARIN SOD,PORK IN 0.45% NACL 25,000 UNIT in 0.45% NACL 1 250ML.BAG IV SCH (12:01)
[2022-08-14 12:46] LABS: Carbon Dioxide QNS mmol/L (22-30)
[2022-08-14 14:21] LABS: Potassium 4.3 mmol/L (3.5-5.1)
--- NOTE | 2022-08-14 15:08 | P.PN ---
Subjective Progress Note Date: 08/14/22 HISTORY OF PRESENT ILLNESS: This is a 72-year-old male with a past medical history significant for TIA, atrial tachycardia, and PVCs with previous PVC ablation. Patient follows in the office with Dr. Wilson. We have been asked to see the patient in consultation for atrial fibrillation. Patient examined at the bedside. Patient is status post fusion of [id number]. The patient was noted to be in atrial fibrillation this morning. He denies a history of atrial fibrillation. He remains in atrial fibrillation with a heart rate around [id number] time of examination. He reports feeling dizzy. He denies any palpitations. Denies chest pain or pressure. He denies shortness of breath. He has been started on IV heparin. Orthopedics is requesting patient to be placed on IV heparin for 24 hours and then may transition to oral anticoagulation. * EKG reveals atrial fibrillation with RVR * Laboratory data: WBC 6.1. Hemoglobin 9.7. Platelet count 159. Sodium 133. Potassium 3.7. BUN 13. Creatinine 0.55. Troponin 0.021. * Current home cardiac medications include none * Most recent echocardiogram obtained in March 2019 revealing normal ejection fraction, moderate LVH, mild MR, mild TR * Cardiac catheterization history: 2014 revealing minimal coronary artery disease 08/14 Patient is seen today in the cardiac stepdown unit. Patient converted to sinus rhythm around 6 PM yesterday. He is on heparin drip and Cardizem drip has been discontinued. He states he is feeling better today in regards to dizziness which she experienced yesterday. Echocardiogram has been obtained and report is pending. TSH is 0.667. Patient is complaining that he is having urinary retention and constipation. PHYSICAL EXAM: VITAL SIGNS: Reviewed. GENERAL: Well-developed in no acute distress. HEENT: Head is normocephalic. Pupils are equal, round. Sclerae anicteric. Mucous membranes of the mouth are moist. Neck supple. No JVD or thyromegaly LUNGS: Respirations even and unlabored. Lungs essentially clear to auscultation bilaterally. HEART: Tachycardic. Irregular rate and rhythm. S1 and S2 heard. ABDOMEN: Soft. Nondistended. Nontender. EXTREMITIES: Normal range of motion. No clubbing or cyanosis. Peripheral pulses intact. No lower extremity edema NEUROLOGIC: Awake and alert. Oriented x 3. ASSESSMENT: Status post decompression and fusion fusion of [id number] New onset atrial fibrillation with mild RVR History of PVCs with previous PVC ablation History of atrial tachycardia History of TIA PLAN: Orthopedics has cleared patient to start oral anticoagulation. Discontinue heparin drip and start patient on eliquis 5 mg twice daily Continue Lopressor 25 mg twice daily Further recommendations as patient progresses. Nurse practitioner note has been reviewed by physician. Signing provider agrees with the documented findings, assessment, and plan of care. Objective - Vital Signs Vital signs: Vital Signs Temp 97.9 F 08/14/22 04:00 Pulse 62 08/14/22 12:00 Resp 18 08/14/22 08:00 BP 115/58 08/14/22 12:00 Pulse Ox 100 08/14/22 12:00 FiO2 Intake & Output 08/13/22 08/14/22 08/14/22 18:59 06:59 18:59 Intake Total 331.462 87.536 240 Output Total 1465 850 10 Balance -1133.538 -762.464 230 Intake: Intake, IV Titration 91.462 87.536 Amount Diltiazem 125 mg In 20 Sodium Chloride 0.9% 100 ml @ 5 MG/HR 5 mls/hr IV .[facility] Rx#:[id number] Heparin Sod,Pork in 0.45% 71.462 87.536 NaCl 25,000 unit In 0.45 % NaCl 1 250ml.bag @ 11.8 UNITS/KG/HR 10.018 mls/ hr IV .[facility] Rx#: [id number] Oral 240 240 Output: Drainage 265 450 10 Right Medial Back 265 450 10 Urine 1200 400 Straight 400 Uretheral (Chi) 600 Other: Voiding Method Indwelling Catheter - Labs CBC & Chem 7: 08/14/22 10:06 08/14/22 13:07 Labs: Abnormal Lab Results - Last 24 Hours (Table) 08/13/22 08/14/22 08/14/22 Range/Units 17:25 10:06 10:06 RBC 2.84 L (4.30-5.90) m/uL Hgb 9.5 L (13.0-17.5) gm/dL Hct 29.1 L (39.0-53.0) % MCV 102.6 H (80.0-100.0) fL APTT 18.9 L (22.0-30.0) sec Sodium 135 L (137-145) mmol/L BUN 21 H (9-20) mg/dL Glucose 113 H (74-99) mg/dL Calcium 8.3 L (8.4-10.2) mg/dL 08/14/22 Range/Units 10:06 RBC (4.30-5.90) m/uL Hgb (13.0-17.5) gm/dL Hct (39.0-53.0) % MCV (80.0-100.0) fL APTT 72.4 H (22.0-30.0) sec Sodium (137-145) mmol/L BUN (9-20) mg/dL Glucose (74-99) mg/dL Calcium (8.4-10.2) mg/dL
[2022-08-14] MEDS: APIXABAN 5 MG TAB PO SCH ×2 (16:05→20:46)
[2022-08-14] MEDS: HYDROmorphone 0.5 MG/0.5 ML SYRINGE IVP PRN (20:46)
[2022-08-15] MEDS: ACETAMINOPHEN TAB 325 MG TAB PO SCH ×4 (05:32→19:21)
[2022-08-15] MEDS: LACTATED RINGERS 1,000 ML IV SCH (05:33)
[2022-08-15] MEDS: PANTOPRAZOLE 40 MG TABLET PO SCH (06:07)
[2022-08-15] MEDS: FERROUS SULFATE 325 MG TAB PO SCH ×2 (06:07→16:31)
[2022-08-15] MEDS: HYDROcodone/APAP 10-325MG 1 EACH TAB PO PRN (07:26)
[2022-08-15] MEDS: ONDANSETRON 4 MG/2 ML VIAL IVP PRN (07:26)
--- NOTE | 2022-08-15 08:17 | P.PN ---
Subjective Progress Note Date: 08/15/22 Principal diagnosis: Status post [id number] decompression and fusion Patient was evaluated today at bedside, he is resting in the hospital bed. Patient states he is not feeling very well this morning, he has been getting sick much of the morning. Patient states appetite and significantly decreased. He did take pain medication today without having anything on his stomach. Patient was able to have a bowel movement yesterday which did provide some relief for the abdominal discomfort. He has been urinating with no difficulties. He has been changed to an oral anticoagulant for his A. fib. His TLSO brace was also delivered yesterday. Currently has no headaches, lighth eadedness, chest pain or shortness of breath. Objective - Vital Signs Vital signs: Vital Signs Temp 97.7 F 08/14/22 20:43 Pulse 67 08/15/22 04:22 Resp 17 08/15/22 04:22 BP 126/74 08/15/22 04:22 Pulse Ox 97 08/15/22 04:22 FiO2 Intake & Output 08/14/22 08/15/22 08/15/22 18:59 06:59 18:59 Intake Total 830 Output Total 180 350 Balance 650 -350 Intake: Oral 830 Output: Drainage 180 350 Right Medial Back 180 350 Other: Voiding Method Toilet Urinal # Voids 2 1 # Bowel Movements 1 1 - Exam Gen: AOx3, NAD VSS stable at this time Integument: Postop incision is in good position and condition, no active drainage. Drain remains to gravity, still putting out a moderate serosanguineous fluid. Possib le removal on 08/16/2022, bandage change at that time. Palpation: Mild tenderness with palpation to the lower thoracic and lumbar region ROM: Full range of motion in all major muscle groups of the bilateral upper and lower extremities no focal deficits appreciated Sensory Exam: Senory exam to light touch is intact C5-T1 Senosry exam to light touch is intact L2-S1, deficits noted in the right lower extremity at L2, L3, and S1 on the left Motor: 5/5 strength appreciated in the bilateral upper extremities with shoulder elevation, shoulder abduction, elbow extension, elbow flexion, wrist extension, wrist flexion, nephrology social worker 4/5 strength appreciated in the bilateral lower extremities with plantar flexion, dorsiflexion, EHL, FHL 4-/5 strength the patient in the bilateral lower extremities with knee extension, knee flexion, hip flexion Reflexes: 2/4 in all UE and LE, 1/4 left lower extremity Negative Niall's, clonus, Babinski bilaterally - Labs CBC & Chem 7: 08/14/22 10:06 08/14/22 13:07 Labs: Abnormal Lab Results - Last 24 Hours (Table) 08/14/22 08/14/22 08/14/22 Range/Units 10:06 10:06 10:06 RBC 2.84 L (4.30-5.90) m/uL Hgb 9.5 L (13.0-17.5) gm/dL Hct 29.1 L (39.0-53.0) % MCV 102.6 H (80.0-100.0) fL APTT 72.4 H (22.0-30.0) sec Sodium 135 L (137-145) mmol/L BUN 21 H (9-20) mg/dL Glucose 113 H (74-99) mg/dL Calcium 8.3 L (8.4-10.2) mg/dL 08/14/22 Range/Units 13:07 RBC (4.30-5.90) m/uL Hgb (13.0-17.5) gm/dL Hct (39.0-53.0) % MCV (80.0-100.0) fL APTT (22.0-30.0) sec Sodium 133 L (137-145) mmol/L BUN (9-20) mg/dL Glucose (74-99) mg/dL Calcium (8.4-10.2) mg/dL Assessment and Plan Assessment: Postoperative day #3 status post T10 to pelvis revision decompression and fusion New onset A. fib Acute blood loss anemia, expected surgical outcome Constipation, improving Plan: Pain control, discussed with patient he needs to continue to chart increase his oral intake to help prevent the nausea/vomiting from the oral narcotics. Advised he also tried a with fold from using the IV narcotics. Did discuss with nursing today to order Ensure for three times a day DVT prophylaxis, SCDs and MACARIO hose. Patient has been started on Eliquis 5mg bid Wound care and continue to monitor surgical dressing and drain. Plantar dressing change and removal of drain in the next 24 hours. PT/OT, weight-bear as tolerated with walker. TLSO brace has been placed in the chart, patient will be utilizing this brace over the next 36 months. He will utilize brace when up and ambulating, brace can be removed when stationary Encouraged incentive spirometer Medical and cardiology recommendations Discharge planning: Will follow during inpatient stay, pending outpatient as physical therapy may consider subacute rehab Time with Patient: Less than 30
[2022-08-15 09:29] LABS: African American GFR (CKD) >90 (>60 ml/min/1.73 sqM); Anion Gap 9 mmol/L; Blood Urea Nitrogen 18 mg/dL (9-20); Calcium 7.8 mg/dL (8.4-10.2); Carbon Dioxide 24 mmol/L (22-30); Chloride 101 mmol/L (98-107); Glucose 107 mg/dL (74-99); Non-African American GFR(CKD) >90 (>60 ml/min/1.73 sqM); Potassium 3.5 mmol/L (3.5-5.1); Sodium 134 mmol/L (137-145)
[2022-08-15 09:48] LABS: Basophils % (A) 0 %; Eosinophils # (A) 0.2 k/uL (0-0.7); Eosinophils % (A) 4 %; HCT 26.7 % (39.0-53.0); HGB 9.1 gm/dL (13.0-17.5); Lymphocytes # (A) 0.6 k/uL (1.0-4.8); Lymphocytes % (A) 13 %; MCH 34.8 pg (25.0-35.0); MCHC 34.2 g/dL (31.0-37.0); MCV 101.8 fL (80.0-100.0); Macrocytosis Slight; Mean Platelet Volume 7.7; Monocytes # (A) 0.4 k/uL (0-1.0); Monocytes % (A) 9 %; Neutrophils # (A) 3.4 k/uL (1.3-7.7); Neutrophils % (A) 70 %; Platelet Count 199 k/uL (150-450); RBC 2.63 m/uL (4.30-5.90); RDW 12.4 % (11.5-15.5); WBC 4.9 k/uL (3.8-10.6)
[2022-08-15] MEDS: APIXABAN 5 MG TAB PO SCH ×2 (10:00→20:16)
[2022-08-15] MEDS: METOPROLOL TARTRATE 25 MG TAB PO SCH ×2 (10:01→20:16)
[2022-08-15] MEDS: GABAPENTIN 300 MG CAP PO SCH ×3 (10:01→21:55)
--- NOTE | 2022-08-15 10:40 | P.PN ---
Subjective Progress Note Date: 08/15/22 Patient appears to be uncomfortable from pain today. Reports he does not want to try his strong medication at this time. Gen: awake, alert HEENT: normocephalic, atraumatic, good hearing acuity, moist mucous membranes Resp: good air exchange, breathing comfortably with no accessory muscle use CVS: good distal perfusion x 4, GI: soft, NTTP, ND : no SPT, no CVAT, verdin catheter not present MSK: no pitting edema, no clubbing Neuro: non-focal, moving all extremities Psych: cooperative, euthymic mood Hospital Course: Patient is a 72-year-old male with history of GERD complicated by gastric ulcer and GI bleed, arthritis, chronic back pain due to degenerative disc disease, and BPH who presented to the hospital for T10 to pelvis revision decompression and fusion. He developed A fib with RVR on 08/13/22. Assessment: Atrial fibrillation with rapid ventricular response Hyponatremia, mild suspect due to decreased oral intake and pain Acute blood loss anemia, anticipated outcome of surgery Postoperative pain GERD, hx of peptic ulcer and GI bleed History PVCs Plan: Today, patient is afebrile, 164/81, heart rate 61, 100% on room air. CBC shows hemoglobin of 9.1, stable Basic metabolic panel shows hyponatremia to 134, stable CBC, basic metabolic panel, magnesium ordered for tomorrow Cardiology consult note has been reviewed, they agree with discontinuing heparin, continue Lopressor Continue metoprolol 25 mg twice a day Patient was transitioned to Apixiban 5 mg twice a day Continue Dilaudid 1 mg every 3 hours when necessary for pain control Echocardiogram is still pending PT note reviewed, patient was complete to modified independent, recommended reevaluation prior to disposal recommendations Patient is full code Objective - Vital Signs Vital signs: Vital Signs Temp 98 F 08/15/22 10:00 Pulse 61 08/15/22 10:00 Resp 16 08/15/22 10:00 BP 164/81 08/15/22 10:00 Pulse Ox 100 08/15/22 10:00 FiO2 Intake & Output 08/14/22 08/15/22 08/15/22 18:59 06:59 18:59 Intake Total 830 240 Output Total 180 350 140 Balance 650 -350 100 Intake: Oral 830 240 Output: Drainage 180 350 140 Right Medial Back 180 350 140 Other: Voiding Method Toilet Toilet Urinal Urinal # Voids 2 1 # Bowel Movements 1 1 - Labs CBC & Chem 7: 08/15/22 08:15 08/15/22 08:15 Labs: Abnormal Lab Results - Last 24 Hours (Table) 08/14/22 08/14/22 08/14/22 Range/Units 10:06 10:06 10:06 RBC 2.84 L (4.30-5.90) m/uL Hgb 9.5 L (13.0-17.5) gm/dL Hct 29.1 L (39.0-53.0) % MCV 102.6 H (80.0-100.0) fL Lymphocytes # (1.0-4.8) k/uL APTT 72.4 H (22.0-30.0) sec Sodium 135 L (137-145) mmol/L BUN 21 H (9-20) mg/dL Creatinine (0.66-1.25) mg/dL Glucose 113 H (74-99) mg/dL Calcium 8.3 L (8.4-10.2) mg/dL 08/14/22 08/15/22 08/15/22 Range/Units 13:07 08:15 08:15 RBC 2.63 L (4.30-5.90) m/uL Hgb 9.1 L (13.0-17.5) gm/dL Hct 26.7 L (39.0-53.0) % MCV 101.8 H (80.0-100.0) fL Lymphocytes # 0.6 L (1.0-4.8) k/uL APTT (22.0-30.0) sec Sodium 133 L 134 L (137-145) mmol/L BUN (9-20) mg/dL Creatinine 0.57 L (0.66-1.25) mg/dL Glucose 107 H (74-99) mg/dL Calcium 7.8 L (8.4-10.2) mg/dL
--- NOTE | 2022-08-15 12:34 | CA ---
Transthoracic Echo Report Name: Sumeet Rosado Age: 72 Gender: M : 1950 Exam Date: 08/14/2022 09:03 Exam Location: [facility] Ht (in): 71 Wt (lb): 187 Ordering Physician: Jeanna Altamirano DO Attending/Referring Phys: [id number], Evelia Stonecutter Apprentice Hand Nicholas Webster Procedure CPT: Indications: new onset a fib Cardiac Hx: Technical Quality: Fair Contrast 1: Total Dose (mL): Contrast 2: Total Dose (mL): MEASUREMENTS (Male / Female) Normal Values 2D ECHO LV Diastolic Diameter PLAX 5.2 cm 4.2 - 5.9 / 3.9 - 5.3 cm LV Systolic Diameter PLAX 4.0 cm IVS Diastolic Thickness 0.9 cm 0.6 - 1.0 / 0.6 - 0.9 cm LVPW Diastolic Thickness 1.1 cm 0.6 - 1.0 / 0.6 - 0.9 cm LV Relative Wall Thickness 0.4 RV Internal Dim ED PLAX 2.5 cm LVOT Diameter 2.3 cm Aortic Root Diameter 3.5 cm LA Systolic Diameter LX 2.5 cm 3.0 - 4.0 / 2.7 - 3.8 cm LV Diastolic Volume MOD BP 67.4 cm??? 67 - 155 / 56 - 104 cm??? LV Systolic Volume MOD BP 22.8 cm??? 22 - 58 / 19 - 49 cm??? LV Ejection Fraction MOD BP 66.2 % >= 55 % LV Diastolic Volume MOD 4C 94.5 cm??? LV Systolic Volume MOD 4C 32.0 cm??? LV Ejection Fraction MOD 4C 66.2 % LV Diastolic Length 4C 8.3 cm LV Systolic Length 4C 7.2 cm LV Diastolic Volume MOD 2C 44.9 cm??? LV Systolic Volume MOD 2C 16.9 cm??? LV Ejection Fraction MOD 2C 62.4 % LV Diastolic Length 2C 7.7 cm LV Systolic Length 2C 7.3 cm LA Volume 68.2 cm??? 18 - 58 / 22 - 52 cm??? DOPPLER AV Peak Velocity 153.0 cm/s AV Peak Gradient 9.4 mmHg LVOT Peak Velocity 78.6 cm/s LVOT Peak Gradient 2.5 mmHg AV Area Cont Eq pk 2.1 cm??? MV Peak Velocity 81.7 cm/s MV Peak Gradient 2.7 mmHg MV Mean Velocity 46.3 cm/s MV Mean Gradient 1.0 mmHg MV Velocity Time Integral 35.4 cm Mitral E Point Velocity 81.3 cm/s Mitral A Point Velocity 72.2 cm/s Mitral E to A Ratio 1.1 MV Deceleration Time 245.3 ms MV E' Velocity 7.5 cm/s Mitral E to MV E' Ratio 10.8 TR Peak Velocity 253.5 cm/s TR Peak Gradient 25.7 mmHg Right Ventricular Systolic Press 30.9 mmHg PV Peak Velocity 126.7 cm/s PV Peak Gradient 6.4 mmHg FINDINGS Left Ventricle Left ventricular ejection fraction is estimated at _45-50 %. Right Ventricle Normal right ventricular size. RVSP= 26mmhg Right Atrium Normal right atrial size. Left Atrium Normal left atrial size. Mitral Valve Structurally normal mitral valve. Aortic Valve Mild AV calcification. Trace AI. Tricuspid Valve Tricuspid valve not well visualized. Mild TR. Pulmonic Valve Pulmonic valve not well visualized. No pulmonic regurgitation. Pericardium Normal pericardium. Aorta Aortic root and proximal ascending aorta not well visualized. CONCLUSIONS Technically difficult study for interpretation Mildly impaired LV function. The EF is 45-50% Previewed by: Dr. Edgard Wilson MD (Electronically Signed) Final Date: 15 August 2022 12:34
[2022-08-15] MEDS: HYDROcodone/APAP 7.5-325MG 1 EACH TAB PO SCH ×2 (16:32→21:55)
[2022-08-15] MEDS: MAGNESIUM HYDROXIDE 2,400 MG/10 ML CUP PO SCH (17:58)
[2022-08-15] MEDS: SENNOSIDES-DOCUSATE SODIUM 1 EACH TAB PO SCH (17:58)
[2022-08-15] MEDS ORDERED: NON FORMULARY DRUG (Tadalafil [Cialis] 5 MG Tablet) PO SCH (21:00)
[2022-08-15] MEDS: HYDROmorphone 1 MG/ML 1 ML SYRINGE IVP PRN (23:42)
[2022-08-16] MEDS: ACETAMINOPHEN TAB 325 MG TAB PO SCH ×5 (00:01→23:39)
[2022-08-16] MEDS: HYDROcodone/APAP 7.5-325MG 1 EACH TAB PO SCH ×4 (04:02→21:55)
[2022-08-16] MEDS: LACTATED RINGERS 1,000 ML IV SCH (05:24)
[2022-08-16] MEDS: PANTOPRAZOLE 40 MG TABLET PO SCH (06:16)
[2022-08-16] MEDS: FERROUS SULFATE 325 MG TAB PO SCH ×2 (06:16→16:24)
[2022-08-16] MEDS: ONDANSETRON 4 MG/2 ML VIAL IVP PRN (08:23)
[2022-08-16 09:03] LABS: Basophils % (A) 0 %; Eosinophils # (A) 0.4 k/uL (0-0.7); Eosinophils % (A) 7 %; HCT 27.1 % (39.0-53.0); Lymphocytes # (A) 0.9 k/uL (1.0-4.8); Lymphocytes % (A) 17 %; MCH 34.2 pg (25.0-35.0); MCHC 33.2 g/dL (31.0-37.0); MCV 102.8 fL (80.0-100.0); Macrocytosis Slight; Mean Platelet Volume 7.8; Monocytes # (A) 0.4 k/uL (0-1.0); Monocytes % (A) 7 %; Neutrophils # (A) 3.6 k/uL (1.3-7.7); Neutrophils % (A) 66 %; Platelet Count 233 k/uL (150-450); RBC 2.63 m/uL (4.30-5.90); RDW 12.6 % (11.5-15.5); WBC 5.5 k/uL (3.8-10.6)
[2022-08-16 09:26] LABS: African American GFR (CKD) >90 (>60 ml/min/1.73 sqM); Anion Gap 7 mmol/L; Blood Urea Nitrogen 16 mg/dL (9-20); Carbon Dioxide 27 mmol/L (22-30); Chloride 103 mmol/L (98-107); Glucose 116 mg/dL (74-99); Magnesium 2.1 mg/dL (1.6-2.3); Non-African American GFR(CKD) >90 (>60 ml/min/1.73 sqM); Potassium 3.2 mmol/L (3.5-5.1); Sodium 137 mmol/L (137-145)
[2022-08-16] MEDS: METOPROLOL TARTRATE 25 MG TAB PO SCH ×2 (09:58→19:49)
[2022-08-16] MEDS: APIXABAN 5 MG TAB PO SCH ×2 (09:58→19:50)
[2022-08-16] MEDS: SENNOSIDES-DOCUSATE SODIUM 1 EACH TAB PO SCH (09:58)
[2022-08-16] MEDS: GABAPENTIN 300 MG CAP PO SCH ×3 (09:58→21:55)
[2022-08-16] MEDS: MAGNESIUM HYDROXIDE 2,400 MG/10 ML CUP PO SCH (09:58)
--- NOTE | 2022-08-16 11:20 | P.PN ---
Subjective Progress Note Date: 08/16/22 Pt s/e. Still having STRICKLAND and nausea when he sits up and in the AM. Drain in place with serous fluid. He has not been up much only to chair here and there. He states he did have BM and is urinating on his own. Denies any perineal numbnes/tingling. Objective - Vital Signs Vital signs: Vital Signs Temp 97.8 F 08/16/22 08:00 Pulse 57 L 08/16/22 08:00 Resp 18 08/16/22 08:00 BP 157/79 08/16/22 08:00 Pulse Ox 98 08/16/22 08:53 FiO2 21 08/16/22 08:53 Intake & Output 08/15/22 08/16/22 08/16/22 18:59 06:59 18:59 Intake Total 1200 1330 50 Output Total 140 150 200 Balance 1060 1180 -150 Intake: Oral 1200 1330 50 Output: Drainage 140 150 200 Right Medial Back 140 150 200 Other: Voiding Method Toilet Toilet Urinal Urinal # Voids 1 2 - Exam Physical Exam: -Patient is alert and oriented 3 appears well-nourished well-hydrated is in no acute distress. They do not appear septic. -There is TTP around the incision [-Incision is CDI, no EEE, no drainage] -Upper extremities show 4+ out of 5 strength in all major muscle groups. -Lower extremities with 4+ out of 5 strength in all major muscle groups -There is [FROM] that is [painless] of the b/l UE and LE in all major joints. Negative logroll negative straight leg raise negative tensioning signs -They are intact to light touch sensation in C5 to T1 and L2 to S1 nerve distribution. -DTR [2]/4 all upper and lower extremities -Patient has palpable distal pulses all 4 ext -Compartments are soft and compressible. -Patient shows a negative Dylan's [-Neg Hoffmans b/l] [-Neg Clonus b/l] [-Neg babinski b/l] Cranial nerves II through XII are grossly intact. No nystagmus. - Labs CBC & Chem 7: 08/16/22 08:43 08/16/22 08:43 Labs: Abnormal Lab Results - Last 24 Hours (Table) 08/16/22 08/16/22 Range/Units 08:43 08:43 RBC 2.63 L (4.30-5.90) m/uL Hgb 9.0 L (13.0-17.5) gm/dL Hct 27.1 L (39.0-53.0) % MCV 102.8 H (80.0-100.0) fL Lymphocytes # 0.9 L (1.0-4.8) k/uL Potassium 3.2 L (3.5-5.1) mmol/L Creatinine 0.60 L (0.66-1.25) mg/dL Glucose 116 H (74-99) mg/dL Calcium 8.0 L (8.4-10.2) mg/dL Assessment and Plan Assessment: POD 5 T10-P revision decompression fusion Spinal STRICKLAND Plan: -Appreciate travel sales consultant and team management. -Activity: Bed rest with head of bed 10 for today lay flat. Will progress tomorrow with gradual sit up as long as headaches and nausea vomiting decrease -Daily PT/OT, increase ambulation strength and balance. -[Brace when up and about, not needed in bed or chair] -Pain control: [Adequate at this time] -Meds: [reviewed] add Fioricet for headache, caffeine as well as Acetazolamide -GI ppx: senna, Miralax -DC verdin when up and about, bedside commode if needed -DVT PPX: Continue with chemoprophylaxis and mechanical -Hygiene: Shower today. Maintain dressing clean and dry. Meticulous cleaning after BMs away from incision site -Drains: Remove drain today. -Encourage IS 10x/hr -Dispo: [Pending]
--- NOTE | 2022-08-16 12:49 | P.PN ---
Subjective Progress Note Date: 08/16/22 Patient reporting frontal headache today, worse when sitting or standing, associated with nausea. Denies fevers, chills. Reports generalized weakness. Gen: awake, alert HEENT: normocephalic, atraumatic, good hearing acuity, moist mucous membranes Resp: good air exchange, breathing comfortably with no accessory muscle use CVS: good distal perfusion x 4, GI: soft, NTTP, ND : no SPT, no CVAT, verdin catheter not present MSK: no pitting edema, no clubbing Neuro: non-focal, moving all extremities Psych: cooperative, euthymic mood Hospital Course: Patient is a 72-year-old male with history of GERD complicated by gastric ulcer and GI bleed, arthritis, chronic back pain due to degenerative disc disease, and BPH who presented to the hospital for T10 to pelvis revision decompression and fusion. He developed A fib with RVR on 08/13/22. Assessment: Atrial fibrillation with rapid ventricular response Hyponatremia, mild suspect due to decreased oral intake and pain Acute blood loss anemia, anticipated outcome of surgery Postoperative pain GERD, hx of peptic ulcer and GI bleed History PVCs Plan: Today, patient is afebrile, 157/79, heart rate 57, 98% on room air CBC shows hemoglobin of 9.0 Basic metabolic panel shows hypokalemia 3.2 CBC, basic metabolic panel, magnesium ordered for tomorrow Cardiology consult note has been reviewed, they agree with discontinuing heparin, continue Lopressor Continue metoprolol 25 mg twice a day Patient was transitioned to Apixiban 5 mg twice a day Continue Dilaudid 1 mg every 3 hours when necessary for pain control Echocardiogram is reviewed, shows EF 45-50%, no elevation of RVSP. Recommended additional dose of Tylenol for headache today Agree with Zofran 4 mg IV push every 6 hours when necessary for nausea Patient is full code Objective - Vital Signs Vital signs: Vital Signs Temp 97.8 F 08/16/22 08:00 Pulse 57 L 08/16/22 08:00 Resp 18 08/16/22 08:00 BP 157/79 08/16/22 08:00 Pulse Ox 98 08/16/22 08:53 FiO2 21 08/16/22 08:53 Intake & Output 08/15/22 08/16/22 08/16/22 18:59 06:59 18:59 Intake Total 1200 1330 50 Output Total 140 150 200 Balance 1060 1180 -150 Intake: Oral 1200 1330 50 Output: Drainage 140 150 200 Right Medial Back 140 150 200 Other: Voiding Method Toilet Toilet Urinal Urinal # Voids 1 2 - Labs CBC & Chem 7: 08/16/22 08:43 08/16/22 08:43 Labs: Abnormal Lab Results - Last 24 Hours (Table) 08/16/22 08/16/22 Range/Units 08:43 08:43 RBC 2.63 L (4.30-5.90) m/uL Hgb 9.0 L (13.0-17.5) gm/dL Hct 27.1 L (39.0-53.0) % MCV 102.8 H (80.0-100.0) fL Lymphocytes # 0.9 L (1.0-4.8) k/uL Potassium 3.2 L (3.5-5.1) mmol/L Creatinine 0.60 L (0.66-1.25) mg/dL Glucose 116 H (74-99) mg/dL Calcium 8.0 L (8.4-10.2) mg/dL
[2022-08-16] MEDS: BUTALB/APAP/CAFF 50-325-40MG TAB PO SCH ×4 (14:13→23:38)
[2022-08-16] MEDS: acetaZOLAMIDE 250 MG TAB PO SCH (15:07)
[2022-08-16] MEDS ORDERED: CALCIUM CARBONATE 500 MG CHEWABLE PO PRN (22:03)
[2022-08-17] MEDS: HYDROcodone/APAP 7.5-325MG 1 EACH TAB PO SCH ×4 (03:46→22:26)
[2022-08-17] MEDS: BUTALB/APAP/CAFF 50-325-40MG TAB PO SCH ×5 (03:46→22:28)
[2022-08-17] MEDS: LACTATED RINGERS 1,000 ML IV SCH (06:20)
[2022-08-17] MEDS: FERROUS SULFATE 325 MG TAB PO SCH ×2 (06:23→17:33)
[2022-08-17] MEDS: PANTOPRAZOLE 40 MG TABLET PO SCH (06:23)
[2022-08-17] MEDS: ACETAMINOPHEN TAB 325 MG TAB PO SCH ×3 (06:23→17:33)
[2022-08-17] MEDS: APIXABAN 5 MG TAB PO SCH ×2 (09:17→22:28)
[2022-08-17] MEDS: acetaZOLAMIDE 250 MG TAB PO SCH (09:19)
[2022-08-17] MEDS: SENNOSIDES-DOCUSATE SODIUM 1 EACH TAB PO SCH ×2 (09:22→22:30)
[2022-08-17] MEDS: GABAPENTIN 300 MG CAP PO SCH ×3 (09:22→23:00)
[2022-08-17] MEDS: METOPROLOL TARTRATE 25 MG TAB PO SCH ×2 (09:22→22:27)
[2022-08-17] MEDS: MAGNESIUM HYDROXIDE 2,400 MG/10 ML CUP PO SCH (09:22)
[2022-08-17] MEDS: CAFFEINE CITRATE 60 MG/3 ML VIAL IV SCH (09:50)
--- NOTE | 2022-08-17 10:14 | P.PN ---
Subjective Progress Note Date: 08/17/22 Patient's headache and mood are improved today. No nausea, vomiting. Gen: awake, alert HEENT: normocephalic, atraumatic, good hearing acuity, moist mucous membranes Resp: good air exchange, breathing comfortably with no accessory muscle use CVS: good distal perfusion x 4, GI: soft, NTTP, ND : no SPT, no CVAT, verdin catheter not present MSK: no pitting edema, no clubbing Neuro: non-focal, moving all extremities Psych: cooperative, euthymic mood Hospital Course: Patient is a 72-year-old male with history of GERD complicated by gastric ulcer and GI bleed, arthritis, chronic back pain due to degenerative disc disease, and BPH who presented to the hospital for T10 to pelvis revision decompression and fusion. He developed A fib with RVR on 08/13/22. Assessment: Atrial fibrillation with rapid ventricular response Hyponatremia, mild suspect due to decreased oral intake and pain Acute blood loss anemia, anticipated outcome of surgery Postoperative pain GERD, hx of peptic ulcer and GI bleed History PVCs Plan: Today, patient is afebrile, 148/65, heart rate 69, 99% on room air CBC, basic metabolic panel, magnesium ordered for tomorrow Discussed with orthopedic surgery, plan is to slightly elevate head of bed to ensure no return of headache, likely will need SNF next week Continue metoprolol 25 mg twice a day Continue Apixiban 5 mg twice a day Continue Dilaudid 1 mg every 3 hours when necessary for pain control Agree with Zofran 4 mg IV push every 6 hours when necessary for nausea Patient is full code Objective - Vital Signs Vital signs: Vital Signs Temp 97.8 F 08/17/22 08:00 Pulse 69 08/17/22 08:00 Resp 18 08/17/22 08:00 BP 148/65 08/17/22 08:00 Pulse Ox 99 08/17/22 08:00 FiO2 21 08/16/22 08:53 Intake & Output 08/16/22 08/17/22 08/17/22 18:59 06:59 18:59 Intake Total 50 540 0 Output Total 500 1500 Balance -450 -960 0 Intake: Intake, IV Titration 0 Amount Lactated Ringers 1,000 ml 0 @ 0 mls/hr IV .[facility] Rx#:[id number] Oral 50 540 0 Output: Drainage 200 Right Medial Back 200 Urine 300 1500 Other: Voiding Method Toilet Urinal - Labs CBC & Chem 7: 08/16/22 08:43 08/16/22 08:43
--- NOTE | 2022-08-17 11:52 | P.PN ---
Subjective Progress Note Date: 08/17/22 Principal diagnosis: Status post [id number] decompression and fusion Patient was evaluated today at bedside, he is resting in the hospital bed patient states he is feeling a lot better than yesterday. Patient is very eager to begin ambulating. with His ambulation minimal and had been elevating the bed slightly headaches, lightheadedness and nausea. Patient's been urinating with no difficulties. He denies any numbness or peroneal or genital region. He denies any chest pain or shortness of breath at this time. Objective - Vital Signs Vital signs: Vital Signs Temp 97.8 F 08/17/22 08:00 Pulse 69 08/17/22 08:00 Resp 18 08/17/22 08:00 BP 148/65 08/17/22 08:00 Pulse Ox 99 08/17/22 08:00 FiO2 21 08/16/22 08:53 Intake & Output 08/16/22 08/17/22 08/17/22 18:59 06:59 18:59 Intake Total 50 540 0 Output Total 500 1500 275 Balance -450 -960 -275 Intake: Intake, IV Titration 0 Amount Lactated Ringers 1,000 ml 0 @ 0 mls/hr IV .[employer] Rx#:[id number] Oral 50 540 0 Output: Drainage 200 Right Medial Back 200 Urine 300 1500 275 Other: Voiding Method Toilet Urinal - Exam Gen: AOx3, NAD VSS stable at this time Integument: Postoperative is in good position and condition. There is no saturation appreciated near the drain site. Palpation: Mild tenderness with palpation to the lower thoracic and lumbar region ROM: Full range of motion in all major muscle groups of the bilateral upper and lower extremities no focal deficits appreciated Sensory Exam: Senory exam to light touch is intact C5-T1 Senosry exam to light touch is intact L2-S1, deficits noted in the right lower extremity at L2, L3, and S1 on the left Motor: 5/5 strength appreciated in the bilateral upper extremities with shoulder elevation, shoulder abduction, elbow extension, elbow flexion, wrist extension, wrist flexion, inspector paper products 4/5 strength appreciated in the bilateral lower extremities with plantar flexion, dorsiflexion, EHL, FHL 4-/5 strength the patient in the bilateral lower extremities with knee extension, knee flexion, hip flexion Reflexes: 2/4 in all UE and LE, 1/4 left lower extremity Negative Niall's, clonus, Babinski bilaterally - Labs CBC & Chem 7: 08/16/22 08:43 08/16/22 08:43 Assessment and Plan Assessment: Postoperative day #6 status post T10 to pelvis revision decompression and fusion Spinal headache New onset A. fib Acute blood loss anemia, expected surgical outcome Constipation, improving Plan: Pain control, continue current medication DVT prophylaxis, SCDs and MACARIO hose. Patient has been started on Eliquis 5mg bid Wound care and continue to monitor surgical dressing and drain site Did discuss with nursing, they can elevate the bed additional 10 every 3 hours pending no headaches, nausea, lightheadedness or changes in vision. Patient will remain in bed today, pending symptoms hopeful advancement ambulation with physical therapy on 08/18/2022 Encouraged incentive spirometer Medical and cardiology recommendations Discharge planning: Planning subacute rehab in the next 24 to 72 hours Time with Patient: Less than 30
[2022-08-17 13:19] LABS: Basophils % (A) 0 %; Eosinophils # (A) 0.5 k/uL (0-0.7); Eosinophils % (A) 7 %; HCT 31.1 % (39.0-53.0); Hypochromasia Slight; Lymphocytes # (A) 1.2 k/uL (1.0-4.8); Lymphocytes % (A) 17 %; MCH 34.1 pg (25.0-35.0); MCHC 32.2 g/dL (31.0-37.0); MCV 105.7 fL (80.0-100.0); Macrocytosis Slight; Mean Platelet Volume 7.8; Monocytes # (A) 0.4 k/uL (0-1.0); Monocytes % (A) 6 %; Neutrophils # (A) 4.4 k/uL (1.3-7.7); Neutrophils % (A) 66 %; Platelet Count 268 k/uL (150-450); RBC 2.94 m/uL (4.30-5.90); RDW 12.7 % (11.5-15.5); WBC 6.7 k/uL (3.8-10.6)
[2022-08-17 13:37] LABS: African American GFR (CKD) >90 (>60 ml/min/1.73 sqM); Anion Gap 9 mmol/L; Blood Urea Nitrogen 11 mg/dL (9-20); Calcium 8.5 mg/dL (8.4-10.2); Carbon Dioxide 19 mmol/L (22-30); Chloride 107 mmol/L (98-107); Glucose 100 mg/dL (74-99); Magnesium 2.1 mg/dL (1.6-2.3); Non-African American GFR(CKD) >90 (>60 ml/min/1.73 sqM); Sodium 135 mmol/L (137-145)
[2022-08-17 13:52] LABS: Potassium 4.2 mmol/L (3.5-5.1)
[2022-08-18] MEDS: HYDROmorphone 1 MG/ML 1 ML SYRINGE IVP PRN (00:11)
[2022-08-18] MEDS: ACETAMINOPHEN TAB 325 MG TAB PO SCH ×6 (04:05→23:59)
[2022-08-18] MEDS: HYDROcodone/APAP 10-325MG 1 EACH TAB PO PRN (04:44)
[2022-08-18] MEDS: BUTALB/APAP/CAFF 50-325-40MG TAB PO SCH ×7 (06:31→23:04)
[2022-08-18] MEDS: PANTOPRAZOLE 40 MG TABLET PO SCH (06:32)
[2022-08-18] MEDS: FERROUS SULFATE 325 MG TAB PO SCH ×2 (06:32→16:41)
[2022-08-18] MEDS: HYDROcodone/APAP 7.5-325MG 1 EACH TAB PO SCH ×4 (06:36→20:06)
--- NOTE | 2022-08-18 09:53 | P.PN ---
Subjective Progress Note Date: 08/18/22 Principal diagnosis: Status post [id number] decompression and fusion Patient was evaluated today at bedside, he is resting in the hospital chair. Patient is doing a lot better today, he is having no headaches, lightheadedness, nausea, blurred vision. He's been worked with physical therapy today. He is continued urinating with no difficulties. Continues to pass gas. The only extremities with minimal discomfort at this time. He doesn't some mild discomfort in his low back. He denies any chest pain or shortness of breath at this time. Objective - Vital Signs Vital signs: Vital Signs Temp 98.1 F 08/18/22 08:00 Pulse 81 08/18/22 08:00 Resp 18 08/18/22 08:00 BP 101/68 08/18/22 08:00 Pulse Ox 100 08/18/22 08:00 FiO2 21 08/16/22 08:53 Intake & Output 08/17/22 08/18/22 08/18/22 18:59 06:59 18:59 Intake Total 0 Output Total 1475 800 Balance -1475 -800 Intake: Oral 0 Output: Urine 1475 800 Other: Voiding Method Toilet Urinal # Voids 2 - Exam Gen: AOx3, NAD VSS stable at this time Integument: Postoperative is in good position and condition. There is no saturation appreciated near the drain site. Palpation: Mild tenderness with palpation to the lower thoracic and lumbar region ROM: Full range of motion in all major muscle groups of the bilateral upper and lower extremities no focal deficits appreciated Sensory Exam: Senory exam to light touch is intact C5-T1 Senosry exam to light touch is intact L2-S1, deficits noted in the right lower extremity at L2, L3, and S1 on the left Motor: 5/5 strength appreciated in the bilateral upper extremities with shoulder elevation, shoulder abduction, elbow extension, elbow flexion, wrist extension, wrist flexion, vest backer 4/5 strength appreciated in the bilateral lower extremities with plantar flexion, dorsiflexion, EHL, FHL 4-/5 strength the patient in the bilateral lower extremities with knee extension, knee flexion, hip flexion Reflexes: 2/4 in all UE and LE, 1/4 left lower extremity Negative Niall's, clonus, Babinski bilaterally - Labs CBC & Chem 7: 08/17/22 12:29 08/17/22 12:29 Labs: Abnormal Lab Results - Last 24 Hours (Table) 08/17/22 08/17/22 Range/Units 12:29 12:29 RBC 2.94 L (4.30-5.90) m/uL Hgb 10.0 L (13.0-17.5) gm/dL Hct 31.1 L (39.0-53.0) % MCV 105.7 H (80.0-100.0) fL Sodium 135 L (137-145) mmol/L Carbon Dioxide 19 L (22-30) mmol/L Creatinine 0.64 L (0.66-1.25) mg/dL Glucose 100 H (74-99) mg/dL Assessment and Plan Assessment: Postoperative day #7 status post T10 to pelvis revision decompression and fusion Spinal headache New onset A. fib Acute blood loss anemia, expected surgical outcome Constipation, improving Plan: Pain control, continue current medication DVT prophylaxis, SCDs and MACARIO hose. Patient has been started on Eliquis 5mg bid Wound care, plan dressing changes on 08/19/2022 While attempting to get up with physical therapy today, patient can weight-bear as tolerated. Patient needs to utilize a TLSO brace. Monitor for spinal headaches Encouraged incentive spirometer Medical and cardiology recommendations Discharge planning: Pending patient does with physical therapy today, we'll discharge to subacute rehab on 08/19/2022 Time with Patient: Less than 30
[2022-08-18] MEDS: LACTATED RINGERS 1,000 ML IV SCH ×2 (10:06→23:59)
[2022-08-18] MEDS: GABAPENTIN 300 MG CAP PO SCH ×3 (10:07→20:03)
[2022-08-18] MEDS: MAGNESIUM HYDROXIDE 2,400 MG/10 ML CUP PO SCH (10:07)
[2022-08-18] MEDS: METOPROLOL TARTRATE 25 MG TAB PO SCH ×2 (10:08→20:03)
[2022-08-18] MEDS: APIXABAN 5 MG TAB PO SCH ×2 (10:10→20:06)
[2022-08-18] MEDS: acetaZOLAMIDE 250 MG TAB PO SCH (10:10)
[2022-08-18] MEDS: CAFFEINE CITRATE 60 MG/3 ML VIAL IV SCH (10:30)
[2022-08-18 13:06] VITALS: BMI 26.1
--- NOTE | 2022-08-18 14:52 | P.PN ---
Subjective Progress Note Date: 08/18/22 Patient is a 72-year-old male with history of GERD complicated by gastric ulcer and GI bleed, arthritis, chronic back pain due to degenerative disc disease, and BPH who presented to the hospital for T10 to pelvis revision decompression and fusion. He developed A fib with RVR on 08/13/22. He was started on Cardizem and converted to normal sinus rhythm was therefore transitioned to oral amiodarone. He was cleared to start on Eliquis. Patient seen and examined at bedside. He is sitting up in a chair today. He is feeling better every day. Pain is well controlled. Denies any chest pain, shortness breath, nausea, vomiting. Vital signs reviewed General: nontoxic, no distress, appears at stated age Cardiovascular: S1S2 reg, no murmur, positive posterior tibial pulse bilateral, Lungs: CTA bilateral, no rhonchi, no rales , no accessory muscle use Abdominal: soft, nontender to palpation, no guarding, no appreciable organomegaly Ext: no gross muscle atrophy, no edema b/l lower extremities, no contractures Neuro: CN II-XI grossly intact, no focal neuro deficits Psych: Alert, oriented, appropriate affect Assessment: 72-year-old male status post T10 to pelvis revision decompression and fusion now a spinal headache being managed by orthopedic surgery Atrial fibrillation with rapid ventricular response, resolved now in normal si nus rhythm Metabolic acidosis Hyponatremia, mild suspect due to decreased oral intake and pain, resolved Acute blood loss anemia, anticipated outcome of surgery, stable Postoperative pain, controlled GERD, hx of peptic ulcer and GI bleed History PVCs Imaging: none new Data Review: Patient has been afebrile for the last 24 hours. Pulse 81, respirations 18, blood pressure 101/68, O2 sat 100% on room air No additional laboratory analysis available for today. Plan: -Discussed with patient he will remain on Eliquis until he has outpatient follow-up with Dr. Bynum. He will also continue on metoprolol 25 mg twice daily - Diamox 250 mg daily, and caffeine 60 mg IV daily have been prescribed by orthopedic surgery for his spinal headache. This is improved. Awaiting callb ack from orthopedic spine surgery to see if we are able to stop Diamox as patient had worsening acidosis on labs from 08/17/22 -Continue with Protonix Thank you for allowing us to participate in the care of this pleasant patient. Do not hesitate to contact us with questions. Someone can be reached from the [facility] hospitalist group all hours of the day at [phone] or via perfect serve. This dictation was prepared using [employer] voice recognition software. Though every attempt is made to correct errors during dictation some may still exist. Objective - Vital Signs Vital signs: Vital Signs Temp 98.1 F 08/18/22 08:00 Pulse 81 08/18/22 08:00 Resp 18 08/18/22 08:00 BP 101/68 08/18/22 08:00 Pulse Ox 100 08/18/22 08:00 FiO2 21 08/16/22 08:53 Intake & Output 08/17/22 08/18/22 08/18/22 18:59 06:59 18:59 Intake Total 0 0 Output Total 1475 800 Balance -1475 -800 0 Weight 84.9 kg Intake: Oral 0 0 Output: Urine 1475 800 Other: Voiding Method Toilet Toilet Urinal Urinal # Voids 2 - Labs CBC & Chem 7: 08/17/22 12:29 08/17/22 12:29
[2022-08-18] MEDS: HYDROmorphone 0.5 MG/0.5 ML SYRINGE IVP PRN (23:04)
[2022-08-19] MEDS: FERROUS SULFATE 325 MG TAB PO SCH (03:40)
[2022-08-19] MEDS: HYDROcodone/APAP 7.5-325MG 1 EACH TAB PO SCH ×2 (03:40→09:48)
[2022-08-19] MEDS: BUTALB/APAP/CAFF 50-325-40MG TAB PO SCH ×3 (03:40→11:56)
[2022-08-19] MEDS: PANTOPRAZOLE 40 MG TABLET PO SCH (06:03)
[2022-08-19 08:03] LABS: HCT 31.9 % (39.0-53.0); HGB 10.1 gm/dL (13.0-17.5); Hypochromasia Slight; MCH 32.8 pg (25.0-35.0); MCHC 31.8 g/dL (31.0-37.0); MCV 103.3 fL (80.0-100.0); Macrocytosis Slight; Mean Platelet Volume 7.7; Platelet Count 452 k/uL (150-450); RBC 3.09 m/uL (4.30-5.90); RDW 12.8 % (11.5-15.5); WBC 8.9 k/uL (3.8-10.6)
[2022-08-19 08:17] LABS: African American GFR (CKD) >90 (>60 ml/min/1.73 sqM); Anion Gap 9 mmol/L; Blood Urea Nitrogen 17 mg/dL (9-20); Calcium 8.8 mg/dL (8.4-10.2); Carbon Dioxide 23 mmol/L (22-30); Chloride 104 mmol/L (98-107); Glucose 95 mg/dL (74-99); Non-African American GFR(CKD) 86 (>60 ml/min/1.73 sqM); Potassium 3.9 mmol/L (3.5-5.1); Sodium 136 mmol/L (137-145)
[2022-08-19 09:37] VITALS: RESP 16; TEMP 97.6
[2022-08-19] MEDS: APIXABAN 5 MG TAB PO SCH (09:38)
[2022-08-19] MEDS: GABAPENTIN 300 MG CAP PO SCH (09:39)
[2022-08-19] MEDS: SENNOSIDES-DOCUSATE SODIUM 1 EACH TAB PO SCH (09:40)
[2022-08-19] MEDS: CAFFEINE CITRATE 60 MG/3 ML VIAL IV SCH (09:41)
[2022-08-19] MEDS: MAGNESIUM HYDROXIDE 2,400 MG/10 ML CUP PO SCH (09:42)
[2022-08-19] MEDS: METOPROLOL TARTRATE 25 MG TAB PO SCH (09:43)
[2022-08-19] MEDS: ACETAMINOPHEN TAB 325 MG TAB PO SCH (11:54)
[2022-08-19 12:34] VITALS: BP 112/73; PULSE 85
--- NOTE | 2022-08-19 12:42 | P.DS ---
Providers Date of admission: 08/11/22 06:04 Expected date of discharge: 08/19/22 Attending physician: Javier Garcia DO Consults: 08/11/22 15:30 Consult Physician Routine Consulting Provider: Jeanna Altamirano Consult Reason/Comments: medical management s/p [id number] decompression fusion Do you want consulting provider notified?: Yes Primary care physician: Roland Barroso [facility] Course: Date of admission: 08/11/2022 Date of discharge: 08/19/2022 Admission diagnosis: [1. Hardware failure with pseudoarthrosis L4-S1 2. L1-S1 stenosis 3. Neurogenic claudication 4. LE weakness 5. Low back pain] Discharge diagnosis: Same Attending physician: Dr. Garcia Surgical procedures: [id number] decompression fusion Brief history: Patient is a 72-year-old male with a history of hardware failure with pseudoarthrosis at L4-S1; L1-S1 stenosis; lower extremity weakness. At this point patient has failed conservative treatment measures and has opted to proceed with a elective [id number] decompression fusion. Hospital course: Details of patient's surgery can be found in operative report. Patient tolerated the procedure well and was subsequently transported to orthopedic floor. Patient's orthopeidc and medical care was provided daily. Patient had daily laboratory tests performed for evaluation of overall blood counts. Patient had daily physical therapy to include strengthening range of motion as well as education with walker ambulation. Patient was treated with eliquis for their postoperative DVT prophylaxis during their inpatient stay. Patient was noted to have a relatively uneventful postoperative course. Patient reported satisfactory pain control with oral pain medications by postoperative day 8. Patient showed satisfactory progress with physical therapy. Patient moved steadily through the program and had no difficulty meeting the goals by postoperative day 8. Given patient's otherwise satisfactory course and having met physical therapy goals, plan is to discharge patient home with health services on postoperative day 8. Discharge condition/disposition: Patient will be discharged home with health services in stable condition. Discharge medications: Instructions are given on resumption of patient's normal daily medications per primary care recommendation, in addition patient will be prescribed [place]; gabapentin; Duricef; senna. Spine Discharge and Recovery Instructions Date of Surgery: 08/11/2022 Diagnosis: 1. Hardware failure with pseudoarthrosis L4-S1 2. L1-S1 stenosis 3. Neurogenic claudication 4. LE weakness 5. Low back pain Procedure(s) Performed: 1. L2-3, L3-4, L4-5 revision posteriolateral and interbody fusion 2. Posteriolateral instrumented fusion [id number] Medications: See medication list All medication refills should be obtained through your primary care doctor or your clinic spine surgeon. Please discuss prescription refills at your follow up appointment. Do not call the hospital for medication refills. Dressing: Leave your dressing in place for a total of 5 days post operatively. Then you may remove your dressing and leave open to air. Keep the area clean and if not able to keep area clean, then cover with sterile gauze and tape. Showering: You may shower 3 days after your procedure allowing soap and water to run over incision. Do not scrub. Do not soak. Blot dry. Follow up: Please confirm a follow up appointment with your surgeon 3 weeks post operatively. Please make an appointment to follow up with your PCP in 1-2 weeks after surgery for evaluation 3 phase, 3-week plan POST OP WEEKS 1-3 1. Lifting/carrying/pushing/pulling limited to less than 5 pounds. 2. Do not sit for longer than 15 minutes at one time. Get up and walk around. Prolonged sitting is NOT advised. If you lay down, see if you can tolerate laying down on you front (belly side) 3. Walk for periods of 15 minutes = 1 mile but no longer; do it multiple times times each day. 4. Ice your low back after activity. POST OP WEEKS 3-6 1. Lifting limited to less than 20 pounds. 2. Do not sit for longer than 30 minutes at a time. Frequently change positions. Use a sit-to stand workstation or take frequent breaks from sitting if you have returned to work. 3. Walk for 30 minutes each day. If possible, do these three or more times a day POST OP WEEKS 6+ At your 6-week appointment we will give you a physical therapy referral to focus on a core stabilization and strengthening program. You should also work on leg & buttock strengthening, hamstring & quadriceps stretching, and continue a low impact aerobic activity program such as swimming, walking, or riding a stationary bicycle. During the initial 6 weeks after your surgery, you are at the highest risk of re-injuring your spine. You should generally avoid BLTs (bending, lifting and twisting combination motions) and follow the above guidelines to reduce the chance of reinjury. You can anticipate post op appointments in our office at approximately 3 weeks and 6 weeks after your surgery. INCISION CARE: If your incision is not draining you do NOT need to cover it with a dressing. Keep your incision clean, dry and intact. In most cases, we apply skin glue, kole or sutures to the incision at the time of surgery. This will be like a crust or have the appearance of a scab and will fall off in time on its own. The stitches or kole need to be removed at 3 weeks post op appointment. You may begin to shower 3 days after surgery (this allows the glue to elias well). However, please avoid scrubbing the incision site or peeling off any of the skin glue. This will ensure optimal healing of your incision. Also, during this time avoid soaking the incision area in water - this includes swimming pools, hot tubs or baths. No ointments, lotions or oils on the incision until your surgeon allows. Leave kole, sutures or glue in place. Neurological dysfunction that comes on suddenly can also be a sign of a stroke. Below some common symptoms of a stroke are listed: B - balance difficulty such as sudden onset walking or leaning to one side - NEW E - eye problem such as sudden double vision or trouble seeing on one side - NEW F - Facial weakness or numbness on one side - NEW A - Arm or leg weakness or numbness on one side - NEW S - Slurred speech or difficulty with word finding - NEW T - Time is BRAIN! Call 911 as soon as you recognize these symptoms Diet: Consume a regular diet rich in vegetables and lean protein such as chicken or fish. You should consume in a ratio of approximately 20% fats|40% carbohydrates|40%protein. Vegetables, sweet potatoes, brown rice or quinoa are examples of good carbohydrates. Chips, white bread, cookies and sweets/sugar are examples of bad carbohydrates. Limit your bad carbs, go wild with good carbs. 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 (1) Get Active. Physical activity can help people lose weight, control high blood pressure and cholesterol, feel emotionally better, and sleep better. (2) Control Cholesterol. Avoid a diet high in saturated fat, trans fat, & cholesterol. Limit whole milk & cream, ice cream, butter, egg yolks, processed meats (like sausage and hot dogs), and fatty meats. Choose healthy foods that are low in saturated fat, trans fat and cholesterol which include: Fruits and vegetables, fiber rich grain products (like whole grain pasta and brown rice), lean meat such as chicken, fish, nuts, seeds, and legumes. (3) Eat Better. Eat small portions. Shop at the grocery with a list and do not stray from it. Tips for a healthy diet include: Limit sodium intake to less than 1500mg daily, avoid prepackaged, processed, and fast foods, choose a diet rich in fruits, vegetables, and whole grain, high fiber foods, and limit s aturated & cholesterol in your diet. (4) Manage Blood Pressure. If you have high blood pressure, you should have a cuff at home so that you can check your blood pressure regularly. Be sure you have a good cuff. An arm one is generally better than a wrist one. Bring the cuff to a doctor's appointment to validate that the measurements that your cuff are taking are accurate. Take your blood pressure twice daily when you are sitting down and relaxing. Record the numbers in a log and bring this log with you to your doctors' appointments. (5) Lose Weight if your BMI is above 25. A healthy BMI is between 19-25. To calculate Your BMI, you may use a Standard BMI Calculator on the NIH BMI website: <www.nhlbi.nih.gov/guidelines/obesity/BMI/bmicalc.htm>. Weigh oneself daily. If you are overweight, set a goal to lose weight. A pound a week loss if needed is a good target. (6) Reduce Blood Sugar. Limit foods and liquids with "added sugars." (Added sugars include sucrose, fructose, glucose, maltose, dextrose, high fructose corn syrup, corn syrup, concentrated fruit juice and honey). (7) Stop Smoking. If you smoke, quitting smoking is one of the best things that you can do for your health. Smoking increases your risk of heart attack, stroke, and peripheral vascular disease, which is a build-up of plaque in your arteries. Please discard all the cigarettes and lighters in your house. Have a plan for what you will do when you have the urge to smoke. Direct and second- hand smoke shortens your life as well as the lives of your family, friends and others around you. For your health and the health of those around you, please consider quitting! Proper Bending Body Mechanics: Maintain a wide stance with one foot slightly in front of the other. Keep your back straight. Bend utilizing the strength in your hips and knees. Do not bend at the waist. Maintain the lifted object at your waist-level close to your body. Avoid lifting weight that causes immediately pain or pain anywhere in the body afterwards. Smoking/Nicotine If there was ever one thing that you could do to increase your overall health, decrease your risk of cardiovascular problems by about 39% the second you make the choice, it is to STOP SMOKING. Your body's most instant gratification is the second you stop smoking. We have all heard the studies, read the articles but it is true, smoking is extremely bad for your overall health, and moreover it is detrimental to your bone health. Nicotine, IN ANY FORM, kills bone cells, prevents your body from healing fractures, and significantly prolongs healing after surgery. In spine surgery specifically, it increases your risk of not healing your bones to create a fusion and increases your risk of having a revision surgery due to this up to 60%. I know it is hard. I know it feels impossible. But there are ways. Take control of your life. We are here to help you through it. And when you are ready, ask us and we can direct you to help if you desire. Use the START Plan to Quit Smoking (please visit the Helpguide.org website listed below for more information): S = Set a quit date. Choose a date within the next 2 weeks, so you have enough time to prepare without losing your motivation to quit. If you mainly smoke at work, quit on the weekend, so you have a few days to adjust to the change. T = Tell family, friends, and co-workers that you plan to quit. Let your friends and family in on your plan to quit smoking and tell them you n eed their support and encouragement to stop. Look for a quit maria esther who wants to stop smoking as well. You can help each other get through the rough times. A = Anticipate and plan for the challenges you'll face while quitting. Most people who begin smoking again do so within the first 3 months. You can help yourself make it through by preparing ahead for common challenges, such as nicotine withdrawal and cigarette cravings. R = Remove cigarettes and other tobacco products from your home, car, and work. Throw away all your cigarettes (no emergency pack!), lighters, ashtrays, and matches. Wash your clothes and freshen up anything that smells like smoke. Shampoo your car, clean your drapes and carpet, and steam your furniture. T = Talk to your doctor about getting help to quit. Your doctor can prescribe medication to help with withdrawal and suggest other alternatives. If you can't see a doctor, you can get many products over the counter at your local pharmacy or grocery store, including the nicotine patch, nicotine lozenges, and nicotine gum. Resources for Quitting Smoking: <https://www.[place].gov/documents/[facility]/Quit_Tobacco_Resources_for_patients_313 480_7.pdf> Supplementation: Take recommended dosages of Vitamin D and Calcium to help fortify your bones and help them to heal. See your health maintenance packet for dosages and recommended levels. DVT/VTE prophylaxis: You will be given compression stockings from the hospital. Wear these daily for the first two weeks after surgery. You may take them off at night. You may be prescribed a medication to help thin your blood. Take this as directed. If you are not prescribed this medication, early and frequent ambulation has been shown to be the best prophylaxis to deep vein thrombosis and sequelae related to this event. Assessment: 1. Hardware failure with pseudoarthrosis L4-S1 2. L1-S1 stenosis 3. Neurogenic claudication 4. LE weakness 5. Low back pain Procedures: 1. L2-3, L3-4, L4-5 revision posteriolateral and interbody fusion 2. Posteriolateral instrumented fusion [id number] Patient Condition at Discharge: Good Plan - Discharge Summary Discharge Rx Participant: No New Discharge Prescriptions: New Apixaban [Eliquis] 5 mg PO BID #180 tab Gabapentin 300 mg PO TID #30 cap HYDROcodone/APAP 7.5-325MG [[place] 7.5-325] 1 tab PO Q6HR PRN #28 tab PRN Reason: Pain Metoprolol Succinate (ER) [Toprol XL] 12.5 mg PO DAILY #30 tab cefaDROXiL [Duricef] 500 mg PO Q12HR 5 Days #10 cap Sennosides/Docusate Sodium [Senna Plus 8.6-50 mg Softgel] 1 each PO DAILY #20 capsule Continue Pantoprazole Sodium [Protonix] 40 mg PO DAILY Discontinued tadalafiL [Cialis] 5 mg PO HS No Action HYDROcodone/APAP 7.5-325MG [[place] 7.5-325] 1 tab PO Q6H Discharge Medication List Pantoprazole Sodium [Protonix] 40 mg PO DAILY 11/20/14 [History] HYDROcodone/APAP 7.5-325MG [[place] 7.5-325] 1 tab PO Q6H 08/11/22 [History] Apixaban [Eliquis] 5 mg PO BID #180 tab 08/14/22 [Rx] Gabapentin 300 mg PO TID #30 cap 08/19/22 [Rx] HYDROcodone/APAP 7.5-325MG [[place] 7.5-325] 1 tab PO Q6HR PRN #28 tab 08/19/22 [Rx] Metoprolol Succinate (ER) [Toprol XL] 12.5 mg PO DAILY #30 tab 08/19/22 [Rx] Sennosides/Docusate Sodium [Senna Plus 8.6-50 mg Softgel] 1 each PO DAILY #20 capsule 08/19/22 [Rx] cefaDROXiL [Duricef] 500 mg PO Q12HR 5 Days #10 cap 08/19/22 [Rx] Follow up Appointment(s)/Referral(s): [facility] [NON-STAFF] - Javier Garcia DO [Doctor of Osteopathic Medicine] - 10 Days Activity/Diet/Wound Care/Special Instructions: Spine Discharge and Recovery Instructions Date of Surgery: 08/11/2022 Diagnosis: 1. Hardware failure with pseudoarthrosis L4-S1 2. L1-S1 stenosis 3. Neurogenic claudication 4. LE weakness 5. Low back pain Procedure(s) Performed: 1. L2-3, L3-4, L4-5 revision posteriolateral and interbody fusion 2. Posteriolateral instrumented fusion [id number] Medications: See medication list All medication refills should be obtained through your primary care doctor or your clinic spine surgeon. Please discuss prescription refills at your follow up appointment. Do not call the hospital for medication refills. Dressing: Leave your dressing in place for a total of 5 days post operatively. Then you may remove your dressing and leave open to air. Keep the area clean and if not able to keep area clean, then cover with sterile gauze and tape. Showering: You may shower 3 days after your procedure allowing soap and water to run over incision. Do not scrub. Do not soak. Blot dry. Follow up: Please confirm a follow up appointment with your surgeon 3 weeks post operativ avis. Please make an appointment to follow up with your PCP in 1-2 weeks after surgery for evaluation 3 phase, 3-week plan POST OP WEEKS 1-3 1. Lifting/carrying/pushing/pulling limited to less than 5 pounds. 2. Do not sit for longer than 15 minutes at one time. Get up and walk around. Prolonged sitting is NOT advised. If you lay down, see if you can tolerate laying down on you front (belly side) 3. Walk for periods of 15 minutes = 1 mile but no longer; do it multiple times times each day. 4. Ice your low back after activity. POST OP WEEKS 3-6 1. Lifting limited to less than 20 pounds. 2. Do not sit for longer than 30 minutes at a time. Frequently change positions. Use a sit-to stand workstation or take frequent breaks from sitting if you have returned to work. 3. Walk for 30 minutes each day. If possible, do these three or more times a day POST OP WEEKS 6+ At your 6-week appointment we will give you a physical therapy referral to focus on a core stabilization and strengthening program. You should also work on leg & buttock strengthening, hamstring & quadriceps stretching, and continue a low impact aerobic activity program such as swimming, walking, or riding a stationary bicycle. During the initial 6 weeks after your surgery, you are at the highest risk of re-injuring your spine. You should generally avoid BLTs (bending, lifting and twisting combination motions) and follow the above guidelines to reduce the chance of reinjury. You can anticipate post op appointments in our office at approximately 3 weeks and 6 weeks after your surgery. INCISION CARE: If your incision is not draining you do NOT need to cover it with a dressing. Keep your incision clean, dry and intact. In most cases, we apply skin glue, kole or sutures to the incision at the time of surgery. This will be like a crust or have the appearance of a scab and will fall off in time on its own. The stitches or kole need to be removed at 3 weeks post op appointment. You may begin to shower 3 days after surgery (this allows the glue to elias well). However, please avoid scrubbing the incision site or peeling off any of the skin glue. This will ensure optimal healing of your incision. Also, during this time avoid soaking the incision area in water - this includes swimming pools, hot tubs or baths. No ointments, lotions or oils on the incision until your surgeon allows. Leave kole, sutures or glue in place. Neurological dysfunction that comes on suddenly can also be a sign of a stroke. Below some common symptoms of a stroke are listed: B - balance difficulty such as sudden onset walking or leaning to one side - NEW E - eye problem such as sudden double vision or trouble seeing on one side - NEW F - Facial weakness or numbness on one side - NEW A - Arm or leg weakness or numbness on one side - NEW S - Slurred speech or difficulty with word finding - NEW T - Time is BRAIN! Call 911 as soon as you recognize these symptoms Diet: Consume a regular diet rich in vegetables and lean protein such as chicken or fish. You should consume in a ratio of approximately 20% fats|40% carbohydrates|40%protein. Vegetables, sweet potatoes, brown rice or quinoa are examples of good carbohydrates. Chips, white bread, cookies and sweets/sugar are examples of bad carbohydrates. Limit your bad carbs, go wild with good carbs. 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 (1) Get Active. Physical activity can help people lose weight, control high blood pressure and cholesterol, feel emotionally better, and sleep better. (2) Control Cholesterol. Avoid a diet high in saturated fat, trans fat, & cholesterol. Limit whole milk & cream, ice cream, butter, egg yolks, processed meats (like sausage and hot dogs), and fatty meats. Choose healthy foods that are low in saturated fat, trans fat and cholesterol which include: Fruits and vegetables, fiber rich grain products (like whole grain pasta and brown rice), lean meat such as chicken, fish, nuts, seeds, and legumes. (3) Eat Better. Eat small portions. Shop at the grocery with a list and do not stray from it. Tips for a healthy diet include: Limit sodium intake to less than 1500mg daily, avoid prepackaged, processed, and fast foods, choose a diet rich in fruits, vegetables, and whole grain, high fiber foods, and limit saturated & cholesterol in your diet. (4) Manage Blood Pressure. If you have high blood pressure, you should have a cuff at home so that you can check your blood pressure regularly. Be sure you have a good cuff. An arm one is generally better than a wrist one. Bring the cuff to a doctor's appointment to validate that the measurements that your cuff are taking are accurate. Take your blood pressure twice daily when you are sitting down and relaxing. Record the numbers in a log and bring this log with you to your doctors' appointments. (5) Lose Weight if your BMI is above 25. A healthy BMI is between 19-25. To calculate Your BMI, you may use a Standard BMI Calculator on the NIH BMI website: <www.nhlbi.nih.gov/guidelines/obesity/BMI/bmicalc.htm>. Weigh oneself daily. If you are overweight, set a goal to lose weight. A pound a week loss if needed is a good target. (6) Reduce Blood Sugar. Limit foods and liquids with "added sugars." (Added sugars include sucrose, fructose, glucose, maltose, dextrose, high fructose corn syrup, corn syrup, concentrated fruit juice and honey). (7) Stop Smoking. If you smoke, quitting smoking is one of the best things that you can do for your health. Smoking increases your risk of heart attack, stroke, and peripheral vascular disease, which is a build-up of plaque in your arteries. Please discard all the cigarettes and lighters in your house. Have a plan for what you will do when you have the urge to smoke. Direct and second- hand smoke shortens your life as well as the lives of your family, friends and others around you. For your health and the health of those around you, please consider quitting! Proper Bending Body Mechanics: Maintain a wide stance with one foot slightly in front of the other. Keep your back straight. Bend utilizing the strength in your hips and knees. Do not bend at the waist. Maintain the lifted object at your waist-level close to your body. Avoid lifting weight that causes immediately pain or pain anywhere in the body afterwards. Smoking/Nicotine If there was ever one thing that you could do to increase your overall health, decrease your risk of cardiovascular problems by about 39% the second you make the choice, it is to STOP SMOKING. Your body's most instant gratification is the second you stop smoking. We have all heard the studies, read the articles but it is true, smoking is extremely bad for your overall health, and moreover it is detrimental to your bone health. Nicotine, IN ANY FORM, kills bone cells, prevents your body from healing fractures, and significantly prolongs healing after surgery. In spine surgery specifically, it increases your risk of not healing your bones to create a fusion and increases your risk of having a revision surgery due to this up to 60%. I know it is hard. I know it feels impossible. But there are ways. Take control of your life. We are here to help you through it. And when you are ready, ask us and we can direct you to help if you desire. Use the START Plan to Quit Smoking (please visit the HelpguSOLO.org website listed below for more information): S = Set a quit date. Choose a date within the next 2 weeks, so you have enough time to prepare without losing your motivation to quit. If you mainly smoke at work, quit on the weekend, so you have a few days to adjust to the change. T = Tell family, friends, and co-workers that you plan to quit. Let your friends and family in on your plan to quit smoking and tell them you need their support and encouragement to stop. Look for a quit maria esther who wants to stop smoking as well. You can help each other get through the rough times. A = Anticipate and plan for the challenges you'll face while quitting. Most people who begin smoking again do so within the first 3 months. You can help yourself make it through by preparing ahead for common challenges, such as nicotine withdrawal and cigarette cravings. R = Remove cigarettes and other tobacco products from your home, car, and work. Throw away all your cigarettes (no emergency pack!), lighters, ashtrays, and matches. Wash your clothes and freshen up anything that smells like smoke. Shampoo your car, clean your drapes and carpet, and steam your furniture. T = Talk to your doctor about getting help to quit. Your doctor can prescribe medication to help with withdrawal and suggest other alternatives. If you can't see a doctor, you can get many products over the counter at your local pharmacy or grocery store, including the nicotine patch, nicotine lozenges, and nicotine gum. Resources for Quitting Smoking: <https://www.[place].gov/documen /[facility]/Quit_Tobacco_Resources_for_patients_313480_7.pdf> Supplementation: Take recommended dosages of Vitamin D and Calcium to help fortify your bones and help them to heal. See your health maintenance packet for dosages and recommended levels. DVT/VTE prophylaxis: You will be given compression stockings from the hospital. Wear these daily for the first two weeks after surgery. You may take them off at night. You may be prescribed a medication to help thin your blood. Take this as directed. If you are not prescribed this medication, early and frequent ambulation has been shown to be the best prophylaxis to deep vein thrombosis and sequelae related to this event. Discharge Disposition: HOME WITH HOME HEALTH SERVICES
--- NOTE | 2022-08-19 13:19 | P.PN ---
Subjective Progress Note Date: 08/19/22 (delayed charting seen at 1030) Patient is a 72-year-old male with history of GERD complicated by gastric ulcer and GI bleed, arthritis, chronic back pain due to degenerative disc disease, and BPH who presented to the hospital for T10 to pelvis revision decompression and fusion. He developed A fib with RVR on 08/13/22. He was started on Cardizem and converted to normal sinus rhythm was therefore transitioned to oral amiodarone. He was cleared to start on Eliquis. Patient seen and examined at bedside. He states his pain is controlled he is feeling well he wants to go home. Case also discussed with his who is adamant she feels he needs subacute rehab. I explained her that he does not qualify and can have home health care or outpatient physical therapy. She does understand that insurance will not cover this but feels frustrated and believes he would get better therapy at subacute rehab. Vital signs reviewed General: nontoxic, no distress, appears at stated age Cardiovascular: S1S2 reg, no murmur, positive posterior tibial pulse bilateral, Lungs: CTA bilateral, no rhonchi, no rales , no accessory muscle use Abdominal: soft, nontender to palpation, no guarding, no appreciable organomegaly Ext: no gross muscle atrophy, no edema b/l lower extremities, no contractures Neuro: CN II-XI grossly intact, no focal neuro deficits Psych: Alert, oriented, appropriate affect Assessment: 72-year-old male status post T10 to pelvis revision decompression and fusion now a spinal headache being managed by orthopedic surgery Atrial fibrillation with rapid ventricular response, resolved now in normal sinus rhythm Metabolic acidosis, resolved Hyponatremia, mild suspect due to decreased oral intake and pain, resolved Acute blood loss anemia, anticipated outcome of surgery, stable Postoperative pain, controlled GERD, hx of peptic ulcer and GI bleed History PVCs Imaging: none new Data Review: Vital signs reviewed and pulse 66, respirations 16, blood pressure 100/50, O2 sat 99% here, temperature 97.9 Laboratory analysis reviewed and hemoglobin 10.1, platelets 452, sodium 136, BUN 17, creatinine 0.6 Plan: -Patient medically optimized for discharge. Home medication reconciliation addressed. -Prescriptions for Eliquis and Metoprolol were completed. Patient should follow up with Dr. Wilson in [address] Briceño in 1 week -Continue with Protonix Thank you for allowing us to participate in the care of this pleasant patient. Do not hesitate to contact us with questions. Someone can be reached from the [facility] hospitalist group all hours of the day at [phone] or via perfect serve. This dictation was prepared using [employer] voice recognition software. Though every attempt is made to correct errors during dictation some may still exist. Objective - Vital Signs Vital signs: Vital Signs Temp 97.6 F 08/19/22 12:32 Pulse 85 08/19/22 12:32 Resp 16 08/19/22 12:32 BP 112/73 08/19/22 12:32 Pulse Ox 100 08/19/22 12:32 FiO2 21 08/16/22 08:53 Intake & Output 08/18/22 08/19/22 08/19/22 18:59 06:59 18:59 Intake Total 0 50 Output Total 450 Balance 0 -450 50 Weight 84.9 kg Intake: Oral 0 50 Output: Urine 450 Other: Voiding Method Toilet Toilet Urinal Urinal # Voids 1 1 # Bowel Movements 1 - Labs CBC & Chem 7: 08/19/22 07:12 08/19/22 07:12 Labs: Abnormal Lab Results - Last 24 Hours (Table) 08/19/22 08/19/22 Range/Units 07:12 07:12 RBC 3.09 L (4.30-5.90) m/uL Hgb 10.1 L (13.0-17.5) gm/dL Hct 31.9 L (39.0-53.0) % MCV 103.3 H (80.0-100.0) fL Plt Count 452 H (150-450) k/uL Sodium 136 L (137-145) mmol/L
--- NOTE | 2022-08-22 09:39 | CDI ---
Documentation Clarification Form Date: 08/22/2022 09:13:58 AM From: Dot Bowser RN CCDS Phone: [phone] Admit Date: 08/11/2022 06:04:00 AM Patient Name: Sumeet Rosado Visit Number: [id number] Discharge Date: 08/19/2022 03:32:00 PM ATTENTION: The Clinical Documentation Specialists (CDI) and [facility] Coding Staff appreciate your assistance in clarifying documentation. Please respond to the clarification below the line at the bottom and electronically sign. The CDI & [facility] Coding staff will review the response and follow-up if needed. Please note: Queries are made part of the Legal Health Record. If you have any questions, please contact the author of this message via ITS. Dr. Javier Garcia Dural leak is documented 08/11, Procedure note and patient had spinal revision with interbody fusion, decompression, laminectomy, facetectomy, foraminotomy and Dural repair, 08/11. Additional clarification is requested regarding the relationship, if any, that exists between the diagnosis and the procedure. Patients Admitting Diagnosis: Hardware failure with pseudoarthrosis L4-S1; L1- S1 stenosis; Neurogenic claudication; LE weakness; Low back pain. Post-Operative Diagnosis: Same as admitting diagnosis Procedure performed: L2-3, L3-4, L4-5 revision posteriolateral and interbody fusion. Posteriolateral instrumented fusion [id number]. Revision decompression with bilateral laminectomy, complete facetectomy and foraminotomy L1-S1. Instrumentation [id number]. Attachment of the caudal end of the construct to bony pelvis. Dural Repair with patch graft L2 central. INsertion of biomechanical devices L2-3, L3-4, L4-5. Removal of failed hardware L4-S1. Exploration of fusion L4-S1. Use of [email or web address] Navigation for screw placement. History/Risk Factors: 71-year-old male presents for elective spinal surgery. Medical history: Degenerative disc disease, left lower extremity weakness with radiculopathy. 08/11, Medicine consult. Clinical Indicators: It was noted at the caudal end of the wound there was a midline defect in the sacrum at S2 spinabifida. There was noted here a dural leak from punctuate dural lesion. Treatment: Closed with 6-0prolene and then a fat fragt was harvested and placed over and sewen down. Valsalva to 40 mmHg confirmed good closure without continued CSF leak. What relationship, if any, exists between the diagnosis of [insert dx] and the procedure: [ ] Dural leak is a complication of surgical procedure [ ] Dural leak is an expected outcome of the surgical procedure [ ] Dural leak is related to patients co-morbid condition(s) of spinabifida & not a complication of the procedure [ ] Other please specify ____ [ ] Unable to determine (Template Last Revised: May 2020) Dural leak is related to patients co-morbid condition(s), complex revision surgery, spinabifida & not a complication of the procedure SYDNEYD
--- NOTE | 2022-08-25 11:04 | CDI ---
Documentation Clarification Form Date: 08/25/2022 10:42:48 AM From: Dot Bowser RN CCDS Phone: [phone] Admit Date: 08/11/2022 06:04:00 AM Patient Name: Sumeet Rosado Visit Number: [id number] Discharge Date: 08/19/2022 03:32:00 PM ATTENTION: The Clinical Documentation Specialists (CDI) and [facility] Coding Staff appreciate your assistance in clarifying documentation. Please respond to the clarification below the line at the bottom and electronically sign. The CDI & [facility] Coding staff will review the response and follow-up if needed. Please note: Queries are made part of the Legal Health Record. If you have any questions, please contact the author of this message via ITS. Dr. Lonny Ivy New onset atrial fibrillation is documented 08/14, Cardiology note. Additional clarification regarding atrial fibrillation is requested. Patients Admitting Diagnosis: Hardware failure with pseudo arthrosis L4 S1; L1 S1 stenosis; Neurogenic claudication; LE weakness; Low back pain. Post-Operative Diagnosis: Hardware failure with pseudo arthrosis L4 S1; L1 S1 stenosis; Neurogenic claudication; LE weakness; Low back pain. Procedure performed: L2-3, L3-4, L4-5 revision posteriolateral and interbody fusion.Posteriolateral instrumented fusion [id number].Revision decompression with bilateral laminectomy, complete facetectomy and foraminotomy L1-S1. Instrumentation [id number].Attachment of the caudal end of the construct to bony pelvis.Dural Repair with patch graft L2 central.INsertion of biomechanical devices L2-3, L3-4, L4-5.Removal of failed hardware L4-S1. Exploration of fusion L4-S1.Use of [employer] Navigation for screw placement History/Risk Factors: 71-year-old male presents for elective spinal surgery. Medical history: Degenerative disc disease, left lower extremity weakness with radiculopathy. Medical history: GERD, PVCs and OA. 08/11, Medicine consult. Clinical Indicators: 08/13, EKG: Atiral Fibrillation with rapid ventricular response. 08/14, Cardiology note: Patient converted to sinus rhythm around 6pm yesterday. He is on Heparin drip and Cardizem drip has been discontinued. 08/18, EKG: Sinus rhythm with 1st degree AV block with occasional premature ventricular complexes. Treatment: 08/13 Cardizem IV 4mg x 1; 08/13 d/cd on 08/13 Diltiazem IV 125mls @ 5mls/hr; 08/13 08/14 Heparin drip 250mls@ 10.018mls/hr, 08/14 Eliquis po 5mg BID and Lopressor po BID. Also discharged home on Eliquis and Lopressor. Please clarify if New Onset Atrial Fibrillation is a complication of the surgical procedure? [ ] Yes [ ] No [ ] Other, please specify [ ] Unable to determine (Template Last Revised: May 2020) MTDD
--- NOTE | 2022-09-02 07:32 | CDI ---
Documentation Clarification Form Date: 08/25/2022 10:42:00 AM From: Dot Bowser Phone: [phone] Admit Date: 08/11/2022 06:04:00 AM Patient Name: Sumeet Rosado Visit Number: [id number] Discharge Date: 08/19/2022 03:32:00 PM ATTENTION: The Clinical Documentation Specialists (CDI) and [facility] Coding Staff appreciate your assistance in clarifying documentation. Please respond to the clarification below the line at the bottom and electronically sign. The CDI & [facility] Coding staff will review the response and follow-up if needed. Please note: Queries are made part of the Legal Health Record. If you have any questions, please contact the author of this message via ITS. Dr. Lonny Ivy New onset atrial fibrillation is documented 08/14, Cardiology note. Additional clarification regarding atrial fibrillation is requested. Patients Admitting Diagnosis: Hardware failure with pseudo arthrosis L4 S1; L1 S1 stenosis; neurogenic claudication; LE weakness; Low back pain. Post-Operative Diagnosis: Hardware failure with pseudo arthrosis L4 S1; L1 S1 stenosis; neurogenic claudication; LE weakness; Low back pain. Procedure performed: L2-3, L3-4, L4-5 revision posteriolateral and interbody fusion.Posteriolateral instrumented fusion [id number].Revision decompression with bilateral laminectomy, complete facetectomy and foraminotomy L1-S1. Instrumentation [id number].Attachment of the caudal end of the construct to bony pelvis.Dural Repair with patch graft L2 central. Insertion of biomechanical devices L2-3, L3-4, L4-5.Removal of failed hardware L4-S1. Exploration of fusion L4-S1.Use of [employer] Navigation for screw placement History/Risk Factors: 71-year-old male presents for elective spinal surgery. Medical history: Degenerative disc disease, left lower extremity weakness with radiculopathy. Medical history: GERD, PVCs and OA. 08/11, Medicine consult. Clinical Indicators: 08/13, EKG: Atrial Fibrillation with rapid ventricular response. 08/14, Cardiology note: Patient converted to sinus rhythm around 6pm yesterday. He is on Heparin drip and Cardizem drip has been discontinued. 08/18, EKG: Sinus rhythm with 1st degree AV block with occasional premature ventricular complexes. Treatment: 08/13 Cardizem IV 4mg x 1; 08/13 d/cd on 08/13 Diltiazem IV 125mls @ 5mls/hr; 08/13 08/14 Heparin drip 250mls@ 10.018mls/hr, 08/14 Eliquis po 5mg BID and Lopressor po BID. Also discharged home on Eliquis and Lopressor. Please clarify if New Onset Atrial Fibrillation is a complication of the surgical procedure? [ ] Yes [ ] No [ ] Other, please specify [ ] Unable to determine (Template Last Revised: May 2020) MTDD
== END 2022-08-19 15:32 | disposition home health service (06) | DRG 460 ==
LOC: 2ORMAIN 06:04 → 3SCARD 15:28 → 4SSUR 08-12 17:18 → 3SCARD 08-13 14:15
PROVIDERS: ADMIT Orthopaedic Surgery; ATTEND Orthopaedic Surgery
PROC: 0JB70ZZ Excision of Back Subcutaneous Tissue and Fascia, Open Approach (ICD-10-PCS; 2022-08-11)
PROC: 01NB0ZZ Release Lumbar Nerve, Open Approach (ICD-10-PCS; 2022-08-11)
PROC: 0SB20ZZ Excision of Lumbar Vertebral Disc, Open Approach (ICD-10-PCS; 2022-08-11)
PROC: 0ST20ZZ Resection of Lumbar Vertebral Disc, Open Approach (ICD-10-PCS; 2022-08-11)
PROC: 01NR0ZZ Release Sacral Nerve, Open Approach (ICD-10-PCS; 2022-08-11)
PROC: 01NR0ZZ Release Sacral Nerve, Open Approach (ICD-10-PCS; 2022-08-11)
PROC: 0QH304Z Insertion of Internal Fixation Device into Left Pelvic Bone, Open Approach (ICD-10-PCS; 2022-08-11)
PROC: 00UT07Z Supplement Spinal Meninges with Autologous Tissue Substitute, Open Approach (ICD-10-PCS; 2022-08-11)
PROC: 0QH204Z Insertion of Internal Fixation Device into Right Pelvic Bone, Open Approach (ICD-10-PCS; 2022-08-11)
PROC: 0SP00AZ Removal of Interbody Fusion Device from Lumbar Vertebral Joint, Open Approach (ICD-10-PCS; 2022-08-11)
PROC: 8E0WXBZ Computer Assisted Procedure of Trunk Region (ICD-10-PCS; 2022-08-11)
PROC: 0SG10AJ Fusion of 2 or more Lumbar Vertebral Joints with Interbody Fusion Device, Posterior Approach, Anterior Column, Open Approach (ICD-10-PCS; principal; 2022-08-11 07:45)
DX: M96.0 Pseudarthrosis after fusion or arthrodesis (principal); G96.09 Other spinal cerebrospinal fluid leak; D62 Acute posthemorrhagic anemia; E87.20 Acidosis, unspecified; E87.1 Hypo-osmolality and hyponatremia; G47.00 Insomnia, unspecified; I48.91 Unspecified atrial fibrillation; K59.00 Constipation, unspecified; M48.062 Spinal stenosis, lumbar region with neurogenic claudication; M48.07 Spinal stenosis, lumbosacral region; M25.78 Osteophyte, vertebrae; N40.0 Benign prostatic hyperplasia without lower urinary tract symptoms; K21.9 Gastro-esophageal reflux disease without esophagitis; G47.9 Sleep disorder, unspecified; H91.90 Unspecified hearing loss, unspecified ear; G89.29 Other chronic pain; K44.9 Diaphragmatic hernia without obstruction or gangrene; G89.18 Other acute postprocedural pain; I49.3 Ventricular premature depolarization; M47.26 Other spondylosis with radiculopathy, lumbar region; G44.89 Other headache syndrome; M19.90 Unspecified osteoarthritis, unspecified site; E87.6 Hypokalemia; M51.16 Intervertebral disc disorders with radiculopathy, lumbar region; Q05.8 Sacral spina bifida without hydrocephalus; Y83.8 Other surgical procedures as the cause of abnormal reaction of the patient, or of later complication, without mention of misadventure at the time of the procedure; Z87.11 Personal history of peptic ulcer disease; Z87.891 Personal history of nicotine dependence; Z79.899 Other long term (current) drug therapy; Z87.19 Personal history of other diseases of the digestive system; Z86.73 Personal history of transient ischemic attack (TIA), and cerebral infarction without residual deficits; Z82.49 Family history of ischemic heart disease and other diseases of the circulatory system; Z86.79 Personal history of other diseases of the circulatory system
CPT/HCPCS: 71045; 72100; 72128; 72131; 80048; 80051; 80053; 83735; 84132; 84443; 84484; 85025; 85027; 85610; 85730; 86850; 86900; 86901; 93005; 93306; 94760

== ENCOUNTER 2022-09-02 15:21 | Emergency (ER) | payer MEDICARE ==
[2022-09-02 15:28] VITALS: RESP 16
--- NOTE | 2022-09-02 16:15 | ED ---
Extremity Problem HPI - General Chief complaint: Extremity Problem,Nontraumatic Stated complaint: leg swelling, back pain Time Seen by Provider: 09/02/22 16:03 Source: patient, EMS Mode of arrival: EMS Limitations: no limitations - History of Present Illness Initial comments: Patient is a 72-year-old male who presents the emergency department for lower e xtremity swelling. Patient had a lumbar fusion on 08/11/[address] Garcia. Since the surgery he has had swelling in both of his feet. States he was told to come to the emergency department if the swelling worsened. Today the swelling has traveled up his lower legs. He denies leg pain including calf pain. No history of DVT or PE. He denies chest pain and shortness of breath. He denies history of heart failure. Patient has mild lower back pain otherwise feels well. - Related Data Home Medications Medication Instructions Recorded Confirmed Pantoprazole Sodium [Protonix] 40 mg PO DAILY 11/20/14 09/02/22 HYDROcodone/APAP 7.5-325MG [[place] 1 tab PO Q6H 08/11/22 09/02/22 7.5-325] Ferrous Sulfate [Feosol] 325 mg PO DAILY 09/02/22 09/02/22 Pregabalin [Lyrica] 50 mg PO BID 09/02/22 09/02/22 Previous Rx's Medication Instructions Recorded Apixaban [Eliquis] 5 mg PO BID #180 tab 08/14/22 Allergies Allergy/AdvReac Type Severity Reaction Status Date / Time ciprofloxacin Allergy Rash/Hives/ Verified 09/02/22 17:14 sneezing levofloxacin [From Levaquin] AdvReac Nausea Verified 09/02/22 17:14 Review of Systems ROS Statement: Those systems with pertinent positive or pertinent negative responses have been documented in the HPI. ROS Other: All systems not noted in ROS Statement are negative. Past Medical History Past Medical History: GERD/Reflux, GI Bleed, Hearing Disorder / Deafness, Osteoarthritis (OA), Prostate Disorder Additional Past Medical History / Comment(s): PVC's, gastric ulcer, bilateral tinnitis, chronic back pain, hiatal hernia, degenerative disc disease. insomnia History of Any Multi-Drug Resistant Organisms: None Reported Past Surgical History: Back Surgery, Cardiac Ablation, Hernia Repair, Orthopedic Surgery Additional Past Surgical History / Comment(s): Bilateral cataract removal, bilateral rotator cuff sx, L foot bunionectomy/hammer toe sx, sinus surgery, cervical fusion and lumbar fusions. Past Anesthesia/Blood Transfusion Reactions: No Reported Reaction Additional Past Anesthesia/Blood Transfusion Reaction / Comment(s): Pt has received blood in past without reaction. Past Psychological History: No Psychological Hx Reported Smoking Status: Former smoker Past Alcohol Use History: Daily Past Drug Use History: None Reported - Past Family History Mother Family Medical History: No Reported History Father Family Medical History: Congestive Heart Failure (CHF) General Exam Limitations: no limitations Head exam: Present: atraumatic, normocephalic, normal inspection Respiratory exam: Present: normal lung sounds bilaterally. Absent: respiratory distress, wheezes, rales, rhonchi, stridor Cardiovascular Exam: Present: regular rate, normal rhythm, normal heart sounds. Absent: systolic murmur, diastolic murmur, rubs, gallop, clicks Extremities exam: Present: full ROM, normal capillary refill, pedal edema (1+ bilateral). Absent: calf tenderness Back exam: Present: normal inspection Neurological exam: Present: alert, oriented X3, CN II-XII intact Psychiatric exam: Present: normal affect, normal mood Skin exam: Present: warm, dry, intact, normal color. Absent: rash Course Vital Signs 09/02/22 09/02/22 15:24 18:02 Temperature 98.3 F 97.9 F Pulse Rate 80 89 Respiratory 16 16 Rate Blood Pressure 147/66 139/75 O2 Sat by Pulse 96 97 Oximetry Medical Decision Making - Medical Decision Making EKG taken at 16:05, interpreted myself Sinus rhythm with first-degree AV block with occasional ventricular premature complexes, nonspecific T wave abnormality Ventricular rate 81, OK interval 226, QRS duration 106, QTC 405 Was pt. sent in by a medical professional or institution (, PA, THERAPIST RESPIRATORY, urgent c are, hospital, or assisted...) When possible be specific @ -No Did you speak to anyone other than the patient for history (EMS, parent, family, police, friend...)? What history was obtained from this source @ -No Did you review nursing and triage notes (agree or disagree)? Why? @ -I reviewed and agree with nursing and triage notes Were old charts reviewed (outside hosp., previous admission, EMS record, old EKG, old radiological studies, urgent care reports/EKG's, assisted records)? Report findings @ -No old charts were reviewed Differential Diagnosis (chest pain, altered mental status, abdominal pain women, abdominal pain men, vaginal bleeding, weakness, fever, dyspnea, syncope, headache, dizziness, GI bleed, back pain, seizure, CVA, palpatations, mental health)? @ -Postsurgical edema, DVT, dependent edema, heart failure. This list is not meant to be all-inclusive EKG interpreted by me (3pts min.). @ None X-rays interpreted by me (1pt min.). @ -None done CT interpreted by me (1pt min.). @ -None done U/S interpreted by me (1pt. min.). @ -None done What testing was considered but not performed or refused? (CT, X-rays, U/S, labs)? Why? @ -Considered laboratory studies but patient does not have leg pain, chest pain, shortness of breath. Swelling likely related to post-op What meds were considered but not given or refused? Why? @ -None Did you discuss the management of the patient with other professionals (professionals i.e. , PA, THERAPIST RESPIRATORY, lab, RT, psych nurse, psychotherapist social worker, fish cake maker, teacher, student liaison officer, registered nurse hh case manager)? Give summary @ -Discussed case with Daniel Lazaro who agreed with plan of elevation and compression at home. Patient to follow-up in the office this week Was smoking cessation discussed for >3mins.? @ -No Was critical care preformed (if so, how long)? @ -No Were there social determinants of health that impacted care today? How? (Homelessness, low income, unemployed, alcoholism, drug addiction, transportation, low edu. Level, literacy, decrease access to med. care, penitentiary, rehab)? @ -No Was there de-escalation of care discussed even if they declined (Discuss DNR or withdrawal of care, Hospice)? DNR status @ -No What co-morbidities impacted this encounter? (DM, HTN, Smoking, COPD, CAD, Cancer, CVA, ARF, Chemo, Hep., AIDS, mental health diagnosis, sleep apnea, morbid obesity)? @ -None Was patient admitted / discharged? Hospital course, mention meds given and route, prescriptions, significant lab abnormalities, going to OR and other pertinent info. @ -Discharged. Discussed case with Daniel Lazaro patient will elevate and compress legs at home. He'll follow up in the office this week. Patient and his verbalize understanding Undiagnosed new problem with uncertain prognosis? @ -No Drug Therapy requiring intensive monitoring for toxicity (Heparin, Nitro, Insulin, Cardizem)? @ -No Were any procedures done? @ -No Diagnosis/symptom? @ -post-op swelling Acute, or Chronic, or Acute on Chronic? @ -acute Uncomplicated (without systemic symptoms) or Complicated (systemic symptoms)? @ -uncomplicated Side effects of treatment? @ -No Exacerbation, Progression, or Severe Exacerbation? @ -No Poses a threat to life or bodily function? How? (Chest pain, [place], [place], pneumonia, PE, COPD, DKA, ARF, appy, cholecystitis, CVA, Diverticulitis, Homicidal, Suicidal, threat to staff... and all critical care pts) @ -No Dr. Siddiqui is my attending Disposition Clinical Impression: Postoperative edema Disposition: HOME SELF-CARE Condition: Good Instructions (If sedation given, give patient instructions): Leg Edema (ED) Additional Instructions: Elevate the legs. Use of compression stockings will also help swelling. Follow-up with Dr. Garcia this week. Return to the emergency department if you experience new, concerning, or worsening symptoms. Is patient prescribed a controlled substance at d/c from ED?: No Referrals: Roland Briceño MD [Primary Care Provider] - 1-2 days
--- NOTE | 2022-09-02 17:39 | ED ---
Extremity Problem HPI - General Chief complaint: Extremity Problem,Nontraumatic Stated complaint: leg swelling, back pain Time Seen by Provider: 09/02/22 16:03 Source: patient, EMS Mode of arrival: EMS Limitations: no limitations - Related Data Home Medications Medication Instructions Recorded Confirmed Pantoprazole Sodium [Protonix] 40 mg PO DAILY 11/20/14 08/11/22 HYDROcodone/APAP 7.5-325MG [[place] 1 tab PO Q6H 08/11/22 08/11/22 7.5-325] Ferrous Sulfate [Feosol] 325 mg PO DAILY 09/02/22 09/02/22 Pregabalin [Lyrica] 50 mg PO BID 09/02/22 09/02/22 Previous Rx's Medication Instructions Recorded Apixaban [Eliquis] 5 mg PO BID #180 tab 08/14/22 Allergies Allergy/AdvReac Type Severity Reaction Status Date / Time ciprofloxacin Allergy Rash/Hives/ Verified 09/02/22 17:14 sneezing levofloxacin [From Levaquin] AdvReac Nausea Verified 09/02/22 17:14 Review of Systems ROS Statement: Those systems with pertinent positive or pertinent negative responses have been documented in the HPI. ROS Other: All systems not noted in ROS Statement are negative. Past Medical History Past Medical History: GERD/Reflux, GI Bleed, Hearing Disorder / Deafness, Osteoarthritis (OA), Prostate Disorder Additional Past Medical History / Comment(s): PVC's, gastric ulcer, bilateral tinnitis, chronic back pain, hiatal hernia, degenerative disc disease. insomnia History of Any Multi-Drug Resistant Organisms: None Reported Past Surgical History: Back Surgery, Cardiac Ablation, Hernia Repair, Orthopedic Surgery Additional Past Surgical History / Comment(s): Bilateral cataract removal, bilateral rotator cuff sx, L foot bunionectomy/hammer toe sx, sinus surgery, cervical fusion and lumbar fusions. Past Anesthesia/Blood Transfusion Reactions: No Reported Reaction Additional Past Anesthesia/Blood Transfusion Reaction / Comment(s): Pt has received blood in past without reaction. Past Psychological History: No Psychological Hx Reported Smoking Status: Former smoker Past Alcohol Use History: Daily Past Drug Use History: None Reported - Past Family History Mother Family Medical History: No Reported History Father Family Medical History: Congestive Heart Failure (CHF) General Exam Limitations: no limitations Course Vital Signs 09/02/22 15:24 Temperature 98.3 F Pulse Rate 80 Respiratory 16 Rate Blood Pressure 147/66 O2 Sat by Pulse 96 Oximetry Disposition Clinical Impression: Postoperative edema Disposition: HOME SELF-CARE Condition: Good Instructions (If sedation given, give patient instructions): Leg Edema (ED) Additional Instructions: Elevate the legs. Use of compression stockings will also help swelling. Follow-up with Dr. Garcia this week. Return to the emergency department if you experience new, concerning, or worsening symptoms. Is patient prescribed a controlled substance at d/c from ED?: No Referrals: Roland Briceño MD [Primary Care Provider] - 1-2 days
[2022-09-02 18:03] VITALS: BP 139/75; PULSE 89; TEMP 97.9
== END 2022-09-02 18:04 | disposition home or self-care (01) ==
LOC: EC 15:21
DX: L76.82 Other postprocedural complications of skin and subcutaneous tissue (principal); R60.0 Localized edema; I44.0 Atrioventricular block, first degree; K21.9 Gastro-esophageal reflux disease without esophagitis; Z79.899 Other long term (current) drug therapy; Z87.891 Personal history of nicotine dependence; Z88.1 Allergy status to other antibiotic agents
CPT/HCPCS: 93005; 99284

== ENCOUNTER → 2023-07-21 | Outpatient (CLI) | payer MEDICARE ==
--- NOTE | 2023-07-22 19:36 | MR ---
EXAMINATION TYPE: MR thoracic spine wo con DATE OF EXAM: 07/21/2023 6:50 PM CLINICAL INDICATION:Male, 73 years old with history of M54.42 LUMBAGO WITH SCIATICA, LEFT SIDE; PHH, Mid and low back pain that radiates down legs. History of surgery COMPARISON: No priors. TECHNIQUE: Multi planar, multi sequence imaging was performed utilizing: T1-weighted, short-tau inver vangie recovery and T2-weighted of the thoracic spine. IV Contrast: cc (none if empty) FINDINGS: Alignment: Alignment is within normal limits. Vertebral bodies have preserved heights. Spinal cord: Spinal cord is within normal limits for signal. Discs: Multilevel disc desiccation. There is osteophyte at T4-T5 which impresses upon the spinal cord and displaces it posteriorly No additional evidence of significant spinal canal or neural foraminal stenosis. There is no evidence of extradural defects or central spinal canal narrowing at any thoraci c vertebral body level limiting evaluation of the lower thoracic spine at T10-T11 and T12 due to fixa tion hardware. Spinal cord and neural foramen above these levels are patent. Osseous structures: . No abnormal bony edema on inversion recovery sequences. Multilevel osteophyte f ormation and facet joint arthropathy. Scattered disc space narrowing. IMPRESSION: 1. T4-T5 left central osteophyte which impresses and changes the morphology of the spinal cord. Cord signal is maintained. 2. No evidence for significant spinal canal or neural foraminal stenosis from T1 to T9. 3. Limited evaluation of T10-T12 due to fixation hardware.
== END | disposition home or self-care (01) ==
LOC: RADCTMAIN 16:27
PROVIDERS: ATTEND Neurological Surgery
DX: M25.78 Osteophyte, vertebrae (principal); M54.42 Lumbago with sciatica, left side
CPT/HCPCS: 72128; 72146

== ENCOUNTER → 2023-08-05 | Outpatient (CLI) | payer MEDICARE ==
--- NOTE | 2023-08-10 11:02 | CT ---
EXAMINATION TYPE: CT thoracic spine wo con DATE OF EXAM: 08/05/2023 COMPARISON: 07/21/2023 HISTORY: Lumbago with sciatica left side. CT DLP: 1066.3 mGycm Automated exposure control for dose reduction was used. Contrast: None Technique: Axial images 3 mm thick sections. Reconstructed images in the coronal and sagittal plane. Three-D reconstructed images are performed. FINDINGS: Scoliosis is present. There are fixation pedicle screws and rods within the lower thoracic upper lumb ar spine. Top pedicle screw level with some cement appears to be level of T10. Spinal canal at levels with pedicle screws are nondiagnostic due to beam hardening artifact. There is some degenerative disc change with vacuum disc phenomenon within the mid thoracic spine. Thi s appears to be the C6-7 C7-8 levels. No posterior wall displacement is identified in the thoracic spine. No spinal canal stenosis. Some mi ld spondylosis is noted. Note is made of bilateral foraminal stenosis C6-7. IMPRESSION: 1. THORACOLUMBAR FIXATION APPEARS STABLE FROM COMPARISON.
== END | disposition home or self-care (01) ==
LOC: RADCTMAIN 17:33
PROVIDERS: ATTEND Neurological Surgery
DX: Z53.9 Procedure and treatment not carried out, unspecified reason (principal)
CPT/HCPCS: 72128

== ENCOUNTER → 2023-09-21 | Outpatient (CLI) | payer MEDICARE ==
--- NOTE | 2023-09-21 11:36 | MR ---
EXAMINATION TYPE: MR cervical spine wo con DATE OF EXAM: 09/21/2023 COMPARISON: 04/15/2021 HISTORY: 73-year-old male M47.012, Neck pain and tingling into left arm/fingers TECHNIQUE: Multiplanar, multisequence images of the cervical spine were acquired without contrast. FINDINGS: Craniocervical junction is unremarkable, predental space widening, or prevertebral soft tissue swelli ng. Scattered bony ankylosis along the facet joints on the left at C2-C3 and on the right at C4-C6 levels . Previous ACDF C5-C6. Residual posterior osteophytic ridging here continues to mild narrowing of the s dima canal with abutment and slight flattening of the ventral cord due to reversal the normal cervic al lordosis without any cord compression. There is moderate degenerative disc disease below the fusion with narrowed, desiccated, and bulging d isc along with ligamentum flavum thickening. There is similar moderate narrowing of the spinal canal here with AP canal dimension of 6 mm with abutment and slight flattening of the ventral cord but no c ord compression. Mild degenerative disc disease above the fusion. Hyperostotic changes throughout. Degenerative grade 1 anterolisthesis C3-C4 and C4-C5. Also T2-T3. No suspicious bone marrow replacement. At C2-C3, facet and uncovertebral joint arthropathy contribute to mild narrowing of the right neurofo ramen. At C3-C4, hypertrophic facet and uncovertebral joint arthropathy contributes to moderate bilateral ne uroforaminal stenosis. At C4-C5, hypertrophic facet and uncovertebral joint arthropathy contributes to [id number] righ t neural foraminal stenosis. At the fused C5-C6 level, hyperostotic changes contribute to moderate to severe right and moderate le ft neuroforaminal stenosis. At C6-C7, eccentric leftward diffuse disc bulge with facet and uncovertebral joint arthropathy contri butes to moderate to severe left and moderate right neural foraminal stenosis. At C7-T1, mild facet arthropathy without significant foraminal stenosis. IMPRESSION: 1. Appearance is relatively similar with moderate spondylotic change and previous C5-C6 ACDF. Residua l posterior osteophytic ridging and reversal of the normal cervical lordosis results in mild narrowin g of the spinal canal here with abutment of the ventral cord but no cord compression. 2. Bony ankylosis of the posterior elements from C2 down through C6 levels. Fixed grade 1 anterolisth esis C3-C4 and C4-C5. Degenerative grade 1 anterolisthesis T2-T3 as well. 3. Moderate narrowing of the spinal canal below the fusion at C6/C7 with abutment and slight flatteni ng of the ventral cord but no cord compression. Again, similar to prior. 4. Also below the fusion at C6/C7, there is eccentric leftward diffuse disc bulge contributes to mode rate to severe left and moderate right neuroforaminal stenosis. 5. At the C5-C6 ACDF level, hyperostotic changes contribute to moderate to severe right and moderate left neuroforaminal stenosis.
== END | disposition home or self-care (01) ==
LOC: RADMRIMAIN 08:35
PROVIDERS: ATTEND Neurological Surgery
DX: M47.012 Anterior spinal artery compression syndromes, cervical region (principal); M47.812 Spondylosis without myelopathy or radiculopathy, cervical region; M43.12 Spondylolisthesis, cervical region; M50.323 Other cervical disc degeneration at C6-C7 level; M99.71 Connective tissue and disc stenosis of intervertebral foramina of cervical region
CPT/HCPCS: 72141

== ENCOUNTER → 2023-11-26 | Outpatient (CLI) | payer MEDICARE ==
[~2023-11-26] MED LIST changes: -ACETAMINOPHEN TAB 500 MG TAB PO PRN; -GABAPENTIN 300 MG CAP PO PRN; +IODINE/POTASSIUM IODIDE 14 ML BOTTLE ONE; -ONDANSETRON 4 MG/2 ML VIAL IVP PRN; -TRANEXAMIC 1,000 MG/100ML-NACL 1,000 MG in SALINE 1 100ML.BAG IVPB PRN
--- NOTE | 2023-11-30 23:41 | NM ---
EXAMINATION TYPE: NM DatScan Brain SPECT DATE OF EXAM: 11/26/2023 COMPARISON: MRI brain November 11, 2019 CLINICAL INDICATION: Male, 73 years old with history of G25.2 OTHER SPECIFIED FORMS OF TREMOR; TECHNIQUE: 10 drops of Lugol's solution was administered 1 hour prior to injection as a thyroid bloc renate agent. After the administration of 4.8 mCi I-123 Ioflupane DaTscan. Images obtained [address] injection. SPECT images of the brain were acquired with axial and coronal reconstructions. FINDINGS: The DaTSCAN demonstrates reduced uptake of tracer throughout the striata. 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 [facility], , 11/30/2023 11:39 PM
== END | disposition home or self-care (01) ==
LOC: RADNMMAIN 08:37
PROVIDERS: ATTEND Psychiatry & Neurology Neurology
DX: G25.2 Other specified forms of tremor (principal)
CPT/HCPCS: 78803